=== PATIENT | male | born 1935 | race Caucasian/White ===

== ENCOUNTER 2016-12-06 17:15 | Inpatient (IN) | payer MEDICARE ==
[~2016-12-06] VITALS: Ht 172.7 cm; Wt 79.2 kg
[~2016-12-06 17:15] MED LIST: ADVA250A INH; APIX2.5T PO; ARIC5TAB PO; ATOR20TA PO; FURO20TA PO; LEVEMIR SQ; LISI-366 PO; NORV10TA PO; PHEN100 PO; PHEN64.8 PO; POTA10IN2 PO; SYMB160A INH; TERA2CAP3 PO
[2016-12-06 17:17] VITALS: BP 172/72; PULSE 82; RESP 40; TEMP 98.8; O2SAT 99
--- NOTE | 2016-12-06 17:24 | PD ---
Physical Exam Time Seen by Provider: 17:23 Narrative 80 y/o male here with shortness of breath, L foot ulcer, bilateral LE edema. His urine also looks dark according to family member. Vital signs reviewed. Seen at triage desk. Awaiting bed placement. Data Data Last Documented VS Vital Signs Date Time Temp Pulse Resp B/P Pulse Ox O2 Delivery O2 Flow Rate FiO2 12/06/16 17:17 98.8 82 40 172/72 99 Room Air [facility] Medical Record Reviewed: Yes Supervised Visit with STEPHAN: Juan Collier Dec 06, 2016 17:24
[2016-12-06] MEDS ORDERED: LEVEMIR SQ (17:49)
[2016-12-06] MEDS ORDERED: AMLO10TA2 PO (17:49)
[2016-12-06] MEDS ORDERED: SYMB80AE INH (17:49)
[2016-12-06] MEDS ORDERED: FURO1TAB60 PO (17:49)
[2016-12-06] MEDS ORDERED: ATOR20TA15 PO (17:49)
[2016-12-06] MEDS ORDERED: TERA1CAP3 PO (17:49)
[2016-12-06] MEDS ORDERED: DILA100C PO (17:49)
[2016-12-06] MEDS ORDERED: ASPI81TA81 (17:49)
[2016-12-06] MEDS ORDERED: LISI40TA PO (17:49)
[2016-12-06] MEDS ORDERED: ALBUAER3 INH (17:49)
--- NOTE | 2016-12-06 17:54 | PD ---
HPI Chief Complaint: Respiratory Distress Time Seen by Provider: 17:50 Travel History International Travel<30 days: No Contact w/Intl Traveler<30days: No Traveled to known affect area: No History of Present Illness HPI 80-year-old male with PMH of CVA, COPD, CHF, DM, HTN, HLD, A. fib, seizures, aortic stenosis presents to the ED for evaluation of 1 week history of increasing shortness of breath and bilateral lower extremity edema. Gradual onset. Patient also endorses productive cough. He denies fevers, chills, nausea, vomiting, abdominal pain, dysuria. Also complains of 1 month history of wound of the left foot. States the wound has become more painful over time. is at bedside and states that the patient's urine looks dark today as well. Patient has not seen his primary care, is in the midst of changing doctors. He endorses compliance with his daily Lasix. PFSH Past Medical History Arthritis: Yes (FEET) Asthma: No Blood Disorders: No Anxiety: No Depression: Yes (OCCASIONAL) Cancer: No Cardiovascular Problems: Yes ([place]) COPD: Yes Cerebrovascular Accident: Yes Diabetes: Yes Patient Takes Glucophage: No Endocrine: No Gastrointestinal Disorders: Yes GERD: Yes Genitourinary: No Hepatitis: No Hiatal Hernia: No Immune Disorder: No Musculoskeletal: Yes Neurologic: No Psychiatric: Yes Reproductive: No Respiratory: Yes Sleep Apnea: No Ulcer: No Past Surgical History Appendectomy: No Cholecystectomy: Yes (PT STATES HALF GALLBLADDER REMOVED.) Pacemaker: No Social History Alcohol Use: No Tobacco Use: No (QUIT 2008) Substance Use: No Allergies-Medications (Allergen,Severity, Reaction): Coded Allergies: No Known Allergies (Verified , 10/11/15) Reported Meds & Prescriptions Reported Meds & Active Scripts Active Reported Levemir Inj (Insulin Detemir) 1,000 unit/ 10 ML Vial 6 Units SQ HS Do not mix with any other Insulin. Aspir-81 (Aspirin) 81 Mg Tabdr 81 DAILY Symbicort Inh (Budesonide/Formoterol Fumarate) 80-4.5 Mcg/Act Aero 2 Puff INH Q12HR Proair Hfa 8.5 GM Inh (Albuterol Sulfate) 90 Mcg/Act Aer 2 Puff INH Q4-6H PRN 108 mcg/actuation Lisinopril 40 Mg Tab 40 Mg PO DAILY Dilantin (Phenytoin Extended) 100 Mg Cap 100 Mg PO BID Lasix (Furosemide) 40 Mg Tab 40 Mg PO BID Terazosin (Terazosin HCl) 1 Mg Cap 1 Mg PO HS Amlodipine (Amlodipine Besylate) 10 Mg Tab 10 Mg PO DAILY Atorvastatin (Atorvastatin Calcium) 20 Mg Tab 20 Mg PO HS Review of Systems Except as stated in HPI: all other systems reviewed are Neg Physical Exam Narrative GENERAL: Frail elderly white male appearing older than his stated age in no acute distress. SKIN: Focused skin assessment warm/dry. There is a diabetic foot ulcer on the lateral aspect of the left foot. The foot is erythematous, tender and warm to the mid ankle. HEAD: Normocephalic. EYES: No scleral icterus. No injection or drainage. NECK: Supple, trachea midline. No JVD or lymphadenopathy. CARDIOVASCULAR: Regular rate and rhythm without murmurs, gallops, or rubs. RESPIRATORY: Decreased breath sounds bilaterally. No accessory muscle use. GASTROINTESTINAL: Abdomen soft, non-tender, nondistended. Active bowel sounds. RECTAL EXAM: No masses or tenderness, stool is brown. Guaiac positive. MUSCULOSKELETAL: No cyanosis. Pitting edema of the bilateral lower extremities, right greater than left. Homans sign negative bilaterally. BACK: Nontender without obvious deformity. No CVA tenderness. Data Data Last Documented VS Vital Signs Date Time Temp Pulse Resp B/P Pulse Ox O2 Delivery O2 Flow Rate FiO2 12/06/16 19:09 72 18 191/92 100 Nasal Cannula 4 12/06/16 17:17 98.8 Orders Complete Blood Count With Diff (12/06/16 17:47) Comprehensive Metabolic Panel (12/06/16 17:47) B-Type Natriuretic Peptide (12/06/16 17:47) Act Partial Throm Time (Ptt) (12/06/16 17:47) Prothrombin Time / Inr (Pt) (12/06/16 17:47) Magnesium (Mg) (12/06/16 17:47) Ckmb (Isoenzyme) Profile (12/06/16 17:47) Troponin I (12/06/16 17:47) Urinalysis - C+S If Indicated (12/06/16 17:47) Iv Access Insert/Monitor (12/06/16 17:47) Electrocardiogram (12/06/16 17:47) Ecg Monitoring (12/06/16 17:47) Oximetry (12/06/16 17:47) Oxygen Administration (12/06/16 17:47) Chest, Single Ap (12/06/16 17:47) Sodium Chloride 0.9% Flush (Ns Flush) (12/06/16 18:00) Methylprednisolone So Succ Inj (Solumedr (12/06/16 18:00) Albuterol-Ipratropium Neb (Duoneb Neb) (12/06/16 18:00) Foot, Limited (2vws) (12/06/16 17:47) Wound Culture And Gram Stain (12/06/16 17:47) CKMB (12/06/16 17:50) CKMB% (12/06/16 17:50) Morphine Inj (Morphine Inj) (12/06/16 19:15) Blood Culture (12/06/16 19:03) Vancomycin Inj (Vancomycin Inj) (12/06/16 19:15) Piperacil-Tazo 2.25 Gm Premix (Zosyn 2.2 (12/06/16 19:15) Mri Foot W/O Contrast (12/06/16 ) Consult Podiatry (12/06/16 ) (Hub Use Only)Inp Phy Cons/Ref (12/06/16 ) Npo After Midnight W/ Po Meds (12/07/16 Breakfast) Consent (12/06/16 20:07) Admit Order (Ed Use Only) (12/06/16 20:33) Labs Laboratory Tests Test 12/06/16 17:50 White Blood Count 25.2 TH/MM3 Red Blood Count 3.67 MIL/MM3 Hemoglobin 8.5 GM/DL Hematocrit 25.9 % Mean Corpuscular Volume 70.4 FL Mean Corpuscular Hemoglobin 23.1 PG Mean Corpuscular Hemoglobin 32.7 % Concent Red Cell Distribution Width 17.0 % Platelet Count 173 TH/MM3 Mean Platelet Volume 8.0 FL Neutrophils (%) (Auto) 88.9 % Lymphocytes (%) (Auto) 2.8 % Monocytes (%) (Auto) 8.1 % Eosinophils (%) (Auto) 0.0 % Basophils (%) (Auto) 0.2 % Neutrophils # (Auto) 22.4 TH/MM3 Lymphocytes # (Auto) 0.7 TH/MM3 Monocytes # (Auto) 2.0 TH/MM3 Eosinophils # (Auto) 0.0 TH/MM3 Basophils # (Auto) 0.0 TH/MM3 CBC Comment DIFF FINAL Differential Comment Prothrombin Time 12.6 SEC Prothromb Time International 1.1 RATIO Ratio Activated Partial 35.0 SEC Thromboplast Time Sodium Level 126 MEQ/L Potassium Level 5.4 MEQ/L Chloride Level 95 MEQ/L Carbon Dioxide Level 14.7 MEQ/L Anion Gap 16 MEQ/L Blood Urea Nitrogen 73 MG/DL Creatinine 3.86 MG/DL Estimat Glomerular Filtration 15 ML/MIN Rate Random Glucose 112 MG/DL Calcium Level 8.3 MG/DL Magnesium Level 1.6 MG/DL Total Bilirubin 0.5 MG/DL Aspartate Amino Transf 39 U/L (AST/SGOT) Alanine Aminotransferase 17 U/L (ALT/SGPT) Alkaline Phosphatase 147 U/L Total Creatine Kinase 687 U/L Creatine Kinase MB 21.3 NG/ML Creatine Kinase MB % 3.1 % Troponin I 0.05 NG/ML B-Type Natriuretic Peptide 326 PG/ML Total Protein 6.4 GM/DL Albumin 3.0 GM/DL MDM Medical Decision Making Medical Screen Exam Complete: Yes Emergency Medical Condition: Yes Differential Diagnosis CHF versus pneumonia versus COPD exacerbation versus cellulitis versus osteomyelitis versus UTI Narrative Course 80-year-old male with PMH of CVA, COPD, CHF, DM, HTN, HLD, A. fib, seizures, aortic stenosis presents to the ED for evaluation of 1 week history of increasing shortness of breath and bilateral lower extremity edema. Gradual onset. Patient also endorses productive cough. He denies fevers, chills, nausea, vomiting, abdominal pain, dysuria. Also complains of 1 month history of wound of the left foot. Patient is afebrile, hypertensive, tachypneic and hypoxic on presentation. Physical exam reveals an ill-appearing white male in no acute distress. Very minimal breath sounds bilaterally. 2+ pitting edema in the bilateral lower extremities, left greater than right. Old sign negative bilaterally. Palpable DP pulses bilaterally. There is a 1 cm wound on the dorsal aspect of the left foot, near the MTP joint. There is blistering on the top of the foot and erythema to the mid ankle. Guaiac positive on rectal exam. Wound culture was obtained. Patient was administered half liter of normal saline, 4 mg morphine IV, Solu-Medrol and DuoNeb 3. O2 sats 92-99 on 4 L by nasal cannula. CBC: WBC 25.2 with a left shift. Hemoglobin 8.5 INR 1.1. CMP: Sodium 126, chloride 95, BUN 73, creatinine 3.86. Chest x-ray right atelectasis versus airspace disease per radiology read.. Cardiac enzymes negative 1. EKG: Rate 71, A. fib, no ST elevation or depression. Reviewed by Dr. Aranda. BNP: 326 Left foot x-ray: No osteomyelitis. Soft tissue emphysema and around the fifth MTP soft tissues. Gas-forming organism should be excluded per radiology read. Blood cultures were obtained. Patient was administered vancomycin and Zosyn. Dr. Gardiner saw the patient in the emergency room and plans fifth ray amputation tomorrow. MRI without contrast ordered. Dr. Aranda spoke with the residents who agree to accept the patient to the medicine service under Dr. Hernandez. Please see medicine and podiatry notes for disposition. HemaPrompt Point of Care Internal Pos. & Neg. Controls: Passed Fecal Specimen Occult Blood: Positive Nayeli Vee Dec 06, 2016 17:53
[2016-12-06 18:00] VITALS: O2SAT 99
[2016-12-06] MEDS ORDERED: methylPREDNISolone SOD SUCC 125 MG/2 ML VIAL IVP ONE (18:00)
[2016-12-06] MEDS ORDERED: SODIUM CHLORIDE 0.9% FLUSH 10 ML FLUSH IVF PRN (18:00)
[2016-12-06] MEDS: RESP: ALBUTEROL 2.5 MG/IPRATROPIUM 0.5 MG NEB (SCH) INH (18:31)
[2016-12-06 18:32] VITALS: O2SAT 92
--- NOTE | 2016-12-06 18:39 | RADRPT ---
EXAM DATE/TIME: 12/06/2016 18:06 [facility] COMPARISON: CHEST SINGLE AP, October 11, 2015, 20:41. INDICATIONS : Syncope MEDICAL HISTORY : Cardiovascular disease. Diabetes mellitus type II. SURGICAL HISTORY : Cardiac stents ENCOUNTER: Initial ACUITY: 1 day PAIN SCORE: Non-responsive. LOCATION: Bilateral chest FINDINGS: There is streaky atelectasis versus airspace disease in the right lower lobe. Cardiomegaly. Left lung is clear. Osseous structures are intact. CONCLUSION: Right basilar atelectasis versus airspace disease. Dean Burton MD on December 06, 2016 at 18:37 Board Certified Radiologist. This report was verified electronically.
--- NOTE | 2016-12-06 18:40 | RADRPT ---
EXAM DATE/TIME: 12/06/2016 18:08 [facility] COMPARISON: No previous studies available for comparison. INDICATIONS : Diabetic lesion, left foot MEDICAL HISTORY : Diabetes mellitus type II. Cardiovascular disease. SURGICAL HISTORY : Cardiac stents ENCOUNTER: Initial ACUITY: 4 - 6 days PAIN SCORE: Non-responsive. LOCATION: Left distal metatarsal FINDINGS: There is soft tissue emphysema seen surrounding the fifth MTP joint and at the level of the joint. Ob vious cortical destruction is difficult to assess. The possibility of infection with a gas-forming or ganism is difficult to exclude. CONCLUSION: No obvious bone destruction at this time. Soft tissue emphysema is noted in and around the fifth MTP joint soft tissues. The possibility of infection with gas-forming organism should be excluded. Dean Burton MD on December 06, 2016 at 18:37 Board Certified Radiologist. This report was verified electronically.
[2016-12-06 18:46] LABS: AUTOMATED NEUTROPHIL # 22.4 TH/MM3 (1.8-7.7); BASOPHIL % 0.2 % (0.0-2.0); HEMATOCRIT 25.9 % (39.0-51.0); HEMO FLAGS DIFF FINAL; LYMPH % 2.8 % (9.0-44.0); LYMPHOCYTE # 0.7 TH/MM3 (1.0-4.8); MEAN CELL VOLUME 70.4 FL (80.0-100.0); MEAN CORPUSCULAR HEMOGLOBIN 23.1 PG (27.0-34.0); MEAN CORPUSCULAR HGB CONC 32.7 % (32.0-36.0); MONO % 8.1 % (0.0-8.0); NEUT % 88.9 % (16.0-70.0); PLATELET COUNT 173 TH/MM3 (150-450); RED BLOOD COUNT 3.67 MIL/MM3 (4.50-5.90); WHITE BLOOD COUNT 25.2 TH/MM3 (4.0-11.0)
[2016-12-06 18:54] LABS: INTERNATIONAL NORMALIZED RATIO 1.1 RATIO; PROTHROMBIN TIME - PATIENT 12.6 SEC (9.8-11.6)
[2016-12-06 18:57] LABS: ALT (GPT) 17 U/L (12-78); ANION GAP 16 MEQ/L (5-15); AST (GOT) 39 U/L (15-37); BICARBONATE 14.7 MEQ/L (21.0-32.0); BLOOD UREA NITROGEN 73 MG/DL (7-18); CHLORIDE 95 MEQ/L (98-107); GLOMERULAR FILTRATION RATE 15 ML/MIN (>89); MAGNESIUM 1.6 MG/DL (1.5-2.5); POTASSIUM 5.4 MEQ/L (3.5-5.1); SODIUM (NA) 126 MEQ/L (136-145)
[2016-12-06 19:00] LABS: ALKALINE PHOSPHATASE 147 U/L (45-117); CREATINE KINASE 687 U/L (39-308); TOTAL BILIRUBIN ADULT 0.5 MG/DL (0.2-1.0)
[2016-12-06 19:09] VITALS: BP 191/92; PULSE 72; RESP 18; O2SAT 100
[2016-12-06 19:13] LABS: CKMB 21.3 NG/ML (0.5-3.6)
[2016-12-06] MEDS ORDERED: MORPHINE SULFATE 4 MG/ML INJ IV PUSH ONE (19:15)
[2016-12-06] MEDS ORDERED: VANCOMYCIN INJ 1,250 MG in SODIUM CHLOR 0.9% 250 ML INJ 250 ML IV ONE (19:15)
[2016-12-06] MEDS ORDERED: PIPERACIL-TAZO 2.25 GM PREMIX 50 ML IV ONE (19:15)
--- NOTE | 2016-12-06 19:23 | PD ---
Data Data Last Documented VS Vital Signs Date Time Temp Pulse Resp B/P Pulse Ox O2 Delivery O2 Flow Rate FiO2 12/06/16 19:09 72 18 191/92 100 Nasal Cannula 4 12/06/16:17 98.8 Orders Complete Blood Count With Diff (12/06/16 17:47) Comprehensive Metabolic Panel (12/06/16 17:47) B-Type Natriuretic Peptide (12/06/16 17:47) Act Partial Throm Time (Ptt) (12/06/16 17:47) Prothrombin Time / Inr (Pt) (12/06/16 17:47) Magnesium (Mg) (12/06/16 17:47) Ckmb (Isoenzyme) Profile (12/06/16 17:47) Troponin I (12/06/16 17:47) Urinalysis - C+S If Indicated (12/06/16 17:47) Iv Access Insert/Monitor (12/06/16 17:47) Electrocardiogram (12/06/16 17:47) Ecg Monitoring (12/06/16 17:47) Oximetry (12/06/16 17:47) Oxygen Administration (12/06/16 17:47) Chest, Single Ap (12/06/16 17:47) Sodium Chloride 0.9% Flush (Ns Flush) (12/06/16 18:00) Methylprednisolone So Succ Inj (Solumedr (12/06/16 18:00) Albuterol-Ipratropium Neb (Duoneb Neb) (12/06/16 18:00) Foot, Limited (2vws) (12/06/16 17:47) Wound Culture And Gram Stain (12/06/16 17:47) CKMB (12/06/16 17:50) CKMB% (12/06/16 17:50) Morphine Inj (Morphine Inj) (12/06/16 19:15) Blood Culture (12/06/16 19:03) Vancomycin Inj (Vancomycin Inj) (12/06/16 19:15) Piperacil-Tazo 2.25 Gm Premix (Zosyn 2.2 (12/06/16 19:15) Mri Foot W/O Contrast (12/06/16 ) Consult Podiatry (12/06/16 ) (Hub Use Only)Inp Phy Cons/Ref (12/06/16 ) Consent (12/06/16 20:07) Admit Order (Ed Use Only) (12/06/16 20:33) Labs Laboratory Tests Test 12/06/16 17:50 White Blood Count 25.2 TH/MM3 Red Blood Count 3.67 MIL/MM3 Hemoglobin 8.5 GM/DL Hematocrit 25.9 % Mean Corpuscular Volume 70.4 FL Mean Corpuscular Hemoglobin 23.1 PG Mean Corpuscular Hemoglobin 32.7 % Concent Red Cell Distribution Width 17.0 % Platelet Count 173 TH/MM3 Mean Platelet Volume 8.0 FL Neutrophils (%) (Auto) 88.9 % Lymphocytes (%) (Auto) 2.8 % Monocytes (%) (Auto) 8.1 % Eosinophils (%) (Auto) 0.0 % Basophils (%) (Auto) 0.2 % Neutrophils # (Auto) 22.4 TH/MM3 Lymphocytes # (Auto) 0.7 TH/MM3 Monocytes # (Auto) 2.0 TH/MM3 Eosinophils # (Auto) 0.0 TH/MM3 Basophils # (Auto) 0.0 TH/MM3 CBC Comment DIFF FINAL Differential Comment Prothrombin Time 12.6 SEC Prothromb Time International 1.1 RATIO Ratio Activated Partial 35.0 SEC Thromboplast Time Sodium Level 126 MEQ/L Potassium Level 5.4 MEQ/L Chloride Level 95 MEQ/L Carbon Dioxide Level 14.7 MEQ/L Anion Gap 16 MEQ/L Blood Urea Nitrogen 73 MG/DL Creatinine 3.86 MG/DL Estimat Glomerular Filtration 15 ML/MIN Rate Random Glucose 112 MG/DL Calcium Level 8.3 MG/DL Magnesium Level 1.6 MG/DL Total Bilirubin 0.5 MG/DL Aspartate Amino Transf 39 U/L (AST/SGOT) Alanine Aminotransferase 17 U/L (ALT/SGPT) Alkaline Phosphatase 147 U/L Total Creatine Kinase 687 U/L Creatine Kinase MB 21.3 NG/ML Creatine Kinase MB % 3.1 % Troponin I 0.05 NG/ML B-Type Natriuretic Peptide 326 PG/ML Total Protein 6.4 GM/DL Albumin 3.0 GM/DL [facility] Medical Record Reviewed: Yes Supervised Visit with STEPHAN: Yes Narrative Course CBC & BMP Diagram 12/06/16 17:50 Total CK 687 Tn 0.05 AG 14 Last 24 hours Impressions Foot X-Ray 12/06/16 [id number] Signed Impressions: Service Date/Time: November 18:08 - CONCLUSION: No obvious bone destruction at this time. Soft tissue emphysema is noted in and around the fifth MTP joint soft tissues. The possibility of infection with gas-forming organism should be excluded. Dean Burton MD Chest X-Ray 12/06/16 [id number] Signed Impressions: Service Date/Time: November 18:06 - CONCLUSION: Right basilar atelectasis versus airspace disease. Dean Burton MD Pt has possible L foot osteomyelitis and possible cellulitis gas forming organism. Vanco and renal dosed Zosyn started. Pt will be admitted for IV abx and podiatry evaluation. Case d/w Dr Gardiner by mt at 725pm; Dr Gardiner will evaluation the patient in the ER [facility]. Case d/w Dr Serrano. Case d/w Dr Crews. Sepsis Criteria SIRS Criteria (2 or more): RR > 20 or PaCO2 < 32, WBC > 08627, < 4000 or > 10 % bands Sepsis Criteria (SIRS+source): Infect source susp/known Diagnosis Primary Impression: Gas gangrene of foot Additional Impression: Dyspnea Qualified Code: R06.00 - Dyspnea, unspecified type Admitting Information Admitting Physician Requests: Admit Chuy Aranda MD Dec 06, 2016 19:23
[2016-12-06] MEDS ORDERED: GLUCAGON 1 MG/ML VIAL OTHER PRN (21:15)
[2016-12-06] MEDS ORDERED: BISACODYL 10 MG SUPP RECTAL PRN (21:15)
[2016-12-06] MEDS ORDERED: NALOXONE HCL 0.4 MG/ML AMP IV PRN (21:15)
[2016-12-06] MEDS ORDERED: MAGNESIUM HYDROXIDE SUSP 30 ML CUP PO PRN (21:15)
[2016-12-06] MEDS ORDERED: DEXTROSE 50% IN WATER 50 ML VIAL(D50) IV PRN (21:15)
[2016-12-06] MEDS ORDERED: SODIUM CHLORIDE 0.9% FLUSH 10 ML FLUSH IV FLUSH PRN (21:15)
[2016-12-06] MEDS ORDERED: LACTULOSE SYRUP 20 GM/30 ML CUP PO PRN (21:15)
[2016-12-06] MEDS ORDERED: ACETAMINOPHEN 325 MG TAB PO PRN (21:15)
[2016-12-06] MEDS ORDERED: ONDANSETRON HCL 4 MG/2 ML VIAL IVP PRN (21:15)
[2016-12-06] MEDS ORDERED: SENNOSIDES 8.6 MG TAB PO PRN (21:15)
[2016-12-06] MEDS ORDERED: LORazepam 1 MG TAB PO PRN (21:30)
[2016-12-06] MEDS ORDERED: FLUMAZENIL 0.5 MG/5 ML VIAL IV PUSH PRN (21:30)
[2016-12-06] MEDS ORDERED: LORazepam 2 MG TAB PO PRN (21:30)
[2016-12-06] MEDS ORDERED: LORazepam 2 MG/ML VIAL IV PUSH PRN ×2 (21:30)
[2016-12-06] MEDS: SODIUM CHLOR 0.9% 1000 ML INJ 1,000 ML IV SCH (21:36)
[2016-12-06] MEDS ORDERED: ALBUTEROL SULFATE 90 MCG/ACT HFA 18 GM INHALER INH PRN (21:45)
[2016-12-06 22:14] VITALS: BP 182/77; PULSE 82; RESP 18; O2SAT 100
--- NOTE | 2016-12-06 22:35 | HHI.HP ---
HPI Service Family Medicine Primary Care Physician Tae Hoskins MD Admission Diagnosis L Foot Infection Poss Gas Gangrene; MIKE; Anemia; Dyspnea Diagnoses: International Travel<30 Days: No Contact w/Intl Traveler<30days: No Known Affected Area: No History of Present Illness Mr. Kerr is a 80 yo WM who is being admitted for likely surgery and L 5th toe amputation due to cellulitis and gangrene. Pt is a poor historian (unable to recall any medical history or medications during interview) and history provided by his GF Torri Felder. She states that about 1 month ago they noticed a "callous" on the lateral aspect of his L foot. They tried treating it with peroxide but over the next several weeks the wound began to worsen. He began to experience pain and swelling about about 4 days prior to presentation a wound formed that had purulent and bloody drainage. 1 day prior to presentation he reportedly almost fell, sliding down a wall to prevent from falling. Ms. Wild states that he did not lose consciousness. 911 was called but ultimately the patient decided to remain at home and he was brought to the ED today by Ms. Wild. Denies fevers, chills. Of note: patient has been having tea colored urine recently despite increase in fluid intake. Pt has a history of bladder cancer (surgery 3 years ago) and UTI' s. Denied dysuria Also noted to have increased abdominal girth, peripheral edema and above baseline SOB. Denied new cough, change in sputum production (normally clear and only in the AM) (Walter Duffy MD R1) Review of Systems Constitutional: COMPLAINS OF: Weight gain (stomach bloated ), Dizziness, DENIES: Fever, Night Sweats Endocrine: COMPLAINS OF: Polydipsia, Polyuria Eyes: DENIES: Blurred vision Ears, nose, mouth, throat: COMPLAINS OF: Running Nose, DENIES: Throat pain Respiratory: COMPLAINS OF: Cough (chronic), Sputum production (chronic - clear) , Shortness of breath (worse over last few days) Cardiovascular: COMPLAINS OF: Lower Extremity Edema, Orthopnea (chronic), DENIES: Chest pain, Syncope Gastrointestinal: DENIES: Abdominal pain, Black stools, Bloody stools, Constipation, Diarrhea, Nausea, Vomiting Genitourinary: COMPLAINS OF: Hematuria (tea colored), DENIES: Dysuria Neurologic: DENIES: Headache, Poor Balance (Walter Duffy MD R1) Past Family Social History Past Medical History COPD DM requiring insulin Stroke CAD - two stents placed CHF Bladder cancer A fib - rate controlled Seizures Past Surgical History Bladder Cancer: tumor removal 2 cardiac stents Reported Medications Reported Meds & Active Scripts Active Reported Levemir Inj (Insulin Detemir) 1,000 unit/ 10 ML Vial 6 Units SQ HS Do not mix with any other Insulin. Aspir-81 (Aspirin) 81 Mg Tabdr 81 DAILY Symbicort Inh (Budesonide/Formoterol Fumarate) 80-4.5 Mcg/Act Aero 2 Puff INH Q12HR Proair Hfa 8.5 GM Inh (Albuterol Sulfate) 90 Mcg/Act Aer 2 Puff INH Q4-6H PRN 108 mcg/actuation Lisinopril 40 Mg Tab 40 Mg PO DAILY Dilantin (Phenytoin Extended) 100 Mg Cap 100 Mg PO BID Lasix (Furosemide) 40 Mg Tab 40 Mg PO BID Terazosin (Terazosin HCl) 1 Mg Cap 1 Mg PO HS Amlodipine (Amlodipine Besylate) 10 Mg Tab 10 Mg PO DAILY Atorvastatin (Atorvastatin Calcium) 20 Mg Tab 20 Mg PO HS (Walter Duffy MD R1) Allergies: Coded Allergies: No Known Allergies (Verified , 10/11/15) Active Ordered Medications Current Medications Medications (Trade) Dose Ordered Sig/Barbara Route Start Time Stop Time Status Last Admin (NS Flush) 2 ml UNSCH PRN IV FLUSH 12/06/16 21:15 (NS Flush) 2 ml BID IV FLUSH 12/07/16 09:00 (Tylenol) 650 mg Q4H PRN PO 12/06/16 21:15 (Zofran Inj) 4 mg Q6H PRN IVP 12/06/16 21:15 (Narcan Inj) 0.4 mg UNSCH PRN IV 12/06/16 21:15 (Christine-Colace) 1 tab BID PO 12/07/16 09:00 (Milk Of Magnesia Liq) 30 ml Q12H PRN PO 12/06/16 21:15 (Senokot) 17.2 mg Q12H PRN PO 12/06/16 21:15 (Dulcolax Supp) 10 mg DAILY PRN RECTAL 12/06/16 21:15 (Lactulose Liq) 30 ml DAILY PRN PO 12/06/16 21:15 (D50w (Vial) Inj) 50 ml UNSCH PRN IV 12/06/16 21:15 Glucagon 1 mg 1 mg UNSCH PRN OTHER 12/06/16 21:15 (NS 1000 ml Inj) 1,000 ml @ 125 mls/hr Q8H IV 12/06/16 21:14 12/06/16 21:36 (Folate) 1 mg DAILY PO 12/07/16 09:00 12/12/16 08:59 (Vitamin B1) 100 mg DAILY PO 12/07/16 09:00 (Theragran M Tab) 1 tab DAILY PO 12/07/16 09:00 12/12/16 08:59 (Romazicon Inj) 0.2 mg Q1M PRN IV PUSH 12/06/16 21:30 (Ativan) 1 mg Q4H PRN PO 12/06/16 21:30 (Ativan) 2 mg Q2H PRN PO 12/06/16 21:30 12/06/16 22:45 (Ativan Inj) 2 mg Q1H PRN IV PUSH 12/06/16 21:30 (Ativan Inj) 2 mg Q15M PRN IV PUSH 12/06/16 21:30 (Ventolin Hfa Inh) 2 puff Q4HR PRN INH 12/06/16 21:45 (Norvasc) 10 mg DAILY PO 12/07/16 09:00 (Lipitor) 20 mg HS PO 12/07/16 21:00 (Symbicort 80-4.5 Mcg Inh) 2 puff Q12HR INH 12/07/16 09:00 (Lasix) 40 mg BID PO 12/07/16 09:00 (Dilantin) 100 mg BID PO 12/07/16 09:00 (Hytrin) 1 mg HS PO 12/07/16 21:00 (Prinivil) 40 mg DAILY PO 12/07/16 09:00 Aspirin 81 mg 81 mg DAILY CHEW 12/07/16 09:00 Vancomycin HCl 1250 mg/Sodium Chloride 262.5 ml @ 262.5 mls/ hr Q48H IV 12/08/16 19:00 (Zosyn 2.25 Gm Premix) 50 ml @ 100 mls/hr Q8H IV 12/07/16 03:00 (Catapres) 0.1 mg Q6H PRN PO 12/06/16 23:15 Family History Father: DM, CAD Brother: DM Social History Lives with his GF and one of her sons Alcohol - former heavy drinker Tobacco - former smoker. Used to smoke 2 ppd for > 50 years Drugs - no illicit drug use (Walter Duffy MD R1) Physical Exam Vital Signs Vital Signs Date Time Temp Pulse Resp B/P Pulse Ox O2 Delivery O2 Flow Rate FiO2 12/06/16 22:14 82 18 182/77 100 Nasal Cannula 4 12/06/16 19:09 72 18 191/92 100 Nasal Cannula 4 12/06/16 18:32 92 Nasal Cannula 4.00 12/06/16 18:00 99 12/06/16 18:00 Nasal Cannula 2 12/06/16 17:34 Nasal Cannula 2 12/06/16 17:17 98.8 82 40 172/72 99 Room Air Physical Exam GENERAL: Elderly WM seen laying back in bed in NAD - unlabored breathing SKIN: No jaundice, palmar erythema, 1 cm deep ulcer on the lateral aspect of the L foot slightly proximal to the 5th toe - small amount of serous fluid draining. no purulent or sanguineous drainage. Erythematous, blanching skin along the lateral, dorsal aspect of the L foot. Blood blister also noted on the dorsal aspect of this foot along the base of his toes. HEAD: Atraumatic. Normocephalic. EYES: Pupils equal round and reactive. Extraocular motions intact. No scleral icterus. Pale conjunctiva ENT: Nose without bleeding, purulent drainage or septal hematoma. Throat without erythema, tonsillar hypertrophy or exudate. Uvula midline. Airway patent. NECK: Trachea midline. No JVD or lymphadenopathy. Supple, nontender, no meningeal signs. CARDIOVASCULAR: Regular rate and rhythm without murmurs, gallops, or rubs. RESPIRATORY: Diffuse expiratory wheezing. Good air movement bilaterally, no crackles appreciated. GASTROINTESTINAL: Abdomen soft, non-tender. Distended. Liver tip palpated 2-3 inches below the inferior costal margin. No guarding. No appreciated fluid wave MUSCULOSKELETAL: Bilateral peripheral edema appreciated to level of proximal tibial plateau. No calf tenderness. NEUROLOGICAL: Awake and alert. Only oriented to place and self, not to time or situation. Motor and sensory grossly within normal limits. Normal speech. Laboratory Laboratory Tests Test 12/06/16 17:50 White Blood Count 25.2 Red Blood Count 3.67 Hemoglobin 8.5 Hematocrit 25.9 Mean Corpuscular Volume 70.4 Mean Corpuscular Hemoglobin 23.1 Mean Corpuscular Hemoglobin 32.7 Concent Red Cell Distribution Width 17.0 Platelet Count 173 Mean Platelet Volume 8.0 Neutrophils (%) (Auto) 88.9 Lymphocytes (%) (Auto) 2.8 Monocytes (%) (Auto) 8.1 Eosinophils (%) (Auto) 0.0 Basophils (%) (Auto) 0.2 Neutrophils # (Auto) 22.4 Lymphocytes # (Auto) 0.7 Monocytes # (Auto) 2.0 Eosinophils # (Auto) 0.0 Basophils # (Auto) 0.0 CBC Comment DIFF FINAL Differential Comment Prothrombin Time 12.6 Prothromb Time International 1.1 Ratio Activated Partial 35.0 Thromboplast Time Sodium Level 126 Potassium Level 5.4 Chloride Level 95 Carbon Dioxide Level 14.7 Anion Gap 16 Blood Urea Nitrogen 73 Creatinine 3.86 Estimat Glomerular Filtration 15 Rate Random Glucose 112 Calcium Level 8.3 Magnesium Level 1.6 Total Bilirubin 0.5 Aspartate Amino Transf 39 (AST/SGOT) Alanine Aminotransferase 17 (ALT/SGPT) Alkaline Phosphatase 147 Total Creatine Kinase 687 Creatine Kinase MB 21.3 Creatine Kinase MB % 3.1 Troponin I 0.05 B-Type Natriuretic Peptide 326 Total Protein 6.4 Albumin 3.0 Date/Time Procedure Status Source Growth 12/06/16 19:45 Gram Stain Received Wound Foot Pending 12/06/16 19:45 Wound Culture Received Wound Foot Pending 12/06/16 19:15 Aerobic Blood Culture Received Blood Line Pending 12/06/16 19:15 Anaerobic Blood Culture Received Blood Line Pending (Walter Duffy MD R1) Result Diagram: 12/06/16174912/06/16 1750 Imaging Last 24 hours Impressions Foot X-Ray 12/06/161746 Signed Impressions: Service Date/Time: November 18:08 - CONCLUSION: No obvious bone destruction at this time. Soft tissue emphysema is noted in and around the fifth MTP joint soft tissues. The possibility of infection with gas-forming organism should be excluded. Dean Burton MD Chest X-Ray 12/06/161746 Signed Impressions: Service Date/Time: November 18:06 - CONCLUSION: Right basilar atelectasis versus airspace disease. Dean Burton MD (Walter Duffy MD R1) Assessment and Plan Assessment and Plan Mr. Kerr is a 80 yo WM with PMH of COPD, DM, CAD, CHF and Bladder cancer who is presenting with L foot cellulitis w/ possible gangrene who is found to also have MIKE with gross hematuria, hyponatremia, hyperkalemia, ascites, GI bleed and AMS who will have L foot surgery with likely amputation through podiatry tomorrow. Code Status FULL CODE Discussed Condition With Discussed with Dr. Jaime Serrano (Walter Duffy MD R1) Attending Attestation THIS CASE WAS DISCUSSED WITH THE RESIDENT PHYSICIANS. I HAVE REVIEWED THE RECORD AND AGREE WITH THE ABOVE NOTE AND PLAN OF CARE WAS DISCUSSED. I HAVE AUTHORIZED THE ORDER FOR ADMISSION TO AN IN-PATIENT STATUS. (Tae Hoskins MD) Problem List: (1) Gas gangrene of foot Status: Acute Plan: Ulcer on lateral aspect of L foot just proximal to 5th toe in the setting of DM -Soft tissue emphysema found on XR around the 5th MTP joint -Podiatry consulted - surgery tomorrow with possible amputation -Wound, blood cultures pending -Started on Vanc 1250 mg q48hr (renally dosed) and zosyn 2.25 gm q8hr (both started 12/06) -consulted pharmacy for Vanc dosing - pt has renal impairment (2) Hyperkalemia Status: Acute Plan: K of 5.4, increased to 6.4 on repeat, asymptomatic currently, no new EKG changes - Calcium gluconate to stabilize cardiac myocytes - will give insulin and dextrose to drive potassium into the cells - Kayexalate 15mg x4 for sequestration of K - continue lasix 40 mg BID - holding DONALD inhibitor - repeat BMP after treatment (3) GI bleed Status: Acute Plan: Stool guaiac positive in the ED, H/H of 8.5/25.9, pale conjunctiva, otherwise asymptomatic, h/o alcohol abuse -Serial H/H's -GI consulted -Iron studies, B12, Folate ordered -Monitor vitals -PPI BID -holding Aspirin due to GI bleed, defer to GI on restarting (4) DM (diabetes mellitus) Status: Chronic Plan: Chronic, h/o of uncontrolled DM -Pt takes Levemir 6 units HS at home per historian - BG's reported to be in the low 200's -Low dose Sliding Scale w/ Novolog, titrate as needed -Regular glucose checks -F/u A1C (5) Acute renal failure Status: Acute Plan: Cr of 3.86 (elevated from 1.52 a year ago), CK elevated at 687, Gross Hematuria on UA -Urine culture pending -Renal ultrasound -R/o renal vascular disease -Urine eosinophils to r/o interstitial nephritis -Gentle fluids due to CHF (6) CHF (congestive heart failure) Status: Chronic Plan: BNP 326, worsening orthopnea, SOB, peripheral edema from baseline, cardiomegaly on CXR - Lasix 40mg BID - Fluid restriction when diet resumed - Na restriction - I/O's - Continue Lisinopril, not currently on beta ruth - Echo ordered (7) COPD (chronic obstructive pulmonary disease) Status: Chronic Plan: Worsening SOB from baseline, no sputum changes per history, requiring 3 L NC, wheezing on exam, likely SOB due to CHF rather than COPD exacerbation -Continuing home Albuterol inhaler - Duonebs q4hr - Given Solumedrol 125mg in ED - Can continue steroids if concerned for exacerbation -Supplemental O2 as needed to keep Sats above 90 (8) Hyponatremia Status: Acute Plan: Na 126 on admission, fluid overloaded on exam, hypervolemic hyponatremia , ddx cirrhosis vs CHF vs polydipsia vs SIADH - Hepatitis panel, CMP, Coag panel and liver u/s to assess for liver cirrhosis - see above for CHF treatment - Fluid restriction once diet resumed (9) Hypertension Status: Chronic Plan: BP 191/92 on admission down to 144/63, Denied CP, blurry vision or NOYOLA - Clonidine 0.1 mg q6hr PRN - Holding home Lisinopril due to MIKE and hyperkalemia (10) UTI (urinary tract infection) Status: Acute Plan: UA on admission with gross hematuria, leukocyte esterase, WBC and bacteria, h/o recurrent UTI's (Citrobacter Freundii sue sensitive in 2015) and bladder cancer - Continue vanc and zosyn - urine cultures pending - narrow coverage with urine culture results (11) Ascites Status: Acute Plan: above baseline abdominal girth per history, no fluid wave on exam, low albumin, no jaundice but does have palmar erythema and palpable liver edge and h /o alcohol abuse - Liver ultrasound ordered - coagulation studies, CMP, hepatitis panel ordered - have low threshold for SBP - may require paracentesis if ascites confirmed by u/s (12) Altered mental status Status: Acute (13) Seizure disorder Status: Chronic Plan: Continue home Dilantin (14) Atrial fibrillation Status: Chronic Plan: Rate controlled - currently HR of 72. -Continue home dose of Amlodipine -Not currently anticoagulated (15) CAD (coronary artery disease) Status: Chronic Plan: h/o CAD with 2 stents placed, takes Aspirin 81 mg daily at home, atorvastatin 20mg, no complaints of angina -continue home atorvastatin -holding Aspirin due to GI bleed (16) Nutrition, metabolism, and development symptoms Status: Acute Plan: NPO until surgery After surgery plan for renal diet with fluid restriction due to hyponatremia Hyperkalemia - see plan above (17) Contraindication to anticoagulation therapy Status: Acute Plan: holding anticoagulation due to GI bleed Bilateral SCDs (Walter Duffy MD R1) Physician Certification 2 Midnight Certification Type: Admission for Inpatient Services Order for Inpatient Services The services are ordered in accordance with Medicare regulations or non- Medicare payer requirements, as applicable. In the case of services not specified as inpatient-only, they are appropriately provided as inpatient services in accordance with the 2-midnight benchmark. Estimated LOS (days): 3 days is the estimated time the patient will need to remain in the hospital, assuming treatment plan goals are met and no additional complications. 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
[2016-12-06 22:37] VITALS: O2SAT 100
[2016-12-06 23:56] LABS: HEMATOCRIT 25.3 % (39.0-51.0)
[2016-12-07] VITALS (11 sets, daily range): BP systolic 121–191; BP diastolic 59–89; PULSE 56–89; RESP 16–20; TEMP 97.9–99.1; O2SAT 94–100
[2016-12-07 00:05] LABS: REVIEW FLAG FINAL
[2016-12-07 00:14] LABS: BACTERIA, URINE OCC /hpf; BLOOD, URINE LARGE (NEG); COMMENT (UR) CULTURE INDICATED; CULTURE IF INDICATED CULTURE INDICATED; GLUCOSE,URINE NEG (NEG); KETONE, URINE NEG (NEG); NITRITE,URINE NEG (NEG); PH, URINE 5.5 (5.0-8.5); SQUAMOUS EPITHELIAL CELL URINE 1 /hpf (0-5)
[2016-12-07 00:15] LABS: URINE COLOR RED (YELLW/STRAW)
[2016-12-07 00:29] LABS: BICARBONATE 15.8 MEQ/L (21.0-32.0)
[2016-12-07 00:30] LABS: POTASSIUM 6.4 MEQ/L (3.5-5.1)
[2016-12-07] MEDS ORDERED: DEXTROSE 50% IN WATER 50 ML VIAL(D50) IV PRN (00:45)
[2016-12-07] MEDS ORDERED: GLUCAGON 1 MG/ML VIAL OTHER PRN (00:45)
[2016-12-07] MEDS ORDERED: CALCIUM CHLORIDE 10% SOLN 1 GRAM/10 ML SYR IV ONE (02:30)
[2016-12-07] MEDS ORDERED: INSULIN HUMAN REGULAR 1,000 UNITS/10 ML VIAL IV PUSH ONE (02:30)
[2016-12-07] MEDS ORDERED: DEXTROSE 50% IN WATER 50 ML VIAL(D50) IV PUSH ONE (02:30)
[2016-12-07] MEDS: PIPERACIL-TAZO 2.25 GM PREMIX 50 ML IV SCH ×3 (03:21→19:00)
[2016-12-07] MEDS: PANTOPRAZOLE SODIUM 40 MG VIAL IV PUSH SCH ×2 (03:41→13:41)
[2016-12-07] MEDS: SODIUM POLYSTYRENE SULFONATE SUSP 15 GM/60 ML CUP PO SCH ×4 (03:43→18:00)
[2016-12-07 04:15] LABS: HEMATOCRIT 25.3 % (39.0-51.0); REVIEW FLAG FINAL
[2016-12-07 06:46] LABS: AUTOMATED NEUTROPHIL # 24.1 TH/MM3 (1.8-7.7); BASOPHIL % 0.1 % (0.0-2.0); HEMATOCRIT 25.6 % (39.0-51.0); LYMPH % 1.7 % (9.0-44.0); LYMPHOCYTE # 0.5 TH/MM3 (1.0-4.8); MEAN CELL VOLUME 70.2 FL (80.0-100.0); MEAN CORPUSCULAR HGB CONC 32.8 % (32.0-36.0); MONO % 8.2 % (0.0-8.0); PLATELET COUNT 176 TH/MM3 (150-450); RED BLOOD COUNT 3.65 MIL/MM3 (4.50-5.90); RED CELL DISTRIBUTION WIDTH 16.9 % (11.6-17.2); WHITE BLOOD COUNT 26.8 TH/MM3 (4.0-11.0)
[2016-12-07 06:48] LABS: APTT (PATIENT) 32.8 SEC (24.3-30.1); INTERNATIONAL NORMALIZED RATIO 1.1 RATIO; PROTHROMBIN TIME - PATIENT 12.6 SEC (9.8-11.6)
--- NOTE | 2016-12-07 06:52 | MB ---
cc: DAWNA LAGUNA DATE OF CONSULTATION 12/06/2016 REASON FOR CONSULTATION Possible gas gangrene infection of the left foot. HISTORY OF PRESENT ILLNESS This is a pleasant 80-year-old male who was actually seen for shortness of breath. Upon thorough evaluation he was noted to have an ulcer and possible gas starting in the distal left fifth MPJ. It appears to communicate with air. Chuy Aranda, the emergency room doctor called me and notified me of the results. Currently I am seeing the patient bedside. He is a poor historian. 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 Nails are severely elongated. He has very long berger. He appears unkempt. Upon reviewing outpatient medications, he is not the best historian. PHYSICAL EXAMINATION VITAL SIGNS: Temperature is 98.8, pulse rate 72, respiratory rate 18, blood pressure 191/92. He is sating 100% on 4 liters nasal cannula. GENERAL: This is an alert and oriented gentleman. He appears to be verbally appropriate and very [id number]. He is not the best historian. EXTREMITIES: The left foot is examined. There is noted to be edema and ecchymosis with a necrotic lesion distal plantar left fifth MPJ. It appears to communicate with air. There is a slight purple discoloration of the dorsal distal aspect of the lateral forefoot. Nails are extremely long and unkempt. Pulses are hard to palpate but the foot appears to be warm. There is no crepitus or instability upon range motion of the forefoot, hindfoot and ankle. LABORATORY FINDINGS White blood cells 25.2, hemoglobin/hematocrit 825, platelet count is 173. Chem-7: Sodium 126, potassium 5.4, chloride 95, CO2 14.7, BUN is 73, random glucose is 122. Coagulation profile - PT is 12.6, INR 1.1. Microbial Findings: Blood cultures ordered and pending. IMAGING FINDINGS Foot x-ray is positive for possible gas-forming organism at the fifth MPJ. There is no obvious bone or destructive lesions noted at this time. ASSESSMENT AND PLAN Left diabetic foot infection with ulcer with possible early forming gas organism. I reviewed the case with the patient in great detail. It appears he is showing signs of sepsis. The patient will need a fifth digit amputation and a fifth metatarsal resection to eradicate the infection. I am recommending an MRI to further include other bones to make sure there is no deeper signs of infection that cannot be seen on x-ray. I educated the and daughter via phone of the severity of the infection and the possibility of limb loss due to the severity of the infection. They wished for all limb salvage efforts. I will see the patient tomorrow for surgery. He is n.p.o. after midnight. JESSICA Moore/LORE /8:09 PM /6:45 AM
[2016-12-07 06:54] LABS: HEMO FLAGS AUTO DIFF
[2016-12-07] MEDS ORDERED: INSULIN ASPART SUPPLEMENTAL SCALE SQ SCH (07:00)
[2016-12-07] MEDS: INSULIN ASPART SUPPLEMENTAL SCALE SQ SCH ×4 (07:00→21:00)
[2016-12-07 07:32] LABS: ANION GAP 12 MEQ/L (5-15); BICARBONATE 17.3 MEQ/L (21.0-32.0); BLOOD UREA NITROGEN 79 MG/DL (7-18); CHLORIDE 98 MEQ/L (98-107); FERRITIN 88 NG/ML (26-388); GLOMERULAR FILTRATION RATE 17 ML/MIN (>89); POTASSIUM 5.5 MEQ/L (3.5-5.1); SODIUM (NA) 127 MEQ/L (136-145); TRANSFERRIN IRON PROFILE 158 MG/DL (200-360)
[2016-12-07 08:17] LABS: BURR CELLS 1+ (NORMAL); SCAN/DIFF AUTO DIFF CONFIRMED
--- NOTE | 2016-12-07 08:30 | PD.WCN.NOT ---
Wound Consult Additional Information: Patient not seen by wound care. Podiatry was consulted on patient. Doctor Rico saw patient and he is going to surgery today. Please follow recommendations and and orders from podiatry. Wound care signing off. Lanny Ortiz [facility] Dec 07, 2016 08:30
[2016-12-07] MEDS ORDERED: ONDANSETRON HCL 4 MG/2 ML VIAL IV PUSH ONE (08:52)
[2016-12-07] MEDS ORDERED: PROPOFOL 200 MG/20 ML AMP IV ONE (08:52)
[2016-12-07] MEDS ORDERED: ASPIRIN 81 MG CHEW TAB CHEW SCH (09:00)
[2016-12-07] MEDS ORDERED: LISINOPRIL 20 MG TAB PO SCH (09:00)
--- NOTE | 2016-12-07 09:54 | HHI.HP ---
[facility] Service Family Medicine Primary Care Physician Tae Hoskins MD Admission Diagnosis L Foot Infection Poss Gas Gangrene; MIKE; Anemia; Dyspnea Diagnoses: (1) Gas gangrene of foot (2) Hyperkalemia (3) GI bleed (4) DM (diabetes mellitus) (5) Acute renal failure (6) CHF (congestive heart failure) (7) COPD (chronic obstructive pulmonary disease) (8) Hyponatremia (9) Hypertension (10) UTI (urinary tract infection) (11) Ascites (12) Altered mental status (13) Seizure disorder (14) Atrial fibrillation (15) CAD (coronary artery disease) (16) Nutrition, metabolism, and development symptoms (17) Contraindication to anticoagulation therapy International Travel<30 Days: No Contact w/Intl Traveler<30days: No Known Affected Area: No History of Present Illness Patient examined on the morning of 12/07 and there were no reported events overnight. He has remained afebrile and he denies any symptoms such as chest pain, abdominal pain, shortness of breath, or extremity/foot pain. He has remained confused overnight and is confused this morning, only oriented to person and not oriented to place or time. He has been started on vancomycin and Zosyn for broad-spectrum antibiotics due to the infection of the left foot. In summary, this is an 80-year-old male admitted to the hospital for cellulitis and possible gas gangrene of the left foot and the fifth toe area. Patient is a poor historian and most of the history was obtained from his girlfriend. She states that they first noticed a callus on the lateral aspect of his left foot approximately one month ago that slowly progressed to the point that it was erythematous and draining purulent/bloody material. He has complained of pain in the left foot as well as generalized progression of his health. He was also noted to have dark, tea-colored urine recently. Pt has a history of bladder cancer (surgery 3 years ago) and UTI's. Denied dysuria Also noted to have increased abdominal girth, peripheral edema and above baseline SOB. Denied new cough, change in sputum production (normally clear and only in the AM) Review of Systems ROS Limitations: Clinical Condition, Altered Mental Status Constitutional: DENIES: Fever, Chills Cardiovascular: DENIES: Chest pain, Palpitations, Syncope, Dyspnea on Exertion Gastrointestinal: COMPLAINS OF: Black stools, DENIES: Abdominal pain, Bloody stools, Constipation, Diarrhea, Nausea, Vomiting Musculoskeletal: DENIES: Joint pain, Joint Swelling, Back pain Neurologic: DENIES: Abnormal gait Psychiatric: COMPLAINS OF: Confusion, DENIES: Hallucinations, Agitation Past Family Social History Past Medical History COPD DM requiring insulin Stroke CAD - two stents placed CHF Bladder cancer A fib - rate controlled Seizures Past Surgical History Bladder Cancer: tumor removal 2 cardiac stents Allergies: Coded Allergies: No Known Allergies (Verified , 10/11/15) Family History Father: DM, CAD Brother: DM Social History Lives with his GF and one of her sons Alcohol - former heavy drinker Tobacco - former smoker. Used to smoke 2 ppd for > 50 years Drugs - no illicit drug use Physical Exam Vital Signs Vital Signs Date Time Temp Pulse Resp B/P Pulse Ox O2 Delivery O2 Flow Rate FiO2 12/07/16 09:06 97 Nasal Cannula 3.00 12/07/16 08:20 97.9 65 16 186/78 97 12/07/16 06:07 99.1 89 16 191/89 94 12/07/16 00:12 73 18 144/63 100 Nasal Cannula 3 12/06/16 22:37 100 Nasal Cannula 2.00 12/06/16 22:14 82 18 182/77 100 Nasal Cannula 4 12/06/16 19:09 72 18 191/92 100 Nasal Cannula 4 12/06/16 18:32 92 Nasal Cannula 4.00 12/06/16 18:00 99 12/06/16 18:00 Nasal Cannula 2 12/06/16 17:34 Nasal Cannula 2 12/06/16 17:17 98.8 82 40 172/72 99 Room Air Physical Exam GENERAL: Elderly, unkempt male lying in bed, pleasantly confused SKIN: No obvious jaundice or skin lesions. No evidence of pulmonary erythema. No notable spider angiomata. Left foot with erythematous ulceration measuring approximately 1 cm x 2 cm with some serous sanguinous drainage located on the lateral aspect of the foot proximal to the base of the fifth toe. Erythema does extend in the soft tissue proximally with subcutaneous crepitus HEAD: Atraumatic. Normocephalic. EYES: Pupils equal round and reactive. Extraocular motions intact. No scleral icterus. NECK: Trachea midline. No JVD or lymphadenopathy. Supple, nontender, no meningeal signs. CARDIOVASCULAR: Irregularly irregular without murmur RESPIRATORY: Diffuse expiratory wheezing. Good air movement bilaterally, no crackles appreciated. GASTROINTESTINAL: Abdomen soft, non-tender. Mildly distended with palpable liver edge 3 cm distal to inferior costal margin. No guarding. No rebound found tenderness. No abdominal/umbilical hernia. No appreciable fluid wave MUSCULOSKELETAL: 1+ pitting edema just proximal to ankles bilaterally. Bilateral feet with faint spells pedis pulses, less than 2 second capillary refill NEUROLOGICAL: Pleasantly confused, currently only oriented to self. Does not know he is in the hospital or why he is in the hospital. Laboratory Laboratory Tests Test 12/06/16 12/06/16 12/06/16 12/07/16 17:50 23:25 23:30 02:05 Prothrombin Time 12.6 Prothromb Time International 1.1 Ratio Activated Partial 35.0 Thromboplast Time Sodium Level 126 125 Potassium Level 5.4 6.4 Chloride Level 95 96 Carbon Dioxide Level 14.7 15.8 Anion Gap 16 13 Blood Urea Nitrogen 73 76 Creatinine 3.86 3.84 Estimat Glomerular Filtration 15 15 Rate Random Glucose 112 209 Calcium Level 8.3 8.4 Magnesium Level 1.6 Total Bilirubin 0.5 Aspartate Amino Transf 39 (AST/SGOT) Alanine Aminotransferase 17 (ALT/SGPT) Alkaline Phosphatase 147 Total Creatine Kinase 687 Creatine Kinase MB 21.3 Creatine Kinase MB % 3.1 Troponin I 0.05 B-Type Natriuretic Peptide 326 Total Protein 6.4 Albumin 3.0 White Blood Count 25.2 Red Blood Count 3.67 Hemoglobin 8.5 8.3 Hematocrit 25.9 25.3 Mean Corpuscular Volume 70.4 Mean Corpuscular Hemoglobin 23.1 Mean Corpuscular Hemoglobin 32.7 Concent Red Cell Distribution Width 17.0 Platelet Count 173 Mean Platelet Volume 8.0 Neutrophils (%) (Auto) 88.9 Lymphocytes (%) (Auto) 2.8 Monocytes (%) (Auto) 8.1 Eosinophils (%) (Auto) 0.0 Basophils (%) (Auto) 0.2 Neutrophils # (Auto) 22.4 Lymphocytes # (Auto) 0.7 Monocytes # (Auto) 2.0 Eosinophils # (Auto) 0.0 Basophils # (Auto) 0.0 CBC Comment DIFF FINAL Differential Comment Urine Color RED Urine Turbidity CLOUDY Urine pH 5.5 Urine Specific [place] 1.010 Urine Protein 30 Urine Glucose (UA) NEG Urine Ketones NEG Urine Occult Blood LARGE Urine Nitrite NEG Urine Bilirubin NEG Urine Urobilinogen LESS THAN 2.0 Urine Leukocyte Esterase LARGE Urine RBC Urine WBC 109 Urine WBC Clumps MANY Urine Squamous Epithelial 1 Cells Urine Bacteria OCC Microscopic Urinalysis Comment CULTURE INDICATED Urine Eosinophils NONE SEEN Blood Type O POSITIVE Antibody Screen NEGATIVE Ammonia 16 Test 12/07/16 12/07/16 03:50 06:08 Hemoglobin 8.0 8.4 Hematocrit 25.3 25.6 White Blood Count 26.8 Red Blood Count 3.65 Mean Corpuscular Volume 70.2 Mean Corpuscular Hemoglobin 23.0 Mean Corpuscular Hemoglobin 32.8 Concent Red Cell Distribution Width 16.9 Platelet Count 176 Mean Platelet Volume 7.8 Neutrophils (%) (Auto) 90.0 Lymphocytes (%) (Auto) 1.7 Monocytes (%) (Auto) 8.2 Eosinophils (%) (Auto) 0.0 Basophils (%) (Auto) 0.1 Neutrophils # (Auto) 24.1 Lymphocytes # (Auto) 0.5 Monocytes # (Auto) 2.2 Eosinophils # (Auto) 0.0 Basophils # (Auto) 0.0 CBC Comment AUTO DIFF Differential Comment AUTO DIFF CONFIRMED [place] Cells 1+ Prothrombin Time 12.6 Prothromb Time International 1.1 Ratio Activated Partial 32.8 Thromboplast Time Sodium Level 127 Potassium Level 5.5 Chloride Level 98 Carbon Dioxide Level 17.3 Anion Gap 12 Blood Urea Nitrogen 79 Creatinine 3.41 Estimat Glomerular Filtration 17 Rate Random Glucose 193 Calcium Level 9.2 Iron Level 15 Total Iron Binding Capacity 221 Percent Iron Saturation 6.8 Ferritin 88 Vitamin B12 Level 754 Folate 7.2 Date/Time Procedure Status Source Growth 12/06/16 23:25 Urine Culture Received Urine Clean Catch Pending 12/06/16 19:45 Gram Stain Received Wound Foot Pending 12/06/16 19:45 Wound Culture Received Wound Foot Pending 12/06/16 19:15 Aerobic Blood Culture Received Blood Line Pending 12/06/16 19:15 Anaerobic Blood Culture Received Blood Line Pending Result Diagram: 12/07/16 0608 12/07/16 0608 Imaging Last 24 hours Impressions Foot X-Ray 12/06/16 [id number] Signed Impressions: Service Date/Time: November 18:08 - CONCLUSION: No obvious bone destruction at this time. Soft tissue emphysema is noted in and around the fifth MTP joint soft tissues. The possibility of infection with gas-forming organism should be excluded. Dean Burton MD Chest X-Ray 12/06/16 [id number] Signed Impressions: Service Date/Time: , December 06, 2016 18:06 - CONCLUSION: Right basilar atelectasis versus airspace disease. Dean Burton MD Septic Shock Reassessment Heart: Irregular Lungs: Clear Skin: Warm, Moist, [place] Peripheral Pulses: Bounding Right Radial Bounding Left Radial Capillary Refill: Brisk Assessment and Plan Assessment and Plan 80-year-old male presenting with altered mental status and found to have left foot diabetic ulceration with multiple electrolyte abnormalities Problem List: (1) Gas gangrene of foot Status: Acute Plan: Scheduled for fifth toe amputation with partial resection of fifth metatarsal by podiatry - MRI of the left foot pending for further elucidation of the extent of gas formation or infection Broad-spectrum antibiotics (renally dosed): - Vancomycin 1250 mg every 48 hours (started 12/06) - Zosyn 2.25 g every 8 hours (started 12/06) Wound cultures pending Blood cultures pending (2) Hyperkalemia Status: Acute Plan: Potassium today 5.5 - Initially 5.4 on arrival and increased to 6.4 prior to treatment Continue Kayexalate 15 mg 4 times daily Continue Lasix 40 mg twice a day Received calcium gluconate, insulin and dextrose in the emergency department (3) GI bleed Status: Acute Plan: Hemoglobin stable today at 8.4 - Continue to monitor with serial hemoglobin - Continue PPI twice a day - GI consulted to evaluate patient, no history in the computer of upper or lower endoscopies Iron studies indicate iron deficiency, will supplement once taking by mouth Vitamin B 12 and folate within normal limits Holding Aspirin due to GI bleed, defer to GI on restarting (4) DM (diabetes mellitus) Status: Chronic Plan: Chronic, h/o of uncontrolled DM with no previous hemoglobin A1c's found in the chart -Pt takes Levemir 6 units HS at home per historian - BG's reported to be in the low 200's -Low dose Sliding Scale w/ Novolog, titrate as needed -Regular glucose checks -F/u A1C (5) Acute renal failure Status: Acute Plan: Cr of 3.86 on arrival, decreased to 3.41 - Baseline currently unknown, last recording creatinine was 1.52 from 2016 - Urine culture pending - Renal ultrasound ordered and pending - R/o renal vascular disease - Urine eosinophils negative - Gentle fluids due to CHF Consider CT scan of the abdomen/pelvis versus urology consult for cystoscopy ( if renal function does not improve) due to history of bladder mass resected in 2014 (6) CHF (congestive heart failure) Status: Chronic Plan: Echocardiogram ordered and pending Diuresis with Lasix 40 mg twice a day - Fluid restriction when tolerating by mouth - Sodium restriction when tolerating by mouth Currently holding DONALD inhibitor due to acute renal failure Blood pressure control with amlodipine and as needed hydralazine BNP 326 on arrival, unlikely decompensated exacerbation (7) COPD (chronic obstructive pulmonary disease) Status: Chronic Plan: Known history of COPD - Nasal cannula oxygen as needed - Continue albuterol inhaler - Continue DuoNeb's every 4 hours as needed Received Solu-Medrol 125 mg 1 in the emergency department (8) Hyponatremia Status: Acute Plan: Likely due to congestive heart failure - Gentle fluid hydration and treatment for congestive heart failure as above - Monitor with BMPs (9) Hypertension Status: Chronic Plan: Blood pressure remains elevated - Continue amlodipine - Started on hydralazine as needed Holding home lisinopril due to acute renal failure (10) UTI (urinary tract infection) Status: Acute Plan: Urinalysis consistent with infection - Continue vanc and zosyn - urine cultures pending (11) Ascites Status: Acute Plan: above baseline abdominal girth per history, - no fluid wave on exam, low albumin, no jaundice - Liver ultrasound ordered - Hepatitis panel pending - Ammonia level within normal limits at 16 (12) Altered mental status Status: Acute Plan: Likely multifactorial, treatment for infection as above and will readdress (13) Seizure disorder Status: Chronic Plan: Continue home Dilantin (14) Atrial fibrillation Status: Chronic Plan: Rate controlled - currently HR of 72. -Continue home dose of Amlodipine -Not currently anticoagulated due to possibility of GI bleed [id number] score of 6, would benefit from anticoagulation once clinically stable (15) CAD (coronary artery disease) Status: Chronic Plan: h/o CAD with 2 stents placed, takes Aspirin 81 mg daily at home, atorvastatin 20mg, no complaints of angina -continue home atorvastatin -holding Aspirin due to GI bleed (16) Nutrition, metabolism, and development symptoms Status: Acute Plan: NPO until surgery After surgery plan for renal diet with fluid restriction due to hyponatremia Hyperkalemia - see plan above (17) Contraindication to anticoagulation therapy Status: Acute Plan: holding anticoagulation due to GI bleed Bilateral SCDs Physician Certification 2 Midnight Certification Type: Admission for Inpatient Services Order for Inpatient Services The services are ordered in accordance with Medicare regulations or non- Medicare payer requirements, as applicable. In the case of services not specified as inpatient-only, they are appropriately provided as inpatient services in accordance with the 2-midnight benchmark. Estimated LOS (days): 2 2 days is the estimated time the patient will need to remain in the hospital, assuming treatment plan goals are met and no additional complications. 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
--- NOTE | 2016-12-07 10:09 | RADRPT ---
EXAM DATE/TIME: 12/07/2016 09:01 [facility] COMPARISON: FOOT LEFT LIMITED (2VWS), December 06, 2016, 18:08. INDICATIONS : Osteomyelitis. MEDICAL HISTORY : Hypertension. Diabetes. SURGICAL HISTORY : None. ENCOUNTER: Subsequent ACUITY: 1 month PAIN SCORE: 0/10 LOCATION: TECHNIQUE: Multiplanar, multisequence MRI examination was performed without contrast. FINDINGS: There is extensive soft tissue swelling involving the distal foot adjacent to the fourth and fifth me tatarsal and toes. There is high T2 signal abnormality within the head of the fifth metatarsal and al so involving the proximal phalanx of the little toe. This is consistent with osteomyelitis. No other bone marrow signal abnormality seen. No fractures are seen. Visualized tendons appear unremarkable. S cattered degenerative changes including the first metatarsophalangeal joint. CONCLUSION: 1. Osteomyelitis of the fifth metatarsal head and proximal phalanx of the fifth toe. Sal Chowdhury MD on December 07, 2016 at 10:02 Board Certified Radiologist. This report was verified electronically.
[2016-12-07] MEDS: THIAMINE HCL 100 MG TAB PO SCH (10:24)
[2016-12-07] MEDS: RESP: ALBUTEROL 2.5 MG/IPRATROPIUM 0.5 MG NEB (SCH) NEB ×4 (10:24→21:29)
[2016-12-07] MEDS: FOLIC ACID 1 MG TAB PO SCH (10:25)
[2016-12-07] MEDS: FUROSEMIDE 40 MG TAB PO SCH ×2 (10:25→21:28)
[2016-12-07] MEDS: PHENYTOIN SODIUM 100 MG CAP PO SCH ×2 (10:25→21:28)
[2016-12-07] MEDS: MULTIVITAMINS/MINERALS THERAPEUTIC TAB PO SCH (10:25)
[2016-12-07] MEDS: DOCUSATE SODIUM 50 MG/SENNA 8.6 MG TAB PO SCH ×2 (10:26→21:28)
--- NOTE | 2016-12-07 10:29 | RADRPT ---
EXAM DATE/TIME: 12/07/2016 09:34 [facility] COMPARISON: No previous studies available for comparison. INDICATIONS : Abdomen pain. Increased BUN/Creatinine. MEDICAL HISTORY : CVA. [place]. COPD. Diabetic. SURGICAL HISTORY : None. ENCOUNTER: Initial ACUITY: 1 day PAIN SCORE: 4/10 LOCATION: Abdomen. MEASUREMENTS: LIVER: 13.6 cm length COMMON DUCT: 4 mm RIGHT KIDNEY: 11.0 x 5.7 x 5.8 cm LEFT KIDNEY: 10.1 x 5.7 x 5.3 cm SPLEEN: 11.5 cm length AORTA: 1.8cm maximal FINDINGS: LIVER: Normal echotexture without focal lesion or ductal dilatation. COMMON DUCT: No intraluminal mass or stone visualized. GALLBLADDER: Contains no stones, demonstrates no wall thickening or pericholecystic fluid. PANCREAS: Not well seen due to overlying bowel gas. RIGHT KIDNEY: Borderline echogenic. No hydronephrosis, stone or mass. Minimal fluid in Morison's pouch. LEFT KIDNEY: Borderline echogenic. No hydronephrosis, stone or mass. SPLEEN: No focal lesion. AORTA: Non aneurysmal. IVC: Within normal limits. Several echogenic masses are seen in the bladder measuring 4.7, 2.8 and 3.1 cm. CONCLUSION: 1. Multiple echogenic masses in the bladder consistent with neoplastic process most commonly seen wit h transitional cell carcinomas. Cystoscopy and biopsy recommended. 2. Nonvisualization of the pancreas. 3. Kidneys are borderline echogenic. 4. Minimal free fluid in Faulkner's pouch. Sal Chowdhury MD on December 07, 2016 at 10:25 Board Certified Radiologist. This report was verified electronically.
[2016-12-07] MEDS: SODIUM CHLORIDE 0.9% FLUSH 10 ML FLUSH IV FLUSH SCH ×2 (10:30→21:29)
[2016-12-07] MEDS ORDERED: hydrALAZINE HCL 20 MG/ML VIAL IV PRN (10:30)
[2016-12-07] MEDS: BUDESONIDE-FORMOTEROL 80/4.5 MCG INHALER INH SCH ×2 (10:30→21:29)
[2016-12-07] MEDS: SODIUM CHLOR 0.9% 1000 ML INJ 1,000 ML IV SCH ×2 (10:36→21:14)
[2016-12-07 10:57] LABS: HEMATOCRIT 27.2 % (39.0-51.0); REVIEW FLAG FINAL
[2016-12-07] MEDS ORDERED: NALOXONE HCL 0.4 MG/ML AMP IV PRN (12:00)
[2016-12-07] MEDS ORDERED: HYDROmorphone HCL 2 MG TAB PO PRN ×2 (12:00)
[2016-12-07] MEDS ORDERED: ACETAMINOPHEN 325 MG TAB PO PRN (12:00)
[2016-12-07] MEDS ORDERED: PILL SPLITTER OTHER PRN (12:45)
[2016-12-07] MEDS ORDERED: Vancomycin Consult Pharmacy 1 EA OTHER SCH (13:30)
--- NOTE | 2016-12-07 14:49 | EKG ---
Date Performed: 12/06/2016 Time Performed: 18:06:19 PTAGE: 80 years EKG: ATRIAL FIBRILLATION LEFT ANTERIOR FASCICULAR BLOCK ABNORMAL ECG INTERPRETATION BASED ON A D EFAULT AGE OF 39 YEARS NO PREVIOUS TRACING DOCTOR: Jose Hillman Interpretating Date/Time 12/07/2016 14:47:23
--- NOTE | 2016-12-07 15:09 | PD.CONS ---
HPI History of Present Illness This is a 80 year old male with hx DM, CHF, COPD, bladder tumor with some remaining, presented to ER for left food infection, was found to have gangrenous foot infection and s/p fall 1 day ago. His is anemic with Hgb 8.8 and heme pos stool; stool visualized and is not black. Denies n/v, black tarry stool, blood in stool, weight loss. He has been constipated for the last few days which is a change from normal, no diet changes, medications. His gf reports he seems bloated and his abdomen looks bbigger. He takes baby aspirin daily. In the last week he has had 600mg ibuprofen on 3 occasions for his foot pain. No other blood thinners. No hx GI bleeding. Never had colonoscopy or EGD, never seen a GI specialist. Hx obtained from his partner Torri, he is poor historian and unable to provide much info. He apparently "slid down the wall" at home, his legs gave out per Torri. (Pamela Tay) PFSH Past Medical History DM COPD heart stents x 2 CHF Past Surgical History TURB placement heart stents (Pamela Tay) Coded Allergies: No Known Allergies (Verified , 10/11/15) Family History DM HTN Social History no ETOH no tobacco, quit 2009 no illicit drug use (Pamela Tay) Review of Systems ROS noncontributory (Pamela Tay) GI Exam Vitals I&O Vital Signs Date Time Temp Pulse Resp B/P Pulse Ox O2 Delivery O2 Flow Rate FiO2 12/07/16 12:02 98.3 71 16 121/59 99 12/07/16 10:27 96 Nasal Cannula 2.00 12/07/16 09:06 97 Nasal Cannula 3.00 12/07/16 08:20 97.9 65 16 186/78 97 12/07/16 08:05 59 12/07/16 06:07 99.1 89 16 191/89 94 12/07/16 00:12 73 18 144/63 100 Nasal Cannula 3 12/06/16 22:37 100 Nasal Cannula 2.00 12/06/16 22:14 82 18 182/77 100 Nasal Cannula 4 12/06/16 19:09 72 18 191/92 100 Nasal Cannula 4 12/06/16 18:32 92 Nasal Cannula 4.00 12/06/16 18:00 99 12/06/16 18:00 Nasal Cannula 2 12/06/16 17:34 Nasal Cannula 2 12/06/16 17:17 98.8 82 40 172/72 99 Room Air Imaging Last Impressions Abdomen Ultrasound 12/07/16 0026 Signed Impressions: Service Date/Time: Wednesday, December 07, 2016 09:34 - CONCLUSION: 1. 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 Cystoscopy and biopsy recommended. 2. Nonvisualization of the pancreas. 3. Kidneys are borderline echogenic. 4. Minimal free fluid in Faulkner's pouch. Sal Chowdhury MD Foot MRI 12/07/16 0000 Signed Impressions: Service Date/Time: Wednesday, December 07, 2016 09:01 - CONCLUSION: 1. Osteomyelitis of the fifth metatarsal head and proximal phalanx of the fifth toe. Sal Chowdhury MD Foot X-Ray [id number]/06/161746 Signed Impressions: Service Date/Time: November 18:08 - CONCLUSION: No obvious bone destruction at this time. Soft tissue emphysema is noted in and around the fifth MTP joint soft tissues. The possibility of infection with gas-forming organism should be excluded. Dean Burton MD Chest X-Ray [id number]/06/161746 Signed Impressions: Service Date/Time: November 18:06 - CONCLUSION: Right basilar atelectasis versus airspace disease. Dean Burton MD Laboratory Test 12/06/16 12/06/16 12/06/16 12/07/16 17:50 23:25 23:30 02:05 Prothrombin Time 12.6 SEC Prothromb Time International 1.1 RATIO Ratio Activated Partial 35.0 SEC Thromboplast Time Sodium Level 126 MEQ/L 125 MEQ/L Potassium Level 5.4 MEQ/L 6.4 MEQ/L Chloride Level 95 MEQ/L 96 MEQ/L Carbon Dioxide Level 14.7 MEQ/L 15.8 MEQ/L Anion Gap 16 MEQ/L 13 MEQ/L Blood Urea Nitrogen 73 MG/DL 76 MG/DL Creatinine 3.86 MG/DL 3.84 MG/DL Estimat Glomerular Filtration 15 ML/MIN 15 ML/MIN Rate Random Glucose 112 MG/DL 209 MG/DL Calcium Level 8.3 MG/DL 8.4 MG/DL Magnesium Level 1.6 MG/DL Total Bilirubin 0.5 MG/DL Aspartate Amino Transf 39 U/L (AST/SGOT) Alanine Aminotransferase 17 U/L (ALT/SGPT) Alkaline Phosphatase 147 U/L Total Creatine Kinase 687 U/L Creatine Kinase MB 21.3 NG/ML Creatine Kinase MB % 3.1 % Troponin I 0.05 NG/ML B-Type Natriuretic Peptide 326 PG/ML Total Protein 6.4 GM/DL Albumin 3.0 GM/DL White Blood Count 25.2 TH/MM3 Red Blood Count 3.67 MIL/MM3 Hemoglobin 8.5 GM/DL 8.3 GM/DL Hematocrit 25.9 % 25.3 % Mean Corpuscular Volume 70.4 FL Mean Corpuscular Hemoglobin 23.1 PG Mean Corpuscular Hemoglobin 32.7 % Concent Red Cell Distribution Width 17.0 % Platelet Count 173 TH/MM3 Mean Platelet Volume 8.0 FL Neutrophils (%) (Auto) 88.9 % Lymphocytes (%) (Auto) 2.8 % Monocytes (%) (Auto) 8.1 % Eosinophils (%) (Auto) 0.0 % Basophils (%) (Auto) 0.2 % Neutrophils # (Auto) 22.4 TH/MM3 Lymphocytes # (Auto) 0.7 TH/MM3 Monocytes # (Auto) 2.0 TH/MM3 Eosinophils # (Auto) 0.0 TH/MM3 Basophils # (Auto) 0.0 TH/MM3 CBC Comment DIFF FINAL Differential Comment Urine Color RED Urine Turbidity CLOUDY Urine pH 5.5 Urine Specific Brogan 1.010 Urine Protein 30 mg/dL Urine Glucose (UA) NEG mg/dL Urine Ketones NEG mg/dL Urine Occult Blood LARGE Urine Nitrite NEG Urine Bilirubin NEG Urine Urobilinogen LESS THAN 2.0 MG/DL Urine Leukocyte Esterase LARGE Urine RBC /hpf Urine WBC 109 /hpf Urine WBC Clumps MANY Urine Squamous Epithelial 1 /hpf Cells Urine Bacteria OCC /hpf Microscopic Urinalysis Comment CULTURE INDICATED Urine Eosinophils NONE SEEN /HPF Blood Type O POSITIVE Antibody Screen NEGATIVE Ammonia 16 MCMOL/L Test 12/07/16 12/07/16 12/07/16 12/07/16 02:06 03:50 06:08 10:43 Hepatitis A IgM Antibody NEGATIVE Hepatitis B Surface Antigen NEGATIVE Hepatitis B Core IgM Antibody NEGATIVE Hepatitis C Antibody NEGATIVE Hemoglobin 8.0 GM/DL 8.4 GM/DL 9.0 GM/DL Hematocrit 25.3 % 25.6 % 27.2 % White Blood Count 26.8 TH/MM3 Red Blood Count 3.65 MIL/MM3 Mean Corpuscular Volume 70.2 FL Mean Corpuscular Hemoglobin 23.0 PG Mean Corpuscular Hemoglobin 32.8 % Concent Red Cell Distribution Width 16.9 % Platelet Count 176 TH/MM3 Mean Platelet Volume 7.8 FL Neutrophils (%) (Auto) 90.0 % Lymphocytes (%) (Auto) 1.7 % Monocytes (%) (Auto) 8.2 % Eosinophils (%) (Auto) 0.0 % Basophils (%) (Auto) 0.1 % Neutrophils # (Auto) 24.1 TH/MM3 Lymphocytes # (Auto) 0.5 TH/MM3 Monocytes # (Auto) 2.2 TH/MM3 Eosinophils # (Auto) 0.0 TH/MM3 Basophils # (Auto) 0.0 TH/MM3 CBC Comment AUTO DIFF Differential Comment AUTO DIFF CONFIRMED [place] Cells 1+ Prothrombin Time 12.6 SEC Prothromb Time International 1.1 RATIO Ratio Activated Partial 32.8 SEC Thromboplast Time Sodium Level 127 MEQ/L Potassium Level 5.5 MEQ/L Chloride Level 98 MEQ/L Carbon Dioxide Level 17.3 MEQ/L Anion Gap 12 MEQ/L Blood Urea Nitrogen 79 MG/DL Creatinine 3.41 MG/DL Estimat Glomerular Filtration 17 ML/MIN Rate Random Glucose 193 MG/DL Calcium Level 9.2 MG/DL Iron Level 15 MCG/DL Total Iron Binding Capacity 221 MCG/DL Percent Iron Saturation 6.8 % Ferritin 88 NG/ML Vitamin B12 Level 754 PG/ML Folate 7.2 NG/ML Lactic Acid Level 2.3 mmol/L Date/Time Procedure Status Source Growth 12/06/16 23:25 Urine Culture Received Urine Clean Catch Pending 12/06/16 19:45 Gram Stain - Final Resulted Wound Foot 12/06/16 19:45 Wound Culture - Preliminary Resulted Staphylococcus Aureus 12/06/16 19:15 Aerobic Blood Culture - Preliminary Resulted Blood Line NO GROWTH IN 1 DAY 12/06/16 19:15 Anaerobic Blood Culture - Preliminary Resulted Blood Line NO GROWTH IN 1 DAY Physical Examination HEENT: PERRL; normocephalic; atraumatic; no jaundice. CHEST: diminished CARDIAC: irr HR, +murmur ABDOMEN: Soft, distended, audible fluid, dullness, nontender; no hepatosplenomegaly; bowel sounds are present in all four quadrants. EXTREMITIES: No clubbing, cyanosis, or edema. SKIN: pallor; no rash; no jaundice. 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 Hgb 8.5 on admission, today up to 9, is stable. No melanotic stool, BRBPR, or hematemesis, does not appear to be active bleed. Iron 15 low, TIBC 221 low, %6.8 low, ferritin 88 pts significant other Torri says she is POA, agreeable with procedures - elevated LFTs - AST 39, ALT 17, ALP 147, denies ETOH. iron studies as above. hep neg. VICTOR HUGO pos. appears to have ascites US abd no abnormalities liver, masses in bladder c/w neoplastic process, nonvisualization pancreas. - leukocytosis - 25.2 on admission - hyperkalemia - per primary - gangrenous foot infection - pt to have surgery PLAN - rck LFTs - ASMA, AMA, ceruloplasmin, alpha1 antitrypsin, AFP - EGD/colonoscopy saturday - obtain consents - GoLytely - clears saturday - NPO after midnight saturday night - monitor HH - transfuse as needed - supportive care - Further recommendations to follow This pt seen by myself and Dr Christie and this note is written on her behalf ( Pamela Tay) Physician Comments seen, examined agree with above (Karyna Christie MD) Pamela Tay Dec 07, 2016 15:09 Karyna Christie MD Dec 07, 2016 22:10
[2016-12-07] MEDS ORDERED: BUPIVACAINE HCL PF 0.5% 30 ML VIAL ONE (16:20)
[2016-12-07 16:22] LABS: HEMOGLOBIN A1a 1.6 %; HEMOGLOBIN A1b 2.2 %; HEMOGLOBIN Ao 81.2 %; HEMOGLOBIN LA1C 2.6 %; HEMOGLOBIN P3 6.8 %
[2016-12-07] MEDS ORDERED: MIDAZOLAM HCL 2 MG/2 ML VIAL ONE (17:11)
--- NOTE | 2016-12-07 18:41 | HHI.PR ---
Immediate Post Op Note Procedure Date: Dec 07, 2016 Pre Op Diagnosis: Left foot OM ulcer gas gangrene 5th MPJ/digit Post Op Diagnosis: same Surgeon: Nico Gómez Test Development Engineer(s): scrub Procedure: left foot 5th metatarsal resection, incision and drainage 5th digit amputation Findings: see op dictation Additional Information: minimal bleeding noted, medicine notified. Complications: none Specimen(s) removed: bone soft tissue digit/metatarsal- path, deep cx taken Estimated blood loss: less than 30mL Anesthesia: General, Local Drains: Other Fluids: see anesthesia IVF Tourniquet time (min at mmHg) none Patient to: PACU Patient Condition: Fair Implant/Devices: SEE IMPLANT LOG (if applicable) Date/Time of Procedure: SEE SURGICAL CARE RECORD Nico GómezM Dec 07, 2016 18:40
[2016-12-07] MEDS ORDERED: fentaNYL CITRATE 250 MCG/5 ML AMP ONE (18:54)
[2016-12-07] MEDS ORDERED: DO NOT ADM ANY ANTICOAGULANT DRUGS PRN (19:30)
[2016-12-07] MEDS: ATORVASTATIN 20 MG TAB PO SCH (21:28)
[2016-12-07] MEDS: TERAZOSIN HCL 1 MG CAP PO SCH (21:28)
[2016-12-07 22:14] LABS: HEMATOCRIT 23.8 % (39.0-51.0); REVIEW FLAG FINAL
[2016-12-07] MEDS: cloNIDine HCL 0.1 MG TAB PO PRN (22:24)
[2016-12-08] VITALS (9 sets, daily range): BP systolic 145–169; BP diastolic 60–72; PULSE 52–85; RESP 16–20; TEMP 97.2–98.1; O2SAT 95–100
[2016-12-08] MEDS: PANTOPRAZOLE SODIUM 40 MG VIAL IV PUSH SCH ×2 (03:08→14:00)
[2016-12-08] MEDS: SODIUM CHLOR 0.9% 1000 ML INJ 1,000 ML IV SCH ×3 (03:09→21:43)
[2016-12-08] MEDS: PIPERACIL-TAZO 2.25 GM PREMIX 50 ML IV SCH ×3 (03:13→18:46)
[2016-12-08] MEDS: INSULIN ASPART SUPPLEMENTAL SCALE SQ SCH ×4 (06:04→21:50)
[2016-12-08] MEDS: RESP: ALBUTEROL 2.5 MG/IPRATROPIUM 0.5 MG NEB (SCH) NEB ×4 (08:12→20:10)
[2016-12-08] MEDS: FOLIC ACID 1 MG TAB PO SCH (08:47)
[2016-12-08] MEDS: FUROSEMIDE 40 MG TAB PO SCH (08:47)
[2016-12-08] MEDS: DOCUSATE SODIUM 50 MG/SENNA 8.6 MG TAB PO SCH ×2 (08:47→21:46)
[2016-12-08] MEDS: MULTIVITAMINS/MINERALS THERAPEUTIC TAB PO SCH (08:47)
[2016-12-08 08:48] LABS: INDIRECT BILIRUBIN 0.2 MG/DL (0.0-0.8); TOTAL BILIRUBIN ADULT 0.6 MG/DL (0.2-1.0)
[2016-12-08] MEDS: BUDESONIDE-FORMOTEROL 80/4.5 MCG INHALER INH SCH ×2 (08:48→21:44)
[2016-12-08] MEDS: SODIUM CHLORIDE 0.9% FLUSH 10 ML FLUSH IV FLUSH SCH ×2 (08:54→21:44)
[2016-12-08 09:09] LABS: AUTOMATED NEUTROPHIL # 17.2 TH/MM3 (1.8-7.7); BASOPHIL # 0.1 TH/MM3 (0-0.2); BASOPHIL % 0.5 % (0.0-2.0); EOSINOPHIL # 0.1 TH/MM3 (0-0.4); EOSINOPHIL % 0.7 % (0.0-4.0); HEMATOCRIT 25.7 % (39.0-51.0); HEMO FLAGS DIFF FINAL; LYMPH % 5.2 % (9.0-44.0); MEAN CORPUSCULAR HEMOGLOBIN 23.2 PG (27.0-34.0); MEAN CORPUSCULAR HGB CONC 32.7 % (32.0-36.0); NEUT % 85.6 % (16.0-70.0); PLATELET COUNT 184 TH/MM3 (150-450); RED BLOOD COUNT 3.61 MIL/MM3 (4.50-5.90); RED CELL DISTRIBUTION WIDTH 17.2 % (11.6-17.2)
[2016-12-08 09:29] LABS: BICARBONATE 20.2 MEQ/L (21.0-32.0); POTASSIUM 4.7 MEQ/L (3.5-5.1)
[2016-12-08] MEDS: THIAMINE HCL 100 MG TAB PO SCH (09:32)
[2016-12-08] MEDS: PHENYTOIN SODIUM 100 MG CAP PO SCH ×2 (09:32→21:45)
--- NOTE | 2016-12-08 11:06 | MB ---
cc: KATE ARREOLA DATE OF CONSULTATION: 12/08/2016 REASON FOR CONSULTATION: Mr. Kerr is a 80-year-old male who is a poor historian who was lost to followup in the past. In 2013 he underwent cystoscopy and transurethral resection of bladder tumor under spinal anesthesia at that time. Pathology revealed a high-grade lesion which encompassed a lot of the bladder at that time the resection. It was an incomplete resection at the time due to him waking up with the spinal anesthesia and not able to tolerate this procedure any longer. He was then lost to followup, according to his daughter by telephone today, she states he has been having intermittent gross hematuria but has not had any clots. He presently denies any dysuria and was recently admitted due to cellulitis and gangrene of left fifth toe and underwent amputation recently. His medical history includes COPD, diabetes, stroke, heart disease, CHF, atrial fibrillation, seizure disorder, history of bladder cancer diagnosed in 2013, High grade disease detected at the time. PAST SURGICAL HISTORY: Transurethral section of bladder tumor in 2013 and cardiac stent placement. MEDICATIONS: For medications please refer to the chart. ALLERGIES He has NO KNOWN DRUG ALLERGIES. FAMILY HISTORY Denies any family history of prostate cancer. SOCIAL HISTORY Smoked two packs a day for over 50 years heavy drinker in the past but denied any drug usage. REVIEW OF SYSTEMS He denies chest pain, shortness of breath, bleeding disorders, abdominal pain, note history gross hematuria intermittent. SKIN: Denies any lesions. PSYCHIATRIC: Denies any depression. The remaining review of systems were reviewed and are negative. PHYSICAL EXAMINATION: VITAL SIGNS: Temperature 97.7, heart rate 77, respiratory rate 16, 145/72. IN GENERAL: He is a well-developed, well-nourished 80-year-old male in no acute distress. HEAD, EYES, EARS, NOSE, AND THROAT: Normocephalic, atraumatic. Pupils equal round react to light. Extraocular is intact. NECK: The neck is supple. HEART: The heart rate regular rate and rhythm. LUNGS: Clear. ABDOMEN: Soft, nontender, distended. GENITOURINARY: Uncircumcised phallus. Testes are descended. EXTREMITIES: The extremities show 1 to 2+ edema. LABORATORY FINDINGS: White count 20.0, hemoglobin 8.4, Hematocrit 25.7, platelet count 184, sodium 137, potassium 4.7, chloride 105, CO2 20.2, BUN of 82, creatinine 3.82, glucose of 107, PT is 12.6, INR is 1.1, PTT is 32.8. Urinalysis shows large leukoesterase with many clumps of white cells 109 red cells. Urine culture shows staph aureus 25-50,000 CSU per Ml, sensitivities are pending. IMAGING STUDIES Abdominal ultrasound showed echogenic masses in the bladder consistent with neoplastic process, commonly seen with transitional cell carcinoma. Kidneys are borderline echogenic without hydronephrosis. ASSESSMENT: Assessment is an 80-year-old male with history of high-grade bladder cancer with incomplete bladder tumor resection back in 2013. The patient was lost to followup. Renal bladder ultrasound demonstrates echogenic kidneys without hydronephrosis. Recommend CT scan of the abdomen and pelvis to further visualize the bladder. We will await those results and make further recommendations based on findings at that time. Continue his Zosyn for antibiotic coverage for recent diagnosis of UTI and check sensitivities will follow with you. Thank you for the consult. Kate Guerra /10:19 AM /11:02 AM
[2016-12-08] MEDS ORDERED: VANCOMYCIN 1,500 MG/NS 500 ML IV ONE ×2 (12:00)
--- NOTE | 2016-12-08 12:06 | RADRPT ---
EXAM DATE/TIME: 12/08/2016 10:46 [facility] COMPARISON: No previous studies available for comparison. INDICATIONS : Bladder masses on ultrasound. ORAL CONTRAST: No oral contrast ingested. RADIATION DOSE: 10.19 CTDIvol (mGy) MEDICAL HISTORY : Carcinoma, bladder. Stroke Cardiovascular diseaseDiabetes. SURGICAL HISTORY : Cholecystectomy. ENCOUNTER: Initial ACUITY: 1 day PAIN SCALE: 3/10 LOCATION: Bilateral lower quadrant TECHNIQUE: Volumetric scanning of the abdomen and pelvis was performed. Using automated exposure control and ad justment of the mA and/or kV according to patient size, radiation dose was kept as low as reasonably achievable to obtain optimal diagnostic quality images. DICOM format image data is available electro nically for review and comparison. FINDINGS: CT Abdomen: The liver, spleen, pancreas, kidneys, adrenals are unremarkable. There is no evidence for any appreciable pathological adenopathy, free fluid, or bowel obstruction. Chronic vascular calcific ations are present involving the aorta, iliac arteries without any significant stenosis or aneurysmal dilatations for technique. Small hiatal hernia is seen. The gallbladder demonstrates multiple stones without gallbladder wall thickening, or pericholecystic fluid. Tiny left pleural effusion is present with a small right pleural effusion. CT pelvis: There are multiple masses in the posterior portion of the bladder the largest one measures 3.9 cm in size and there may be or separate masses at this site. The prostate gland is inhomogeneous and measures 2.4 x 3.1 cm in AP and transverse diameters and nonspecific. There are scattered divert iculi mainly in the sigmoid colon without definite signs of diverticulitis. There is an approximate 2 .8 cm anterior bladder diverticulum. CONCLUSION: Multiple bladder masses suspicious for malignancy. Altagracia Grijalva MD on December 08, 2016 at 12:01 Board Certified Radiologist. This report was verified electronically.
--- NOTE | 2016-12-08 12:09 | HHI.GIFU ---
Subjective Remarks Resting in bed. No active bleeding. Denies n/v. No abdominal pain. Has not had a bowel movement. (Carrie Tyler) Objective Vitals I&O Vital Signs Date Time Temp Pulse Resp B/P Pulse Ox O2 Delivery O2 Flow Rate FiO2 12/08/16 08:16 100 Nasal Cannula 3.00 12/08/16 08:00 97.7 77 16 145/72 99 12/08/16 04:54 52 12/08/16 04:00 98.1 58 19 169/69 95 12/07/16 23:50 97.9 60 20 167/70 94 12/07/16 21:30 95 Nasal Cannula 3.00 12/07/16 21:20 98.8 56 20 172/72 95 12/07/16 19:45 62 20 169/73 95 Nasal Cannula 2 12/07/16 19:30 64 21 148/67 96 Nasal Cannula 2 12/07/16 19:15 61 22 126/58 94 Nasal Cannula 2 12/07/16 19:00 70 23 135/60 95 Nasal Cannula 2 12/07/16 18:45 97.6 63 17 144/63 93 Nasal Cannula 2 12/07/16 15:44 98.1 78 18 156/70 96 12/07/16 12:02 98.3 71 16 121/59 99 I/O 12/07/16 12/07/16 12/07/16 12/08/16 12/08/16 12/08/16 06:59 14:59 22:59 06:59 14:59 22:59 Intake Total 750 ml 1080 ml Output Total 790 ml 150 ml Balance -40 ml 930 ml Intake Oral 10 ml 260 ml IV Total 240 ml 820 ml Other 500 ml Output Urine Total 775 ml 150 ml Estimated Blood Loss 15 ml # Voids 1 3 # Bowel Movements 1 0 Laboratory Laboratory Tests Test 12/07/16 12/08/16 12/08/16 21:44 06:52 08:52 Hemoglobin 7.6 8.4 Hematocrit 23.8 25.7 Total Bilirubin 0.6 Direct Bilirubin 0.4 Indirect Bilirubin 0.2 Aspartate Amino Transf 24 (AST/SGOT) Alanine Aminotransferase 15 (ALT/SGPT) Alkaline Phosphatase 107 Total Protein 5.4 Albumin 2.4 Tumor Marker Alpha Fetoprotein 0.7 Random Vancomycin Level 8.6 White Blood Count 20.0 Red Blood Count 3.61 Mean Corpuscular Volume 71.0 Mean Corpuscular Hemoglobin 23.2 Mean Corpuscular Hemoglobin 32.7 Concent Red Cell Distribution Width 17.2 Platelet Count 184 Mean Platelet Volume 7.9 Neutrophils (%) (Auto) 85.6 Lymphocytes (%) (Auto) 5.2 Monocytes (%) (Auto) 8.0 Eosinophils (%) (Auto) 0.7 Basophils (%) (Auto) 0.5 Neutrophils # (Auto) 17.2 Lymphocytes # (Auto) 1.0 Monocytes # (Auto) 1.6 Eosinophils # (Auto) 0.1 Basophils # (Auto) 0.1 CBC Comment DIFF FINAL Differential Comment Sodium Level 137 Potassium Level 4.7 Chloride Level 105 Carbon Dioxide Level 20.2 Anion Gap 12 Blood Urea Nitrogen 82 Creatinine 3.02 Estimat Glomerular Filtration 20 Rate Random Glucose 107 Calcium Level 8.4 Date/Time Procedure Status Source Growth 12/07/16 18:20 Gram Stain - Final Resulted Wound Foot 12/07/16 18:20 Wound Culture Resulted Wound Foot Pending 12/07/16 18:20 Fungal Smear - Final Resulted Wound Foot NO FUNGAL ELEMENTS SEEN. 12/07/16 18:20 Fungal Culture Resulted Wound Foot Pending 12/07/16 18:20 Acid Fast Stain Received Wound Foot Pending 12/07/16 18:20 Mycobacterial Culture Received Wound Foot Pending 12/06/16 23:25 Urine Culture - Preliminary Resulted Urine Clean Catch Staphylococcus Aureus 12/06/16 19:15 Aerobic Blood Culture - Preliminary Resulted Blood Line NO GROWTH IN 2 DAYS 12/06/16 19:15 Anaerobic Blood Culture - Preliminary Resulted Blood Line NO GROWTH IN 2 DAYS Imaging Last Impressions Abdomen Ultrasound 12/07/16 0026 Signed Impressions: Service Date/Time: Wednesday, December 07, 2016 09:34 - CONCLUSION: 1. 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 Cystoscopy and biopsy recommended. 2. Nonvisualization of the pancreas. 3. Kidneys are borderline echogenic. 4. Minimal free fluid in Faulkner's pouch. Sal Chowdhury MD Foot MRI 12/07/16 0000 Signed Impressions: Service Date/Time: Wednesday, December 07, 2016 09:01 - CONCLUSION: 1. Osteomyelitis of the fifth metatarsal head and proximal phalanx of the fifth toe. Sal Chowdhury MD Foot X-Ray [id number]/06/161746 Signed Impressions: Service Date/Time: November 18:08 - CONCLUSION: No obvious bone destruction at this time. Soft tissue emphysema is noted in and around the fifth MTP joint soft tissues. The possibility of infection with gas-forming organism should be excluded. Dean Burton MD Chest X-Ray [id number]/06/161746 Signed Impressions: Service Date/Time: November 18:06 - CONCLUSION: Right basilar atelectasis versus airspace disease. Dean Burton MD Physical Exam HEENT: Normocephalic; atraumatic; no jaundice. CHEST: CTA CARDIAC: RRR. ABDOMEN: Soft, nondistended, nontender; no hepatosplenomegaly; bowel sounds are present in all four quadrants. EXTREMITIES: Left foot drsg, d/i SKIN: Generalized pallor. DIRECTOR LEARNING AND DEVELOPMENT: No focal deficits; alert and oriented times three. (Carrie Tyler) Assessment and Plan Plan ASSESSMENT - Iron deficiency anemia with heme pos stool. Denies any obvious blood loss. Iron 15 low, TIBC 221 low, %6.8 low, ferritin 88 US noted multiple bladder masses. Urology has been consulted---> CT scan abdomen and pelvis pending. - Elevated LFTs. Hep neg. Previous VICTOR HUGO (+) 1:80 with diffuse pattern. Will recheck. AMA/ASMA pending. Iron 15, Iron saturation 6.8%, Ceruloplasmin/ALpha 1 antitrypsin pending. AFP 0.7. LFTs improved. T. Bili 0.6, AST 24, ALT 15, ALk Phosph 107 - Abnormal imaging with multiple bladder masses. Abdomen Ultrasound (12/07/16)-- --> 1. 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 Cystoscopy and biopsy recommended. 2. Nonvisualization of the pancreas. 3. Kidneys are borderline echogenic. 4. Minimal free fluid in Faulkner's pouch. Urology following. CT scan abdomen and pelvis pending. Zosyn. - Leukocytosis. WBC 20.0. UTI- staphylococcus aureus. - MIKE with multiple electrolyte abnormalities. Creat 3.41, K+ 5.5. Per attending. - Left foot OM,gangrenous infection. Cx with staphylococcus aureus and Group D enterococcus. S/P left foot 5th metatarsal resection, incision and drainage 5th digit amputation (12/07/16). Lauren Braden. - COPD, CAD, CHF, AMS, Atrial fibrillation per attending. PLAN - RACHEL - Will hold on EGD/Colonoscopy until CT resulted and decides on cystoscopy. - VICTOR HUGO, ASMA, AMA, ceruloplasmin, alpha1 antitrypsin - Cont. PPI - Monitor HH - Transfuse as needed - Supportive care - Further recommendations to follow - This pt seen by myself and Dr Christie and this note is written on her behalf ( Carrie Tyler) Physician Comments seen, examined agree with above (Karyna Christie MD) Carrie Tyler Dec 08, 2016 12:09 Karyna Christie MD Dec 08, 2016 18:23
--- NOTE | 2016-12-08 12:56 | PD.POD ---
Subjective Pain score: 1 Remarks Left foot pain has improved, seen bedside with family Past Med/Surg/Social History Social History Smoking Status: Former Smoker Objective Vital Signs Vital Signs Date Time Temp Pulse Resp B/P Pulse Ox O2 Delivery O2 Flow Rate FiO2 12/08/16 12:00 97.3 77 19 147/60 95 12/08/16 08:16 100 Nasal Cannula 3.00 12/08/16 08:00 97.7 77 16 145/72 99 12/08/16 04:54 52 12/08/16 04:00 98.1 58 19 169/69 95 12/07/16 23:50 97.9 60 20 167/70 94 12/07/16 21:30 95 Nasal Cannula 3.00 12/07/16 21:20 98.8 56 20 172/72 95 12/07/16 19:45 62 20 169/73 95 Nasal Cannula 2 12/07/16 19:30 64 21 148/67 96 Nasal Cannula 2 12/07/16 19:15 61 22 126/58 94 Nasal Cannula 2 12/07/16 19:00 70 23 135/60 95 Nasal Cannula 2 12/07/16 18:45 97.6 63 17 144/63 93 Nasal Cannula 2 12/07/16 15:44 98.1 78 18 156/70 96 Coded Allergies: No Known Allergies (Verified , 10/11/15) Medications and IVs Administered Medications Medications (Trade) Dose Ordered Sig/Barbara Route PRN Reason Start Time Stop Time Status Last Admin Dose Admin Sodium Chloride (NS Flush) 2 ml BID IV FLUSH 12/07/16 09:00 12/07/16 21:29 Senna/Docusate Sodium 1 tab 1 tab BID PO 12/07/16 09:00 12/08/16 08:47 Sodium Chloride (NS 1000 ml Inj) 1,000 ml @ 100 mls/hr Q10H IV 12/06/16 21:14 12/08/16 03:09 Folic Acid (Folate) 1 mg DAILY PO 12/07/16 09:00 12/12/16 08:59 12/08/16 08:47 Thiamine HCl (Vitamin B1) 100 mg DAILY PO 12/07/16 09:00 12/08/16 09:32 Multivitamins/ Minerals Therapeutic (Theragran M Tab) 1 tab DAILY PO 12/07/16 09:00 12/12/16 08:59 12/08/16 08:47 Lorazepam (Ativan) 2 mg Q2H PRN PO CIWA 11-14 12/06/16 21:30 12/06/16 22:45 Amlodipine Besylate (Norvasc) 10 mg DAILY PO 12/07/16 09:00 12/08/16 09:31 Atorvastatin Calcium (Lipitor) 20 mg HS PO 12/07/16 21:00 12/07/16 21:28 Budesonide/ Formoterol Fumarate (Symbicort 80-4.5 Mcg Inh) 2 puff Q12HR INH 12/07/16 09:00 12/08/16 08:48 Phenytoin (Dilantin) 100 mg BID PO 12/07/16 09:00 12/08/16 09:32 Terazosin HCl 1 mg 1 mg HS PO 12/07/16 21:00 12/07/16 21:28 Piperacillin Sod/ Tazobactam Sod (Zosyn 2.25 Gm Premix) 50 ml @ 100 mls/hr Q8H IV 12/07/16 03:00 12/08/16 12:06 Clonidine (Catapres) 0.1 mg Q6H PRN PO SEE LABEL COMMENTS 12/06/16 23:15 12/07/16 22:24 Pantoprazole Sodium (Protonix Inj) 40 mg Q12H IV PUSH 12/07/16 02:00 12/08/16 03:08 Other Results Laboratory Tests Test 12/07/16 12/08/16 12/08/16 21:44 06:52 08:52 Hemoglobin 7.6 GM/DL 8.4 GM/DL Hematocrit 23.8 % 25.7 % Direct Bilirubin 0.4 MG/DL Total Protein 5.4 GM/DL Albumin 2.4 GM/DL White Blood Count 20.0 TH/MM3 Red Blood Count 3.61 MIL/MM3 Mean Corpuscular Volume 71.0 FL Mean Corpuscular Hemoglobin 23.2 PG Neutrophils (%) (Auto) 85.6 % Lymphocytes (%) (Auto) 5.2 % Neutrophils # (Auto) 17.2 TH/MM3 Monocytes # (Auto) 1.6 TH/MM3 Carbon Dioxide Level 20.2 MEQ/L Blood Urea Nitrogen 82 MG/DL Creatinine 3.02 MG/DL Estimat Glomerular Filtration 20 ML/MIN Rate Random Glucose 107 MG/DL Calcium Level 8.4 MG/DL Microbiology Date/Time Procedure Status Source Growth 12/07/16 18:20 Gram Stain - Final Resulted Wound Foot 12/07/16 18:20 Wound Culture Resulted Wound Foot Pending 12/07/16 18:20 Fungal Smear - Final Resulted Wound Foot NO FUNGAL ELEMENTS SEEN. 12/07/16 18:20 Fungal Culture Resulted Wound Foot Pending 12/07/16 18:20 Acid Fast Stain Received Wound Foot Pending 12/07/16 18:20 Mycobacterial Culture Received Wound Foot Pending 12/06/16 23:25 Urine Culture - Preliminary Resulted Urine Clean Catch Staphylococcus Aureus 12/06/16 19:15 Aerobic Blood Culture - Preliminary Resulted Blood Line NO GROWTH IN 2 DAYS 12/06/16 19:15 Anaerobic Blood Culture - Preliminary Resulted Blood Line NO GROWTH IN 2 DAYS Physical Exam Remarks Left LE: lateral 5th digit/ Ray amp site loosely coapted, dorsal flap moderate ischemic changes noted, redness is isolated to the foot, no odor, foot is warm, chronic digit contractures noted, sensation decreased to light touch Assessment & Plan A/P Left foot ulcer, abscess, gas gangrene. SP 5th digit amputation, metatarsal resection, incision drainage 12-07. WBC trending down, Foot remains viable, improving. There are some concerns of flap ischemic changes, may need further amputation revision in the next 2-3 days , pending vascular consult. FU 1 day Nico Gardiner DPQuinn Dec 08, 2016 12:56 Test 12/06/16 12/06/16 12/07/16 12/07/16 17:50 23:30 02:05 06:08 Sodium Level 126 MEQ/L 125 MEQ/L 127 MEQ/L Potassium Level 5.4 MEQ/L 6.4 MEQ/L 5.5 MEQ/L Chloride Level 95 MEQ/L 96 MEQ/L 98 MEQ/L Carbon Dioxide Level 14.7 MEQ/L 15.8 MEQ/L 17.3 MEQ/L Anion Gap 16 MEQ/L 13 MEQ/L 12 MEQ/L Blood Urea Nitrogen 73 MG/DL 76 MG/DL 79 MG/DL Creatinine 3.86 MG/DL 3.84 MG/DL 3.41 MG/DL Estimat Glomerular Filtration 15 ML/MIN 15 ML/MIN 17 ML/MIN Rate Random Glucose 112 MG/DL 209 MG/DL 193 MG/DL Calcium Level 8.3 MG/DL 8.4 MG/DL 9.2 MG/DL Magnesium Level 1.6 MG/DL Total Bilirubin 0.5 MG/DL Aspartate Amino Transf 39 U/L (AST/SGOT) Alanine Aminotransferase 17 U/L (ALT/SGPT) Alkaline Phosphatase 147 U/L Total Creatine Kinase 687 U/L Creatine Kinase MB 21.3 NG/ML Creatine Kinase MB % 3.1 % Troponin I 0.05 NG/ML B-Type Natriuretic Peptide 326 PG/ML Total Protein 6.4 GM/DL Albumin 3.0 GM/DL Hemoglobin A1c 6.8 % Ammonia 16 MCMOL/L Iron Level 15 MCG/DL Total Iron Binding Capacity 221 MCG/DL Percent Iron Saturation 6.8 % Ferritin 88 NG/ML Vitamin B12 Level 754 PG/ML Folate 7.2 NG/ML Test 12/07/16 12/08/16 12/08/16 10:43 06:52 08:52 Lactic Acid Level 2.3 mmol/L Total Bilirubin 0.6 MG/DL Direct Bilirubin 0.4 MG/DL Indirect Bilirubin 0.2 MG/DL Aspartate Amino Transf 24 U/L (AST/SGOT) Alanine Aminotransferase 15 U/L (ALT/SGPT) Alkaline Phosphatase 107 U/L Total Protein 5.4 GM/DL Albumin 2.4 GM/DL Tumor Marker Alpha Fetoprotein 0.7 NG/ML Sodium Level 137 MEQ/L Potassium Level 4.7 MEQ/L Chloride Level 105 MEQ/L Carbon Dioxide Level 20.2 MEQ/L Anion Gap 12 MEQ/L Blood Urea Nitrogen 82 MG/DL Creatinine 3.02 MG/DL Estimat Glomerular Filtration 20 ML/MIN Rate Random Glucose 107 MG/DL Calcium Level 8.4 MG/DL Microbiology Date/Time Procedure Status Source Growth 12/06/16 19:15 Aerobic Blood Culture - Preliminary Resulted Blood Line NO GROWTH IN 2 DAYS 12/06/16 19:15 Anaerobic Blood Culture - Preliminary Resulted Blood Line NO GROWTH IN 2 DAYS 12/06/16 19:15 Aerobic Blood Culture - Preliminary Resulted Blood Line NO GROWTH IN 2 DAYS 12/06/16 19:15 Anaerobic Blood Culture - Preliminary Resulted Blood Line NO GROWTH IN 2 DAYS 12/06/16 19:45 Gram Stain - Final Resulted Wound Foot 12/06/16 19:45 Wound Culture - Preliminary Resulted Staphylococcus Aureus Group D Enterococcus 12/06/16 23:25 Urine Culture - Preliminary Resulted Urine Clean Catch Staphylococcus Aureus 12/07/16 18:20 Gram Stain - Final Resulted Wound Foot 12/07/16 18:20 Wound Culture Resulted Wound Foot Pending 12/07/16 18:20 Acid Fast Stain Received Wound Foot Pending 12/07/16 18:20 Mycobacterial Culture Received Wound Foot Pending 12/07/16 18:20 Fungal Smear - Final Resulted Wound Foot NO FUNGAL ELEMENTS SEEN. 12/07/16 18:20 Fungal Culture Resulted Wound Foot Pending Physical Exam Remarks Left LE: lateral 5th digit/ Ray amp site loosely coapted, dorsal flap moderate ischemic changes noted, redness is isolated to the foot, no odor, foot is warm, chronic digit contractures noted, sensation decreased to light touch Assessment & Plan A/P Left foot ulcer, abscess, gas gangrene. SP 5th digit amputation, metatarsal resection, incision drainage 12-07. Foot remains viable, improved. there are some concerns of flap ischemic changes , may need further amputation revision in the next 2-3 days, pending vascular consult. FU 1 day Nico Gardiner DPM Dec 08, 2016 12:56
--- NOTE | 2016-12-08 13:12 | HHI.FPPN ---
Subjective Remarks No acute events overnight. VS unremarkable except for elevated BP around 140- 170s systolic. This morning he is oriented to person and place but not to time or situation which seems consistent with his admission. He denies any chest pain , SOB, nausea/vomiting, pain. Tolerated breakfast without issue. Nurse does mention that patient has been having a cough (Shu Lao MD R2) Objective Vitals Vital Signs Date Time Temp Pulse Resp B/P Pulse Ox O2 Delivery O2 Flow Rate FiO2 12/08/16 12:00 97.3 77 19 147/60 95 12/08/16 08:16 100 Nasal Cannula 3.00 12/08/16 08:00 97.7 77 16 145/72 99 12/08/16 04:54 52 12/08/16 04:00 98.1 58 19 169/69 95 12/07/16 23:50 97.9 60 20 167/70 94 12/07/16 21:30 95 Nasal Cannula 3.00 12/07/16 21:20 98.8 56 20 172/72 95 12/07/16 19:45 62 20 169/73 95 Nasal Cannula 2 12/07/16 19:30 64 21 148/67 96 Nasal Cannula 2 12/07/16 19:15 61 22 126/58 94 Nasal Cannula 2 12/07/16 19:00 70 23 135/60 95 Nasal Cannula 2 12/07/16 18:45 97.6 63 17 144/63 93 Nasal Cannula 2 12/07/16 15:44 98.1 78 18 156/70 96 I/O 12/07/16 12/07/16 12/07/16 12/08/16 12/08/16 12/08/16 07:00 15:00 23:00 07:00 15:00 23:00 Intake Total 750 ml 1080 ml Output Total 790 ml 150 ml Balance -40 ml 930 ml Intake Oral 10 ml 260 ml IV Total 240 ml 820 ml Other 500 ml Output Urine Total 775 ml 150 ml Estimated Blood Loss 15 ml # Voids 1 3 # Bowel Movements 1 0 (Shu Lao MD R2) Result Diagram: 12/08/16 0852 12/08/16 0852 Objective Remarks GEN: No acute distress. Laying comfortably in bed. CV: Regular rate and rhythm without obvious murmurs LUNGS: Clear to auscultation bilaterally. Normal respiratory effort. Diffuse wheezing bilaterally. . EXT: No edema. No calf tenderness. Left foot wrapped in a clean and dry dressing. NEURO/PSYCH: Awake, alert. Normal speech. Oriented to person and place but not to time. (Shu Lao MD R2) A/P Assessment and Plan 80-year-old male admitted for AMS and found to have MIKE, electrolytes disturbances, and osteomyelitis. Discharge Planning Unclear. Pending bone biopsy results, uro work up, and GI work up. -PT consulted sdw Dr. Carlos Hoskins (Shu Lao MD R2) Attending Attestation Pt. examined and case discussed with resident physicians. I have read the above note and agree with the assessment and plan as discussed with me. I was involved in all medical decision making for this patient. Tae Hoskins MD (Tae Hoskins MD) Problem List: (1) Gas gangrene of foot Status: Acute Plan: Gas gangrene suspected on admission. MRI significant for soft tissue emphysema in and around the fifth MTP joint soft tissues. Podiatry 12/07/2016- S/ p left foot 5th metatarsal resection, incision and drainage 5th digit amputation -Podiatry informed resident that there is minimal bleeding noted after surgery and there was concern for poor vascularization. * Recommended vascular surgery consult * concerns of flap ischemic changes, may need further amputation revision in the next 2-3days pending vascular consult. -Vascular surgery consulted: appreciate recommendations -wound cx: staph aureus and Group D enterococcus -blood cultures: negative Medications: * Vancomycin (started 12/06--) * Zosyn 2.25 g every 8 hours (started 12/06) (2) Bladder tumor Status: Acute Plan: History of bladder cancer. Found to have a high grade lesion in 2013 that underwent resection. He was then lost to follow up. On admission, presented with MIKE with Cr of 3.86 with has been down trending. CT abdomen significant for multiple bladder masses suspicious for malignancy. 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 -Daily BMP to monitor Cr * Baseline Cr currently unknown, last recording creatinine was 1.52 from 2016 Urology consulted: appreciate recommendations * recommended CT scan of abdomen/pelvis for further characterization. (3) GI bleed Status: Acute Plan: H&H stable around 8-8.5. Hemoccult positive. Associated with iron deficiency anemai -Monitor H&H daily -Continue PPI twice a day GI consulted: appreciate recommendations * Hold on EGD/Colonoscopy until CT resulted and decides on cystoscopy * Clears Saturday and NPO saturday night * Ordered ASMA, AMA, ceruloplasmin, alpha1 antitrypsin, AFP Medications: * begin iron supplements once EGD/Colonoscopy is performed * home aspirin * IV Protonix BID (4) UTI (urinary tract infection) Status: Acute Plan: Urinalysis consistent with infection - Continue abx as described under gangrene as that would provide adequate coverage - urine culture: Staph Aureus (5) Acute renal failure Status: Acute Plan: see plan under bladder tumor (6) Electrolyte abnormality Status: Resolved Plan: Potassium on admission was 5.4 which increased to a high of 6.4. Received calcium gluconate, insulin and dextrose in the emergency department. Potassium has since decreased with Kayexalate to 4.7 as of 12/08/16. Hyponatremia has now resolved from a low of 125 with fluid hydration -Monitor with BMPs -Kayexalate discontinued -Lasix discontinued (7) Ascites Status: Acute Plan: Liver ultrasound unremarkable. -Ammonia unremarkable -Hepatitis panel negative -See further work up details under GI consult (8) Hypertension Status: Chronic Plan: Elevated BP since admission. Home lisinopril held due to MIKE * Amlodipine 10mg * Started Hydralazine 10mg q8 * Clonidine PRN (9) Altered mental status Status: Acute Plan: Likely multifactorial, treatment for infection as above and will readdress (10) DM (diabetes mellitus) Status: Chronic Plan: Chronic, h/o of uncontrolled DM with no previous hemoglobin A1c's found in the chart -Home home levemir -Low dose Sliding Scale w/ Novolog, titrate as needed -Regular glucose checks -F/u A1C (11) CHF (congestive heart failure) Status: Chronic Plan: BNP equivocal on admission. Clinically does not appear to be in CHF exacerbation. - Echocardiogram ordered and pending - Fluid restriction when tolerating by mouth - Sodium restriction when tolerating by mouth Medications: * Currently holding DONALD inhibitor due to acute renal failure (12) COPD (chronic obstructive pulmonary disease) Status: Chronic Plan: Known history of COPD. Received Solu-Medrol 125 mg 1 in the emergency department. - CXR on admission showed right basilar atelectasis vs airspace dz - Repeat CXR ordered 12/08/16 - Consider steroids for respiratory distress - ABX coverage through osteo treatment Medications: * Continue albuterol inhaler * Continue DuoNeb's every 4 hours with albuterol PRN * Continue symbicort (13) Seizure disorder Status: Chronic Plan: Continue home Dilantin (14) Atrial fibrillation Status: Chronic Plan: [id number] score of 6, would benefit from anticoagulation once clinically stable. Currently rate controlled. -Not currently anticoagulated due to possibility of GI bleed (15) CAD (coronary artery disease) Status: Chronic Plan: h/o CAD with 2 stents placed, takes Aspirin 81 mg daily at home, atorvastatin 20mg, no complaints of angina -continue home atorvastatin -holding Aspirin due to GI bleed (16) Nutrition, metabolism, and development symptoms Status: Acute Plan: Diet: Heart healthy, to be modified once EGD/Colonoscopy date is set Fluids: Decreased to NS 100 Electrolytes: see plan above DVT: holding anticoagulation due to GI bleed, Bilateral SCDs GI PPX: protonix (Shu Lao MD R2) Problem Qualifiers (1) GI bleed: Qualified Code: K92.2 - Gastrointestinal hemorrhage, unspecified gastrointestinal hemorrhage type (2) DM (diabetes mellitus): Qualified Code: 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
[2016-12-08] MEDS ORDERED: NALOXONE HCL 0.4 MG/ML AMP IV PRN (13:45)
[2016-12-08] MEDS ORDERED: LORazepam 2 MG/ML VIAL IV PUSH PRN (13:45)
--- NOTE | 2016-12-08 14:26 | RADRPT ---
EXAM DATE/TIME: 12/08/2016 14:05 [facility] COMPARISON: CHEST SINGLE AP, December 06, 2016, 18:06. INDICATIONS : Shortness of breath and cough. MEDICAL HISTORY : Myocardial infarction. Chronic obstructive pulmonary disease. CVA. Diabetic. SURGICAL HISTORY : None. ENCOUNTER: Initial ACUITY: 1 day PAIN SCORE: 0/10 LOCATION: Bilateral chest FINDINGS: Tiny bilateral pleural effusions are seen. Lungs are clear. Heart and mediastinum have not changed. CONCLUSION: Tiny bilateral pleural effusions. Altagracia Grijalva MD on December 08, 2016 at 14:24 Board Certified Radiologist. This report was verified electronically.
[2016-12-08] MEDS: ACETAMINOPHEN/HYDROcodone 325 MG/5 MG TAB PO PRN (14:49)
[2016-12-08] MEDS: hydrALAZINE HCL 10 MG TAB PO SCH ×2 (14:54→21:45)
--- NOTE | 2016-12-08 15:51 | PD.CAR.PN ---
CVT Progress Note Subjective/Hospital Course: Records reviewed what patient was in some sort of x-ray study Full consult to follow after evaluation of the patient Thanks J Objective: Vital Signs Date Time Temp Pulse Resp B/P Pulse Ox O2 Delivery O2 Flow Rate FiO2 12/08/16 12:00 97.3 77 19 147/60 95 12/08/16 08:16 100 Nasal Cannula 3.00 12/08/16 08:00 97.7 77 16 145/72 99 12/08/16 04:54 52 12/08/16 04:00 98.1 58 19 169/69 95 12/07/16 23:50 97.9 60 20 167/70 94 12/07/16 21:30 95 Nasal Cannula 3.00 12/07/16 21:20 98.8 56 20 172/72 95 12/07/16 19:45 62 20 169/73 95 Nasal Cannula 2 12/07/16 19:30 64 21 148/67 96 Nasal Cannula 2 12/07/16 19:15 61 22 126/58 94 Nasal Cannula 2 12/07/16 19:00 70 23 135/60 95 Nasal Cannula 2 12/07/16 18:45 97.6 63 17 144/63 93 Nasal Cannula 2 Labs: Laboratory Tests Test 12/08/16 12/08/16 06:52 08:52 Total Bilirubin 0.6 MG/DL (0.2-1.0) Direct Bilirubin 0.4 MG/DL (0.0-0.2) Indirect Bilirubin 0.2 MG/DL (0.0-0.8) Aspartate Amino Transf 24 U/L (15-37) (AST/SGOT) Alanine Aminotransferase 15 U/L (12-78) (ALT/SGPT) Alkaline Phosphatase 107 U/L (45-117) Total Protein 5.4 GM/DL (6.4-8.2) Albumin 2.4 GM/DL (3.4-5.0) Tumor Marker Alpha Fetoprotein 0.7 NG/ML (0.5-8.0) Random Vancomycin Level 8.6 COMMENT White Blood Count 20.0 TH/MM3 (4.0-11.0) Red Blood Count 3.61 MIL/MM3 (4.50-5.90) Hemoglobin 8.4 GM/DL (13.0-17.0) Hematocrit 25.7 % (39.0-51.0) Mean Corpuscular Volume 71.0 FL (80.0-100.0) Mean Corpuscular Hemoglobin 23.2 PG (27.0-34.0) Mean Corpuscular Hemoglobin 32.7 % Concent (32.0-36.0) Red Cell Distribution Width 17.2 % (11.6-17.2) Platelet Count 184 TH/MM3 (150-450) Mean Platelet Volume 7.9 FL (7.0-11.0) Neutrophils (%) (Auto) 85.6 % (16.0-70.0) Lymphocytes (%) (Auto) 5.2 % (9.0-44.0) Monocytes (%) (Auto) 8.0 % (0.0-8.0) Eosinophils (%) (Auto) 0.7 % (0.0-4.0) Basophils (%) (Auto) 0.5 % (0.0-2.0) Neutrophils # (Auto) 17.2 TH/MM3 (1.8-7.7) Lymphocytes # (Auto) 1.0 TH/MM3 (1.0-4.8) Monocytes # (Auto) 1.6 TH/MM3 (0-0.9) Eosinophils # (Auto) 0.1 TH/MM3 (0-0.4) Basophils # (Auto) 0.1 TH/MM3 (0-0.2) CBC Comment DIFF FINAL Differential Comment Sodium Level 137 MEQ/L (136-145) Potassium Level 4.7 MEQ/L (3.5-5.1) Chloride Level 105 MEQ/L (98-107) Carbon Dioxide Level 20.2 MEQ/L (21.0-32.0) Anion Gap 12 MEQ/L (5-15) Blood Urea Nitrogen 82 MG/DL (7-18) Creatinine 3.02 MG/DL (0.60-1.30) Estimat Glomerular Filtration 20 ML/MIN (>89) Rate Random Glucose 107 MG/DL (74-106) Calcium Level 8.4 MG/DL (8.5-10.1) Result Diagram: 12/08/16 0852 12/08/16 0852 Lavonne Hernandez MD Dec 08, 2016 15:51
[2016-12-08] MEDS ORDERED: VANCOMYCIN INJ 1,250 MG in SODIUM CHLOR 0.9% 250 ML INJ 250 ML IV SCH (19:00)
--- NOTE | 2016-12-08 19:13 | ECHRPT ---
Indication: HEART FAIURE CONCLUSIONS Wall thickness is normal. Normal left ventricular size. The left ventricular systolic function is grossly normal on limited imaging. There are only limited views of the left ventricle. Aortic valve sclerosis is present. Mild aortic valve stenosis. Aortic valve area is 1.1 cm. Aortic valve mean gradient is 26 mmHg. BP: 191 / 89 HR: Rhythm: Atrial fibrillation MEASUREMENTS (Male / Female) Normal Values Technical Quality:Poor 2D ECHO LVOT Diameter 2.2 cm Aortic Root Diameter 3.2 cm M-MODE AV Cusp Separation MM 1.1 cm DOPPLER AV Peak Velocity 363.3 cm/s AV Peak Gradient 52.8 mmHg AV Mean Gradient 26.0 mmHg AV Velocity Time Integral 66.6 cm LVOT Peak Velocity 141.4 cm/s LVOT Peak Gradient 8.0 mmHg LVOT Velocity Time Integral 19.3 cm AV Area Cont Eq vti 1.1 cm AV Area Cont Eq pk 1.5 cm FINDINGS LEFT VENTRICLE Wall thickness is normal. Normal left ventricular size. The left ventricular systolic function is grossly normal on limited imaging. There are only limited views of the left ventricle. RIGHT VENTRICLE Normal right ventricular size and systolic function. AORTIC VALVE Aortic valve sclerosis is present. Mild aortic valve stenosis. Aortic valve area is 1.1 cm. Aortic valve mean gradient is 26 mmHg. Anabela Bledsoe MD, FACC (Electronically Signed) Final Date:08 December 2016 19:12
[2016-12-08] MEDS: ACETAMINOPHEN/HYDROcodone 325 MG/7.5 MG TAB PO PRN (20:30)
[2016-12-08] MEDS: TERAZOSIN HCL 1 MG CAP PO SCH (21:44)
[2016-12-08] MEDS: ATORVASTATIN 20 MG TAB PO SCH (21:46)
[2016-12-09] VITALS (10 sets, daily range): BP systolic 103–179; BP diastolic 55–77; PULSE 74–95; RESP 18–20; TEMP 97.5–98.2; O2SAT 91–99
[2016-12-09] MEDS: PANTOPRAZOLE SODIUM 40 MG VIAL IV PUSH SCH ×2 (01:16→13:37)
[2016-12-09] MEDS: ACETAMINOPHEN/HYDROcodone 325 MG/5 MG TAB PO PRN ×2 (01:16→06:46)
[2016-12-09] MEDS: PIPERACIL-TAZO 2.25 GM PREMIX 50 ML IV SCH ×3 (03:27→18:02)
[2016-12-09] MEDS: hydrALAZINE HCL 10 MG TAB PO SCH ×3 (06:05→22:24)
[2016-12-09] MEDS: INSULIN ASPART SUPPLEMENTAL SCALE SQ SCH ×4 (06:05→20:50)
[2016-12-09] MEDS: SODIUM CHLOR 0.9% 1000 ML INJ 1,000 ML IV SCH ×3 (06:07→16:12)
--- NOTE | 2016-12-09 07:40 | MB ---
cc: LAVONNE LEES MD DATE OF CONSULTATION: 12/09/2016 REASON FOR CONSULTATION: Gangrene of the left foot, gangrene of the left fifth toe. HISTORY OF PRESENT DISEASE: This 80-year-old gentleman came to be evaluated for shortness of breath and on exam he was noted to have gas in the tissues of the left foot with gangrene of the fifth toe. The patient was admitted for further workup. Since then he underwent resection of the same by Dr. Gardiner, and question arises about any further vascular intervention or workup. PAST SURGICAL HISTORY: 1. TURP 2. Coronary artery angioplasty and stents. PAST MEDICAL HISTORY: 1. COPD. 2. Diabetes mellitus. 3. CHF. 4. Above noted ischemic cardiac disease. SOCIAL HISTORY: The patient quit smoking in 2009. He is pretty much unkempt. PHYSICAL EXAMINATION: Reveals an unfortunate 80 year-old gentleman in no acute distress. HEENT: Normocephalic. No trauma to the head. Pupils equally reactive. Extraocular muscles intact. Neck: Supple, bilateral carotid pulses and bilateral bruits, faint. Chest: Bilateral breath sounds decreased significantly over both lung tadeo. 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 Heart: Regular rhythm. Abdomen: Soft, patulous, active bowel sounds. No rebound or guarding. No masses. Extremities: On deep palpation, the patient has bilateral femoral pulses. Distal pulses only by Doppler but the patient has a good dopplerable popliteal, dorsalis pedis posterior tibial pulses, +2. No signs of acute vascular deficit noted. Capillary refill intact. As above noted, he just had surgery on his fifth metatarsal left and this has been resected. Right now, I do not see any cellulitis creeping up the leg or significant swelling. Neurologic: Grossly the patient is intact. 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 This patient is not a candidate for any major vascular construction in the face that his creatinine and BUN cannot undergo CTA with a runoff. Therefore, for the time being I will hold off on any further vascular approach and allow the patient to be treated for obvious problems. In the face of his severe pulmonary disease, his lung span is limited. Lavonne WESLEY /1:34 AM /7:36 AM
[2016-12-09 08:24] LABS: AUTOMATED NEUTROPHIL # 13.8 TH/MM3 (1.8-7.7); BASOPHIL # 0.1 TH/MM3 (0-0.2); BASOPHIL % 0.5 % (0.0-2.0); EOSINOPHIL # 0.2 TH/MM3 (0-0.4); EOSINOPHIL % 1.5 % (0.0-4.0); HEMATOCRIT 24.4 % (39.0-51.0); HEMO FLAGS DIFF FINAL; LYMPH % 4.3 % (9.0-44.0); LYMPHOCYTE # 0.7 TH/MM3 (1.0-4.8); MEAN CORPUSCULAR HEMOGLOBIN 22.6 PG (27.0-34.0); MEAN CORPUSCULAR HGB CONC 31.9 % (32.0-36.0); MONO % 9.9 % (0.0-8.0); NEUT % 83.8 % (16.0-70.0); PLATELET COUNT 193 TH/MM3 (150-450); RED BLOOD COUNT 3.43 MIL/MM3 (4.50-5.90); RED CELL DISTRIBUTION WIDTH 17.5 % (11.6-17.2); WHITE BLOOD COUNT 16.4 TH/MM3 (4.0-11.0)
[2016-12-09] MEDS: PHENYTOIN SODIUM 100 MG CAP PO SCH ×2 (08:44→20:43)
[2016-12-09] MEDS: THIAMINE HCL 100 MG TAB PO SCH (08:44)
[2016-12-09] MEDS: FOLIC ACID 1 MG TAB PO SCH (08:44)
[2016-12-09] MEDS: DOCUSATE SODIUM 50 MG/SENNA 8.6 MG TAB PO SCH ×2 (08:44→20:44)
[2016-12-09] MEDS: MULTIVITAMINS/MINERALS THERAPEUTIC TAB PO SCH (08:44)
[2016-12-09] MEDS: BUDESONIDE-FORMOTEROL 80/4.5 MCG INHALER INH SCH ×2 (08:45→20:44)
[2016-12-09] MEDS: SODIUM CHLORIDE 0.9% FLUSH 10 ML FLUSH IV FLUSH SCH ×2 (08:45→20:42)
[2016-12-09 08:49] LABS: BICARBONATE 18.6 MEQ/L (21.0-32.0); POTASSIUM 4.3 MEQ/L (3.5-5.1)
[2016-12-09 08:52] LABS: VANCOMYCIN TROUGH 21.3 MCG/ML (5.0-10.0)
[2016-12-09] MEDS: RESP: ALBUTEROL 2.5 MG/IPRATROPIUM 0.5 MG NEB (SCH) NEB ×4 (09:03→22:43)
[2016-12-09] MEDS: MORPHINE SULFATE 4 MG/ML INJ IV PRN (09:39)
--- NOTE | 2016-12-09 11:15 | HHI.FPPN ---
Subjective Remarks Patient's daughter is in room this morning and states the patient had a rough night with pain, requiring morphine this morning. At this time, after taking the morphine he is relatively pain-free and has no complaints. He is confused again this morning, knows that he is in [place] and knows his name but is not oriented to year or place. He has been afebrile and has no complaints such as shortness of breath, denies chest pain, denies nausea/vomiting, denies abdominal pain. At this time he also denies pain in the left foot. Objective Vitals Vital Signs Date Time Temp Pulse Resp B/P Pulse Ox O2 Delivery O2 Flow Rate FiO2 12/09/16 09:05 94 2.00 12/09/16 08:00 97.6 83 18 130/63 92 12/09/16 05:51 97.6 87 20 179/77 93 12/09/16 01:54 84 12/09/16 00:30 98.2 74 20 148/72 94 12/08/16 20:13 100 Nasal Cannula 2.00 12/08/16 20:00 97.7 82 20 168/72 95 12/08/16 16:06 61 12/08/16 16:00 97.2 85 16 149/67 100 12/08/16 12:00 97.3 77 19 147/60 95 I/O 12/08/16 12/08/16 12/08/16 12/09/16 12/09/16 12/09/16 07:00 15:00 23:00 07:00 15:00 23:00 Intake Total 1080 ml 1234 ml 974 ml Output Total 150 ml 750 ml 400 ml Balance 930 ml -750 ml 1234 ml 574 ml Intake Oral 260 ml IV Total 820 ml 1234 ml 974 ml Output Urine Total 150 ml 750 ml 400 ml # Voids 3 # Bowel Movements 0 Result Diagram: 12/09/1624 12/09/1624 Imaging Last 72 hours Impressions Chest X-Ray 12/08/16 0000 Signed Impressions: Service Date/Time: Thursday, December 08, 2016 14:05 - CONCLUSION: Tiny bilateral pleural effusions. Altagracia Grijalva MD Abdomen Ultrasound 12/07/16 0026 Signed Impressions: Service Date/Time: Wednesday, December 07, 2016 09:34 - CONCLUSION: 1. 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 Cystoscopy and biopsy recommended. 2. Nonvisualization of the pancreas. 3. Kidneys are borderline echogenic. 4. Minimal free fluid in Faulkner's pouch. Sal Chowdhury MD Foot MRI 12/07/16 0000 Signed Impressions: Service Date/Time: Wednesday, December 07, 2016 09:01 - CONCLUSION: 1. Osteomyelitis of the fifth metatarsal head and proximal phalanx of the fifth toe. Sal Chowdhury MD Abdomen/Pelvis CT 12/07/16 0000 Signed Impressions: Service Date/Time: Thursday, December 08, 2016 10:46 - CONCLUSION: Multiple bladder masses suspicious for malignancy. Altagracia Grijalva MD Foot X-Ray 12/06/161746 Signed Impressions: Service Date/Time: November 18:08 - CONCLUSION: No obvious bone destruction at this time. Soft tissue emphysema is noted in and around the fifth MTP joint soft tissues. The possibility of infection with gas-forming organism should be excluded. Dean Burton MD Chest X-Ray [id number]/06/161746 Signed Impressions: Service Date/Time: November 18:06 - CONCLUSION: Right basilar atelectasis versus airspace disease. Dean Burton MD Objective Remarks GEN: Somewhat disheveled, confused. Sitting up in bed in no obvious distress. CV: Regular rate and rhythm without obvious murmurs LUNGS: Clear to auscultation bilaterally. Normal respiratory effort. Scattered wheezing bilaterally. . EXT: Left foot wrapped in an Raimundo wrap with toes exposed. Avulsed great toe nail with some mild oozing of red blood. N edema. No calf tenderness. No erythema extending proximal to ankle. NEURO/PSYCH: Awake, alert. Oriented to person and city but not to time or location A/P Assessment and Plan 80-year-old male admitted for AMS and found to have MIKE, electrolytes disturbances, and osteomyelitis. Discharge Planning Unclear. Pending bone biopsy results, uro work up, and GI work up. -PT consulted sdw Dr. 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 Vascular surgery has evaluated patient and recommends close monitoring as he is not eligible for an angiogram due to his renal function and is not eligible for heparin due to his hematuria and GI bleed. Pain control with Fallon and morphine (2) Bladder tumor Status: Acute Plan: Urology consulted and following patient - CT of the abdomen and pelvis shows multiple masses in the bladder - Abdominal US shows echogenic masses in the bladder consistent with neoplastics process, 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 Daily BMP to monitor Cr * Baseline Cr currently unknown, last recording creatinine was 1.52 from 2016 Patient's daughter does state that he did refuse urologic intervention several weeks ago when it was recommended by his primary care provider - If he continues to refuse urologic intervention, patient may be hospice appropriate (3) GI bleed Status: Acute Plan: Hemoglobin stable today at 7.8 - Ranging from 7.6-9.0 - Has not received any blood products -Monitor H&H daily -Continue PPI twice a day - Was found to be Hemoccult positive in the emergency department GI consulted: appreciate recommendations * Hold on EGD/Colonoscopy until CT resulted and decides on cystoscopy * Ordered ASMA, AMA, ceruloplasmin, alpha1 antitrypsin, AFP Medications: * begin iron supplements once EGD/Colonoscopy is performed * home aspirin * IV Protonix BID (4) UTI (urinary tract infection) Status: Acute Plan: Urinalysis consistent with infection - Continue abx as described under gangrene as that would provide adequate coverage - urine culture: Staph Aureus (5) Acute renal failure Status: Acute Plan: Improving with creatinine 2.7 today Appears to be prerenal from poor intake and infection - Continue IV hydration with normal saline at 125 mL/hour Follow with daily BMPs (6) Electrolyte abnormality Status: Resolved Plan: Sodium and potassium electrolyte abnormalities have resolved with IV fluids Hospital course: Potassium on admission was 5.4 which increased to a high of 6.4. Received calcium gluconate, insulin and dextrose in the emergency department. Potassium has since decreased with Kayexalate to 4.7 as of 12/08/16. Hyponatremia has now resolved from a low of 125 with fluid hydration -Monitor with BMPs -Kayexalate discontinued -Lasix discontinued (7) Hypertension Status: Chronic Plan: Elevated BP since admission. Home lisinopril held due to MIKE * Amlodipine 10mg * Increase hydralazine to 20 mg by mouth every 8hr * Clonidine PRN (8) Altered mental status Status: Acute Plan: Likely multifactorial, treatment for infection as above and will readdress (9) DM (diabetes mellitus) Status: Chronic Plan: Diabetes relatively well-controlled with glucose ranging from 100 to 130s - Hemoglobin A1c of 6.8% - Home home levemir - Low dose Sliding Scale w/ Novolog, titrate as needed (10) CHF (congestive heart failure) Status: Chronic Plan: Echocardiogram performed with limited visualization of the left ventricular function - Left ventricular function grossly normal BNP equivocal on admission. Clinically does not appear to be in CHF exacerbation. Medications: * Currently holding RAIMUNDO inhibitor due to acute renal failure (11) COPD (chronic obstructive pulmonary disease) Status: Chronic Plan: Known history of COPD. Received Solu-Medrol 125 mg 1 in the emergency department. - ABX coverage through osteo treatment Medications: * Continue albuterol inhaler * Continue DuoNeb's every 4 hours with albuterol PRN * Continue symbicort * Antibiotics as above (12) Seizure disorder Status: Chronic Plan: Continue home Dilantin (13) Atrial fibrillation Status: Chronic Plan: [id number] score of 6, would benefit from anticoagulation once clinically stable. Currently rate controlled. -Not currently anticoagulated due to possibility of GI bleed and hematuria from bladder masses (14) CAD (coronary artery disease) Status: Chronic Plan: h/o CAD with 2 stents placed, takes Aspirin 81 mg daily at home, atorvastatin 20mg, no complaints of angina -continue home atorvastatin -holding Aspirin due to GI bleed (15) Nutrition, metabolism, and development symptoms Status: Acute Plan: Diet: Heart healthy, to be modified once EGD/Colonoscopy date is set Fluids: Normal saline at 125 mL/hour Electrolytes: see plan above DVT: holding anticoagulation due to GI bleed, Bilateral SCDs GI PPX: protonix Problem Qualifiers (1) GI bleed: Qualified Code: K92.2 - Gastrointestinal hemorrhage, unspecified gastrointestinal hemorrhage type (2) DM (diabetes mellitus): Qualified Code: 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
--- NOTE | 2016-12-09 13:35 | HHI.PR ---
Subjective Patient symptoms today Pt seen and examined. C/o foot pain. Objective Vital Signs Vital Signs Date Time Temp Pulse Resp B/P Pulse Ox O2 Delivery O2 Flow Rate FiO2 12/09/16 12:00 98.0 76 20 146/71 91 12/09/16 09:05 94 2.00 12/09/16 08:00 97.6 83 18 130/63 92 12/09/16 05:51 97.6 87 20 179/77 93 12/09/16 01:54 84 12/09/16 00:30 98.2 74 20 148/72 94 12/08/16 20:13 100 Nasal Cannula 2.00 12/08/16 20:00 97.7 82 20 168/72 95 12/08/16 16:06 61 12/08/16 16:00 97.2 85 16 149/67 100 Intake & Output 12/09/16 12/09/16 07:00 19:00 Intake Total 2208 ml Output Total 400 ml Balance 1808 ml IV Total 2208 ml Output Urine Total 400 ml Result Diagram: 12/09/1672312/09/16723 Objective Remarks Abd:soft,nt,nd Voiding Left foot dressing intact Medications and IVs Current Medications Medications (Trade) Dose Ordered Sig/Barbara Route Start Time Stop Time Status Last Admin (NS Flush) 2 ml UNSCH PRN IV FLUSH 12/06/16 21:15 (NS Flush) 2 ml BID IV FLUSH 12/07/16 09:00 12/09/16 08:45 (Tylenol) 650 mg Q4H PRN PO 12/06/16 21:15 (Zofran Inj) 4 mg Q6H PRN IVP 12/06/16 21:15 (Christine-Colace) 1 tab BID PO 12/07/16 09:00 12/09/16 08:44 (Milk Of Magnesia Liq) 30 ml Q12H PRN PO 12/06/16 21:15 (Senokot) 17.2 mg Q12H PRN PO 12/06/16 21:15 (Dulcolax Supp) 10 mg DAILY PRN RECTAL 12/06/16 21:15 Lactulose 30 ml 30 ml DAILY PRN PO 12/06/16 21:15 (NS 1000 ml Inj) 1,000 ml @ 125 mls/hr Q8H IV 12/06/16:14 12/09/16 06:07 (Folate) 1 mg DAILY PO 12/07/16 09:00 12/12/16 08:59 12/09/16 08:44 (Vitamin B1) 100 mg DAILY PO 12/07/16 09:00 12/09/16 08:44 (Theragran M Tab) 1 tab DAILY PO 12/07/16 09:00 12/12/16 08:59 12/09/16 08:44 (Romazicon Inj) 0.2 mg Q1M PRN IV PUSH 12/06/16 21:30 (Ativan) 1 mg Q4H PRN PO 12/06/16 21:30 (Ativan) 2 mg Q2H PRN PO 12/06/16 21:30 12/06/16 22:45 (Ativan Inj) 2 mg Q1H PRN IV PUSH 12/06/16 21:30 (Ativan Inj) 2 mg Q15M PRN IV PUSH 12/06/16 21:30 (Ventolin Hfa Inh) 2 puff Q4HR PRN INH 12/06/16 21:45 (Norvasc) 10 mg DAILY PO 12/07/16 09:00 12/09/16 08:44 (Lipitor) 20 mg HS PO 12/07/16 21:00 12/08/16 21:46 (Symbicort 80-4.5 Mcg Inh) 2 puff Q12HR INH 12/07/16 09:00 12/09/16 08:45 (Dilantin) 100 mg BID PO 12/07/16 09:00 12/09/16 08:44 Terazosin HCl 1 mg 1 mg HS PO 12/07/16 21:00 12/08/16 21:44 (Zosyn 2.25 Gm Premix) 50 ml @ 100 mls/hr Q8H IV 12/07/16 03:00 12/09/16 11:52 (Catapres) 0.1 mg Q6H PRN PO 12/06/16 23:15 12/07/16 22:24 (D50w (Vial) Inj) 50 ml UNSCH PRN IV 12/07/16 00:45 (Glucagon Inj) 1 mg UNSCH PRN OTHER 12/07/16 00:45 (Protonix Inj) 40 mg Q12H IV PUSH 12/07/16 02:00 12/09/16 01:16 (Tylenol) 650 mg Q6H PRN PO 12/07/16 12:00 (Morphine Inj) 2 mg Q3H PRN IV 12/07/16 12:00 12/09/16 09:39 (Narcan Inj) 0.4 mg UNSCH PRN IV 12/07/16 12:00 Miscellaneous 1 ea 1 ea UNSCH PRN OTHER 12/07/16 12:45 (Vancomycin Consult Pharmacy) 0 ml @ 0 mls/hr UNSCH OTHER 12/07/16 13:30 ([place] 5-325 Mg) 1 tab Q4H PRN PO 12/08/16 13:45 12/09/16 06:46 ([place] 7.5-325 Mg) 1 tab Q4H PRN PO 12/08/16 13:45 12/08/16 20:30 (Narcan Inj) 0.4 mg UNSCH PRN IV 12/08/16 13:45 (Apresoline) 20 mg Q8HR PO 12/09/16 14:00 Assessment and Plan Assessment and Plan 80 y.o with findings of multiple bladder mass s/p TURBT in 2013 with findings at that time of high grade disease. CT scan shows multiple bladder masses without evidence of adenopathy. Pt maybe a candidate for a repeat TURBT as he has gone 2-3 years without evidence of metastatic disease. Will need to recover from recent surgery and clear UTI and agree to surgery in the future as he was lost to f/u in the past. This maybe done as outpt if he is willing to f/u. Will discuss with medical team this week. Jose Alberto Parham DO Dec 09, 2016 13:35
--- NOTE | 2016-12-09 15:40 | PD.POD ---
Subjective Pain score: 1 Remarks Left foot pain has improved, seen bedside with family Past Med/Surg/Social History Social History Smoking Status: Former Smoker Objective Vital Signs Vital Signs Date Time Temp Pulse Resp B/P Pulse Ox O2 Delivery O2 Flow Rate FiO2 12/09/16 12:00 98.0 76 20 146/71 91 12/09/16 09:05 94 2.00 12/09/16 08:00 97.6 83 18 130/63 92 12/09/16 07:20 82 12/09/16 05:51 97.6 87 20 179/77 93 12/09/16 01:54 84 12/09/16 00:30 98.2 74 20 148/72 94 12/08/16 20:13 100 Nasal Cannula 2.00 12/08/16 20:00 97.7 82 20 168/72 95 12/08/16 16:06 61 12/08/16 16:00 97.2 85 16 149/67 100 Coded Allergies: No Known Allergies (Verified , 10/11/15) Medications and IVs Administered Medications Medications (Trade) Dose Ordered Sig/Barbara Route PRN Reason Start Time Stop Time Status Last Admin Dose Admin Sodium Chloride (NS Flush) 2 ml BID IV FLUSH 12/07/16 09:00 12/09/16 08:45 Senna/Docusate Sodium 1 tab 1 tab BID PO 12/07/16 09:00 12/09/16 08:44 Sodium Chloride (NS 1000 ml Inj) 1,000 ml @ 125 mls/hr Q8H IV 12/06/16 21:14 12/09/16 13:38 Folic Acid (Folate) 1 mg DAILY PO 12/07/16 09:00 12/12/16 08:59 12/09/16 08:44 Thiamine HCl (Vitamin B1) 100 mg DAILY PO 12/07/16 09:00 12/09/16 08:44 Multivitamins/ Minerals Therapeutic (Theragran M Tab) 1 tab DAILY PO 12/07/16 09:00 12/12/16 08:59 12/09/16 08:44 Lorazepam (Ativan) 2 mg Q2H PRN PO CIWA 11-14 12/06/16 21:30 12/06/16 22:45 Amlodipine Besylate (Norvasc) 10 mg DAILY PO 12/07/16 09:00 12/09/16 08:44 Atorvastatin Calcium (Lipitor) 20 mg HS PO 12/07/16 21:00 12/08/16 21:46 Budesonide/ Formoterol Fumarate (Symbicort 80-4.5 Mcg Inh) 2 puff Q12HR INH 12/07/16 09:00 12/09/16 08:45 Phenytoin (Dilantin) 100 mg BID PO 12/07/16 09:00 12/09/16 08:44 Terazosin HCl 1 mg 1 mg HS PO 12/07/16 21:00 12/08/16 21:44 Piperacillin Sod/ Tazobactam Sod (Zosyn 2.25 Gm Premix) 50 ml @ 100 mls/hr Q8H IV 12/07/16 03:00 12/09/16 11:52 Clonidine (Catapres) 0.1 mg Q6H PRN PO SEE LABEL COMMENTS 12/06/16 23:15 12/07/16 22:24 Pantoprazole Sodium (Protonix Inj) 40 mg Q12H IV PUSH 12/07/16 02:00 12/09/16 13:37 Morphine Sulfate (Morphine Inj) 2 mg Q3H PRN IV BREAKTHROUGH PAIN 12/07/16 12:00 12/09/16 09:39 Acetaminophen/ Hydrocodone Bitart ([place] 5-325 Mg) 1 tab Q4H PRN PO PAIN SCALE 3 TO 5 12/08/16 13:45 12/09/16 06:46 Acetaminophen/ Hydrocodone Bitart ([place] 7.5-325 Mg) 1 tab Q4H PRN PO PAIN SCALE 6 TO 10 12/08/16 13:45 12/08/16 20:30 Hydralazine HCl (Apresoline) 20 mg Q8HR PO 12/09/16 14:00 12/09/16 13:37 Other Results Laboratory Tests Test 12/07/16 12/08/16 12/09/16 21:44 08:52 07:24 Hemoglobin 7.6 GM/DL 8.4 GM/DL 7.8 GM/DL Hematocrit 23.8 % 25.7 % 24.4 % White Blood Count 20.0 TH/MM3 16.4 TH/MM3 Red Blood Count 3.61 MIL/MM3 3.43 MIL/MM3 Mean Corpuscular Volume 71.0 FL 71.0 FL Mean Corpuscular Hemoglobin 23.2 PG 22.6 PG Mean Corpuscular Hemoglobin 32.7 % 31.9 % Concent Red Cell Distribution Width 17.2 % 17.5 % Platelet Count 184 TH/MM3 193 TH/MM3 Mean Platelet Volume 7.9 FL 7.2 FL Neutrophils (%) (Auto) 85.6 % 83.8 % Lymphocytes (%) (Auto) 5.2 % 4.3 % Monocytes (%) (Auto) 8.0 % 9.9 % Eosinophils (%) (Auto) 0.7 % 1.5 % Basophils (%) (Auto) 0.5 % 0.5 % Neutrophils # (Auto) 17.2 TH/MM3 13.8 TH/MM3 Lymphocytes # (Auto) 1.0 TH/MM3 0.7 TH/MM3 Monocytes # (Auto) 1.6 TH/MM3 1.6 TH/MM3 Eosinophils # (Auto) 0.1 TH/MM3 0.2 TH/MM3 Basophils # (Auto) 0.1 TH/MM3 0.1 TH/MM3 CBC Comment DIFF FINAL DIFF FINAL Differential Comment Laboratory Tests Test 12/08/16 12/08/16 12/09/16 06:52 08:52 07:24 Total Bilirubin 0.6 MG/DL Direct Bilirubin 0.4 MG/DL Indirect Bilirubin 0.2 MG/DL Aspartate Amino Transf 24 U/L (AST/SGOT) Alanine Aminotransferase 15 U/L (ALT/SGPT) Alkaline Phosphatase 107 U/L Total Protein 5.4 GM/DL Albumin 2.4 GM/DL Tumor Marker Alpha Fetoprotein 0.7 NG/ML Sodium Level 137 MEQ/L 140 MEQ/L Potassium Level 4.7 MEQ/L 4.3 MEQ/L Chloride Level 105 MEQ/L 109 MEQ/L Carbon Dioxide Level 20.2 MEQ/L 18.6 MEQ/L Anion Gap 12 MEQ/L 12 MEQ/L Blood Urea Nitrogen 82 MG/DL 74 MG/DL Creatinine 3.02 MG/DL 2.77 MG/DL Estimat Glomerular Filtration 20 ML/MIN 22 ML/MIN Rate Random Glucose 107 MG/DL 131 MG/DL Calcium Level 8.4 MG/DL 8.3 MG/DL Microbiology Date/Time Procedure Status Source Growth 12/06/16 19:15 Aerobic Blood Culture - Preliminary Resulted Blood Line NO GROWTH IN 3 DAYS 12/06/16 19:15 Anaerobic Blood Culture - Preliminary Resulted Blood Line NO GROWTH IN 3 DAYS 12/06/16 19:15 Aerobic Blood Culture - Preliminary Resulted Blood Line NO GROWTH IN 3 DAYS 12/06/16 19:15 Anaerobic Blood Culture - Preliminary Resulted Blood Line NO GROWTH IN 3 DAYS 12/06/16 19:45 Gram Stain - Final Resulted Wound Foot 12/06/16 19:45 Wound Culture - Preliminary Resulted Staphylococcus Aureus Group D Enterococcus 12/06/16 23:25 Urine Culture - Final Complete Urine Clean Catch Staphylococcus Aureus 12/07/16 18:20 Gram Stain - Final Complete Wound Foot 12/07/16 18:20 Wound Culture - Final Complete Staphylococcus Aureus 12/07/16 18:20 Acid Fast Stain - Final Resulted Wound Foot NO ACID FAST BACILLI SEEN 12/07/16 18:20 Mycobacterial Culture Resulted Wound Foot Pending 12/07/16 18:20 Fungal Smear - Final Resulted Wound Foot NO FUNGAL ELEMENTS SEEN. 12/07/16 18:20 Fungal Culture Resulted Wound Foot Pending Physical Exam Remarks Left LE: lateral 5th digit/ Ray amp site loosely coapted, dorsal flap moderate ischemic changes noted, redness is isolated to the foot, no odor, foot is warm, chronic digit contractures noted, sensation decreased to light touch Assessment & Plan A/P Left foot ulcer, abscess, gas gangrene. SP 5th digit amputation, metatarsal resection, incision drainage 12-07. Foot remains viable, improving, however, dorsal flap necrosis continues to declare. May need further amputation revision. Will FU in 2-3 days, bone path pending. Sign out to Dr Acevedo. Ok for heel WB,left foot for transfer. Nico Gardiner DPM Dec 09, 2016 15:40
[2016-12-09] MEDS ORDERED: PEG (High)/E-LYTE SOLN 4000 ML BTL PO ONE (16:00)
[2016-12-09] MEDS: ACETAMINOPHEN/HYDROcodone 325 MG/7.5 MG TAB PO PRN (18:02)
[2016-12-09] MEDS: TERAZOSIN HCL 1 MG CAP PO SCH (20:43)
[2016-12-09] MEDS: ATORVASTATIN 20 MG TAB PO SCH (20:44)
[2016-12-10] VITALS (11 sets, daily range): BP systolic 150–194; BP diastolic 68–94; PULSE 60–100; RESP 20–22; TEMP 97.2–98.3; O2SAT 90–95
[2016-12-10] MEDS: SODIUM CHLOR 0.9% 1000 ML INJ 1,000 ML IV SCH ×3 (00:12→16:13)
[2016-12-10] MEDS: ACETAMINOPHEN/HYDROcodone 325 MG/7.5 MG TAB PO PRN ×3 (00:50→21:39)
[2016-12-10] MEDS: PANTOPRAZOLE SODIUM 40 MG VIAL IV PUSH SCH ×2 (00:52→14:06)
[2016-12-10] MEDS: PIPERACIL-TAZO 2.25 GM PREMIX 50 ML IV SCH ×3 (02:45→21:38)
[2016-12-10] MEDS: hydrALAZINE HCL 10 MG TAB PO SCH ×2 (05:02→14:05)
[2016-12-10] MEDS: MORPHINE SULFATE 4 MG/ML INJ IV PRN (05:04)
[2016-12-10] MEDS: INSULIN ASPART SUPPLEMENTAL SCALE SQ SCH ×4 (06:14→21:00)
[2016-12-10] MEDS: RESP: ALBUTEROL 2.5 MG/IPRATROPIUM 0.5 MG NEB (SCH) NEB ×3 (07:33→15:29)
[2016-12-10] MEDS: THIAMINE HCL 100 MG TAB PO SCH (08:29)
[2016-12-10] MEDS: MULTIVITAMINS/MINERALS THERAPEUTIC TAB PO SCH (08:29)
[2016-12-10] MEDS: SODIUM CHLORIDE 0.9% FLUSH 10 ML FLUSH IV FLUSH SCH ×2 (08:30→21:00)
[2016-12-10] MEDS: PHENYTOIN SODIUM 100 MG CAP PO SCH ×2 (08:30→21:38)
[2016-12-10] MEDS: DOCUSATE SODIUM 50 MG/SENNA 8.6 MG TAB PO SCH ×2 (08:30→21:38)
[2016-12-10] MEDS: BUDESONIDE-FORMOTEROL 80/4.5 MCG INHALER INH SCH ×2 (08:30→21:00)
[2016-12-10] MEDS: FOLIC ACID 1 MG TAB PO SCH (08:30)
--- NOTE | 2016-12-10 09:05 | MP ---
cc: [facility] DATE OF SURGERY 12/07/2016 PREOPERATIVE DIAGNOSIS Left foot osteomyelitis, gas gangrene fifth digit MPJ. POSTOPERATIVE DIAGNOSIS Left foot osteomyelitis, gas gangrene fifth digit MPJ. PROCEDURES PERFORMED Left foot fifth metatarsal resection, incision and drainage fifth digit amputation, minimal bleeding noted. SURGERY TIME Medicine notified. COMPLICATIONS None. SPECIMEN Bone and soft tissue, digit metatarsal for pathology as well as deep culture taken. Amputation site bone culture. ESTIMATED BLOOD LOSS Less than 30 mL. TOURNIQUET None. ANESTHESIA General with local, anterior ankle block. CONDITION To PACU, fair condition. JUSTIFICATION FOR PROCEDURE An 80-year-old male who was admitted actually for shortness of breath. He was noted to have an ulcer and infection of his left foot, likely the source of sepsis. We devised a plan to move forward with resection of infected tissue to prevent further source seeding his sepsis. The patient is a poor historian, poor medical health, advanced age, not the best blood flow to his leg. There is possibility of need for more surgery at a later date, partial foot amputation if not below-knee amputation. No guarantees given or implied regarding the outcome. PROCEDURE IN DETAIL Under mild sedation the patient is brought into the operating room, placed on the operating table in supine position. Following the induction of general anesthesia, an anterior ankle block was performed utilizing 20 cc of 0.25% Marcaine plain. The patient's left foot was then scrubbed, prepped and draped in the usual aseptic fashion. The foot was elevated and examined. There was noted to be a bullous, necrotic area of the dorsal aspect of fifth MPJ with a full-thickness ulceration with exposed fifth metatarsal lead and odor of the plantar lateral fifth MPJ. An elliptical incision was made disarticulating the fifth digit and removing the metatarsal head utilizing power instrumentation. Utilizing curette and rongeur, all necrotic tissue was removed. A deep culture was taken at this area of the proximal portion of the fifth metatarsal. Clinically it was hard and did not appear to have chronic signs of osteomyelitis. Careful attention was placed now to the internal fascia, muscle as well as skin and there was not much bleeding at this area. It was then packed loosely open with Iodoform and nylon suture. A bulky bandage was placed. The patient was then transferred from OR to PACU with all vital signs stable. I reported to Medicine the poor blood flow. The patient is ambulatory. I do feel that he at least should be evaluated by Vascular. At this point in time I really think he is going to have a very hard time healing this foot surgery given his vascular status. I will continue to follow along. The patient will likely need multiple debridements and we will follow along and see if the patient can heal from this condition. JESSICA Moore/LORE /6:44 PM /8:59 AM
--- NOTE | 2016-12-10 11:23 | HHI.FPPN ---
Subjective Remarks No acute events overnight. Patient seen and examined this morning with daughter at bedside. Patient did not report any complaints. Daughter states patient has not had a bowel movements in a couple days and so is unable to answer if patient has had any melena or visible blood in stools. Patient states his pain is well-controlled. Denies fevers, chest pain, SOB, abdominal pain. Patient has had good urine production over the past 24 hours. (Tristian Chopra MD R1) Objective Vitals Vital Signs Date Time Temp Pulse Resp B/P Pulse Ox O2 Delivery O2 Flow Rate FiO2 12/10/16 08:03 98.3 70 20 157/70 92 12/10/16 07:34 90 Nasal Cannula 3.00 12/10/16 05:12 97.7 100 20 153/68 93 12/10/16 01:47 70 12/10/16 00:32 97.5 95 20 150/94 94 12/09/16 22:45 92 Nasal Cannula 3.00 12/09/16 20:52 97.6 95 20 139/65 94 12/09/16 16:00 97.5 76 19 172/69 91 12/09/16 12:00 98.0 76 20 146/71 91 I/O 12/09/16 12/09/16 12/09/16 12/10/16 12/10/16 12/10/16 06:59 14:59 22:59 06:59 14:59 22:59 Intake Total 974 ml 1825 ml 995 ml Output Total 400 ml 675 ml 350 ml Balance 574 ml -675 ml 1825 ml 645 ml Intake Oral 240 ml IV Total 974 ml 1825 ml 755 ml Output Urine Total 400 ml 675 ml 350 ml # Voids 4 2 # Bowel Movements 0 (Tristian Chopra MD R1) Result Diagram: 12/09/1672312/09/16723 Objective Remarks GEN: Somewhat disheveled, confused. Sitting in chair in NAD. CV: Regular rate and rhythm without obvious murmurs LUNGS: Clear to auscultation bilaterally. Normal respiratory effort. Scattered wheezing bilaterally. EXT: Left foot wrapped in an Raimundo wrap with toes exposed. No edema. No calf tenderness. No erythema extending proximal to ankle. NEURO/PSYCH: Awake, alert. Appears confused but able to converse easily and cooperative. (Tristian Chopra MD R1) A/P Assessment and Plan 80-year-old male admitted for AMS and found to have MIKE, electrolytes disturbances, and osteomyelitis. Discharge Planning Unclear. Pending bone biopsy results, and further workup per GI if indicated PT consulted (Tristian Chopra MD R1) Attending Attestation Pt. examined and case discussed with resident physicians. I have read the above note and agree with the assessment and plan as discussed with me. I was involved in all medical decision making for this patient. 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 Vascular surgery has evaluated patient and recommends close monitoring as he is not eligible for an angiogram due to his renal function and is not eligible for heparin due to his hematuria and GI bleed. 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 Daily BMP to monitor Cr * Baseline Cr currently unknown, last recording creatinine was 1.52 from 2016 Patient's daughter does state that he did refuse urologic intervention several weeks ago when it was recommended by his primary care provider - If he continues to refuse urologic intervention, patient may be hospice appropriate - Case discussed with Dr. Parham this AM. If patient stable for discharge, patient may follow up with urology as an outpatient for further management (3) GI bleed Status: Acute Plan: Continue to monitor Hgb - Ranging from 7.6-9.0 - Has not received any blood products - Monitor H&H daily - Continue PPI twice a day - Was found to be Hemoccult positive in the emergency department GI consulted: appreciate recommendations * Hold on EGD/Colonoscopy until CT resulted and decides on cystoscopy * Ordered ASMA, AMA, ceruloplasmin, alpha1 antitrypsin pending * AFP 0.7 Medications: * begin iron supplements once EGD/Colonoscopy is performed * Protonix 40 mg IV q12h (4) UTI (urinary tract infection) Status: Acute Plan: Urinalysis consistent with infection - Continue abx as described under gangrene as that would provide adequate coverage - UA 12/06 with large occult blood - urine culture 12/06: Staph Aureus - Repeat UA with urine culture (5) Acute renal failure Status: Acute Plan: Cr improving, 2.33 today Appears to be prerenal from poor intake and infection - Continue IV hydration with normal saline at 125 mL/hour Follow with daily BMPs (6) Electrolyte abnormality Status: Resolved Plan: Sodium and potassium electrolyte abnormalities have resolved with IV fluids Hospital course: Potassium on admission was 5.4 which increased to a high of 6.4. Received calcium gluconate, insulin and dextrose in the emergency department. Potassium has since decreased with Kayexalate to 4.7 as of 12/08/16. Hyponatremia has now resolved from a low of 125 with fluid hydration -Monitor with BMPs -Kayexalate discontinued -Lasix discontinued (7) Hypertension Status: Chronic Plan: Elevated BP since admission. Home lisinopril held due to MIKE * Amlodipine 10 mg po daily * Increase hydralazine to 20 mg by mouth every 8hr * Clonidine PRN (8) Altered mental status Status: Acute Plan: Likely multifactorial, treatment for infection as above and will readdress (9) DM (diabetes mellitus) Status: Chronic Plan: Diabetes relatively well-controlled with glucose ranging from 100 to 130s - Hemoglobin A1c of 6.8% - Hold home levemir - Low dose Sliding Scale w/ Novolog, titrate as needed (10) CHF (congestive heart failure) Status: Chronic Plan: Echocardiogram performed with limited visualization of the left ventricular function - Left ventricular function grossly normal BNP equivocal on admission. Clinically does not appear to be in CHF exacerbation. Medications: * Currently holding RAIMUNDO inhibitor due to acute renal failure (11) COPD (chronic obstructive pulmonary disease) Status: Chronic Plan: Known history of COPD. Received Solu-Medrol 125 mg 1 in the emergency department. - ABX coverage through osteo treatment Medications: * Continue albuterol inhaler * Continue DuoNeb's every 4 hours with albuterol PRN * Continue symbicort * Antibiotics as above (12) Seizure disorder Status: Chronic Plan: Continue home Dilantin (13) Atrial fibrillation Status: Chronic Plan: [id number] score of 6, would benefit from anticoagulation once clinically stable. Currently rate controlled. -Not currently anticoagulated due to possibility of GI bleed and hematuria from bladder masses (14) CAD (coronary artery disease) Status: Chronic Plan: h/o CAD with 2 stents placed, takes Aspirin 81 mg daily at home, atorvastatin 20mg, no complaints of angina -continue home atorvastatin -holding Aspirin due to GI bleed (15) Nutrition, metabolism, and development symptoms Status: Acute Plan: Diet: Heart healthy, to be modified once EGD/Colonoscopy date is set Fluids: Normal saline at 125 mL/hour Electrolytes: see plan above DVT: holding anticoagulation due to GI bleed, Bilateral SCDs GI PPX: protonix (Tristian Chopra MD R1) Problem Qualifiers (1) GI bleed: Qualified Code: K92.2 - Gastrointestinal hemorrhage, unspecified gastrointestinal hemorrhage type (2) DM (diabetes mellitus): Qualified Code: 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
[2016-12-10 14:39] LABS: ANA SCREEN POS (NEG)
[2016-12-10 14:58] LABS: BICARBONATE 10.8 MEQ/L (21.0-32.0); POTASSIUM 4.9 MEQ/L (3.5-5.1)
--- NOTE | 2016-12-10 15:48 | HHI.GIFU ---
Subjective Remarks Pt resting in bed. No complaints. Per tech he has not had BM, so no report of blood in stool. (Pamela Tay) Objective Vitals I&O Vital Signs Date Time Temp Pulse Resp B/P Pulse Ox O2 Delivery O2 Flow Rate FiO2 12/10/16 12:01 97.5 73 20 169/71 90 12/10/16 08:03 98.3 70 20 157/70 92 12/10/16 07:34 90 Nasal Cannula 3.00 12/10/16 05:12 97.7 100 20 153/68 93 12/10/16 01:47 70 12/10/16 00:32 97.5 95 20 150/94 94 12/09/16 22:45 92 Nasal Cannula 3.00 12/09/16 20:52 97.6 95 20 139/65 94 12/09/16 16:00 97.5 76 19 172/69 91 I/O 12/09/16 12/09/16 12/09/16 12/10/16 12/10/16 12/10/16 07:00 15:00 23:00 07:00 15:00 23:00 Intake Total 974 ml 1825 ml 995 ml 1204 ml Output Total 400 ml 675 ml 350 ml 225 ml Balance 574 ml -675 ml 1825 ml 645 ml 979 ml Intake Oral 240 ml 480 ml IV Total 974 ml 1825 ml 755 ml 724 ml Output Urine Total 400 ml 675 ml 350 ml 225 ml # Voids 4 2 2 # Bowel Movements 0 Laboratory Laboratory Tests Test 12/10/16 07:15 Sodium Level 143 Potassium Level 4.9 Chloride Level 120 Carbon Dioxide Level 10.8 Anion Gap 12 Blood Urea Nitrogen 64 Creatinine 2.33 Estimat Glomerular Filtration 27 Rate Random Glucose 110 Calcium Level 8.1 Random Vancomycin Level 15.5 Date/Time Procedure Status Source Growth 12/07/16 18:20 Gram Stain - Final Complete Wound Foot 12/07/16 18:20 Wound Culture - Final Complete Staphylococcus Aureus 12/07/16 18:20 Fungal Smear - Final Resulted Wound Foot NO FUNGAL ELEMENTS SEEN. 12/07/16 18:20 Fungal Culture Resulted Wound Foot Pending 12/07/16 18:20 Acid Fast Stain - Final Resulted Wound Foot NO ACID FAST BACILLI SEEN 12/07/16 18:20 Mycobacterial Culture Resulted Wound Foot Pending 12/06/16 23:25 Urine Culture - Final Complete Urine Clean Catch Staphylococcus Aureus 12/06/16 19:15 Aerobic Blood Culture - Preliminary Resulted Blood Line NO GROWTH IN 4 DAYS 12/06/16 19:15 Anaerobic Blood Culture - Preliminary Resulted Blood Line NO GROWTH IN 4 DAYS Physical Exam HEENT: Normocephalic; atraumatic; no jaundice. CHEST: CTA CARDIAC: RRR. ABDOMEN: Soft, nondistended, nontender; no hepatosplenomegaly; bowel sounds are present in all four quadrants. EXTREMITIES: Left foot drsg, d/i SKIN: Generalized pallor. [employer]IGATOR: alert (Pamela Tay) Assessment and Plan Plan ASSESSMENT - Iron deficiency anemia with heme pos stool. Denies any obvious blood loss. Iron 15 low, TIBC 221 low, %6.8 low, ferritin 88 US noted multiple bladder masses. Urology has been consulted---> CT scan abdomen and pelvis pending. - Elevated LFTs. Hep neg. Previous VICTOR HUGO (+) 1:80 with diffuse pattern. Will recheck. AMA/ASMA pending. Iron 15, Iron saturation 6.8%, Ceruloplasmin/ALpha 1 antitrypsin pending. AFP 0.7. LFTs improved. - Abnormal imaging with multiple bladder masses. Abdomen Ultrasound (12/07/16)-- --> 1. 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 Cystoscopy and biopsy recommended. 2. Nonvisualization of the pancreas. 3. Kidneys are borderline echogenic. 4. Minimal free fluid in Faulkner's pouch. Urology following. CT abdomen and pelvis 12-07-16 --> mult bladder masses suspicious for malignancy. Zosyn. - Leukocytosis. WBC trending down. UTI- staphylococcus aureus. - MIKE with multiple electrolyte abnormalities. Per attending. - Left foot OM,gangrenous infection. Cx with staphylococcus aureus and Group D enterococcus. S/P left foot 5th metatarsal resection, incision and drainage 5th digit amputation (12/07/16). Vanco, Zosyn. - COPD, CAD, CHF, AMS, Atrial fibrillation per attending. PLAN - RACHEL - Will hold on EGD/Colonoscopy until CT resulted and decides on cystoscopy. - VICTOR HUGO, ASMA, AMA, ceruloplasmin, alpha1 antitrypsin - Cont. PPI - Monitor HH - Transfuse as needed - Supportive care - Further recommendations to follow - This pt seen by myself and Dr Irving and this note is written on his behalf (Pamela Tay) Physician Comments Patient seen and examined Agree with above Continue with current supportive care Monitor labs (Moises Irving MD) Pamela Tay Dec 10, 2016 15:48 Moises Irving MD Dec 10, 2016 23:56
[2016-12-10] MEDS ORDERED: VANCOMYCIN 1,500 MG/NS 500 ML IV ONE ×2 (17:00)
[2016-12-10 18:15] LABS: BACTERIA, URINE MANY /hpf; BLOOD, URINE LARGE (NEG); COMMENT (UR) CULTURE INDICATED; CULTURE IF INDICATED CULTURE INDICATED; GLUCOSE,URINE NEG (NEG); KETONE, URINE NEG (NEG); NITRITE,URINE NEG (NEG); PH, URINE 5.5 (5.0-8.5); TRANSITIONAL EPI CELLS, URINE 1 /hpf; URINE COLOR LIGHT-RED (YELLW/STRAW)
[2016-12-10 21:26] LABS: AUTOMATED NEUTROPHIL # 13.3 TH/MM3 (1.8-7.7); BASOPHIL # 0.1 TH/MM3 (0-0.2); BASOPHIL % 0.7 % (0.0-2.0); EOSINOPHIL # 0.4 TH/MM3 (0-0.4); EOSINOPHIL % 2.5 % (0.0-4.0); HEMATOCRIT 25.6 % (39.0-51.0); HEMO FLAGS DIFF FINAL; LYMPH % 7.6 % (9.0-44.0); LYMPHOCYTE # 1.3 TH/MM3 (1.0-4.8); MEAN CELL VOLUME 71.2 FL (80.0-100.0); MEAN CORPUSCULAR HEMOGLOBIN 22.5 PG (27.0-34.0); MEAN CORPUSCULAR HGB CONC 31.6 % (32.0-36.0); MONO % 9.7 % (0.0-8.0); NEUT % 79.5 % (16.0-70.0); PLATELET COUNT 194 TH/MM3 (150-450); RED CELL DISTRIBUTION WIDTH 17.5 % (11.6-17.2); WHITE BLOOD COUNT 16.7 TH/MM3 (4.0-11.0)
[2016-12-10] MEDS: hydrALAZINE HCL 50 MG TAB PO SCH (21:38)
[2016-12-10] MEDS: TERAZOSIN HCL 1 MG CAP PO SCH (21:38)
[2016-12-10] MEDS: ATORVASTATIN 20 MG TAB PO SCH (21:39)
[2016-12-11] VITALS (11 sets, daily range): BP systolic 147–175; BP diastolic 66–80; PULSE 51–101; RESP 18–55; TEMP 96.5–98.4; O2SAT 92–100
[2016-12-11] MEDS: SODIUM CHLOR 0.9% 1000 ML INJ 1,000 ML IV SCH ×4 (00:13→16:13)
[2016-12-11] MEDS: PANTOPRAZOLE SODIUM 40 MG VIAL IV PUSH SCH ×2 (01:49→13:33)
[2016-12-11] MEDS: PIPERACIL-TAZO 2.25 GM PREMIX 50 ML IV SCH ×3 (01:49→18:07)
[2016-12-11] MEDS: hydrALAZINE HCL 50 MG TAB PO SCH ×3 (05:30→21:30)
[2016-12-11] MEDS: INSULIN ASPART SUPPLEMENTAL SCALE SQ SCH ×4 (05:31→21:41)
[2016-12-11] MEDS: MULTIVITAMINS/MINERALS THERAPEUTIC TAB PO SCH (09:04)
[2016-12-11] MEDS: FOLIC ACID 1 MG TAB PO SCH (09:04)
[2016-12-11] MEDS: ACETAMINOPHEN/HYDROcodone 325 MG/7.5 MG TAB PO PRN ×2 (09:04→13:33)
[2016-12-11] MEDS: DOCUSATE SODIUM 50 MG/SENNA 8.6 MG TAB PO SCH ×2 (09:05→21:29)
[2016-12-11] MEDS: THIAMINE HCL 100 MG TAB PO SCH (09:05)
[2016-12-11] MEDS: SODIUM CHLORIDE 0.9% FLUSH 10 ML FLUSH IV FLUSH SCH ×2 (09:05→21:33)
[2016-12-11] MEDS: PHENYTOIN SODIUM 100 MG CAP PO SCH ×2 (09:05→21:29)
[2016-12-11] MEDS: RESP: ALBUTEROL 2.5 MG/IPRATROPIUM 0.5 MG NEB (SCH) NEB ×4 (09:13→20:23)
--- NOTE | 2016-12-11 09:25 | HHI.FPPN ---
Subjective Remarks No acute events overnight. Patient seen with daughter in room. Patient and daughter are eager to go home. Patient states his pain is well controlled. He is able to ambulate with use of his wheeled walker. Denies fevers, CP, SOB. They are unsure if there has been any further melena or visible blood in stools. Patient otherwise does not have any complaints. (Tristian Chopra MD R1 ) Objective Vitals Vital Signs Date Time Temp Pulse Resp B/P Pulse Ox O2 Delivery O2 Flow Rate FiO2 12/11/16 09:17 92 Nasal Cannula 4.00 12/11/16 08:26 96.5 101 24 175/72 97 12/11/16 04:00 98.4 78 55 159/69 92 12/11/16 00:00 98.3 63 20 147/66 95 12/10/16 23:13 94 Nasal Cannula 3.00 12/10/16 21:38 60 12/10/16 20:00 97.2 85 22 189/76 95 12/10/16 15:53 97.9 79 20 194/79 94 12/10/16 12:01 97.5 73 20 169/71 90 12/10/16 10:00 72 I/O 12/10/16 12/10/16 12/10/16 12/11/16 12/11/16 12/11/16 07:00 15:00 23:00 07:00 15:00 23:00 Intake Total 995 ml 1204 ml 798 ml 1000 ml Output Total 350 ml 225 ml 3 ml Balance 645 ml 979 ml 798 ml 997 ml Intake Oral 240 ml 480 ml IV Total 755 ml 724 ml 798 ml 1000 ml Output Urine Total 350 ml 225 ml 3 ml # Voids 2 1 # Bowel Movements 1 1 (Tristian Chopra MD R1) Result Diagram: 12/10/16 19312/10/16 0715 Objective Remarks GEN: Sitting in chair in NAD. CV: Regular rate and rhythm without obvious murmurs LUNGS: Clear to auscultation bilaterally. Normal respiratory effort. Scattered wheezing bilaterally. EXT: Left foot wrapped in an Raimundo wrap with toes exposed. No edema. No calf tenderness. No erythema extending proximal to ankle. NEURO/PSYCH: Awake, alert. Pleasant and cooperative. (Tristian Chopra MD R1) A/P Assessment and Plan 80-year-old male admitted for AMS and found to have MIKE, electrolytes disturbances, and osteomyelitis. Discharge Planning Unclear. Pending bone biopsy results, and further workup per GI if indicated PT consulted recommending PT at rehabilitation facility (Tristian Chopra MD R1 ) Attending Attestation Patient examined and case discussed with resident physicians I have read the above note and agree with the assessment/plan as discussed with me I was involved in all medical decision making for this patient Tae Hoskins M.D. 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 Vascular surgery has evaluated patient and recommends close monitoring as he is not eligible for an angiogram due to his renal function and is not eligible for heparin due to his hematuria and GI bleed. 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 Daily BMP to monitor Cr * Baseline Cr currently unknown, last recording creatinine was 1.52 from 2016 Patient's daughter does state that he did refuse urologic intervention several weeks ago when it was recommended by his primary care provider - If he continues to refuse urologic intervention, patient may be hospice appropriate - Case discussed with Dr. Parham 12/10. If patient stable for discharge, patient may follow up with urology as an outpatient for further management (3) GI bleed Status: Acute Plan: Continue to monitor Hgb - Ranging from 7.4-9.0 - Has not received any blood products - Monitor H&H daily - Continue PPI twice a day - Was found to be Hemoccult positive in the emergency department GI consulted: appreciate recommendations * GI notified of urology not planning any further intervention while patient is hospitalized here * Will reassess patient and provide further recommendations * Ordered ASMA, AMA, ceruloplasmin, alpha1 antitrypsin pending * AFP 0.7 Medications: * Begin iron supplementation following EGD/Colonoscopy if performed during hospitalization * Protonix 40 mg IV q12h (4) UTI (urinary tract infection) Status: Acute Plan: Urinalysis consistent with infection - Continue abx as described under gangrene as that would provide adequate coverage - UA 12/06 with large occult blood - Repeat UA 12/10 showing large occult blood, neg nitrite, small LE - Urine culture 12/06: 25-50,000 cfus Staph Aureus - Repeat urine culture 12/10 pending (5) Acute renal failure Status: Acute Plan: Cr improving, 2.18 today Appears to be prerenal from poor intake and infection - Continue IV hydration with normal saline at 125 mL/hour Follow with daily BMPs (6) Electrolyte abnormality Status: Resolved Plan: Sodium and potassium electrolyte abnormalities have resolved with IV fluids Hospital course: Potassium on admission was 5.4 which increased to a high of 6.4. Received calcium gluconate, insulin and dextrose in the emergency department. Potassium has since decreased with Kayexalate to 4.7 as of 12/08/16. Hyponatremia has now resolved from a low of 125 with fluid hydration -Monitor with BMPs -Kayexalate discontinued -Lasix discontinued (7) Hypertension Status: Chronic Plan: Elevated BP since admission. Home lisinopril held due to MIKE * Amlodipine 10 mg po daily * Increased hydralazine to 50 mg by mouth every 8hr * Clonidine PRN (8) Altered mental status Status: Acute Plan: Likely multifactorial, treatment for infection as above and will readdress (9) DM (diabetes mellitus) Status: Chronic Plan: Diabetes relatively well-controlled with glucose ranging from 100 to 130s - Hemoglobin A1c of 6.8% - Hold home levemir - Low dose Sliding Scale w/ Novolog, titrate as needed (10) CHF (congestive heart failure) Status: Chronic Plan: Echocardiogram performed with limited visualization of the left ventricular function - Left ventricular function grossly normal BNP equivocal on admission. Clinically does not appear to be in CHF exacerbation. Medications: * Currently holding RAIMUNDO inhibitor due to acute renal failure (11) COPD (chronic obstructive pulmonary disease) Status: Chronic Plan: Known history of COPD. Received Solu-Medrol 125 mg 1 in the emergency department. - ABX coverage through osteo treatment Medications: * Continue albuterol inhaler * Continue DuoNeb's every 4 hours with albuterol PRN * Continue symbicort * Antibiotics as above (12) Seizure disorder Status: Chronic Plan: Continue home Dilantin (13) Atrial fibrillation Status: Chronic Plan: [id number] score of 6, would benefit from anticoagulation once clinically stable. Currently rate controlled. -Not currently anticoagulated due to possibility of GI bleed and hematuria from bladder masses (14) CAD (coronary artery disease) Status: Chronic Plan: h/o CAD with 2 stents placed, takes Aspirin 81 mg daily at home, atorvastatin 20mg, no complaints of angina -continue home atorvastatin -holding Aspirin due to GI bleed (15) Nutrition, metabolism, and development symptoms Status: Acute Plan: Diet: Heart healthy, to be modified once EGD/Colonoscopy date is set Fluids: Normal saline at 125 mL/hour Electrolytes: see plan above DVT: holding anticoagulation due to GI bleed, Bilateral SCDs GI PPX: protonix (Tristian Chopra MD R1) Problem Qualifiers (1) GI bleed: Qualified Code: K92.2 - Gastrointestinal hemorrhage, unspecified gastrointestinal hemorrhage type (2) DM (diabetes mellitus): Qualified Code: 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
[2016-12-11] MEDS: BUDESONIDE-FORMOTEROL 80/4.5 MCG INHALER INH SCH ×2 (10:52→21:34)
--- NOTE | 2016-12-11 11:07 | PD.CAR.PN ---
CVT Progress Note Subjective/Hospital Course: Records reviewed what patient was in some sort of x-ray study Full consult to follow after evaluation of the patient Thanks Trevor 12/11/16 Patient status post fifth toe amputation by podiatry Incision is healing nicely Patient is not a candidate for any vascular reconstruction in face of his age, systemic comorbidities and local factors. In face of elevated BUN/creatinine I will not even order CTA with runoff for the benefits of these studies will be exceeded by the risks Objective: Vital Signs Date Time Temp Pulse Resp B/P Pulse Ox O2 Delivery O2 Flow Rate FiO2 12/11/16 10:54 16 12/11/16 09:17 92 Nasal Cannula 4.00 12/11/16 08:26 96.5 101 24 175/72 97 12/11/16 04:00 98.4 78 55 159/69 92 12/11/16 00:00 98.3 63 20 147/66 95 12/10/16 23:13 94 Nasal Cannula 3.00 12/10/16 21:38 60 12/10/16 20:00 97.2 85 22 189/76 95 12/10/16 15:53 97.9 79 20 194/79 94 12/10/16 12:01 97.5 73 20 169/71 90 Result Diagram: 12/10/16 1934 12/10/16 0715 Lavonne Hernandez MD Dec 11, 2016 11:07
[2016-12-11 11:08] LABS: AUTOMATED NEUTROPHIL # 14.8 TH/MM3 (1.8-7.7); BASOPHIL # 0.1 TH/MM3 (0-0.2); BASOPHIL % 0.3 % (0.0-2.0); EOSINOPHIL # 0.2 TH/MM3 (0-0.4); HEMATOCRIT 22.7 % (39.0-51.0); HEMO FLAGS DIFF FINAL; LYMPH % 4.3 % (9.0-44.0); LYMPHOCYTE # 0.7 TH/MM3 (1.0-4.8); MEAN CELL VOLUME 72.2 FL (80.0-100.0); MEAN CORPUSCULAR HEMOGLOBIN 23.5 PG (27.0-34.0); MEAN CORPUSCULAR HGB CONC 32.5 % (32.0-36.0); MONO % 4.7 % (0.0-8.0); NEUT % 89.7 % (16.0-70.0); PLATELET COUNT 202 TH/MM3 (150-450); RED BLOOD COUNT 3.14 MIL/MM3 (4.50-5.90); RED CELL DISTRIBUTION WIDTH 18.1 % (11.6-17.2); WHITE BLOOD COUNT 16.5 TH/MM3 (4.0-11.0)
[2016-12-11 11:24] LABS: BICARBONATE 16.1 MEQ/L (21.0-32.0); POTASSIUM 4.7 MEQ/L (3.5-5.1)
--- NOTE | 2016-12-11 12:49 | HHI.PR ---
Subjective Patient symptoms today Pt seen and examined. Voiding well states pt. Objective Vital Signs Vital Signs Date Time Temp Pulse Resp B/P Pulse Ox O2 Delivery O2 Flow Rate FiO2 12/11/16 11:47 96.7 83 24 175/72 12/11/16 11:45 100 Nasal Cannula 2.00 12/11/16 10:54 16 12/11/16 09:17 92 Nasal Cannula 4.00 12/11/16 08:26 96.5 101 24 175/72 97 12/11/16 04:00 98.4 78 55 159/69 92 12/11/16 00:00 98.3 63 20 147/66 95 12/10/16 23:13 94 Nasal Cannula 3.00 12/10/16 21:38 60 12/10/16 20:00 97.2 85 22 189/76 95 12/10/16 15:53 97.9 79 20 194/79 94 Intake & Output 12/11/16 12/11/16 07:00 19:00 Intake Total 1000 ml Output Total 3 ml Balance 997 ml IV Total 1000 ml Output Urine Total 3 ml # Voids 1 # Bowel Movements 1 1 Result Diagram: 12/11/16 1014 12/11/16 1014 Objective Remarks Abd:soft,nt,nd Voiding Left foot dressing intact 12/11 Abd:soft,nt,nd Voiding Medications and IVs Current Medications Medications (Trade) Dose Ordered Sig/Barbara Route Start Time Stop Time Status Last Admin (NS Flush) 2 ml UNSCH PRN IV FLUSH 12/06/16 21:15 (NS Flush) 2 ml BID IV FLUSH 12/07/16 09:00 12/11/16 09:05 (Tylenol) 650 mg Q4H PRN PO 12/06/16 21:15 (Zofran Inj) 4 mg Q6H PRN IVP 12/06/16 21:15 (Christine-Colace) 1 tab BID PO 12/07/16 09:00 12/11/16 09:05 (Milk Of Magnesia Liq) 30 ml Q12H PRN PO 12/06/16 21:15 (Senokot) 17.2 mg Q12H PRN PO 12/06/16 21:15 (Dulcolax Supp) 10 mg DAILY PRN RECTAL 12/06/16 21:15 Lactulose 30 ml 30 ml DAILY PRN PO 12/06/16 21:15 (NS 1000 ml Inj) 1,000 ml @ 125 mls/hr Q8H IV 12/06/16 21:14 12/11/16 09:07 (Folate) 1 mg DAILY PO 12/07/16 09:00 12/12/16 08:59 12/11/16 09:04 (Vitamin B1) 100 mg DAILY PO 12/07/16 09:00 12/11/16 09:05 (Theragran M Tab) 1 tab DAILY PO 12/07/16 09:00 12/12/16 08:59 12/11/16 09:04 (Romazicon Inj) 0.2 mg Q1M PRN IV PUSH 12/06/16 21:30 (Ativan) 1 mg Q4H PRN PO 12/06/16 21:30 (Ativan) 2 mg Q2H PRN PO 12/06/16 21:30 12/06/16 22:45 (Ativan Inj) 2 mg Q1H PRN IV PUSH 12/06/16 21:30 (Ativan Inj) 2 mg Q15M PRN IV PUSH 12/06/16 21:30 (Ventolin Hfa Inh) 2 puff Q4HR PRN INH 12/06/16 21:45 (Norvasc) 10 mg DAILY PO 12/07/16 09:00 12/11/16 09:05 (Lipitor) 20 mg HS PO 12/07/16 21:00 12/10/16 21:39 (Symbicort 80-4.5 Mcg Inh) 2 puff Q12HR INH 12/07/16 09:00 12/11/16 10:52 (Dilantin) 100 mg BID PO 12/07/16 09:00 12/11/16 09:05 Terazosin HCl 1 mg 1 mg HS PO 12/07/16 21:00 12/10/16 21:38 (Zosyn 2.25 Gm Premix) 50 ml @ 100 mls/hr Q8H IV 12/07/16 03:00 12/11/16 10:52 (Catapres) 0.1 mg Q6H PRN PO 12/06/16 23:15 12/07/16 22:24 (D50w (Vial) Inj) 50 ml UNSCH PRN IV 12/07/16 00:45 (Glucagon Inj) 1 mg UNSCH PRN OTHER 12/07/16 00:45 (Protonix Inj) 40 mg Q12H IV PUSH 12/07/16 02:00 12/11/16 01:49 (Tylenol) 650 mg Q6H PRN PO 12/07/16 12:00 (Morphine Inj) 2 mg Q3H PRN IV 12/07/16 12:00 12/10/16 05:04 (Narcan Inj) 0.4 mg UNSCH PRN IV 12/07/16 12:00 Miscellaneous 1 ea 1 ea UNSCH PRN OTHER 12/07/16 12:45 (Vancomycin Consult Pharmacy) 0 ml @ 0 mls/hr UNSCH OTHER 12/07/16 13:30 ([place] 5-325 Mg) 1 tab Q4H PRN PO 12/08/16 13:45 12/09/16 06:46 ([place] 7.5-325 Mg) 1 tab Q4H PRN PO 12/08/16 13:45 12/11/16 09:04 (Narcan Inj) 0.4 mg UNSCH PRN IV 12/08/16 13:45 (Apresoline) 50 mg Q8HR PO 12/10/16 22:00 12/11/16 05:30 Assessment and Plan Assessment and Plan 80 y.o with findings of multiple bladder mass s/p TURBT in 2013 with findings at that time of high grade disease. CT scan shows multiple bladder masses without evidence of adenopathy. Pt maybe a candidate for a repeat TURBT as he has gone 2-3 years without evidence of metastatic disease. Will need to recover from recent surgery and clear UTI and agree to surgery in the future as he was lost to f/u in the past. This maybe done as outpt if he is willing to f/u. Will discuss with medical team this week. 12/11 80 y.o male with findings of disease recurrence of bladder cancer based on recent imaging findings Recommend TURBT as outpt procedure Continue ABX for UTI. Jose Alberto Parham DO Dec 11, 2016 12:48
[2016-12-11] MEDS: CARVEDILOL 6.25 MG TAB PO SCH ×2 (15:41→21:33)
--- NOTE | 2016-12-11 17:22 | HHI.GIFU ---
Subjective Remarks patient is resting in bed accompanied by his daughters. He denies nausea, vomiting, abd pain, melena or hematochezia (Beata Feliciano) Objective Vitals I&O Vital Signs Date Time Temp Pulse Resp B/P Pulse Ox O2 Delivery O2 Flow Rate FiO2 12/11/16 15:52 2.00 12/11/16 15:51 96.7 70 20 153/69 93 12/11/16 11:47 96.7 83 24 175/72 12/11/16 11:45 100 Nasal Cannula 2.00 12/11/16 10:54 16 12/11/16 09:17 92 Nasal Cannula 4.00 12/11/16 08:26 96.5 101 24 175/72 97 12/11/16 08:05 78 12/11/16 04:00 98.4 78 55 159/69 92 12/11/16 00:00 98.3 63 20 147/66 95 12/10/16 23:13 94 Nasal Cannula 3.00 12/10/16 21:38 60 12/10/16 20:00 97.2 85 22 189/76 95 I/O 12/10/16 12/10/16 12/10/16 12/11/16 12/11/16 12/11/16 07:00 15:00 23:00 07:00 15:00 23:00 Intake Total 995 ml 1204 ml 798 ml 1000 ml 480 ml Output Total 350 ml 225 ml 3 ml Balance 645 ml 979 ml 798 ml 997 ml 480 ml Intake Oral 240 ml 480 ml 480 ml IV Total 755 ml 724 ml 798 ml 1000 ml Output Urine Total 350 ml 225 ml 3 ml # Voids 2 1 # Bowel Movements 1 1 Laboratory Laboratory Tests Test 12/10/16 12/11/16 19:34 10:14 White Blood Count 16.7 16.5 Red Blood Count 3.60 3.14 Hemoglobin 8.1 7.4 Hematocrit 25.6 22.7 Mean Corpuscular Volume 71.2 72.2 Mean Corpuscular Hemoglobin 22.5 23.5 Mean Corpuscular Hemoglobin 31.6 32.5 Concent Red Cell Distribution Width 17.5 18.1 Platelet Count 194 202 Mean Platelet Volume 7.4 7.6 Neutrophils (%) (Auto) 79.5 89.7 Lymphocytes (%) (Auto) 7.6 4.3 Monocytes (%) (Auto) 9.7 4.7 Eosinophils (%) (Auto) 2.5 1.0 Basophils (%) (Auto) 0.7 0.3 Neutrophils # (Auto) 13.3 14.8 Lymphocytes # (Auto) 1.3 0.7 Monocytes # (Auto) 1.6 0.8 Eosinophils # (Auto) 0.4 0.2 Basophils # (Auto) 0.1 0.1 CBC Comment DIFF FINAL DIFF FINAL Differential Comment Sodium Level 145 Potassium Level 4.7 Chloride Level 116 Carbon Dioxide Level 16.1 Anion Gap 13 Blood Urea Nitrogen 54 Creatinine 2.18 Estimat Glomerular Filtration 29 Rate Random Glucose 128 Calcium Level 8.0 Date/Time Procedure Status Source Growth 12/10/16 17:10 Urine Culture - Preliminary Resulted Urine Clean Catch NO GROWTH IN 24 HOURS. 12/10/16 17:10 Cancelled Urine Clean Catch 12/07/16 18:20 Gram Stain - Final Complete Wound Foot 12/07/16 18:20 Wound Culture - Final Complete Staphylococcus Aureus 12/07/16 18:20 Fungal Smear - Final Resulted Wound Foot NO FUNGAL ELEMENTS SEEN. 12/07/16 18:20 Fungal Culture Resulted Wound Foot Pending 12/07/16 18:20 Acid Fast Stain - Final Resulted Wound Foot NO ACID FAST BACILLI SEEN 12/07/16 18:20 Mycobacterial Culture Resulted Wound Foot Pending 12/06/16 23:25 Urine Culture - Final Complete Urine Clean Catch Staphylococcus Aureus 12/06/16 19:15 Aerobic Blood Culture - Final Complete Blood Line NO GROWTH IN 5 DAYS 12/06/16 19:15 Anaerobic Blood Culture - Final Complete Blood Line NO GROWTH IN 5 DAYS Imaging Last Impressions Chest X-Ray 12/08/16 0000 Signed Impressions: Service Date/Time: Thursday, December 08, 2016 14:05 - CONCLUSION: Tiny bilateral pleural effusions. K. Jamal Grijalva MD Abdomen Ultrasound 12/07/16 0026 Signed Impressions: Service Date/Time: Wednesday, December 07, 2016 09:34 - CONCLUSION: 1. 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 Cystoscopy and biopsy recommended. 2. Nonvisualization of the pancreas. 3. Kidneys are borderline echogenic. 4. Minimal free fluid in Faulkner's pouch. Sal Chowdhury MD Foot MRI 12/07/16 0000 Signed Impressions: Service Date/Time: Wednesday, December 07, 2016 09:01 - CONCLUSION: 1. Osteomyelitis of the fifth metatarsal head and proximal phalanx of the fifth toe. Sal Chowdhury MD Abdomen/Pelvis CT 12/07/16 0000 Signed Impressions: Service Date/Time: Thursday, December 08, 2016 10:46 - CONCLUSION: Multiple bladder masses suspicious for malignancy. Altagracia Grijalva MD Foot X-Ray 12/06/16 1747 Signed Impressions: Service Date/Time: November 18:08 - CONCLUSION: No obvious bone destruction at this time. Soft tissue emphysema is noted in and around the fifth MTP joint soft tissues. The possibility of infection with gas-forming organism should be excluded. Dean Burton MD Physical Exam HEENT: Normocephalic; atraumatic; no jaundice. CHEST: CTA CARDIAC: RRR. ABDOMEN: Soft, nondistended, nontender; no hepatosplenomegaly; bowel sounds are present in all four quadrants. EXTREMITIES: Left foot drsg, d/i SKIN: Generalized pallor. AUDIOVISUAL LEAD TECHNICIAN: alert (Amawi,Khawla RECORDER HELPER SEISMOGRAPH) Assessment and Plan Plan ASSESSMENT - Iron deficiency anemia with heme pos stool. Denies any obvious blood loss. Iron 15 low, TIBC 221 low, %6.8 low, ferritin 88 US noted multiple bladder masses. Urology has been consulted---> CT scan abdomen and pelvis pending. - Elevated LFTs. Hep neg. Previous VICTOR HUGO (+) 1:80 with diffuse pattern. Will recheck. AMA P ASMA (-)pending. Iron 15, Iron saturation 6.8%, Ceruloplasmin p ALpha 1 antitrypsin 240. AFP 0.7. LFTs improved. - Abnormal imaging with multiple bladder masses. Abdomen Ultrasound (12/07/16)-- --> 1. 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 Cystoscopy and biopsy recommended. 2. Nonvisualization of the pancreas. 3. Kidneys are borderline echogenic. 4. Minimal free fluid in Faulkner's pouch. Urology following. CT abdomen and pelvis 12-07-16 --> mult bladder masses suspicious for malignancy. Zosyn. - Leukocytosis. WBC trending down. UTI- staphylococcus aureus. - MIKE with multiple electrolyte abnormalities. Per attending. - Left foot OM,gangrenous infection. Cx with staphylococcus aureus and Group D enterococcus. S/P left foot 5th metatarsal resection, incision and drainage 5th digit amputation (12/07/16). Lauren Braden. - COPD, CAD, CHF, AMS, Atrial fibrillation per attending. 12-11-16- Urology made decision for op TURBT. Discussed with patient and daughters doing EGD/colonoscopy and they would like to proceed, but hesitant, will place orders and in the mean time, they will think about it. HH today . PLAN - RACHEL - EGD/Colonoscopy on . if family and patient agreeing, as they would like to think it over. - Clear liquid tomorrow - Golytely tomorrow - Obtain consents - Await VICTOR HUGO titers, AMA, ceruloplasmin, - Monitor HH - Transfuse as needed - Supportive care - Further recommendations to follow - This pt seen by myself and Dr Irving and this note is written on his behalf (Beata Feliciano) Physician Comments Patient seen and examined Agree with above Continue with current supportive care Monitor labs But at this point in time the family is requesting that we put the endoscopy on hold (Moises Irving MD) Beata Feliciano Dec 11, 2016 17:22 Moises Irving MD Dec 11, 2016 23:32
[2016-12-11] MEDS: ATORVASTATIN 20 MG TAB PO SCH (21:30)
[2016-12-11] MEDS: TERAZOSIN HCL 1 MG CAP PO SCH (21:30)
[2016-12-12] VITALS (10 sets, daily range): BP systolic 147–196; BP diastolic 11–84; PULSE 51–63; RESP 19–24; TEMP 97.2–98.7; O2SAT 96–99
[2016-12-12] MEDS: SODIUM CHLOR 0.9% 1000 ML INJ 1,000 ML IV SCH ×3 (00:13→17:11)
[2016-12-12] MEDS: ACETAMINOPHEN/HYDROcodone 325 MG/5 MG TAB PO PRN ×2 (00:16→06:22)
[2016-12-12] MEDS: cloNIDine HCL 0.1 MG TAB PO PRN ×2 (01:16→17:09)
[2016-12-12] MEDS: PANTOPRAZOLE SODIUM 40 MG VIAL IV PUSH SCH ×2 (02:37→13:12)
[2016-12-12] MEDS: PIPERACIL-TAZO 2.25 GM PREMIX 50 ML IV SCH (02:38)
[2016-12-12] MEDS: hydrALAZINE HCL 50 MG TAB PO SCH ×4 (06:17→22:56)
[2016-12-12] MEDS: INSULIN ASPART SUPPLEMENTAL SCALE SQ SCH ×4 (06:25→21:19)
[2016-12-12] MEDS: RESP: ALBUTEROL 2.5 MG/IPRATROPIUM 0.5 MG NEB (SCH) NEB ×4 (07:53→20:21)
[2016-12-12] MEDS: PHENYTOIN SODIUM 100 MG CAP PO SCH ×2 (08:21→21:12)
[2016-12-12] MEDS: DOCUSATE SODIUM 50 MG/SENNA 8.6 MG TAB PO SCH ×2 (08:21→21:13)
[2016-12-12 08:22] LABS: AUTOMATED NEUTROPHIL # 11.8 TH/MM3 (1.8-7.7); BASOPHIL # 0.1 TH/MM3 (0-0.2); BASOPHIL % 0.8 % (0.0-2.0); EOSINOPHIL # 0.3 TH/MM3 (0-0.4); EOSINOPHIL % 1.9 % (0.0-4.0); HEMATOCRIT 22.4 % (39.0-51.0); HEMO FLAGS DIFF FINAL; LYMPH % 7.4 % (9.0-44.0); MEAN CELL VOLUME 73.9 FL (80.0-100.0); MEAN CORPUSCULAR HEMOGLOBIN 23.7 PG (27.0-34.0); MEAN CORPUSCULAR HGB CONC 32.1 % (32.0-36.0); MONO % 6.2 % (0.0-8.0); NEUT % 83.7 % (16.0-70.0); PLATELET COUNT 210 TH/MM3 (150-450); RED BLOOD COUNT 3.03 MIL/MM3 (4.50-5.90); WHITE BLOOD COUNT 14.2 TH/MM3 (4.0-11.0)
[2016-12-12 08:24] LABS: BICARBONATE 15.4 MEQ/L (21.0-32.0); POTASSIUM 4.6 MEQ/L (3.5-5.1)
[2016-12-12] MEDS: THIAMINE HCL 100 MG TAB PO SCH (08:24)
[2016-12-12] MEDS: CARVEDILOL 6.25 MG TAB PO SCH ×2 (08:25→21:11)
[2016-12-12] MEDS: SODIUM CHLORIDE 0.9% FLUSH 10 ML FLUSH IV FLUSH SCH ×2 (08:25→21:13)
[2016-12-12] MEDS: BUDESONIDE-FORMOTEROL 80/4.5 MCG INHALER INH SCH ×2 (08:26→21:15)
--- NOTE | 2016-12-12 11:46 | HHI.FPPN ---
Subjective Remarks Pt lying in bed this AM. Daughter at bedside. Vitals are within normal limits. Afebrile. Pt had episode on telemetry of a pause for 2.1 secs and bradycardia ( pulse 47) that resolved. On 3L O2 NC. Complains of generalized muscle soreness. Denies CP, SOB, abdominal pain, N/V, and swelling in extremities. (Andie Nicholas MD R1) Objective Vitals Vital Signs Date Time Temp Pulse Resp B/P Pulse Ox O2 Delivery O2 Flow Rate FiO2 12/12/16 08:09 98.7 54 19 171/73 98 12/12/16 07:55 96 Nasal Cannula 3.00 12/12/16 07:05 147/65 12/12/16 04:00 97.2 58 20 158/11 99 12/12/16 02:50 97.3 56 20 161/74 96 12/11/16 20:15 97 Nasal Cannula 3.00 12/11/16 20:00 97.8 61 18 174/80 97 12/11/16 15:52 2.00 12/11/16 15:51 96.7 70 20 153/69 93 12/11/16 11:47 96.7 83 24 175/72 12/11/16 11:45 100 Nasal Cannula 2.00 I/O 12/11/16 12/11/16 12/11/16 12/12/16 12/12/16 12/12/16 07:00 15:00 23:00 07:00 15:00 23:00 Intake Total 1000 ml 480 ml Output Total 3 ml Balance 997 ml 480 ml Intake Oral 480 ml IV Total 1000 ml Output Urine Total 3 ml # Voids 1 5 # Bowel Movements 1 1 2 (Andie Nicholas MD R1) Result Diagram: 12/12/16 0740 12/12/16 0740 Imaging Last Impressions Chest X-Ray 12/08/16 0000 Signed Impressions: Service Date/Time: Thursday, December 08, 2016 14:05 - CONCLUSION: Tiny bilateral pleural effusions. Altagracia Grijalva MD Abdomen Ultrasound 12/07/16 0026 Signed Impressions: Service Date/Time: Wednesday, December 07, 2016 09:34 - CONCLUSION: 1. 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 Cystoscopy and biopsy recommended. 2. Nonvisualization of the pancreas. 3. Kidneys are borderline echogenic. 4. Minimal free fluid in Faulkner's pouch. Sal Chowdhury MD Foot MRI 12/07/16 0000 Signed Impressions: Service Date/Time: Wednesday, December 07, 2016 09:01 - CONCLUSION: 1. Osteomyelitis of the fifth metatarsal head and proximal phalanx of the fifth toe. Sal Chowdhury MD Abdomen/Pelvis CT 12/07/16 0000 Signed Impressions: Service Date/Time: Thursday, December 08, 2016 10:46 - CONCLUSION: Multiple bladder masses suspicious for malignancy. Altagracia Grijalva MD Foot X-Ray 12/06/16 1747 Signed Impressions: Service Date/Time: November 18:08 - CONCLUSION: No obvious bone destruction at this time. Soft tissue emphysema is noted in and around the fifth MTP joint soft tissues. The possibility of infection with gas-forming organism should be excluded. Dean Burton MD Objective Remarks GEN: lying in bed in NAD. CV: Regular rate and rhythm without obvious murmurs LUNGS: Clear to auscultation bilaterally. Normal respiratory effort. Scattered wheezing bilaterally. EXT: Left foot wrapped in an Raimundo wrap with toes exposed. No edema. No calf tenderness. No erythema extending proximal to ankle. NEURO/PSYCH: Awake, alert. Pleasant and cooperative. (Andie Nicholas MD R1) A/P Assessment and Plan 80-year-old male admitted for AMS and found to have MIKE, electrolytes disturbances, and osteomyelitis Discharge Planning EDG/colonoscopy procedure pending Consult case management for home health and home O2 (Andie Nicholas MD R1) Attending Attestation Pt. examined and case discussed with resident physician I have read the above note and agree with the assessment/plan as discussed with me I was involved in all medical decision making for this patient Tae Hoskins MD (Tae Hoskins MD) Problem List: (1) Gas gangrene of foot Status: Acute Plan: Postoperative day #5 s/p fifth toe amputation with fifth metatarsal resection by podiatry - Podiatry following Continue antibiotics as below: * Vancomycin (started 12/06) * Discontinued Zosyn Wound cultures returning with MSSA and group D enterococcus Blood cultures 12/06 no growth after 6 days Vascular surgery did evaluate patient due to podiatry concerns of poor bleeding following procedure. Vascular surgery has evaluated patient and recommends close monitoring as he is not eligible for an angiogram due to his renal function and is not eligible for heparin due to his hematuria and GI bleed. Pain control with [place] and morphine (2) Bladder tumor Status: Acute Plan: Urology consulted and following patient - CT of the abdomen and pelvis shows multiple masses in the bladder - Abdominal US shows echogenic masses in the bladder consistent with neoplastics process, 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 Daily BMP to monitor Cr * Baseline Cr currently unknown, last recording creatinine was 1.52 from 2016 Patient's daughter does state that he did refuse urologic intervention several weeks ago when it was recommended by his primary care provider - If he continues to refuse urologic intervention, patient may be hospice appropriate - Case discussed with Dr. Parham 12/10. If patient stable for discharge, patient may follow up with urology as an outpatient for further management (3) GI bleed Status: Acute Plan: Currently stable with no active bleeding * GI consulted recommendations appreciated * EGD/Colonoscopy planned for the am * GI prep tonight while on clear liquid diet (4) UTI (urinary tract infection) Status: Resolved Plan: Urinalysis consistent with infection - Continue abx as described under gangrene as that would provide adequate coverage - UA 12/06 with large occult blood - Repeat UA 12/10 showing large occult blood, neg nitrite, small LE - Urine culture 12/06: 25-50,000 cfus Staph Aureus - Repeat urine culture 12/10 pending (5) Acute renal failure Status: Acute Plan: Cr improving, 2.36 today -Appears to be prerenal from poor intake and infection - Continue IV hydration with normal saline at 125 mL/hour -Follow with daily BMPs (6) Electrolyte abnormality Status: Resolved Plan: Sodium and potassium electrolyte abnormalities have resolved with IV fluids Hospital course: Potassium on admission was 5.4 which increased to a high of 6.4. Received calcium gluconate, insulin and dextrose in the emergency department. Potassium has since decreased with Kayexalate to 4.7 as of 12/08/16. Hyponatremia has now resolved from a low of 125 with fluid hydration -Monitor with BMPs -Kayexalate discontinued -Lasix discontinued (7) Hypertension Status: Chronic Plan: Elevated BP since admission. Home lisinopril held due to MIKE * Amlodipine 10 mg PO daily * Hydralazine 100 mg PO q8h * Carvedilol 6.25 mg PO BID * Clonidine 0.1MG PO PRN (8) Altered mental status Status: Acute Plan: Likely multifactorial, treatment for infection as above and will readdress (9) DM (diabetes mellitus) Status: Chronic Plan: Diabetes relatively well-controlled with glucose ranging from 100 to 130s - Hemoglobin A1c of 6.8% - Hold home levemir - Low dose Sliding Scale w/ Novolog, titrate as needed (10) CHF (congestive heart failure) Status: Chronic Plan: Echocardiogram performed with limited visualization of the left ventricular function - Left ventricular function grossly normal BNP equivocal on admission. Clinically does not appear to be in CHF exacerbation. Medications: * Currently holding RAIMUNDO inhibitor due to acute renal failure (11) COPD (chronic obstructive pulmonary disease) Status: Chronic Plan: Known history of COPD. Received Solu-Medrol 125 mg 1 in the emergency department. - ABX coverage through osteo treatment Medications: * Continue albuterol inhaler * Continue DuoNeb's every 4 hours with albuterol PRN * Continue symbicort * Antibiotics as above (12) Seizure disorder Status: Chronic Plan: Continue home Dilantin (13) Atrial fibrillation Status: Chronic Plan: [id number] score of 6, would benefit from anticoagulation once clinically stable. Currently rate controlled. -Not currently anticoagulated due to possibility of GI bleed and hematuria from bladder masses (14) CAD (coronary artery disease) Status: Chronic Plan: h/o CAD with 2 stents placed, takes Aspirin 81 mg daily at home, atorvastatin 20mg, no complaints of angina -continue home atorvastatin -holding Aspirin due to GI bleed (15) Nutrition, metabolism, and development symptoms Status: Acute Plan: Diet: clear liquids, receiving EGD/colonoscopy tomorrow Fluids: Normal saline at 125 mL/hour Electrolytes: see plan above DVT: holding anticoagulation due to GI bleed, Bilateral SCDs GI PPX: protonix (Andie Nicholas MD R1) Problem Qualifiers (1) GI bleed: Qualified Code: K92.2 - Gastrointestinal hemorrhage, unspecified gastrointestinal hemorrhage type (2) DM (diabetes mellitus): Qualified Code: 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, with long-term current use of insulin (3) CAD (coronary artery disease): Qualified Code: I25.10 - Coronary artery disease involving [place] coronary artery of [place] heart without angina pectoris Andie Nicholas MD R1 Dec 12, 2016 11:46 Tae Hoskins MD Dec 13, 2016 11:06 (3) CAD (coronary artery disease): Qualified Code: I25.10 - Coronary artery disease involving [place] coronary artery of [place] heart without angina pectoris Andie Nicholas MD R1 Dec 12, 2016 11:46 Andie Nicholas MD R1 Dec 12, 2016 11:46
[2016-12-12] MEDS ORDERED: VANCOMYCIN INJ 1,500 MG in SODIUM CHLORID 0.9% 500 ML INJ 500 ML IV ONE (12:00)
--- NOTE | 2016-12-12 12:02 | HHI.FF ---
Face to Face Verification Diagnosis: (1) GI bleed (2) Gas gangrene of foot Physical Therapy Order: Evaluate and Treat Occupational Therapy Order: Evaluate and Treat Home Health Nursing Order: Medical education Oxygen administration education Medication education-adverse effect Wound care and dressing changes Nursing assessment with vital signs Home Health Aide Order: To Assist In: Bathing and personal care Tip Finisher Order: To Evaluate: Living conditions/environment, Support services Order: To Provide: Long range planning, Community services I have seen patient Familia Kerr on 12/12/16. My clinical findings support the need for the requested home health care services because: Ltd mobility - disease progression Patient has SOB Deconditioned w/ increased weakness Limited ability to care for self High risk of falls Infection w/ risk of complications I certify that my clinical findings support that this patient is homebound because: Impaired cognitive ability/safety Hx COPD- exertion dyspnea/weakness Unsteady gait/balance Need for psychosocial assistance Poor cardiac reserve Ramon Triana MD R2 Dec 12, 2016 12:02
--- NOTE | 2016-12-12 12:04 | HHI.DCPOC ---
Discharge Care Plan Diagnosis: (1) Gas gangrene of foot (2) COPD (chronic obstructive pulmonary disease) (3) GI bleed (4) Bladder tumor Goals to Promote Your Health * To prevent worsening of your condition and complications * To maintain your health at the optimal level Directions to Meet Your Goals Take your medications as prescribed Follow your dietary instruction Follow activity as directed Keep your appointments as scheduled Take your immunizations and boosters as scheduled If your symptoms worsen call your PCP, if no PCP go to Urgent Care Center or Emergency Room Smoking is Dangerous to Your Health. Avoid second hand smoke Call the 24-hour hour crisis hotline for domestic abuse at Ramon Triana MD R2 Dec 12, 2016 12:04
[2016-12-12] MEDS: ACETAMINOPHEN/HYDROcodone 325 MG/7.5 MG TAB PO PRN ×2 (13:13→19:26)
[2016-12-12 13:20] LABS: ANA TITER QUANT 1:40 (NEG)
[2016-12-12 13:51] LABS: MITOCHONDRIAL ABS LESS THAN 20.0 U (())
[2016-12-12] MEDS ORDERED: PEG (High)/E-LYTE SOLN 4000 ML BTL PO ONE (16:00)
[2016-12-12] MEDS: TERAZOSIN HCL 1 MG CAP PO SCH (21:11)
[2016-12-12] MEDS: ATORVASTATIN 20 MG TAB PO SCH (21:11)
[2016-12-13] VITALS (10 sets, daily range): BP systolic 142–155; BP diastolic 64–69; PULSE 46–70; RESP 17–56; TEMP 97.2–97.8; O2SAT 95–99
[2016-12-13] MEDS: PANTOPRAZOLE SODIUM 40 MG VIAL IV PUSH SCH ×2 (02:24→16:09)
[2016-12-13] MEDS: hydrALAZINE HCL 50 MG TAB PO SCH ×3 (05:31→23:45)
[2016-12-13] MEDS ORDERED: SOD PHOSPHATE/SOD BIPHOSPHATE (ADULT) ENEMA 133ML RECTAL ONE (06:30)
[2016-12-13] MEDS: INSULIN ASPART SUPPLEMENTAL SCALE SQ SCH ×4 (06:37→21:00)
[2016-12-13] MEDS: ACETAMINOPHEN/HYDROcodone 325 MG/5 MG TAB PO PRN ×2 (06:45→10:47)
[2016-12-13 08:04] LABS: BASOPHIL # 0.1 TH/MM3 (0-0.2); BASOPHIL % 0.6 % (0.0-2.0); EOSINOPHIL # 0.3 TH/MM3 (0-0.4); EOSINOPHIL % 1.9 % (0.0-4.0); HEMATOCRIT 23.4 % (39.0-51.0); LYMPHOCYTE # 0.8 TH/MM3 (1.0-4.8); MEAN CELL VOLUME 72.3 FL (80.0-100.0); MEAN CORPUSCULAR HGB CONC 31.8 % (32.0-36.0); MONO % 4.6 % (0.0-8.0); NEUT % 87.9 % (16.0-70.0); PLATELET COUNT 251 TH/MM3 (150-450); RED BLOOD COUNT 3.24 MIL/MM3 (4.50-5.90); RED CELL DISTRIBUTION WIDTH 18.2 % (11.6-17.2); WHITE BLOOD COUNT 15.9 TH/MM3 (4.0-11.0)
[2016-12-13] MEDS: RESP: ALBUTEROL 2.5 MG/IPRATROPIUM 0.5 MG NEB (SCH) NEB ×4 (08:12→19:36)
[2016-12-13 08:17] LABS: HEMO FLAGS AUTO DIFF
[2016-12-13 08:44] LABS: BICARBONATE 12.8 MEQ/L (21.0-32.0); POTASSIUM 4.5 MEQ/L (3.5-5.1)
[2016-12-13] MEDS: THIAMINE HCL 100 MG TAB PO SCH (08:52)
[2016-12-13] MEDS: PHENYTOIN SODIUM 100 MG CAP PO SCH ×2 (08:52→23:44)
[2016-12-13] MEDS: DOCUSATE SODIUM 50 MG/SENNA 8.6 MG TAB PO SCH ×2 (08:53→21:00)
[2016-12-13] MEDS: cloNIDine HCL 0.1 MG TAB PO SCH ×2 (08:53→23:45)
[2016-12-13] MEDS: CARVEDILOL 6.25 MG TAB PO SCH ×3 (08:54→23:57)
[2016-12-13] MEDS: SODIUM CHLORIDE 0.9% FLUSH 10 ML FLUSH IV FLUSH SCH ×2 (08:54→21:00)
[2016-12-13] MEDS: BUDESONIDE-FORMOTEROL 80/4.5 MCG INHALER INH SCH ×2 (08:55→23:47)
--- NOTE | 2016-12-13 09:20 | HHI.FPPN ---
Subjective Remarks No acute events overnight. BPs ranging 140s-190s/60-80s over past 24 hours. Remains afebrile, O2 sats appropriate. Daughter at bedside this morning with daughter on the phone. Family is requesting additional urological opinion while patient is inpatient if possible. Patient complete bowel prep ahead of EGD/ colonoscopy today. Patient lying comfortably in bed today without complaints. States his pain is tolerable. (Tristian Chopra MD R1) Objective Vitals Vital Signs Date Time Temp Pulse Resp B/P Pulse Ox O2 Delivery O2 Flow Rate FiO2 12/13/16 08:23 97.2 63 20 155/66 97 12/13/16 08:12 99 Nasal Cannula 3.00 12/13/16 05:36 56 99 12/13/16 04:00 97.6 67 28 142/64 99 12/13/16 03:20 46 97 12/13/16 00:00 97.8 62 22 142/69 98 12/12/16 20:22 98 Nasal Cannula 3.00 12/12/16 20:00 97.2 63 24 181/76 98 12/12/16 19:00 54 12/12/16 16:16 97.4 57 19 196/84 98 12/12/16 12:18 97.4 57 19 180/81 96 I/O 12/12/16 12/12/16 12/12/16 12/13/16 12/13/16 12/13/16 07:00 15:00 23:00 07:00 15:00 23:00 Output Total 150 ml 100 ml Balance -150 ml -100 ml Output Urine Total 150 ml 100 ml # Voids 5 1 # Bowel Movements 2 0 (Tristian Chopra MD R1) Result Diagram: 12/13/16 0646 12/13/16 0646 Objective Remarks GEN: lying in bed in NAD. CV: Regular rate and rhythm without obvious murmurs LUNGS: Clear to auscultation bilaterally. Normal respiratory effort. Scattered wheezing bilaterally. EXT: Left foot wrapped in an Raimundo wrap with toes exposed. No edema. b/l SCDs in place. No erythema extending proximal to ankle. NEURO/PSYCH: Awake, alert. Pleasant and cooperative. (Tristian Chopra MD R1) A/P Assessment and Plan 80-year-old male admitted for AMS and found to have MIKE, electrolytes disturbances, and osteomyelitis Discharge Planning EDG/colonoscopy today Consult case management for home health with PT and home O2 (Tristian Chopra MD R1) Attending Attestation Patient examined and case discussed with resident physician I have read the above note and agree with the assessment/plan as discussed with me I was involved in all medical decision making for this patient Tae Hoskins M.D. (Tae Hoskins MD) Problem List: (1) Gas gangrene of foot Status: Acute Plan: Postoperative day #6 s/p fifth toe amputation with fifth metatarsal resection by podiatry - Podiatry following - Bone pathology showing gangrenous necrosis and osteomyelitis left fifth tow and metatarsal bone section Continue antibiotics as below: * Vancomycin (started 12/06), pharmacy consulted * Discontinued Zosyn Wound cultures returning with MSSA and group D enterococcus Blood cultures 12/06 no growth after 5 days Vascular surgery did evaluate patient due to podiatry concerns of poor bleeding following procedure. Vascular surgery has evaluated patient and recommends close monitoring as he is not eligible for an angiogram due to his renal function and is not eligible for heparin due to his hematuria and GI bleed. 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 Daily BMP to monitor Cr * Baseline Cr currently unknown, last recording creatinine was 1.52 from 2016 Patient's daughter does state that he did refuse urologic intervention several weeks ago when it was recommended by his primary care provider - If he continues to refuse urologic intervention, patient may be hospice appropriate - Case discussed with Dr. Parham 12/10. If patient stable for discharge, patient may follow up with urology as an outpatient for further management - Family now requesting additional opinion during hospitalization (3) GI bleed Status: Acute Plan: Hgb stable, no active bleeding * GI consulted recommendations appreciated * EGD/Colonoscopy planned today AM (4) Acute renal failure Status: Acute Plan: Cr stable, continue to monitor - Appears to be prerenal from poor intake and infection - Continue IV hydration with normal saline at 125 mL/hour - Follow with daily BMPs - Avoid nephrotoxic agents - Monitor I/Os (5) Hypertension Status: Chronic Plan: Elevated BP since admission. Home lisinopril held due to MIKE * Amlodipine 10 mg po daily * Hydralazine 100 mg po q8h * Carvedilol 6.25 mg po bid * Clonidine 0.1 mg po q12h scheduled * Clonidine 0.1 mg po q6h prn BP > 180/100 (6) UTI (urinary tract infection) Status: Resolved Plan: Urinalysis consistent with infection - Continue abx as described under gangrene as that would provide adequate coverage - UA 12/06 with large occult blood - Repeat UA 12/10 showing large occult blood, neg nitrite, small LE - Urine culture 12/06: 25-50,000 cfus Staph Aureus - Repeat urine culture 12/10 no growth after 48 hours (7) Electrolyte abnormality Status: Resolved Plan: Sodium and potassium electrolyte abnormalities have resolved with IV fluids Hospital course: Potassium on admission was 5.4 which increased to a high of 6.4. Received calcium gluconate, insulin and dextrose in the emergency department. Potassium has since decreased with Kayexalate to 4.7 as of 12/08/16. Hyponatremia has now resolved from a low of 125 with fluid hydration -Monitor with BMPs -Kayexalate discontinued -Lasix discontinued (8) Altered mental status Status: Acute Plan: Likely multifactorial, treatment for infection as above and will readdress (9) DM (diabetes mellitus) Status: Chronic Plan: Diabetes relatively well-controlled with glucose ranging from 100 to 130s - Hemoglobin A1c of 6.8% - Hold home levemir - Low dose Sliding Scale w/ Novolog, titrate as needed (10) CHF (congestive heart failure) Status: Chronic Plan: Echocardiogram performed with limited visualization of the left ventricular function - Left ventricular function grossly normal BNP equivocal on admission. Clinically does not appear to be in CHF exacerbation. Medications: * Currently holding RAIMUNDO inhibitor due to acute renal failure (11) COPD (chronic obstructive pulmonary disease) Status: Chronic Plan: Known history of COPD. Received Solu-Medrol 125 mg 1 in the emergency department. - ABX coverage through osteo treatment Medications: * Continue albuterol inhaler * Continue DuoNeb's every 4 hours with albuterol PRN * Continue symbicort * Antibiotics as above (12) Seizure disorder Status: Chronic Plan: Continue home Dilantin (13) Atrial fibrillation Status: Chronic Plan: [id number] score of 6, would benefit from anticoagulation once clinically stable. Currently rate controlled. -Not currently anticoagulated due to possibility of GI bleed and hematuria from bladder masses (14) CAD (coronary artery disease) Status: Chronic Plan: h/o CAD with 2 stents placed, takes Aspirin 81 mg daily at home, atorvastatin 20mg, no complaints of angina -continue home atorvastatin -holding Aspirin due to GI bleed (15) Nutrition, metabolism, and development symptoms Status: Acute Plan: Diet: clear liquids Fluids: Normal saline at 125 mL/hour Electrolytes: monitor and replete as necessary DVT: holding anticoagulation due to GI bleed, Bilateral SCDs GI PPX: protonix (Tristian Chopra MD R1) Problem Qualifiers (1) GI bleed: Qualified Code: K92.2 - Gastrointestinal hemorrhage, unspecified gastrointestinal hemorrhage type (2) DM (diabetes mellitus): Qualified Code: 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
[2016-12-13 09:55] LABS: BANDS 1 % (0-6); EOSINOPHILS 1 % (0-4); MYELOCYTES 1 % (0-0); NEUTROPHIL # MANUAL DIFF 13.8 TH/MM3 (1.8-7.7); POLYS (SEG NEUTROPHILS) 85 % (16-70); WBC DIFF SAMPLE 100
[2016-12-13 09:57] LABS: ACANTHOCYTES 1+ (NORMAL); OVALOCYTES 1+ (NORMAL); PLATELET ESTIMATE SMEAR NORMAL (NORMAL); PLATELET MORPHOLOGY NORMAL (NORMAL); SCAN/DIFF FINAL DIFF MANUAL
[2016-12-13 09:58] LABS: KERATOCYTES OCC (NORMAL)
[2016-12-13] MEDS ORDERED: KETAMINE HCL 500 MG/5 ML VIAL ONE (17:07)
[2016-12-13] MEDS ORDERED: PROPOFOL 200 MG/20 ML AMP IV ONE (17:29)
[2016-12-13] MEDS ORDERED: *RESP: ALBUTEROL 2.5 MG/3 ML NEB (PRN) PERIprocedural Use ONLY NEB ONE (17:53)
--- NOTE | 2016-12-13 18:20 | PD.POD ---
Subjective Podiatric Problems s/p L partial 5th ray amp Abdifatah 12/07/16 Pain score: 1 Past Med/Surg/Social History Social History Smoking Status: Former Smoker Objective Vital Signs Vital Signs Date Time Temp Pulse Resp B/P Pulse Ox O2 Delivery O2 Flow Rate FiO2 12/13/16 16:28 97.5 70 17 149/68 97 12/13/16 15:50 99 Nasal Cannula 3.00 12/13/16 12:00 97.3 64 20 150/69 96 12/13/16 08:23 97.2 63 20 155/66 97 12/13/16 08:12 99 Nasal Cannula 3.00 12/13/16 05:36 56 99 12/13/16 04:00 97.6 67 28 142/64 99 12/13/16 03:20 46 97 12/13/16 00:00 97.8 62 22 142/69 98 12/12/16 20:22 98 Nasal Cannula 3.00 12/12/16 20:00 97.2 63 24 181/76 98 12/12/16 19:00 54 Coded Allergies: No Known Allergies (Verified , 10/11/15) Physical Exam Remarks L distal lateral foot with extensive necrotic tissue present and purulent drainage. Nonpalpable pulses. Cool skin temperature. Thin atrophic skin. Assessment & Plan A/P s/p L partial 5th ray amp [place] 12/07/16 Discussed patient and wound deterioration with Dr Hernandez and he and I discussed that patient would benefit from BKA vs AKA, based on vascular assessment. No further podiatric treatment at this time. Sheree Acevedo DPM Dec 13, 2016 18:20
--- NOTE | 2016-12-13 18:57 | PD.PROCEDR ---
GI Procedure PROCEDURE PERFORMED EGD with biopsy followed by colonoscopy with snare polypectomy INDICATION FOR PROCEDURE Iron deficiency anemia PROCEDURE: The procedure, risks and benefits were discussed with Mr. Kerr and informed consent was obtained. Anesthesia sedated him with Diprivan. He was placed in the left lateral decubitus position. EGD: The Pentax videoscope was introduced through the oropharynx and advanced to the second portion of the duodenum under direct visualization. Retroflexion was performed in the stomach. FINDINGS: The esophagus there was distal esophageal mucosal erythema with friability consistent with reflux esophagitis grade D this was biopsied The stomach there was moderate sized hiatal hernia otherwise gastric mucosa was unremarkable The duodenum this was normal random biopsies were taken for further evaluation for iron deficiency anemia Colonoscopy: The Pentax videoscope was introduced through the rectum and advanced to cecum where the ileocecal valve and appendiceal orifice were identified. Retroflexion was performed in the rectum. Colonic prep was poor FINDINGS: Colonic withdrawal time greater than 6 minutes as the scope was slowly withdrawn colonic mucosa was carefully inspected the patient was noted to have a 7-8 mm sessile polyp in the descending colon this was excised using cold snare technique and this was retrieved for further evaluation otherwise colonic examination was unremarkable so as retroflexion and rectal examination I was able to get a good look around except for portions of the sigmoid that weren't totally evaluated due to the poor prep ESTIMATED BLOOD LOSS: None SPECIMENS REMOVED: Esophageal, duodenal, colon biopsies COMPLICATIONS: None IMPRESSION: Reflux esophagitis Hiatal hernia Colon polyp Incomplete evaluation of the colon PLAN: Await biopsy Continue with current supportive care Reflux precautions PPI Moises Irving MD Dec 13, 2016 18:57
[2016-12-13] MEDS ORDERED: DO NOT ADM ANY ANTICOAGULANT DRUGS PRN (19:00)
--- NOTE | 2016-12-13 19:18 | PD.CAR.PN ---
CVT Progress Note Subjective/Hospital Course: Records reviewed what patient was in some sort of x-ray study Full consult to follow after evaluation of the patient Vanessa Murray 12/11/16 Patient status post fifth toe amputation by podiatry Incision is healing nicely Patient is not a candidate for any vascular reconstruction in face of his age, systemic comorbidities and local factors. In face of elevated BUN/creatinine I will not even order CTA with runoff for the benefits of these studies will be exceeded by the risks 12/13/16 Patient with the large defect post left fifth toe and metatarsal amputation Deep defect toward of fourth metatarsal bone with exposure of the soft tissues and plantar area of the foot Discussed with Dr. Shannon Vallecillo. Patient is fairly ambulatory at this time and I would advise against transmetatarsal amputation in the face of patient's general condition and peripheral changes There is no vascular procedure to remedy this Patient will need below-knee amputation and possibly even above-knee amputation depending on the prospects of ambulation which is fairly poor Will discuss with patient's daughter once she is in the room and will come back up tomorrow Objective: Vital Signs Date Time Temp Pulse Resp B/P Pulse Ox O2 Delivery O2 Flow Rate FiO2 12/13/16 17:44 98.0 54 22 101/53 99 Nasal Cannula 3 12/13/16 16:28 97.5 70 17 149/68 97 12/13/16 15:50 99 Nasal Cannula 3.00 12/13/16 12:00 97.3 64 20 150/69 96 12/13/16 08:23 97.2 63 20 155/66 97 12/13/16 08:12 99 Nasal Cannula 3.00 12/13/16 05:36 56 99 12/13/16 04:00 97.6 67 28 142/64 99 12/13/16 03:20 46 97 12/13/16 00:00 97.8 62 22 142/69 98 12/12/16 20:22 98 Nasal Cannula 3.00 12/12/16 20:00 97.2 63 24 181/76 98 Result Diagram: 12/13/16 0646 12/13/16 0646 Lavonne Hernandez MD Dec 13, 2016 19:18
[2016-12-13 21:15] LABS: MEAN CORPUSCULAR HGB CONC 29.8 % (32.0-36.0)
[2016-12-13] MEDS: ATORVASTATIN 20 MG TAB PO SCH (23:44)
[2016-12-13] MEDS: TERAZOSIN HCL 1 MG CAP PO SCH (23:45)
[2016-12-13] MEDS: SODIUM CHLOR 0.9% 1000 ML INJ 1,000 ML IV SCH (23:46)
[2016-12-14] VITALS (14 sets, daily range): BP systolic 101–136; BP diastolic 49–71; PULSE 48–69; RESP 18–20; TEMP 96.4–98.3; O2SAT 95–100
[2016-12-14] MEDS: PANTOPRAZOLE SODIUM 40 MG VIAL IV PUSH SCH ×2 (01:16→15:48)
[2016-12-14] MEDS: ACETAMINOPHEN/HYDROcodone 325 MG/7.5 MG TAB PO PRN ×2 (05:43→12:42)
[2016-12-14] MEDS: hydrALAZINE HCL 50 MG TAB PO SCH ×3 (05:43→22:18)
[2016-12-14] MEDS: INSULIN ASPART SUPPLEMENTAL SCALE SQ SCH ×4 (07:00→21:00)
[2016-12-14] MEDS: RESP: ALBUTEROL 2.5 MG/IPRATROPIUM 0.5 MG NEB (SCH) NEB ×4 (07:56→20:00)
[2016-12-14] MEDS: MORPHINE SULFATE 4 MG/ML INJ IV PRN (08:52)
[2016-12-14 08:56] LABS: AUTOMATED NEUTROPHIL # 14.6 TH/MM3 (1.8-7.7); BASOPHIL # 0.1 TH/MM3 (0-0.2); BASOPHIL % 0.7 % (0.0-2.0); EOSINOPHIL # 0.2 TH/MM3 (0-0.4); EOSINOPHIL % 1.3 % (0.0-4.0); LYMPH % 5.9 % (9.0-44.0); MEAN CELL VOLUME 74.6 FL (80.0-100.0); MEAN CORPUSCULAR HEMOGLOBIN 22.3 PG (27.0-34.0); MONO % 4.4 % (0.0-8.0); NEUT % 87.7 % (16.0-70.0); PLATELET COUNT 287 TH/MM3 (150-450); RED BLOOD COUNT 3.08 MIL/MM3 (4.50-5.90); RED CELL DISTRIBUTION WIDTH 18.9 % (11.6-17.2); WHITE BLOOD COUNT 16.6 TH/MM3 (4.0-11.0)
[2016-12-14 09:09] LABS: HEMO FLAGS AUTO DIFF
[2016-12-14 09:27] LABS: POTASSIUM 5.1 MEQ/L (3.5-5.1)
[2016-12-14] MEDS ORDERED: SODIUM CHLOR 0.9% 250 ML INJ 250 ML IV ONE ×2 (09:30→14:45)
--- NOTE | 2016-12-14 09:54 | HHI.FPPN ---
Subjective Remarks Overnight patient developed SOB and wheezing. MIVF were discontinued and patient given duoneb breathing treatment with improvements of symptoms. Patient lying comfortably in bed this morning. He has complaints of neck stiffness as well as left foot pain. Denies chest pain. No SOB currently. No fevers. Patient states he has been able to ambulate a little with assistance. States his pain overall yesterday has been at a 5-6/10. (Tristian Chopra MD R1) Objective Vitals Vital Signs Date Time Temp Pulse Resp B/P Pulse Ox O2 Delivery O2 Flow Rate FiO2 12/14/16 08:00 98.3 48 19 121/61 99 12/14/16 07:56 97 Nasal Cannula 3.00 12/14/16 04:00 97.9 51 18 129/61 99 12/14/16 00:08 97.3 58 20 136/71 95 12/13/16 21:28 97.3 60 18 147/65 95 12/13/16 19:00 98.0 55 20 128/60 100 Nasal Cannula 2 12/13/16 18:45 63 20 130/58 97 Nasal Cannula 2 12/13/16 18:30 58 20 117/58 99 Nasal Cannula 3 12/13/16 18:15 62 22 115/56 99 Nasal Cannula 3 12/13/16 18:00 53 22 113/53 100 Nasal Cannula 3 12/13/16 17:44 98.0 54 22 101/53 99 Nasal Cannula 3 12/13/16 16:28 97.5 70 17 149/68 97 12/13/16 15:50 99 Nasal Cannula 3.00 12/13/16 12:00 97.3 64 20 150/69 96 I/O 12/13/16 12/13/16 12/13/16 12/14/16 12/14/16 12/14/16 07:00 15:00 23:00 07:00 15:00 23:00 Intake Total 175 ml Output Total 100 ml 50 ml Balance -100 ml 125 ml IV Total 25 ml Other 150 ml Output Urine Total 100 ml Estimated Blood Loss 50 ml # Bowel Movements 0 (Tristian Chopra MD R1) Result Diagram: 12/14/16 0749 12/14/16 0749 Objective Remarks GEN: lying in bed in NAD. CV: Regular rate and rhythm without obvious murmurs LUNGS: Scattered expiratory wheezing bilaterally. No rales or rhonchi. No increased WOB when sleeping. Does appear to have mild accessory muscle use after awakening. Normal respiratory rate.. EXT: Left foot wrapped in an Raimundo wrap with toes exposed. 2+ lower extremity edema right foot. b/l SCDs in place. No erythema extending proximal to ankle. NEURO/PSYCH: Awake, alert. Pleasant and cooperative. (Tristian Chopra MD R1) A/P Assessment and Plan 80-year-old male with PMH of COPD, DM, CAD, CHF and Bladder cancer admitted due to L 5th toe osteomyelitis Discharge Planning Unclear timetable, pending vascular surgery recommendations regarding BKA vs AKA Case management consulted for home health with PT and home O2 (Tristian Chopra MD R1) Attending Attestation Patient examined and case discussed with resident physicians I have read the above note and agree with the assessment/plan is discussed with me I was involved in all medical decision making for this patient Pathology shows osteomyelitis without clear margins - Patient will likely need BKA versus AKA, to be discussed with Dr. Murray Acute worsening of renal function despite fluid hydration - Vancomycin held and infectious disease consult placed for recommendations on antibiotics Bladder mass: - To be managed as an outpatient Anemia: - Holding anticoagulation at this time, patient is in atrial fibrillation with peripheral vascular disease and would benefit from anticoagulation at some point - GI workup as above including endoscopy and colonoscopy - We'll transfuse 2 units PRBCs today and monitor Tae Hoskins M.D. (Tae Hoskins MD) Problem List: (1) Gas gangrene of foot Status: Acute Plan: S/p fifth toe amputation with fifth metatarsal resection by podiatry 12/07 - Podiatry following - Bone pathology showing gangrenous necrosis and osteomyelitis left fifth toe and metatarsal bone section - Vascular surgery following, september recommended BKA vs AKA Continue antibiotics as below: * Vancomycin (started 12/06), pharmacy consulted, consider alternate agent due to renal function * Discontinued Zosyn Wound cultures returning with MSSA and group D enterococcus Blood cultures 12/06 no growth after 5 days Pain control with [place] and morphine prn (2) Bladder tumor Status: Acute Plan: Urology consulted and following patient - CT of the abdomen and pelvis shows multiple masses in the bladder - 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 Daily BMP to monitor Cr * Baseline Cr currently unknown, last recording creatinine was 1.52 from 2016 Patient's daughter does state that he did refuse urologic intervention several weeks ago when it was recommended by his primary care provider - If he continues to refuse urologic intervention, patient may be hospice appropriate - Case discussed with Dr. Parham 12/10. If patient stable for discharge, patient may follow up with urology as an outpatient for further management (3) GI bleed Status: Acute Plan: Hgb stable, no active bleeding GI consulted recommendations appreciated EGD/Colonoscopy 12/13 showing reflux esophagitis, hiatal hernia, colonic polyp, incomplete evaluation of the colon Continue PPI Hgb this AM 6.9 Will transfuse 1 unit PRBCs followed by Lasix 20 mg IV Will likely need additional transfusions especially if patient and family elect for BKA Continue to monitor H/H, transfuse if Hgb < 8 (4) Acute renal failure Status: Acute Plan: Cr uptrending today, 3.73 - May be prerenal from poor intake and infection - IVF held yesterday PM due to patient having SOB, now improved following fluids discontinued - May transition vancomycin to alternate agent - Obtain repeat BNP - Restart IVF hydration following transfusion if patient can tolerate - Follow with daily BMPs - Avoid nephrotoxic agents - Monitor I/Os (5) Hypertension Status: Chronic Plan: Elevated BP since admission. Home lisinopril held due to MIKE * Amlodipine 10 mg po daily * Hydralazine 100 mg po q8h * Carvedilol 6.25 mg po bid * Clonidine 0.1 mg po q12h scheduled * Clonidine 0.1 mg po q6h prn BP > 180/100 (6) UTI (urinary tract infection) Status: Resolved Plan: Urinalysis consistent with infection - Continue abx as described under gangrene as that would provide adequate coverage - UA 12/06 with large occult blood - Repeat UA 12/10 showing large occult blood, neg nitrite, small LE - Urine culture 12/06: 25-50,000 cfus Staph Aureus - Repeat urine culture 12/10 no growth after 48 hours (7) Electrolyte abnormality Status: Resolved Plan: Sodium and potassium electrolyte abnormalities have resolved with IV fluids Hospital course: Potassium on admission was 5.4 which increased to a high of 6.4. Received calcium gluconate, insulin and dextrose in the emergency department. Potassium has since decreased with Kayexalate to 4.7 as of 12/08/16. Hyponatremia has now resolved from a low of 125 with fluid hydration -Monitor with BMPs -Kayexalate discontinued -Lasix discontinued (8) Altered mental status Status: Acute Plan: Likely multifactorial, treatment for infection as above and will readdress (9) DM (diabetes mellitus) Status: Chronic Plan: Diabetes relatively well-controlled with glucose ranging from 100 to 130s - Hemoglobin A1c of 6.8% - Hold home levemir - Low dose Sliding Scale w/ Novolog, titrate as needed (10) CHF (congestive heart failure) Status: Chronic Plan: Echocardiogram performed with limited visualization of the left ventricular function - Left ventricular function grossly normal BNP equivocal on admission. Clinically does not appear to be in CHF exacerbation. Medications: * Currently holding RAIMUNDO inhibitor due to acute renal failure (11) COPD (chronic obstructive pulmonary disease) Status: Chronic Plan: Known history of COPD. Received Solu-Medrol 125 mg 1 in the emergency department. - ABX coverage through osteo treatment Medications: * Continue albuterol inhaler * Continue DuoNeb's every 4 hours with albuterol PRN * Continue symbicort * Antibiotics as above (12) Seizure disorder Status: Chronic Plan: Continue home Dilantin (13) Atrial fibrillation Status: Chronic Plan: [id number] score of 6, would benefit from anticoagulation once clinically stable. Currently rate controlled. -Not currently anticoagulated due to possibility of GI bleed and hematuria from bladder masses (14) CAD (coronary artery disease) Status: Chronic Plan: h/o CAD with 2 stents placed, takes Aspirin 81 mg daily at home, atorvastatin 20mg, no complaints of angina -continue home atorvastatin -holding Aspirin due to GI bleed (15) Nutrition, metabolism, and development symptoms Status: Acute Plan: Diet: 1800 ADA Fluids: Currently on hold Electrolytes: monitor and replete as necessary DVT: holding anticoagulation due to GI bleed, Bilateral SCDs GI PPX: protonix (Tristian Chopra MD R1) Problem Qualifiers (1) GI bleed: Qualified Code: K92.2 - Gastrointestinal hemorrhage, unspecified gastrointestinal hemorrhage type (2) DM (diabetes mellitus): Qualified Code: 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, with long-term current use of insulin (3) CAD (coronary artery disease): Qualified Code: I25.10 - Coronary artery disease involving [place] coronary artery of [place] heart without angina pectoris Tristian Chopra MD R1 Dec 14, 2016 09:54 Tae Hoskins MD Dec 14, 2016 13:03
[2016-12-14] MEDS ORDERED: FUROSEMIDE 20 MG/2 ML VIAL IV ONE (10:00)
[2016-12-14 10:08] LABS: METAMYELOCYTES 2 % (0-1); NEUTROPHIL # MANUAL DIFF 14.8 TH/MM3 (1.8-7.7); POLYS (SEG NEUTROPHILS) 87 % (16-70); WBC DIFF SAMPLE 100
[2016-12-14 10:10] LABS: ACANTHOCYTES 1+ (NORMAL); BURR CELLS 2+ (NORMAL); PLATELET ESTIMATE SMEAR NORMAL (NORMAL); PLATELET MORPHOLOGY NORMAL (NORMAL); SCAN/DIFF FINAL DIFF MANUAL; TOXIC GRANULATION 1+ (NORMAL)
[2016-12-14] MEDS: BUDESONIDE-FORMOTEROL 80/4.5 MCG INHALER INH SCH ×2 (10:13→22:19)
[2016-12-14] MEDS: SODIUM CHLORIDE 0.9% FLUSH 10 ML FLUSH IV FLUSH SCH ×2 (10:15→21:00)
[2016-12-14] MEDS: cloNIDine HCL 0.1 MG TAB PO SCH ×3 (10:15→22:18)
[2016-12-14] MEDS: THIAMINE HCL 100 MG TAB PO SCH (10:16)
[2016-12-14] MEDS: CARVEDILOL 6.25 MG TAB PO SCH ×3 (10:16→22:18)
[2016-12-14] MEDS: DOCUSATE SODIUM 50 MG/SENNA 8.6 MG TAB PO SCH ×2 (10:16→22:18)
[2016-12-14] MEDS: PHENYTOIN SODIUM 100 MG CAP PO SCH ×2 (10:16→22:18)
--- NOTE | 2016-12-14 14:38 | PD.CAR.PN ---
CVT Progress Note Subjective/Hospital Course: Records reviewed what patient was in some sort of x-ray study Full consult to follow after evaluation of the patient Thanks Trevor 12/11/16 Patient status post fifth toe amputation by podiatry Incision is healing nicely Patient is not a candidate for any vascular reconstruction in face of his age, systemic comorbidities and local factors. In face of elevated BUN/creatinine I will not even order CTA with runoff for the benefits of these studies will be exceeded by the risks 12/13/16 Patient with the large defect post left fifth toe and metatarsal amputation Deep defect toward of fourth metatarsal bone with exposure of the soft tissues and plantar area of the foot Discussed with Dr. Sheree Vallecillo. Patient is fairly ambulatory at this time and I would advise against transmetatarsal amputation in the face of patient's general condition and peripheral changes There is no vascular procedure to remedy this Will discuss with patient's daughter once she is in the room and will come back up tomorrow 12/14/16 Discussed the case with Dr. Sheree Vallecillo. 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 Now with additional bedridden status in the hospital I do not know how patient is going to get back on his feet. Nonetheless patient and family do not wish above-knee amputation so we will go ahead with below-knee amputation in anticipation of possible prosthesis I've explained to the family at length that then 80-year-old male who barely could walk before would not be a good candidate for prostetics. Patient will need below-knee amputation and possibly even above-knee amputation depending on the prospects of ambulation which is fairly poor Objective: Vital Signs Date Time Temp Pulse Resp B/P Pulse Ox O2 Delivery O2 Flow Rate FiO2 12/14/16 12:00 96.4 69 18 126/60 98 12/14/16 08:00 98.3 48 19 121/61 99 12/14/16 07:56 97 Nasal Cannula 3.00 12/14/16 04:00 97.9 51 18 129/61 99 12/14/16 00:08 97.3 58 20 136/71 95 12/13/16 21:28 97.3 60 18 147/65 95 12/13/16 19:00 98.0 55 20 128/60 100 Nasal Cannula 2 12/13/16 18:45 63 20 130/58 97 Nasal Cannula 2 12/13/16 18:30 58 20 117/58 99 Nasal Cannula 3 12/13/16 18:15 62 22 115/56 99 Nasal Cannula 3 12/13/16 18:00 53 22 113/53 100 Nasal Cannula 3 12/13/16 17:44 98.0 54 22 101/53 99 Nasal Cannula 3 12/13/16 16:28 97.5 70 17 149/68 97 12/13/16 15:50 99 Nasal Cannula 3.00 Labs: Laboratory Tests Test 12/14/16 07:49 White Blood Count 16.6 TH/MM3 (4.0-11.0) Red Blood Count 3.08 MIL/MM3 (4.50-5.90) Hemoglobin 6.9 GM/DL (13.0-17.0) Hematocrit 23.0 % (39.0-51.0) Mean Corpuscular Volume 74.6 FL (80.0-100.0) Mean Corpuscular Hemoglobin 22.3 PG (27.0-34.0) Mean Corpuscular Hemoglobin 29.8 % Concent (32.0-36.0) Red Cell Distribution Width 18.9 % (11.6-17.2) Platelet Count 287 TH/MM3 (150-450) Mean Platelet Volume 7.2 FL (7.0-11.0) Neutrophils (%) (Auto) 87.7 % (16.0-70.0) Lymphocytes (%) (Auto) 5.9 % (9.0-44.0) Monocytes (%) (Auto) 4.4 % (0.0-8.0) Eosinophils (%) (Auto) 1.3 % (0.0-4.0) Basophils (%) (Auto) 0.7 % (0.0-2.0) Neutrophils # (Auto) 14.6 TH/MM3 (1.8-7.7) Lymphocytes # (Auto) 1.0 TH/MM3 (1.0-4.8) Monocytes # (Auto) 0.7 TH/MM3 (0-0.9) Eosinophils # (Auto) 0.2 TH/MM3 (0-0.4) Basophils # (Auto) 0.1 TH/MM3 (0-0.2) CBC Comment AUTO DIFF Differential Total Cells 100 Counted Neutrophils % (Manual) 87 % (16-70) Lymphocytes % 8 % (9-44) Monocytes % 3 % (0-8) Neutrophils # (Manual) 14.8 TH/MM3 (1.8-7.7) Metamyelocytes 2 % (0-1) Differential Comment FINAL DIFF MANUAL Toxic Granulation 1+ (NORMAL) Platelet Estimate NORMAL (NORMAL) Platelet Morphology Comment NORMAL (NORMAL) Vicenta Cells 2+ (NORMAL) Acanthocytes 1+ (NORMAL) Sodium Level 139 MEQ/L (136-145) Potassium Level 5.1 MEQ/L (3.5-5.1) Chloride Level 111 MEQ/L (98-107) Carbon Dioxide Level 10.0 MEQ/L (21.0-32.0) Anion Gap 18 MEQ/L (5-15) Blood Urea Nitrogen 78 MG/DL (7-18) Creatinine 3.73 MG/DL (0.60-1.30) Estimat Glomerular Filtration 16 ML/MIN (>89) Rate Random Glucose 104 MG/DL (74-106) Calcium Level 8.8 MG/DL (8.5-10.1) B-Type Natriuretic Peptide 1186 PG/ML (0-100) Random Vancomycin Level 20.5 COMMENT Result Diagram: 12/14/16 0749 12/14/16 0749 Lavonne Hernandez MD Dec 14, 2016 14:38
--- NOTE | 2016-12-14 15:18 | PD.CONS ---
History of Present Illness Service Infectious disease Consult Requested By Dr Hoskins Reason for Consult Evaluate patient with UTI, foot infection, has worsening creatinine on IV vancomycin Primary Care Physician Tae Hoskins MD Diagnoses: History of Present Illness Patient seen and examined. Records reviewed. Patient is an 80-year-old male, admitted to the hospital for further evaluation of his left foot. He apparently was noted to have a callus on the lateral aspect of that foot. Over the last several weeks he was noted to be developing some drainage, and he was experiencing pain. There was no mention of any fever chills or sweats. On the day of admission, the patient slid and almost fell, and so the patient was brought to the hospital for further evaluation and treatment. It was also mentioned that there was some tea-colored urine. Apparently the patient was diagnosed to have bladder cancer, and had TURBT, but was lost to follow-up. Since that time he has had intermittent hematuria. He was diagnosed to have a diabetic foot infection with findings of gas in the foot. Patient underwent surgery and had amputation of his fifth digit and his fifth metatarsal. He also had evidence of urinary tract infection. Urine culture had MSSA. The initial foot culture had MSSA and enterococcus. Intraoperative culture from the foot grew MSSA. His blood cultures on admission are negative. CT of the abdomen and pelvis showed multiple masses in the urinary bladder. No hydronephrosis. His initial creatinine was 3+, and it went down to 2+. Today it up to 3+ again an infectious disease consultation has been requested to evaluate the patient. Patient has been getting intermittent vancomycin dosing depending on his random vancomycin levels. Patient underwent upper and lower endoscopy, with findings of some esophagitis, polyp, but the colonoscopy was incomplete. Over the last several days patient's by mouth intake has been poor. His urine output also recorded has been decreasing. Patient currently just received a medication, and has no pain. Patient's left foot is showing more evidence of gangrene, and further amputation is being discussed, and scheduled probably this weekend. Review of Systems Constitutional: DENIES: Fever, Chills Eyes: DENIES: Eye pain Ears, nose, mouth, throat: DENIES: Nasal discharge, Oral lesions, Throat pain, Sinus Pain Respiratory: DENIES: Cough, Shortness of breath Cardiovascular: DENIES: Chest pain, Palpitations Gastrointestinal: DENIES: Abdominal pain, Diarrhea, Nausea, Vomiting Genitourinary: DENIES: Dysuria Musculoskeletal: COMPLAINS OF: Joint pain, Joint Swelling Integumentary: DENIES: Rash Hematologic/lymphatic: DENIES: Bruising Neurologic: DENIES: Headache Psychiatric: DENIES: Confusion, Hallucinations Past Family Social History Allergies: Coded Allergies: No Known Allergies (Verified , 10/11/15) Past Medical History COPD DM requiring insulin Stroke CAD - two stents placed CHF Bladder cancer A fib - rate controlled Seizures Past Surgical History Bladder Cancer: tumor removal 2 cardiac stents Active Ordered Medications Tylenol [place] Albuterol Norvasc Lipitor Dulcolax Symbicort Coreg Clonidine Ferrous sulfate Hydralazine Insulin Lactulose Ativan MOM Morphine Zofran Protonix Dilantin Christine-Colace Senokot Hytrin Thiamine Intermittent Vanco Family History Family history of diabetes and CAD Social History Lives with his GF and one of her sons Alcohol - former heavy drinker Tobacco - former smoker. Used to smoke 2 ppd for > 50 years Drugs - no illicit drug use Physical Exam Vital Signs Vital Signs Date Time Temp Pulse Resp B/P Pulse Ox O2 Delivery O2 Flow Rate FiO2 12/14/16 12:00 96.4 69 18 126/60 98 12/14/16 08:00 98.3 48 19 121/61 99 12/14/16 07:56 97 Nasal Cannula 3.00 12/14/16 04:00 97.9 51 18 129/61 99 12/14/16 00:08 97.3 58 20 136/71 95 12/13/16 21:28 97.3 60 18 147/65 95 12/13/16 19:00 98.0 55 20 128/60 100 Nasal Cannula 2 12/13/16 18:45 63 20 130/58 97 Nasal Cannula 2 12/13/16 18:30 58 20 117/58 99 Nasal Cannula 3 12/13/16 18:15 62 22 115/56 99 Nasal Cannula 3 12/13/16 18:00 53 22 113/53 100 Nasal Cannula 3 12/13/16 17:44 98.0 54 22 101/53 99 Nasal Cannula 3 12/13/16 16:28 97.5 70 17 149/68 97 12/13/16 15:50 99 Nasal Cannula 3.00 Physical Exam GENERAL: Patient is a well-nourished, well-developed elderly male, awake and alert, not in respiratory distress. SKIN: Warm and dry. No generalized rash, no ecchymoses and no evidence of embolic lesions. HEAD: Atraumatic. Normocephalic. No temporal wasting, or tenderness. EYES: [place] conjunctiva. No petechia or hemorrhage. Pupils equal, round and reactive to light. Extraocular movements full and intact. No scleral icterus. No injection or drainage. EARS, NOSE AND THROAT: Nose without bleeding or purulent nasal discharge. No sinus tenderness. Mucous membranes pink and moist. No oral lesions noted. No exudate. No oral thrush. He is edentulous NECK: Trachea midline. Supple and not tender, no meningeal signs CARDIOVASCULAR: Regular rate and rhythm. No murmurs, rubs or gallops heard RESPIRATORY: Clear to auscultation. Breath sounds equal bilaterally. No rales , wheezing or rhonchi. Decreased breath sounds at the bases ABDOMEN: Soft, mildly distended, with some tenderness in the right lower quadrant close to the suprapubic region. No guarding or rebound. Bowel sounds present and normoactive. No guarding. No rebound. No organomegaly. EXTREMITIES: No clubbing, cyanosis, or edema in RLE. L foot - amputation site has dry gangrene and there is a bullous lesion on plantar aspect of his foot in mid foot with bluish bloody fluid, has edema of L foot with mild erythema, no foul odor noted. Cool L foot. No calf tenderness. NEUROLOGICAL: Awake and alert. Cranial nerves grossly intact. Motor grossly within normal limits. PSYCHIATRIC: Normal affect, calm and cooperative. LINE: No evidence of infection Laboratory Laboratory Tests Test 12/14/16 07:49 White Blood Count 16.6 Red Blood Count 3.08 Hemoglobin 6.9 Hematocrit 23.0 Mean Corpuscular Volume 74.6 Mean Corpuscular Hemoglobin 22.3 Mean Corpuscular Hemoglobin 29.8 Concent Red Cell Distribution Width 18.9 Platelet Count 287 Mean Platelet Volume 7.2 Neutrophils (%) (Auto) 87.7 Lymphocytes (%) (Auto) 5.9 Monocytes (%) (Auto) 4.4 Eosinophils (%) (Auto) 1.3 Basophils (%) (Auto) 0.7 Neutrophils # (Auto) 14.6 Lymphocytes # (Auto) 1.0 Monocytes # (Auto) 0.7 Eosinophils # (Auto) 0.2 Basophils # (Auto) 0.1 CBC Comment AUTO DIFF Differential Total Cells 100 Counted Neutrophils % (Manual) 87 Lymphocytes % 8 Monocytes % 3 Neutrophils # (Manual) 14.8 Metamyelocytes 2 Differential Comment FINAL DIFF MANUAL Toxic Granulation 1+ Platelet Estimate NORMAL Platelet Morphology Comment NORMAL Vicenta Cells 2+ Acanthocytes 1+ Sodium Level 139 Potassium Level 5.1 Chloride Level 111 Carbon Dioxide Level 10.0 Anion Gap 18 Blood Urea Nitrogen 78 Creatinine 3.73 Estimat Glomerular Filtration 16 Rate Random Glucose 104 Calcium Level 8.8 B-Type Natriuretic Peptide 1186 Random Vancomycin Level 20.5 Date/Time Procedure Status Source Growth 12/10/16 17:10 Urine Culture - Final Complete Urine Clean Catch NO GROWTH IN 48 HOURS. 12/10/16 17:10 Cancelled Urine Clean Catch Result Diagram: 12/14/16 0749 12/14/16 0749 Imaging RADIOLOGY STUDIES/FILMS REVIEWED Last Impressions Chest X-Ray 12/08/16 0000 Signed Impressions: Service Date/Time: Thursday, December 08, 2016 14:05 - CONCLUSION: Tiny bilateral pleural effusions. Altagracia Grijalva MD Abdomen Ultrasound 12/07/16 0026 Signed Impressions: Service Date/Time: Wednesday, December 07, 2016 09:34 - CONCLUSION: 1. 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 Cystoscopy and biopsy recommended. 2. Nonvisualization of the pancreas. 3. Kidneys are borderline echogenic. 4. Minimal free fluid in Faulkner's pouch. Sal Chowdhury MD Foot MRI 12/07/16 0000 Signed Impressions: Service Date/Time: Wednesday, December 07, 2016 09:01 - CONCLUSION: 1. Osteomyelitis of the fifth metatarsal head and proximal phalanx of the fifth toe. Sal Chowdhury MD Abdomen/Pelvis CT 12/07/16 0000 Signed Impressions: Service Date/Time: Thursday, December 08, 2016 10:46 - CONCLUSION: Multiple bladder masses suspicious for malignancy. Altagracia Grijalva MD Foot X-Ray 12/06/16 1747 Signed Impressions: Service Date/Time: November 18:08 - CONCLUSION: No obvious bone destruction at this time. Soft tissue emphysema is noted in and around the fifth MTP joint soft tissues. The possibility of infection with gas-forming organism should be excluded. Dean Burton MD Assessment and Plan Assessment and Plan IMPRESSION Diabetic foot infection L, C/S MSSA and Enterococcus, with underlying PVD most likely Renal insufficiency, has improved some, ?baseline creat, worse now could be due to: poor po intake, ?retention, sepsis, or meds PVD UTI Known bladder tumors, previous TURBT, has progression; was lost to follow-up after his surgery RECOMMENDATION Bladder scan - may need cath if with high residual Prob needs fluids Get renal consult to assist with his renal disease, and fluid management Stop Vanco since there is no MRSA Will use IV Unasyn Further amputation is planned by vascular surgery He will not need a long course of Abx for his foot since he is going to have BKA or AKA Monitor progress Will follow with you Thank you for this consultation Discussed Condition With Explained plan to family Roxi Truong MD Dec 14, 2016 15:18
[2016-12-14] MEDS: FERROUS SULFATE 325 MG (65 MG ELEMENTAL IRON) TAB PO SCH ×2 (15:49→22:18)
--- NOTE | 2016-12-14 16:48 | HHI.GIFU ---
Subjective Remarks Pt resting in bed, sleeping through exam. Per daughter some bleeding from left food. (Pamela Tay) Objective Vitals I&O Vital Signs Date Time Temp Pulse Resp B/P Pulse Ox O2 Delivery O2 Flow Rate FiO2 12/14/16 15:57 97.8 69 18 122/61 99 12/14/16 12:00 96.4 69 18 126/60 98 12/14/16 08:00 98.3 48 19 121/61 99 12/14/16 07:56 97 Nasal Cannula 3.00 12/14/16 04:00 97.9 51 18 129/61 99 12/14/16 00:08 97.3 58 20 136/71 95 12/13/16 21:28 97.3 60 18 147/65 95 12/13/16 19:00 98.0 55 20 128/60 100 Nasal Cannula 2 12/13/16 18:45 63 20 130/58 97 Nasal Cannula 2 12/13/16 18:30 58 20 117/58 99 Nasal Cannula 3 12/13/16 18:15 62 22 115/56 99 Nasal Cannula 3 12/13/16 18:00 53 22 113/53 100 Nasal Cannula 3 12/13/16 17:44 98.0 54 22 101/53 99 Nasal Cannula 3 I/O 12/13/16 12/13/16 12/13/16 12/14/16 12/14/16 12/14/16 07:00 15:00 23:00 07:00 15:00 23:00 Intake Total 175 ml Output Total 100 ml 50 ml Balance -100 ml 125 ml IV Total 25 ml Other 150 ml Output Urine Total 100 ml Estimated Blood Loss 50 ml # Voids 0 # Bowel Movements 0 0 Laboratory Laboratory Tests Test 12/14/16 07:49 White Blood Count 16.6 Red Blood Count 3.08 Hemoglobin 6.9 Hematocrit 23.0 Mean Corpuscular Volume 74.6 Mean Corpuscular Hemoglobin 22.3 Mean Corpuscular Hemoglobin 29.8 Concent Red Cell Distribution Width 18.9 Platelet Count 287 Mean Platelet Volume 7.2 Neutrophils (%) (Auto) 87.7 Lymphocytes (%) (Auto) 5.9 Monocytes (%) (Auto) 4.4 Eosinophils (%) (Auto) 1.3 Basophils (%) (Auto) 0.7 Neutrophils # (Auto) 14.6 Lymphocytes # (Auto) 1.0 Monocytes # (Auto) 0.7 Eosinophils # (Auto) 0.2 Basophils # (Auto) 0.1 CBC Comment AUTO DIFF Differential Total Cells 100 Counted Neutrophils % (Manual) 87 Lymphocytes % 8 Monocytes % 3 Neutrophils # (Manual) 14.8 Metamyelocytes 2 Differential Comment FINAL DIFF MANUAL Toxic Granulation 1+ Platelet Estimate NORMAL Platelet Morphology Comment NORMAL Vicenta Cells 2+ Acanthocytes 1+ Sodium Level 139 Potassium Level 5.1 Chloride Level 111 Carbon Dioxide Level 10.0 Anion Gap 18 Blood Urea Nitrogen 78 Creatinine 3.73 Estimat Glomerular Filtration 16 Rate Random Glucose 104 Calcium Level 8.8 B-Type Natriuretic Peptide 1186 Random Vancomycin Level 20.5 Date/Time Procedure Status Source Growth 12/10/16 17:10 Urine Culture - Final Complete Urine Clean Catch NO GROWTH IN 48 HOURS. 12/10/16 17:10 Cancelled Urine Clean Catch Imaging Last Impressions Chest X-Ray 12/08/16 0000 Signed Impressions: Service Date/Time: Thursday, December 08, 2016 14:05 - CONCLUSION: Tiny bilateral pleural effusions. Altagracia Grijalva MD Abdomen Ultrasound 12/07/16 0026 Signed Impressions: Service Date/Time: Wednesday, December 07, 2016 09:34 - CONCLUSION: 1. 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 Cystoscopy and biopsy recommended. 2. Nonvisualization of the pancreas. 3. Kidneys are borderline echogenic. 4. Minimal free fluid in Faulkner's pouch. Sal Chowdhury MD Foot MRI 12/07/16 0000 Signed Impressions: Service Date/Time: Wednesday, December 07, 2016 09:01 - CONCLUSION: 1. Osteomyelitis of the fifth metatarsal head and proximal phalanx of the fifth toe. Sal Chowdhury MD Abdomen/Pelvis CT 12/07/16 0000 Signed Impressions: Service Date/Time: Thursday, December 08, 2016 10:46 - CONCLUSION: Multiple bladder masses suspicious for malignancy. Altagracia Grijalva MD Foot X-Ray 12/06/16 4777 Signed Impressions: Service Date/Time: November 18:08 - CONCLUSION: No obvious bone destruction at this time. Soft tissue emphysema is noted in and around the fifth MTP joint soft tissues. The possibility of infection with gas-forming organism should be excluded. Dean Burton MD Physical Exam HEENT: Normocephalic; atraumatic; no jaundice. CHEST: CTA CARDIAC: RRR. ABDOMEN: Soft, nondistended, nontender; no hepatosplenomegaly; bowel sounds are present in all four quadrants. EXTREMITIES: Left foot drsg, d/i. wound left first toe SKIN: Generalized pallor. TEST CONSULTANT: somnolent (Pamela Tay) Assessment and Plan Plan ASSESSMENT - Iron deficiency anemia with heme pos stool. Denies any obvious blood loss. Iron 15 low, TIBC 221 low, %6.8 low, ferritin 88 s/p EGD/colonoscopy 12-13-16 --> reflux esophagitis, hiatal hernia, colon polyp, poor prep - Elevated LFTs. Hep neg. VICTOR HUGO + 1:40, diffuse. AMA <20. ASMA neg. Iron 15, Iron saturation 6.8%, Ceruloplasmin 21 . ALpha 1 antitrypsin 240. AFP 0.7. LFTs improved. - Abnormal imaging with multiple bladder masses. Abdomen Ultrasound (12/07/16)-- --> 1. 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 Cystoscopy and biopsy recommended. 2. Nonvisualization of the pancreas. 3. Kidneys are borderline echogenic. 4. Minimal free fluid in Faulkner's pouch. Urology following. CT abdomen and pelvis 12-07-16 --> mult bladder masses suspicious for malignancy. Zosyn. - Leukocytosis. WBC trending down. UTI- staphylococcus aureus. - MIKE with multiple electrolyte abnormalities. Per attending. - Left foot OM,gangrenous infection. Cx with staphylococcus aureus and Group D enterococcus. S/P left foot 5th metatarsal resection, incision and drainage 5th digit amputation (12/07/16). Lauren Braden. pending amputation - COPD, CAD, CHF, AMS, Atrial fibrillation per attending. PLAN - await biopsies - cont PPI - RACHEL - Monitor HH - Transfuse as needed - Supportive care - This pt seen by myself and Dr Irving and this note is written on his behalf (Pamela Tay) Physician Comments Patient seen and examined Agree with above Continue with current supportive care Monitor labs Recommend repeat EGD and colonoscopy in 2-3 months Not much to add from a GI perspective at this point we will sign off (Moises Irving MD) Pamela Tay Dec 14, 2016 16:48 Moises Irving MD Dec 14, 2016 21:43
[2016-12-14] MEDS: AMPICILLIN-SULBACTAM INJ 1,500 MG in SODIUM CHLORIDE 0.9% INJ 100 ML IV SCH (18:05)
--- NOTE | 2016-12-14 19:31 | MB ---
cc: PEYTON BERGER MD DATE OF CONSULTATION: 12/14/2016. REASON FOR CONSULTATION: Elevated BUN and creatinine for evaluation. HISTORY OF PRESENT ILLNESS: This is an 80-year-old male with past medical history of bladder cancer, history of chronic obstructive pulmonary disease, ischemic heart disease, congestive heart failure, stroke decreased hearing, atrial fibrillation, seizure disorder, chronic kidney disease, and diabetes mellitus who was admitted with left foot infection for evaluation. I was called to see the patient because of elevated BUN and creatinine. The patient has known history of chronic kidney disease. His baseline creatinine seems to be in the range of 1.5, which was in September of last year, and now he came with a creatinine of 3.8 and it was improving and it went down to 2.1 and now it is increasing and it has gone up to 3.7. The patient has known history of bladder cancer and he had incomplete resection of this tumor in 2013 and then he was lost to followup. According to the daughter, he did not want to see the doctor again and he did not want any kind of treatment. He off and on is still having hematuria and here in the hospital the patient has been treated with Vancomycin for his left foot infection. He was seen by infectious disease and vascular surgery and by podiatry also. He is supposed to go for surgery of the left foot tomorrow because of osteomyelitis and gangrene. PAST MEDICAL HISTORY: 1. Ischemic heart disease. 2. Congestive heart failure. 3. Atrial fibrillation. 4. Diabetes mellitus. 5. History of stroke. 6. Bladder cancer. 7. Chronic kidney disease. 8. Seizure disorder. PAST SURGICAL HISTORY: 1. Cystoscopy and bladder cancer removal. 2. History of cardiac catheterization with stent placement. REVIEW OF SYSTEMS: His review of systems is very limited since the patient is a very poor historian and also he is very hard of hearing. He is feeling weak and is not eating well. He has pain in his left foot. He has mild shortness of breath. He has decreased urine output since the morning. According to the daughter, a scan was done which did not show very much urine in the bladder. SOCIAL HISTORY: The patient is . He lives with his . He has a past history of smoking and a past history of heavy alcoholism. FAMILY HISTORY: Family history is noncontributory. ALLERGIES: HE HAS NO KNOWN DRUG ALLERGIES. MEDICATIONS: Currently he is on the following medications: 1. Christine-Colace one tablet twice a day. 2. Dilantin 100 milligrams twice a day. 3. Coreg 6.25 milligrams twice a day. 4. Ferrous sulfate 325 milligrams twice a day. 5. Thiamine 100 milligrams once a day. 6. Norvasc 10 milligrams daily. 7. Lipitor 20 milligrams at bedtime. 8. Hytrin 1 milligram at bedtime. 9. Symbicort inhalation. 10. Protonix 40 milligrams IV q. 12 hours. 11. Unasyn 1.5 grams IV q. 8 hours. 12. Hydralazine 100 milligrams q. 8 hours. 13. Insulin sliding scale. 14. Zofran as needed. 15. IV fluids normal saline. PHYSICAL EXAMINATION: GENERAL: On examination, the patient is awake and alert and he is sitting in the bed not in acute distress. VITAL SIGNS: His last blood pressure was 122/61. There is no significant hypotensive episode during this admission and in fact he has a blood pressure a little bit on the higher side two or three days ago. Temperature is 97.8, oxygen saturation 98% to 99%. HEAD, EYES, EARS, NOSE, THROAT: The pupils are equal and reacting to light. Nonicteric sclerae. Conjunctivae are pale. NECK: The neck is supple. JVD is not elevated. LUNGS: The patient has bilateral decreased air entry with occasional wheezing. HEART: S1 and S2 regular rhythm. ABDOMEN: Abdomen is distended, soft and lax. There is no tenderness. EXTREMITIES: He has bilateral . The left foot is covered with a dressing. INVESTIGATIONS: White blood cell count is 16.6, hemoglobin 6.9, platelet count of 287,000. Neutrophils 87.7%. Sodium 139, potassium 5.1, chloride 111, bicarbonate 10, BUN 78, creatinine 3.7, glucose 104. BNP is 1186. Alpha-1 antitrypsin is 240 and ceruloplasmin is 21. AFP was 0.7. Total protein is 5.4 with albumin of 2.4. Folic acid is 7.2. B12 was 754. Urinalysis showing that he has large blood with RBCs and WBCs of 16. Protein is 30. His VICTOR HUGO was positive weakly 1:40. Wound culture growing Staphylococcus aureus and Enterococcus faecalis. IMAGING STUDIES: The patient had an abdominal ultrasound done about a week ago and it shows that he has borderline sized kidneys with echogenicity and there is no hydronephrosis. ASSESSMENT AND PLAN: 1. Chronic kidney disease with acute kidney injury. 2. Metabolic acidosis. 3. Left foot infection and gangrene. 4. Severe anemia. 5. History of bladder cancer. 6. Diabetes mellitus. The patient has multiple comorbid conditions and now he has developed acute kidney injury on top of his chronic kidney disease. He was seen by urology also for his bladder cancer. Currently he is getting antibiotics for his left foot. The etiology of acute kidney injury could be related to either pre-renal or the possibility of acute tubular necrosis or interstitial nephritis either because of the antibiotics or the infection. 1. I will check the urine sodium osmolality and urine for eosinophils. A urine for eosinophils was done and it was negative about a week ago. 2. I will add sodium bicarbonate in the IV fluids and follow the urine output and the BUN and creatinine. Thank you for the consultation. The patient will be followed by Dr. Perez over the weekend. MD MARIA L Alvarado/MERA /6:38 PM /7:11 PM
[2016-12-14] MEDS: TERAZOSIN HCL 1 MG CAP PO SCH (21:00)
[2016-12-14] MEDS: ATORVASTATIN 20 MG TAB PO SCH (22:18)
[2016-12-15] VITALS (18 sets, daily range): BP systolic 109–155; BP diastolic 46–78; PULSE 51–76; RESP 18–24; TEMP 97–97.6; O2SAT 96–100
[2016-12-15] MEDS: SODIUM BICARBONATE 8.4% INJ 75 MEQ in SODIUM CHLOR 0.45% 1000 ML INJ 1,000 ML IV SCH ×2 (00:25→21:05)
[2016-12-15] MEDS: PANTOPRAZOLE SODIUM 40 MG VIAL IV PUSH SCH (03:47)
[2016-12-15] MEDS: AMPICILLIN-SULBACTAM INJ 1,500 MG in SODIUM CHLORIDE 0.9% INJ 100 ML IV SCH ×2 (03:47→08:48)
[2016-12-15] MEDS: hydrALAZINE HCL 50 MG TAB PO SCH ×2 (05:01→21:11)
[2016-12-15] MEDS: INSULIN ASPART SUPPLEMENTAL SCALE SQ SCH ×4 (05:03→21:00)
[2016-12-15] MEDS ORDERED: POVIDONE IODINE 5% (ANTISEPSIS KIT) 4 APPLICATIONS EACH NARE PRN (06:30)
[2016-12-15] MEDS ORDERED: SODIUM CHLORID 0.9% 500 ML IV PRN (06:30)
[2016-12-15] MEDS ORDERED: CHLORHEXIDINE GLUCONATE 2 % 1 PACK (2 CLOTHS) TOPICAL PRN (06:30)
[2016-12-15] MEDS ORDERED: LACTATED RINGER'S 1000 ML IV PRN (06:30)
[2016-12-15] MEDS ORDERED: METOPROLOL TARTRATE 25 MG TAB PO PRN (06:30)
[2016-12-15] MEDS: RESP: ALBUTEROL 2.5 MG/IPRATROPIUM 0.5 MG NEB (SCH) NEB ×4 (07:37→20:00)
[2016-12-15 08:08] LABS: AUTOMATED NEUTROPHIL # 15.3 TH/MM3 (1.8-7.7); BASOPHIL # 0.1 TH/MM3 (0-0.2); BASOPHIL % 0.5 % (0.0-2.0); EOSINOPHIL # 0.2 TH/MM3 (0-0.4); EOSINOPHIL % 1.3 % (0.0-4.0); HEMATOCRIT 26.8 % (39.0-51.0); LYMPH % 5.8 % (9.0-44.0); MEAN CELL VOLUME 75.1 FL (80.0-100.0); MEAN CORPUSCULAR HEMOGLOBIN 24.3 PG (27.0-34.0); MEAN CORPUSCULAR HGB CONC 32.4 % (32.0-36.0); MONO % 6.5 % (0.0-8.0); NEUT % 85.9 % (16.0-70.0); PLATELET COUNT 286 TH/MM3 (150-450); RED BLOOD COUNT 3.57 MIL/MM3 (4.50-5.90); WHITE BLOOD COUNT 17.8 TH/MM3 (4.0-11.0)
[2016-12-15 08:10] LABS: HEMO FLAGS AUTO DIFF
--- NOTE | 2016-12-15 08:11 | HHI.FPPN ---
Subjective Remarks Pt sitting up in bed this morning, daughter at bedside. Pt had a bladder scan last night, showed 650 mL. Stein catheter was inserted, showing blood-tinged urine. Pt reports catheter feeling uncomfortable and feeling like he has to urinate. On 3L O2 NC. Received 2 units of RBCs overnight, pt felt better after transfusion. NPO overnight for left foot surgery this AM. Denies pain, CP, SOB, abdominal pain, N/V, and fevers. (Andie Nicholas MD R1) Objective Vitals Vital Signs Date Time Temp Pulse Resp B/P Pulse Ox O2 Delivery O2 Flow Rate FiO2 12/15/16 08:03 97.5 61 21 124/71 99 12/15/16 07:40 97 High Flow Nasal Cannula 12/15/16 04:00 97.4 62 20 123/60 98 12/15/16 03:49 97.4 62 18 123/60 98 12/15/16 03:06 97.5 60 18 142/65 99 12/15/16 02:29 97.6 56 18 135/78 99 12/15/16 01:54 97.6 51 18 148/63 98 12/15/16 01:18 97.4 54 18 128/61 99 12/15/16 01:11 97.4 60 18 121/56 98 12/15/16 01:06 97.4 51 18 124/59 100 12/15/16 00:05 97.4 56 18 119/56 99 12/15/16 00:00 97.0 56 20 122/58 97 12/14/16 23:20 97.5 52 18 110/51 100 12/14/16 22:50 97.3 63 18 108/49 98 12/14/16 22:45 97.2 63 18 108/49 99 Automatic Cuff 12/14/16 22:40 97.2 65 18 116/53 99 12/14/16 22:32 97.3 58 19 113/53 97 12/14/16 22:19 63 12/14/16 20:00 97.6 61 20 101/49 99 12/14/16 15:57 97.8 69 18 122/61 99 12/14/16 12:00 96.4 69 18 126/60 98 12/14/16 10:30 69 I/O 7/2812/14/16 12/14/16 12/15/16 12/15/16 12/15/16 07:00 15:00 23:00 07:00 15:00 23:00 Output Total 900 ml Balance -900 ml Output Urine Total 900 ml Bladder Scan Volume Amount 624 ml # Voids 0 1 # Bowel Movements 0 0 (Andie Nicholas MD R1) Result Diagram: 12/14/16 0749 12/14/16 0749 Imaging Last Impressions Chest X-Ray 12/08/16 0000 Signed Impressions: Service Date/Time: Thursday, December 08, 2016 14:05 - CONCLUSION: Tiny bilateral pleural effusions. Altagracia Grijalva MD Abdomen Ultrasound 12/07/16 0026 Signed Impressions: Service Date/Time: Wednesday, December 07, 2016 09:34 - CONCLUSION: 1. 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 Cystoscopy and biopsy recommended. 2. Nonvisualization of the pancreas. 3. Kidneys are borderline echogenic. 4. Minimal free fluid in Faulkner's pouch. Sal Chowdhury MD Foot MRI 12/07/16 0000 Signed Impressions: Service Date/Time: Wednesday, December 07, 2016 09:01 - CONCLUSION: 1. Osteomyelitis of the fifth metatarsal head and proximal phalanx of the fifth toe. Sal Chowdhury MD Abdomen/Pelvis CT 12/07/16 0000 Signed Impressions: Service Date/Time: Thursday, December 08, 2016 10:46 - CONCLUSION: Multiple bladder masses suspicious for malignancy. Altagracia Grijalva MD Foot X-Ray 12/06/16 1747 Signed Impressions: Service Date/Time: November 18:08 - CONCLUSION: No obvious bone destruction at this time. Soft tissue emphysema is noted in and around the fifth MTP joint soft tissues. The possibility of infection with gas-forming organism should be excluded. Dean Burton MD Objective Remarks GEN: sitting up in bed, NAD CV: Regular rate and rhythm without obvious murmurs LUNGS: Scattered expiratory wheezing bilaterally. No rales or rhonchi. No increased WOB when sleeping. Normal respiratory rate.. EXT: Left foot wrapped in an Raimundo wrap with toes exposed. 2+ lower extremity edema right foot. b/l SCDs in place. No erythema extending proximal to ankle. NEURO/PSYCH: Awake, alert. Pleasant and cooperative. : Stein catheter in place (Andie Nicholas MD R1) A/P Assessment and Plan 80-year-old male with PMH of COPD, DM, CAD, CHF and Bladder cancer admitted due to L 5th toe osteomyelitis Discharge Planning Unclear timetable, pending vascular surgery recommendations regarding BKA vs AKA Case management consulted for home health with PT and home O2 (Andie Nicholas MD R1) Attending Attestation Pt. examined and case discussed with resident physicians I have read the above note and agree with the assessment/plan as discussed with me I was involved in all medical decision making for this patient Tae Hoskins MD (Tae Hoskins MD) Problem List: (1) Gas gangrene of foot Status: Acute Plan: S/p fifth toe amputation with fifth metatarsal resection by podiatry . - Podiatry and ID following - Bone pathology showing gangrenous necrosis and osteomyelitis left fifth toe and metatarsal bone section - Vascular surgery following, BKA this AM Continue antibiotics as below: * Started Unasyn 1500 mg IV q8h per ID(12/14-) * Discontinued Vancomycin per ID (started 12/06- 12/14) * Discontinued Zosyn Wound cultures returning with MSSA and group D enterococcus Blood cultures 12/06 no growth after 5 days Pain control with [place] and morphine prn (2) Bladder tumor Status: Acute Plan: Urology consulted and following patient - CT of the abdomen and pelvis shows multiple masses in the bladder - Abdominal US shows echogenic masses in the bladder consistent with neoplastics process, 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 Daily BMP to monitor Cr * Baseline Cr currently unknown, last recording creatinine was 1.52 from 2016 Patient's daughter does state that he did refuse urologic intervention several weeks ago when it was recommended by his primary care provider - If he continues to refuse urologic intervention, patient may be hospice appropriate - Case discussed with Dr. Parham 12/10. If patient stable for discharge, patient may follow up with urology as an outpatient for further management (3) GI bleed Status: Acute Plan: Hgb stable, no active bleeding GI consulted, recommendations appreciated EGD/Colonoscopy 12/13 showing reflux esophagitis, hiatal hernia, colonic polyp, incomplete evaluation of the colon Recommend EGD & colonoscopy in 2-3 months Continue PPI GI signing off Hgb this AM 8.7 after 2 units of PRBCs transfusion followed by Lasix 20 mg IV Started ferrous sulfate 12/14 325mg PO bid Will likely need additional transfusions especially if patient and family elect for BKA Continue to monitor H/H, transfuse if Hgb < 8 (4) Acute renal failure Status: Acute Plan: Cr uptrending today, 4.87, -Nephrology consulted, appreciated recs - May be pre-renal or possiblity of acute tubular necrosis or intersitial nephritis b/c of antibiotics or infection -will check urine sodium osmolality and urine for eosinophils, urine eosinophils was negative about a week ago -Added sodium bicarb in the IV fluids, will continue to follow BUN and Cr -BNP 1186 (12/14) - Follow with daily BMPs - Avoid nephrotoxic agents - Monitor I/Os (5) Hypertension Status: Chronic Plan: Elevated BP since admission. Home lisinopril held due to MIKE * Amlodipine 10 mg po daily * Hydralazine 100 mg po q8h * Carvedilol 6.25 mg po bid * Clonidine 0.1 mg po q12h scheduled * Clonidine 0.1 mg po q6h prn BP > 180/100 (6) UTI (urinary tract infection) Status: Resolved Plan: Urinalysis consistent with infection - Continue abx as described under gangrene as that would provide adequate coverage - UA 12/06 with large occult blood - Repeat UA 12/10 showing large occult blood, neg nitrite, small LE - Urine culture 12/06: 25-50,000 cfus Staph Aureus - Repeat urine culture 12/10 no growth after 48 hours (7) Electrolyte abnormality Status: Resolved Plan: Sodium and potassium electrolyte abnormalities have resolved with IV fluids Hospital course: Potassium on admission was 5.4 which increased to a high of 6.4. Received calcium gluconate, insulin and dextrose in the emergency department. Potassium has since decreased with Kayexalate to 4.7 as of 12/08/16. Hyponatremia has now resolved from a low of 125 with fluid hydration -Monitor with BMPs -Kayexalate discontinued -Lasix discontinued (8) Altered mental status Status: Acute Plan: Likely multifactorial, treatment for infection as above and will readdress (9) DM (diabetes mellitus) Status: Chronic Plan: Diabetes relatively well-controlled with glucose ranging from 100 to 130s - Hemoglobin A1c of 6.8% - Hold home levemir - Low dose Sliding Scale w/ Novolog, titrate as needed (10) CHF (congestive heart failure) Status: Chronic Plan: Echocardiogram performed with limited visualization of the left ventricular function - Left ventricular function grossly normal BNP equivocal on admission. Clinically does not appear to be in CHF exacerbation. Medications: * Currently holding RAIMUNDO inhibitor due to acute renal failure (11) COPD (chronic obstructive pulmonary disease) Status: Chronic Plan: Known history of COPD. Received Solu-Medrol 125 mg 1 in the emergency department. - ABX coverage through osteo treatment Medications: * Continue albuterol inhaler * Continue DuoNeb's every 4 hours with albuterol PRN * Continue symbicort * Antibiotics as above (12) Seizure disorder Status: Chronic Plan: Continue home Dilantin (13) Atrial fibrillation Status: Chronic Plan: [id number] score of 6, would benefit from anticoagulation once clinically stable. Currently rate controlled. -Not currently anticoagulated due to possibility of GI bleed and hematuria from bladder masses (14) CAD (coronary artery disease) Status: Chronic Plan: h/o CAD with 2 stents placed, takes Aspirin 81 mg daily at home, atorvastatin 20mg, no complaints of angina -continue home atorvastatin -holding Aspirin due to GI bleed (15) Nutrition, metabolism, and development symptoms Status: Acute Plan: Diet: 1800 ADA Fluids: NaCl 0.9% w/ sodium bicarb 100mls/ hr Electrolytes: monitor and replete as necessary DVT: holding anticoagulation due to GI bleed, Bilateral SCDs GI PPX: protonix (Andie Nicholas MD R1) Problem Qualifiers (1) GI bleed: Qualified Code: K92.2 - Gastrointestinal hemorrhage, unspecified gastrointestinal hemorrhage type (2) DM (diabetes mellitus): Qualified Code: 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, with long-term current use of insulin (3) CAD (coronary artery disease): Qualified Code: I25.10 - Coronary artery disease involving pilot station coronary artery of pilot station heart without angina pectoris Andie Nicholas MD R1 Dec 15, 2016 08:11 Tae Hoskins MD Dec 15, 2016 15:50
[2016-12-15 08:34] LABS: BICARBONATE 12.1 MEQ/L (21.0-32.0); POTASSIUM 5.1 MEQ/L (3.5-5.1)
[2016-12-15 08:41] LABS: ACANTHOCYTES OCC (NORMAL); BURR CELLS 1+ (NORMAL); SCAN/DIFF AUTO DIFF CONFIRMED; TOXIC GRANULATION 1+ (NORMAL)
[2016-12-15] MEDS: PHENYTOIN SODIUM 100 MG CAP PO SCH ×2 (08:49→21:10)
[2016-12-15] MEDS: BUDESONIDE-FORMOTEROL 80/4.5 MCG INHALER INH SCH ×2 (08:50→21:00)
[2016-12-15] MEDS: THIAMINE HCL 100 MG TAB PO SCH (09:00)
[2016-12-15] MEDS: DOCUSATE SODIUM 50 MG/SENNA 8.6 MG TAB PO SCH ×2 (09:00→21:10)
[2016-12-15] MEDS: cloNIDine HCL 0.1 MG TAB PO SCH ×2 (09:00→21:00)
[2016-12-15] MEDS: FERROUS SULFATE 325 MG (65 MG ELEMENTAL IRON) TAB PO SCH ×2 (09:00→21:10)
[2016-12-15] MEDS: CARVEDILOL 6.25 MG TAB PO SCH ×2 (09:00→21:07)
[2016-12-15] MEDS ORDERED: PROPOFOL 200 MG/20 ML AMP IV ONE (09:05)
[2016-12-15] MEDS ORDERED: NEOSTIGMINE 3 MG/3 ML SYR IV ONE (09:05)
[2016-12-15] MEDS ORDERED: ePHEDrine/NS 25 MG/5 ML SYR IV ONE (09:05)
[2016-12-15] MEDS ORDERED: ONDANSETRON HCL 4 MG/2 ML VIAL IV PUSH ONE (09:05)
[2016-12-15] MEDS ORDERED: CALCIUM CHLORIDE 10% SOLN 1 GRAM/10 ML SYR IV ONE (09:06)
[2016-12-15] MEDS ORDERED: LACTATED RINGER'S 1000 ML INJ 1,000 ML IV ONE (09:06)
[2016-12-15] MEDS ORDERED: KETAMINE HCL 500 MG/5 ML VIAL ONE ×2 (13:25→13:26)
[2016-12-15] MEDS ORDERED: fentaNYL CITRATE 250 MCG/5 ML AMP ONE (15:44)
[2016-12-15] MEDS ORDERED: DO NOT ADM ANY ANTICOAGULANT DRUGS PRN (16:15)
[2016-12-15] MEDS ORDERED: *morphine SULFATE 8 MG/ML PERIprocedure ONLY ONE ×2 (16:17→16:29)
[2016-12-15 16:30] LABS: HEMATOCRIT 27.1 % (39.0-51.0); REVIEW FLAG FINAL
--- NOTE | 2016-12-15 16:58 | MP ---
cc: LAVONNE LEES MD DATE OF SURGERY: 12/14/2016. PREOPERATIVE DIAGNOSIS: 1. Gangrene of the left foot. 2. Diabetes mellitus. 3. Osteomyelitis. 4. Gas gangrene. POSTOPERATIVE DIAGNOSIS: 1. Gangrene of the left foot. 2. Diabetes mellitus. 3. Osteomyelitis. 4. Gas gangrene. OPERATIVE PROCEDURE PERFORMED: Left below-knee amputation. SURGEON: Lavonne Lees M.D. ANESTHESIA: General. ESTIMATED BLOOD LOSS: 50 cc. DESCRIPTION OF THE PROCEDURE IN DETAIL: The patient was prepped and draped in the usual fashion. Incision was made anteriorly and extended laterally and then inferior flap incision was created on the left leg. The incision was deepened with a #10 blade. Normally we would use a cautery. In this situation, the patient had so much edema and tissue that was water-logged that made cutting with the cautery almost impossible. The muscles were transected medially and laterally to the tibia and down to the fibula. The anterior tibial artery and vein were clamped, divided and ligated with #0 silks. The incision was now carried down and then the tibia was freed up with a periosteal elevator and the tissue elevated about 2 inches above the level of the original incision. The tibia was now transected with an oscillating saw as was the fibula. During the transection of both bones, the tourniquet was kept inflated. Now with a large Héctor amputation knife, the posterior flap was created and the specimen removed. The area was irrigated with saline. Trifurcation vessels were ligated with #0 Vicryl stick ties and then tourniquet taken down. There was minimal oozing, which was now controlled with cautery. The tibia was cut at an angle and smoothed now with a rasp. The anterior tibial nerve was transected and allowed to retract. The posterior flap was now created and washed out with saline and then the posterior flap turned inferiorly and closure obtained in layers using #0 Vicryl for deep fascia to deep fascia, superficial fascia to superficial fascia and the skin was closed with 2-0 Prolene interrupted stitches. Dressing applied. The patient tolerated the procedure well. Lavonne CARPIO/MERA /3:25 PM /4:42 PM
--- NOTE | 2016-12-15 17:39 | HHI.NPPN ---
Subjective History of Present Illness 80 year old with gangrene Left foot diabetes Review of Systems Musculoskeletal MS: Pain/Stiffness Objective Data Data 12/14/16 12/15/16 19:00 07:00 Output Total 900 ml Balance -900 ml Output Urine Total 900 ml Bladder Scan Volume Amount 624 ml # Voids 0 1 # Bowel Movements 0 Vital Signs Date Time Temp Pulse Resp B/P Pulse Ox O2 Delivery O2 Flow Rate FiO2 12/15/16 16:45 62 19 112/53 98 Nasal Cannula 4 12/15/16 16:30 63 19 104/55 97 Nasal Cannula 4 12/15/16 16:15 59 20 118/68 97 Nasal Cannula 4 12/15/16 16:00 57 18 103/53 98 Nasal Cannula 4 12/15/16 15:45 65 22 107/53 95 Nasal Cannula 4 12/15/16 15:30 97.6 67 22 114/53 92 Nasal Cannula 4 12/15/16 12:08 97.5 62 24 155/68 99 12/15/16 12:08 134/62 12/15/16 08:55 70 18 131/49 12/15/16 08:55 76 18 117/46 12/15/16 08:03 97.5 61 21 124/71 99 12/15/16 07:40 97 High Flow Nasal Cannula 12/15/16 07:00 57 12/15/16 04:00 97.4 62 20 123/60 98 12/15/16 03:49 97.4 62 18 123/60 98 12/15/16 03:06 97.5 60 18 142/65 99 12/15/16 02:29 97.6 56 18 135/78 99 12/15/16 01:54 97.6 51 18 148/63 98 12/15/16 01:18 97.4 54 18 128/61 99 12/15/16 01:11 97.4 60 18 121/56 98 12/15/16 01:06 97.4 51 18 124/59 100 12/15/16 00:05 97.4 56 18 119/56 99 12/15/16 00:00 97.0 56 20 122/58 97 12/14/16 23:20 97.5 52 18 110/51 100 12/14/16 22:50 97.3 63 18 108/49 98 12/14/16 22:45 97.2 63 18 108/49 99 Automatic Cuff 12/14/16 22:40 97.2 65 18 116/53 99 12/14/16 22:32 97.3 58 19 113/53 97 12/14/16 22:19 63 12/14/16 20:00 97.6 61 20 101/49 99 -: 12/15/16 1610 12/15/16 0749 Physical Exam General Appearance: Pale Neck Neck Exam: Neck Supple Pulmonary Resp Exam: Decreased Bases Cardiology CV Exam: Regular Gastrointestinal/Abdomen GI Exam: Soft, Non-Tender, Bowel Sounds Present Extremeties Extremities Exam: Trace Edema Extremeties Remarks L BKA Assessment/Plan Problem List: (1) Acute renal failure Plan: He is on bicarbonate drip ARF worse Acidosis' follow BMP UOP poor give NS bolus 250 cc Albumin 25 gm IV Q 12 (2) Gas gangrene of foot Plan: S/P L BKA (3) DM (diabetes mellitus) Plan: Follow BG Problem Qualifiers (1) DM (diabetes mellitus): Qualified Code: 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, with long-term current use of insulin Annika Perez MD Dec 15, 2016 17:39
[2016-12-15] MEDS ORDERED: SODIUM CHLOR 0.9% 250 ML INJ 250 ML IV ONE (18:00)
[2016-12-15] MEDS: SODIUM CHLORIDE 0.9% FLUSH 10 ML FLUSH IV FLUSH SCH (21:00)
[2016-12-15] MEDS: TERAZOSIN HCL 1 MG CAP PO SCH (21:09)
[2016-12-15] MEDS: ATORVASTATIN 20 MG TAB PO SCH (21:10)
[2016-12-15] MEDS: ALBUMIN HUMAN 25% 25 GM/100 ML BAGP IV SCH (21:12)
[2016-12-16] VITALS (9 sets, daily range): BP systolic 117–144; BP diastolic 53–69; PULSE 59–71; RESP 16–24; TEMP 97.1–98.3; O2SAT 92–99
[2016-12-16] MEDS: PANTOPRAZOLE SODIUM 40 MG VIAL IV PUSH SCH ×3 (01:32→14:00)
[2016-12-16] MEDS: AMPICILLIN-SULBACTAM INJ 1,500 MG in SODIUM CHLORIDE 0.9% INJ 100 ML IV SCH ×3 (01:32→18:00)
[2016-12-16] MEDS: SODIUM BICARBONATE 8.4% INJ 75 MEQ in SODIUM CHLOR 0.45% 1000 ML INJ 1,000 ML IV SCH ×3 (04:15→22:44)
[2016-12-16] MEDS: hydrALAZINE HCL 50 MG TAB PO SCH ×3 (06:00→22:46)
[2016-12-16] MEDS: ACETAMINOPHEN/HYDROcodone 325 MG/7.5 MG TAB PO PRN ×2 (06:47→11:30)
[2016-12-16] MEDS: INSULIN ASPART SUPPLEMENTAL SCALE SQ SCH ×4 (06:55→20:59)
[2016-12-16 07:35] LABS: HEMATOCRIT 25.5 % (39.0-51.0); MEAN CELL VOLUME 75.3 FL (80.0-100.0); MEAN CORPUSCULAR HEMOGLOBIN 24.2 PG (27.0-34.0); MEAN CORPUSCULAR HGB CONC 32.2 % (32.0-36.0); PLATELET COUNT 243 TH/MM3 (150-450); RED BLOOD COUNT 3.39 MIL/MM3 (4.50-5.90); RED CELL DISTRIBUTION WIDTH 20.6 % (11.6-17.2); REVIEW FLAG FINAL; WHITE BLOOD COUNT 23.2 TH/MM3 (4.0-11.0)
[2016-12-16 07:57] LABS: BICARBONATE 12.9 MEQ/L (21.0-32.0); POTASSIUM 5.3 MEQ/L (3.5-5.1)
[2016-12-16] MEDS: RESP: ALBUTEROL 2.5 MG/IPRATROPIUM 0.5 MG NEB (SCH) NEB ×4 (08:54→19:29)
[2016-12-16] MEDS: BUDESONIDE-FORMOTEROL 80/4.5 MCG INHALER INH SCH ×2 (09:00→20:40)
[2016-12-16] MEDS: MORPHINE SULFATE 4 MG/ML INJ IV PRN (09:09)
[2016-12-16] MEDS: ALBUMIN HUMAN 25% 25 GM/100 ML BAGP IV SCH ×2 (09:14→20:29)
[2016-12-16] MEDS: FERROUS SULFATE 325 MG (65 MG ELEMENTAL IRON) TAB PO SCH ×2 (09:20→20:39)
[2016-12-16] MEDS: CARVEDILOL 6.25 MG TAB PO SCH ×2 (09:20→20:39)
[2016-12-16] MEDS: cloNIDine HCL 0.1 MG TAB PO SCH ×2 (09:20→20:38)
[2016-12-16] MEDS: DOCUSATE SODIUM 50 MG/SENNA 8.6 MG TAB PO SCH ×2 (09:20→20:38)
[2016-12-16] MEDS: THIAMINE HCL 100 MG TAB PO SCH (09:21)
[2016-12-16] MEDS: PHENYTOIN SODIUM 100 MG CAP PO SCH ×2 (09:21→20:38)
--- NOTE | 2016-12-16 11:49 | PD.CAR.PN ---
CVT Progress Note Subjective/Hospital Course: Records reviewed what patient was in some sort of x-ray study Full consult to follow after evaluation of the patient Thanks Trevor 12/11/16 Patient status post fifth toe amputation by podiatry Incision is healing nicely Patient is not a candidate for any vascular reconstruction in face of his age, systemic comorbidities and local factors. In face of elevated BUN/creatinine I will not even order CTA with runoff for the benefits of these studies will be exceeded by the risks 12/13/16 Patient with the large defect post left fifth toe and metatarsal amputation Deep defect toward of fourth metatarsal bone with exposure of the soft tissues and plantar area of the foot Discussed with Dr. Sheree Vallecillo. Patient is fairly ambulatory at this time and I would advise against transmetatarsal amputation in the face of patient's general condition and peripheral changes There is no vascular procedure to remedy this Will discuss with patient's daughter once she is in the room and will come back up tomorrow 12/14/16 Discussed the case with Dr. Sheree Vallecillo. 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 Now with additional bedridden status in the hospital I do not know how patient is going to get back on his feet. Nonetheless patient and family do not wish above-knee amputation so we will go ahead with below-knee amputation in anticipation of possible prosthesis I've explained to the family at length that then 80-year-old male who barely could walk before would not be a good candidate for prostetics. Patient will need below-knee amputation and possibly even above-knee amputation depending on the prospects of ambulation which is fairly poor 12/16/16 Patient is status post the below-knee amputation Dressing is intact and dry Pain management is under control Will keep the dressing on until tomorrow and then remove it at which point it will be changed daily This patient will definitely require rehabilitation and the skilled nursing placement he cannot go home with the fresh below-knee amputation because there is no question he'll fall again and break the stump opened Patient definitely cannot be discharged home because this will be an unsafe venue Objective: Vital Signs Date Time Temp Pulse Resp B/P Pulse Ox O2 Delivery O2 Flow Rate FiO2 12/16/16 08:58 92 Nasal Cannula 3.00 12/16/16 08:04 97.4 62 19 130/67 99 12/16/16 06:34 97.5 60 24 140/69 98 12/16/16 00:00 97.4 64 21 121/60 96 12/15/16 20:00 97.4 58 18 120/57 98 12/15/16 19:00 55 12/15/16 17:48 97.2 61 22 109/53 96 12/15/16 16:45 62 19 112/53 98 Nasal Cannula 4 12/15/16 16:30 63 19 104/55 97 Nasal Cannula 4 12/15/16 16:15 59 20 118/68 97 Nasal Cannula 4 12/15/16 16:00 57 18 103/53 98 Nasal Cannula 4 12/15/16 15:45 65 22 107/53 95 Nasal Cannula 4 12/15/16 15:30 97.6 67 22 114/53 92 Nasal Cannula 4 12/15/16 12:08 97.5 62 24 155/68 99 12/15/16 12:08 134/62 Labs: Laboratory Tests Test 12/16/16 06:05 White Blood Count 23.2 TH/MM3 (4.0-11.0) Red Blood Count 3.39 MIL/MM3 (4.50-5.90) Hemoglobin 8.2 GM/DL (13.0-17.0) Hematocrit 25.5 % (39.0-51.0) Mean Corpuscular Volume 75.3 FL (80.0-100.0) Mean Corpuscular Hemoglobin 24.2 PG (27.0-34.0) Mean Corpuscular Hemoglobin 32.2 % Concent (32.0-36.0) Red Cell Distribution Width 20.6 % (11.6-17.2) Platelet Count 243 TH/MM3 (150-450) Mean Platelet Volume 7.9 FL (7.0-11.0) Sodium Level 138 MEQ/L (136-145) Potassium Level 5.3 MEQ/L (3.5-5.1) Chloride Level 109 MEQ/L (98-107) Carbon Dioxide Level 12.9 MEQ/L (21.0-32.0) Anion Gap 16 MEQ/L (5-15) Blood Urea Nitrogen 97 MG/DL (7-18) Creatinine 5.55 MG/DL (0.60-1.30) Estimat Glomerular Filtration 10 ML/MIN (>89) Rate Random Glucose 104 MG/DL (74-106) Calcium Level 8.4 MG/DL (8.5-10.1) Result Diagram: 12/16/16 0605 12/16/16 0605 Lavonne Hernandez MD Dec 16, 2016 11:49
--- NOTE | 2016-12-16 12:39 | HHI.FPPN ---
Subjective Remarks No acute events overnight. Pt sleeping in bed this AM, daughter and son-in-law at bedside. Daughter reports pt doing well since foot surgery yesterday. Afebrile. Vitals are within normal limits. Denies CP, SOB, N/V, and abdominal pain. (Andie Nicholas MD R1) Objective Vitals Vital Signs Date Time Temp Pulse Resp B/P Pulse Ox O2 Delivery O2 Flow Rate FiO2 12/16/16 12:04 97.1 64 19 117/54 95 12/16/16 08:58 92 Nasal Cannula 3.00 12/16/16 08:04 97.4 62 19 130/67 99 12/16/16 06:34 97.5 60 24 140/69 98 12/16/16 00:00 97.4 64 21 121/60 96 12/15/16 20:00 97.4 58 18 120/57 98 12/15/16 19:00 55 12/15/16 17:48 97.2 61 22 109/53 96 12/15/16 16:45 62 19 112/53 98 Nasal Cannula 4 12/15/16 16:30 63 19 104/55 97 Nasal Cannula 4 12/15/16 16:15 59 20 118/68 97 Nasal Cannula 4 12/15/16 16:00 57 18 103/53 98 Nasal Cannula 4 12/15/16 15:45 65 22 107/53 95 Nasal Cannula 4 12/15/16 15:30 97.6 67 22 114/53 92 Nasal Cannula 4 I/O 12/15/16 12/15/16 12/15/16 12/16/16 12/16/16 12/16/16 07:00 15:00 23:00 07:00 15:00 23:00 Intake Total 600 ml Output Total 900 ml 145 ml Balance -900 ml 455 ml Other 600 ml Output Urine Total 900 ml 95 ml Estimated Blood Loss 50 ml Bladder Scan Volume Amount 624 ml # Bowel Movements 0 (Andie Nicholas MD R1) Result Diagram: 12/16/1605 12/16/16 0605 Imaging Last Impressions Chest X-Ray 12/08/16 0000 Signed Impressions: Service Date/Time: Thursday, December 08, 2016 14:05 - CONCLUSION: Tiny bilateral pleural effusions. KKm Grijalva MD Abdomen Ultrasound 12/07/16 0026 Signed Impressions: Service Date/Time: Wednesday, December 07, 2016 09:34 - CONCLUSION: 1. 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 Cystoscopy and biopsy recommended. 2. Nonvisualization of the pancreas. 3. Kidneys are borderline echogenic. 4. Minimal free fluid in Faulkner's pouch. Sal Chowdhury MD Foot MRI 12/07/16 0000 Signed Impressions: Service Date/Time: Wednesday, December 07, 2016 09:01 - CONCLUSION: 1. Osteomyelitis of the fifth metatarsal head and proximal phalanx of the fifth toe. Sal Chowdhury MD Abdomen/Pelvis CT 12/07/16 0000 Signed Impressions: Service Date/Time: Thursday, December 08, 2016 10:46 - CONCLUSION: Multiple bladder masses suspicious for malignancy. Altagracia Grijalva MD Foot X-Ray 12/06/16 1747 Signed Impressions: Service Date/Time: November 18:08 - CONCLUSION: No obvious bone destruction at this time. Soft tissue emphysema is noted in and around the fifth MTP joint soft tissues. The possibility of infection with gas-forming organism should be excluded. Dean Burton MD Objective Remarks GEN: sitting up in bed, NAD CV: Regular rate and rhythm without obvious murmurs LUNGS: Scattered expiratory wheezing bilaterally. No rales or rhonchi. No increased WOB when sleeping. Normal respiratory rate.. EXT: Left foot wrapped in an Raimundo wrap with toes exposed. 2+ lower extremity edema right foot. b/l SCDs in place. No erythema extending proximal to ankle. NEURO/PSYCH: Awake, alert. Pleasant and cooperative. : Stein catheter in place (Andie Nicholas MD R1) A/P Assessment and Plan 80-year-old male with PMH of COPD, DM, CAD, CHF and Bladder cancer admitted due to L 5th toe osteomyelitis Discharge Planning Unclear timetable, pending vascular surgery recommendations Case management consulted for home health with PT and home O2 (Andie Nicholas MD R1) Attending Attestation Pt. examined and case discussed with resident physicians I have read the above note and agree with the assessment/plan as discussed with me I was involved in all medical decision making for this patient Tae Hoskins MD (Tae Hoskins MD) Problem List: (1) Gas gangrene of foot Status: Acute Plan: Post- op Day #1 S/p left Below- knee amputation on 12/15 Continue antibiotics as below: - Unasyn 1500 mg IV q8h per ID(12/14-) -Pain control with [place] and morphine prn - vascular surgery, Podiatry, and ID following -Pt will require rehabilitation and senior living placement -S/p fifth toe amputation with fifth metatarsal resection by podiatry 12/07. -Bone pathology showing gangrenous necrosis and osteomyelitis left fifth toe and metatarsal bone section -Discontinued Vancomycin per ID (started 12/06- 12/14) -Discontinued Zosyn Wound cultures returning with MSSA and group D enterococcus Blood cultures 12/06 no growth after 5 days (2) Bladder tumor Status: Acute Plan: Urology consulted and following patient - CT of the abdomen and pelvis shows multiple masses in the bladder - Abdominal US shows echogenic masses in the bladder consistent with neoplastics process, 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 Daily BMP to monitor Cr * Baseline Cr currently unknown, last recording creatinine was 1.52 from 2016 Patient's daughter does state that he did refuse urologic intervention several weeks ago when it was recommended by his primary care provider - If he continues to refuse urologic intervention, patient may be hospice appropriate - Case discussed with Dr. Parham 12/10. If patient stable for discharge, patient may follow up with urology as an outpatient for further management (3) GI bleed Status: Acute Plan: Hgb stable, no active bleeding GI consulted, recommendations appreciated EGD/Colonoscopy 12/13 showing reflux esophagitis, hiatal hernia, colonic polyp, incomplete evaluation of the colon Recommend EGD & colonoscopy in 2-3 months Continue PPI GI signing off Hgb this AM 8.7 after 2 units of PRBCs transfusion followed by Lasix 20 mg IV Started ferrous sulfate 12/14 325mg PO bid Will likely need additional transfusions especially if patient and family elect for BKA Continue to monitor H/H, transfuse if Hgb < 8 (4) Acute renal failure Status: Acute Plan: Cr uptrending today, 5.5 -Nephrology following, appreciated recs - May be pre-renal or possiblity of acute tubular necrosis or intersitial nephritis b/c of antibiotics or infection -will check urine sodium osmolality and urine for eosinophils, urine eosinophils was negative about a week ago - sodium bicarb drip -Albumin 25 gm IV q12 -will continue to follow BUN and Cr -BNP 1186 (12/14) - Follow with daily BMPs - Avoid nephrotoxic agents - Monitor I/Os (5) Hypertension Status: Chronic Plan: Elevated BP since admission. Home lisinopril held due to MIKE * Amlodipine 10 mg po daily * Hydralazine 100 mg po q8h * Carvedilol 6.25 mg po bid * Clonidine 0.1 mg po q12h scheduled * Clonidine 0.1 mg po q6h prn BP > 180/100 (6) UTI (urinary tract infection) Status: Resolved Plan: Urinalysis consistent with infection - Continue abx as described under gangrene as that would provide adequate coverage - UA 12/06 with large occult blood - Repeat UA 12/10 showing large occult blood, neg nitrite, small LE - Urine culture 12/06: 25-50,000 cfus Staph Aureus - Repeat urine culture 12/10 no growth after 48 hours (7) Electrolyte abnormality Status: Resolved Plan: Sodium and potassium electrolyte abnormalities have resolved with IV fluids Hospital course: Potassium on admission was 5.4 which increased to a high of 6.4. Received calcium gluconate, insulin and dextrose in the emergency department. Potassium has since decreased with Kayexalate to 4.7 as of 12/08/16. Hyponatremia has now resolved from a low of 125 with fluid hydration -Monitor with BMPs -Kayexalate discontinued -Lasix discontinued (8) Altered mental status Status: Acute Plan: Likely multifactorial, treatment for infection as above and will readdress (9) DM (diabetes mellitus) Status: Chronic Plan: Diabetes relatively well-controlled with glucose ranging from 100 to 130s - Hemoglobin A1c of 6.8% - Hold home levemir - Low dose Sliding Scale w/ Novolog, titrate as needed (10) CHF (congestive heart failure) Status: Chronic Plan: Echocardiogram performed with limited visualization of the left ventricular function - Left ventricular function grossly normal BNP equivocal on admission. Clinically does not appear to be in CHF exacerbation. Medications: * Currently holding RAIMUNDO inhibitor due to acute renal failure (11) COPD (chronic obstructive pulmonary disease) Status: Chronic Plan: Known history of COPD. Received Solu-Medrol 125 mg 1 in the emergency department. - ABX coverage through osteo treatment Medications: * Continue albuterol inhaler * Continue DuoNeb's every 4 hours with albuterol PRN * Continue symbicort * Antibiotics as above (12) Seizure disorder Status: Chronic Plan: Continue home Dilantin (13) Atrial fibrillation Status: Chronic Plan: [id number] score of 6, would benefit from anticoagulation once clinically stable. Currently rate controlled. -Not currently anticoagulated due to possibility of GI bleed and hematuria from bladder masses (14) CAD (coronary artery disease) Status: Chronic Plan: h/o CAD with 2 stents placed, takes Aspirin 81 mg daily at home, atorvastatin 20mg, no complaints of angina -continue home atorvastatin -holding Aspirin due to GI bleed (15) Nutrition, metabolism, and development symptoms Status: Acute Plan: Diet: 1800 ADA Fluids: NaCl 0.9% w/ sodium bicarb 100mls/ hr Electrolytes: monitor and replete as necessary DVT: holding anticoagulation due to GI bleed, Bilateral SCDs GI PPX: protonix (Andie Nicholas MD R1) Problem Qualifiers (1) GI bleed: Qualified Code: K92.2 - Gastrointestinal hemorrhage, unspecified gastrointestinal hemorrhage type (2) DM (diabetes mellitus): Qualified Code: 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, with long-term current use of insulin (3) CAD (coronary artery disease): Qualified Code: I25.10 - Coronary artery disease involving creek coronary artery of creek heart without angina pectoris Andie Nicholas MD R1 Dec 16, 2016 12:39 Tae Hoskins MD Dec 16, 2016 13:23
--- NOTE | 2016-12-16 16:11 | HHI.NPPN ---
Subjective History of Present Illness 80 year old with gangrene Left foot diabetes Review of Systems Musculoskeletal MS: Pain/Stiffness Objective Data Data 12/15/16 12/16/16 19:00 07:00 Intake Total 600 ml Output Total 125 ml 20 ml Balance 475 ml -20 ml Other 600 ml Output Urine Total 75 ml 20 ml Estimated Blood Loss 50 ml # Bowel Movements 0 Vital Signs Date Time Temp Pulse Resp B/P Pulse Ox O2 Delivery O2 Flow Rate FiO2 12/16/16 12:04 97.1 64 19 117/54 95 12/16/16 08:58 92 Nasal Cannula 3.00 12/16/16 08:04 97.4 62 19 130/67 99 12/16/16 07:00 59 12/16/16 06:34 97.5 60 24 140/69 98 12/16/16 00:00 97.4 64 21 121/60 96 12/15/16 20:00 97.4 58 18 120/57 98 12/15/16 19:00 55 12/15/16 17:48 97.2 61 22 109/53 96 12/15/16 16:45 62 19 112/53 98 Nasal Cannula 4 12/15/16 16:30 63 19 104/55 97 Nasal Cannula 4 12/15/16 16:15 59 20 118/68 97 Nasal Cannula 4 -: 12/16/16 0605 12/16/16 0605 Physical Exam General Appearance: Pale Neck Neck Exam: Neck Supple Pulmonary Resp Exam: Decreased Bases Cardiology CV Exam: Regular Gastrointestinal/Abdomen GI Exam: Soft, Non-Tender, Bowel Sounds Present Extremeties Extremities Exam: Trace Edema Extremeties Remarks L BKA Assessment/Plan Problem List: (1) Acute renal failure Plan: He is on bicarbonate drip ARF worse creatinine 5.5 K higher Acidosis follow BMP UOP poor Give one more dose of albumin and follow with Bumex 2 mg I discussed with stepdaughter that he will need hemodialysis and she agreed I will request Vas-Cath placement in the morning Albumin 25 gm IV Q 12 Dr. Morelos to follow (2) Gas gangrene of foot Plan: S/P L BKA (3) DM (diabetes mellitus) Plan: Follow BG Problem Qualifiers (1) DM (diabetes mellitus): Qualified Code: 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, with long-term current use of insulin Ana,Sajid MD Dec 16, 2016 16:11
[2016-12-16] MEDS ORDERED: BUMETANIDE INJ 1 MG/4 ML VIAL IV PUSH ONE (16:15)
[2016-12-16] MEDS ORDERED: ALBUMIN HUMAN 25% 25 GM/100 ML BAGP IV ONE (16:15)
[2016-12-16] MEDS: TERAZOSIN HCL 1 MG CAP PO SCH (20:38)
[2016-12-16] MEDS: ATORVASTATIN 20 MG TAB PO SCH (20:38)
[2016-12-16] MEDS: SODIUM CHLORIDE 0.9% FLUSH 10 ML FLUSH IV FLUSH SCH (20:40)
[2016-12-17] VITALS: BP 165/78; PULSE 66; RESP 24; TEMP 98.3; O2SAT 93
[2016-12-17] MEDS: PANTOPRAZOLE SODIUM 40 MG VIAL IV PUSH SCH (01:31)
[2016-12-17] MEDS: AMPICILLIN-SULBACTAM INJ 1,500 MG in SODIUM CHLORIDE 0.9% INJ 100 ML IV SCH ×2 (01:32→21:36)
[2016-12-17] MEDS: MORPHINE SULFATE 4 MG/ML INJ IV PRN ×4 (01:51→21:26)
[2016-12-17 04:00] VITALS: BP 174/76; PULSE 56; RESP 20; TEMP 97.5; O2SAT 93
[2016-12-17] MEDS: INSULIN ASPART SUPPLEMENTAL SCALE SQ SCH ×3 (06:43→21:00)
[2016-12-17] MEDS: hydrALAZINE HCL 50 MG TAB PO SCH (06:43)
[2016-12-17 08:00] VITALS: BP 147/65; PULSE 60; RESP 20; TEMP 97.7; O2SAT 95
[2016-12-17] MEDS: THIAMINE HCL 100 MG TAB PO SCH (09:00)
[2016-12-17 09:50] LABS: I-STAT POTASSIUM 4.8 MMOL/L (3.5-4.9)
[2016-12-17 09:51] LABS: AUTOMATED NEUTROPHIL # 18.8 TH/MM3 (1.8-7.7); BASOPHIL % 0.1 % (0.0-2.0); EOSINOPHIL # 0.2 TH/MM3 (0-0.4); EOSINOPHIL % 0.8 % (0.0-4.0); HEMATOCRIT 23.4 % (39.0-51.0); LYMPH % 4.7 % (9.0-44.0); MEAN CELL VOLUME 74.7 FL (80.0-100.0); MEAN CORPUSCULAR HEMOGLOBIN 24.5 PG (27.0-34.0); MEAN CORPUSCULAR HGB CONC 32.8 % (32.0-36.0); NEUT % 88.4 % (16.0-70.0); PLATELET COUNT 216 TH/MM3 (150-450); RED BLOOD COUNT 3.13 MIL/MM3 (4.50-5.90); RED CELL DISTRIBUTION WIDTH 20.9 % (11.6-17.2); WHITE BLOOD COUNT 21.3 TH/MM3 (4.0-11.0)
[2016-12-17 09:53] VITALS: O2SAT 94
[2016-12-17 09:53] LABS: HEMO FLAGS AUTO DIFF
--- NOTE | 2016-12-17 09:59 | RADRPT ---
EXAM DATE/TIME: 12/17/2016 09:36 [facility] COMPARISON: CT BRAIN W/O CONTRAST, December 21, 2014, 9:57. INDICATIONS : Left facial droop; confusion, right sided weakness. RADIATION DOSE: 56.35 CTDIvol (mGy) This report was called by Dr. Narayanan to Dr. Dumont's voicemail at 9: 51 AM. MEDICAL HISTORY : Cardiovascular disease. SURGICAL HISTORY : None. ENCOUNTER: Initial ACUITY: 1 day PAIN SCALE: 5/10 LOCATION: cranial TECHNIQUE: Multiple contiguous axial images were obtained of the head. Using automated exposure control and adj ustment of the mA and/or kV according to patient size, radiation dose was kept as low as reasonably a chievable to obtain optimal diagnostic quality images. DICOM format image data is available electro nically for review and comparison. FINDINGS: There is mild motion artifact. CEREBRUM: There is generalized atrophy. Ventricles are stable in size. There is mild periventricular white manolo er low attenuation. No midline shift, mass lesion, hemorrhage or acute infarction. No extra-axial f luid collections are seen. POSTERIOR FOSSA: The cerebellum and brainstem demonstrate no acute finding. The 4th ventricle is midline. The cerebe llopontine angle is unremarkable. EXTRACRANIAL: Visualized sinuses demonstrate no acute abnormality. SKULL: The calvaria is intact. No evidence of skull fracture. CONCLUSION: 1. No acute intracranial abnormality is identified. 2. Chronic and stable changes include generalized atrophy and mild periventricular white matter low a ttenuation characteristic of chronic small vessel ischemic change. Meek Narayanan MD on December 17, 2016 at 9:56 Board Certified Radiologist. This report was verified electronically.
[2016-12-17 10:01] LABS: INTERNATIONAL NORMALIZED RATIO 1.8 RATIO
[2016-12-17] MEDS: RESP: ALBUTEROL 2.5 MG/IPRATROPIUM 0.5 MG NEB (SCH) NEB ×4 (10:14→19:59)
[2016-12-17 10:20] LABS: BANDS 6 % (0-6); MYELOCYTES 1 % (0-0); NEUTROPHIL # MANUAL DIFF 18.7 TH/MM3 (1.8-7.7); OVALOCYTES 2+ (NORMAL); PLATELET ESTIMATE SMEAR NORMAL (NORMAL); PLATELET MORPHOLOGY NORMAL (NORMAL); POLYS (SEG NEUTROPHILS) 81 % (16-70); TOXIC GRANULATION 1+ (NORMAL); WBC DIFF SAMPLE 100
[2016-12-17 10:21] LABS: SCAN/DIFF FINAL DIFF MANUAL
[2016-12-17 10:24] LABS: BICARBONATE 16.9 MEQ/L (21.0-32.0); POTASSIUM 4.7 MEQ/L (3.5-5.1)
[2016-12-17 10:32] LABS: CKMB 12.6 NG/ML (0.5-3.6)
--- NOTE | 2016-12-17 10:45 | HHI.FPPN ---
Subjective Remarks Stroke alert called on patient this AM given concern patient was having left facial droop along with right-sided weakness. Patient per report also was not responding to verbal commands and appeared lethargic. Neurology was consulted, Dr. Dumont notified. Patient had noncontrast head CT obtained which is negative for hemorrhage. Patient seen and evaluated this AM following head CT. Patient is drowsy; nonverbal, is able to follow basic one-step commands. (Tristian Chopra MD R1) Objective Vitals Vital Signs Date Time Temp Pulse Resp B/P Pulse Ox O2 Delivery O2 Flow Rate FiO2 12/17/16 09:53 94 3.00 12/17/16 09:20 4.00 12/17/16 08:00 97.7 60 20 147/65 95 12/17/16 04:00 97.5 56 20 174/76 93 12/17/16 00:00 98.3 66 24 165/78 93 12/16/16 20:00 98.3 71 16 144/67 93 12/16/16 19:29 95 Nasal Cannula 3.00 12/16/16 16:00 98.1 63 19 122/53 96 12/16/16 12:04 97.1 64 19 117/54 95 I/O 12/16/16 12/16/16 12/16/16 12/17/16 12/17/16 12/17/16 07:00 15:00 23:00 07:00 15:00 23:00 Intake Total 2145 ml 982 ml Output Total 45 ml Balance 2100 ml 982 ml Intake Oral 600 ml IV Total 1545 ml 982 ml Output Urine Total 45 ml # Bowel Movements 0 (Tristian Chopra MD R1) Result Diagram: 12/17/16 0930 12/17/16 0852 Objective Remarks GEN: Lying flat in bed with HOB flat. In visible distress. Intermittently moaning. CV: Normal rate, irregular rhythm. No obvious murmurs. LUNGS: Scattered expiratory wheezing bilaterally. No rales or rhonchi. No increased WOB. Normal respiratory rate.. EXT: Left BKA with donald wrapping. PT and DP pulses 2+ right foot. NEURO/PSYCH: Drowsy. Nonverbal. Able to follow basic one-step commands. Opens eyes to name. Pupils equal round and reactive to light. Neuro exam limited given inability of patient to follow commands. Patient able to electrician telephone with left hand. No electrician telephone with right hand. : Stein catheter in place (Tristian Chopra MD R1) A/P Assessment and Plan 80-year-old male admitted due to L 5th toe osteomyelitis s/p L BKA on 12/15. Hospital course complicated by patient developing stroke-like symptoms this morning. Neurology has been consulted. Discharge Planning Unclear timetable, pending vascular surgery recommendations Case management consulted for home health with PT and home O2 (Tristian Chopra MD R1) Attending Attestation Patient examined and case discussed with resident physicians I have read the above note and agree with the assessment/plan as discussed with me I was involved in all medical decision making for this patient Tae Hoskins M.D. (Tae Hoskins MD) Problem List: (1) Metabolic encephalopathy Status: Acute Plan: - Patient with stroke-like symptoms vs acute toxic metabolic encephalopathy - Noncontrast head CT negative for acute intracranial process - Neurology consulted, appreciate recs - Obtain MRI brain without contrast for further evaluation - Obtain vascath placement - Nephrology consulted due to ARF - For dialysis today (2) Gas gangrene of foot Status: Acute Plan: Post- op Day #2 S/p left Below- knee amputation on 12/15 Continue antibiotics as below: - Unasyn 1500 mg IV q8h per ID(12/14-) -Pain control with [place] and morphine prn - vascular surgery, Podiatry, and ID following -Pt will require rehabilitation and jail placement -S/p fifth toe amputation with fifth metatarsal resection by podiatry 12/07. 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 Daily BMP to monitor Cr * Baseline Cr currently unknown, last recording creatinine was 1.52 from 2016 Patient's daughter does state that he did refuse urologic intervention several weeks ago when it was recommended by his primary care provider - If he continues to refuse urologic intervention, patient may be hospice appropriate - Case discussed with Dr. Parham 12/10. If patient stable for discharge, patient may follow up with urology as an outpatient for further management (4) Acute renal failure Status: Acute Plan: Cr uptrending -Nephrology following, appreciated recs - Place dialysis cath, for dialysis today - May be pre-renal or possibility of acute tubular necrosis or intersitial nephritis b/c of antibiotics or infection -will check urine sodium osmolality and urine for eosinophils, urine eosinophils was negative about a week ago - sodium bicarb drip -Albumin 25 gm IV q12 -will continue to follow BUN and Cr -BNP 1186 (12/14) - Follow with daily BMPs - Avoid nephrotoxic agents - Monitor I/Os (5) GI bleed Status: Acute Plan: Hgb stable, no active bleeding GI consulted, recommendations appreciated EGD/Colonoscopy 12/13 showing reflux esophagitis, hiatal hernia, colonic polyp, incomplete evaluation of the colon Recommend EGD & colonoscopy in 2-3 months Continue PPI GI signing off Hgb this AM 8.7 after 2 units of PRBCs transfusion followed by Lasix 20 mg IV Started ferrous sulfate 12/14 325mg PO bid Will likely need additional transfusions especially if patient and family elect for BKA Continue to monitor H/H, transfuse if Hgb < 8 (6) Hypertension Status: Chronic Plan: Elevated BP since admission. Home lisinopril held due to MIKE * Amlodipine 10 mg po daily * Hydralazine 100 mg po q8h * Carvedilol 6.25 mg po bid * Clonidine 0.1 mg po q12h scheduled * Clonidine 0.1 mg po q6h prn BP > 180/100 (7) UTI (urinary tract infection) Status: Resolved Plan: Urinalysis consistent with infection - Continue abx as described under gangrene as that would provide adequate coverage - UA 12/06 with large occult blood - Repeat UA 12/10 showing large occult blood, neg nitrite, small LE - Urine culture 12/06: 25-50,000 cfus Staph Aureus - Repeat urine culture 12/10 no growth after 48 hours (8) Electrolyte abnormality Status: Resolved Plan: Sodium and potassium electrolyte abnormalities have resolved with IV fluids Hospital course: Potassium on admission was 5.4 which increased to a high of 6.4. Received calcium gluconate, insulin and dextrose in the emergency department. Potassium has since decreased with Kayexalate to 4.7 as of 12/08/16. Hyponatremia has now resolved from a low of 125 with fluid hydration -Monitor with BMPs -Kayexalate discontinued -Lasix discontinued (9) Altered mental status Status: Acute Plan: Likely multifactorial, treatment for infection as above and will readdress (10) DM (diabetes mellitus) Status: Chronic Plan: Diabetes relatively well-controlled with glucose ranging from 100 to 130s - Hemoglobin A1c of 6.8% - Hold home levemir - Low dose Sliding Scale w/ Novolog, titrate as needed (11) CHF (congestive heart failure) Status: Chronic Plan: Echocardiogram performed with limited visualization of the left ventricular function - Left ventricular function grossly normal BNP equivocal on admission. Clinically does not appear to be in CHF exacerbation. Medications: * Currently holding DONALD inhibitor due to acute renal failure (12) COPD (chronic obstructive pulmonary disease) Status: Chronic Plan: Known history of COPD. Received Solu-Medrol 125 mg 1 in the emergency department. - ABX coverage through osteo treatment Medications: * Continue albuterol inhaler * Continue DuoNeb's every 4 hours with albuterol PRN * Continue symbicort * Antibiotics as above (13) Seizure disorder Status: Chronic Plan: Continue home Dilantin (14) Atrial fibrillation Status: Chronic Plan: [id number] score of 6, would benefit from anticoagulation once clinically stable. Currently rate controlled. -Not currently anticoagulated due to possibility of GI bleed and hematuria from bladder masses (15) CAD (coronary artery disease) Status: Chronic Plan: h/o CAD with 2 stents placed, takes Aspirin 81 mg daily at home, atorvastatin 20mg, no complaints of angina -continue home atorvastatin -holding Aspirin due to GI bleed (16) Nutrition, metabolism, and development symptoms Status: Acute Plan: Diet: 1800 ADA Fluids: NaCl 0.45% w/ sodium bicarb 100mls/ hr Electrolytes: monitor and replete as necessary DVT: holding anticoagulation due to GI bleed, Bilateral SCDs GI PPX: protonix (Tristian Chopra MD R1) Problem Qualifiers (1) GI bleed: Qualified Code: K92.2 - Gastrointestinal hemorrhage, unspecified gastrointestinal hemorrhage type (2) DM (diabetes mellitus): Qualified Code: 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, with long-term current use of insulin (3) CAD (coronary artery disease): Qualified Code: I25.10 - Coronary artery disease involving [place] coronary artery of [place] heart without angina pectoris Tristian Chopra MD R1 Dec 17, 2016 10:45 Tae Hoskins MD Dec 18, 2016 13:42
--- NOTE | 2016-12-17 10:50 | HHI.NPPN ---
Subjective History of Present Illness 80 year old with gangrene Left foot diabetes Additional Remarks Patient is more lethargic, not following any commands. Review of Systems Musculoskeletal MS: Pain/Stiffness Objective Data Data 12/16/16 12/17/16 19:00 07:00 Intake Total 480 ml 2647 ml Output Total 25 ml 20 ml Balance 455 ml 2627 ml Intake Oral 480 ml 120 ml IV Total 2527 ml Output Urine Total 25 ml 20 ml # Bowel Movements 0 0 Vital Signs Date Time Temp Pulse Resp B/P Pulse Ox O2 Delivery O2 Flow Rate FiO2 12/17/16 09:53 94 3.00 12/17/16 09:20 4.00 12/17/16 08:00 97.7 60 20 147/65 95 12/17/16 04:00 97.5 56 20 174/76 93 12/17/16 00:00 98.3 66 24 165/78 93 12/16/16 20:00 98.3 71 16 144/67 93 12/16/16 19:29 95 Nasal Cannula 3.00 12/16/16 16:00 98.1 63 19 122/53 96 12/16/16 12:04 97.1 64 19 117/54 95 -: 12/17/16 0930 12/17/16 0852 Physical Exam General Appearance: Pale, Malnourished Appearance Remarks Lethargic and unresponsive. Eyes Eye Exam: Pupils Equal Throat Throat Exam: Oral Mucosa [place] & Moist Neck Neck Exam: Neck Supple Pulmonary Resp Exam: Breath Sounds Equal, No Distress, Rhonchi, Decreased Bases, Diminished Breath Sounds Cardiology CV Exam: Regular, Normal Sinus Rhythm Gastrointestinal/Abdomen GI Exam: Soft, Non-Tender, Bowel Sounds Present Extremeties Extremities Exam: Trace Edema Neurologic Neuro Exam: Obtunded, Unresponsive Assessment/Plan Problem List: (1) Acute renal failure Plan: Patient has worsening Creatinine. Urine out put is decreased. Seen by Neurology, possibly has metabolic Encephalopathy. To start HD already has Vascath. Follow the urine out put and BMP. 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
--- NOTE | 2016-12-17 11:40 | MB ---
cc: KAMALJIT WAHL M.D. DATE OF CONSULTATION 12/17/2016 REASON FOR CONSULTATION Stroke Alert. HISTORY OF PRESENT ILLNESS Mr. Kerr is an 81-year-old man who is status post [id number] amputation on Saturday on the left side. Since surgery the patient reportedly has been lethargic and confused. This morning he was noted to have worsening lethargy, was less responsive, had generalized weakness involving both arms, unable to lift both arms and a Stroke Alert was called pain. PAST MEDICAL HISTORY 1. Peripheral vascular disease. 2. Atrial fibrillation. 3. Gangrene left foot from peripheral vascular disease for which he underwent left BKA. 4. GI hemorrhage. 5. History of cerebral hemorrhage in the past. 6. Hyponatremia. 7. COPD 8. Hypertension. 9. UTI. 10. Ascites. 11. Seizure disorder. CURRENT MEDICATIONS 1. BMX. 2. Albumin. 3. Lopressor. 4. Ampicillin. 5. Iron sulfate. 6. Hydrocodone as needed for pain. 7. Naloxone. 8. Lipitor. 9. Hytrin. 10. Tylenol p.r.n. 11. Narcan p.r.n. 12. Symbicort. 13. Dilantin 100 mg b.i.d. 14. Clonidine 0.1 mg q. 6 hours p.r.n. 15. Lorazepam as needed. 16. Milk of Magnesia. 17. Dulcolax suppository. NEUROLOGIC EXAMINATION VITAL SIGNS: Blood pressure is 147/69, pulse is 60, respiratory rate is 20, temperature 97 degrees. HIGHER CORTICAL FUNCTION: He is lethargic. He is very confused. He does not follow commands. He has minimal speech output. Cranial nerves are intact. MOTOR EXAM: I do not see any focal deficits. He moves both upper and lower extremities about equally with no focality. REFLEXES: Symmetric. He is status post left BKA. IMAGING STUDIES CT of the brain reveals chronic changes, chronic ischemic demyelinization, no acute change present. No hemorrhage. LABORATORY DATA The white count is 21,300, hemoglobin is 7.7, hematocrit 23.4%, platelet count is 216,000. Sodium is 141, potassium 4.8, chloride 112, the BUN is 95, creatinine 6.1, CPK 995. Troponin 2.4. PT is 20, INR 1.8, APTT 38. Tox screen - Vancomycin levels 20.5. Urinalysis - The pH is 5.5, specific gravity 1.017, 16 WBCs are seen. IMPRESSION Change in mental status. Due to the exam is more consistent with a metabolic encephalopathy as opposed to an acute stroke, possibly related to renal failure. The patient is not a t-PA candidate given the recent surgery, history of cerebral hemorrhage as well as GI hemorrhage and the fact that there is no clear stroke etiology. RECOMMENDATIONS We will proceed with an MRI of the brain for further evaluation without contrast. MD DANIEL Gallegos/LORE /10:32 AM /11:25 AM
--- NOTE | 2016-12-17 12:48 | PD.RAD ---
Post Procedure Progress Note Pre Procedure Diagnosis: (1) Acute renal failure Post Procedure Diagnosis: (1) Acute renal failure Procedure Date: Dec 17, 2016 Supervising Radiologist: Prasad Tenorio JR Proceduralist/Assist: Shaq Powell RT(R), RT Verónica(R) Anesthesia: Local Plan of Activity Patient to Unit: Nursing Unit Patient Condition: Good See PACS Report for procedural detail/treatment Central Venous Access Device Procedure 1 Right Internal Jugular Hemodialysis Catheter Non-Tunneled Placement dual lumen Urdu: 14 Findings: Catheter in good position and functions well. OK to use. Jr. Jona,Prasad Jiang MD Dec 17, 2016 12:48
[2016-12-17] MEDS ORDERED: SODIUM CHLORIDE 0.9% FLUSH 10 ML FLUSH IVF PRN (13:00)
[2016-12-17] MEDS ORDERED: HEPARIN SODIUM - IV 2,000 UNITS/2 ML VIAL IV FLUSH PRN (13:00)
--- NOTE | 2016-12-17 13:35 | HHI.IDPN ---
Subjective Subjective Remarks Patient is an 80-year-old male, admitted to the hospital for further evaluation of his left foot. He apparently was noted to have a callus on the lateral aspect of that foot. Over the last several weeks he was noted to be developing some drainage, and he was experiencing pain. There was no mention of any fever chills or sweats. On the day of admission, the patient slid and almost fell, and so the patient was brought to the hospital for further evaluation and treatment. It was also mentioned that there was some tea-colored urine. Apparently the patient was diagnosed to have bladder cancer, and had TURBT, but was lost to follow-up. Since that time he has had intermittent hematuria. He was diagnosed to have a diabetic foot infection with findings of gas in the foot. Patient underwent surgery and had amputation of his fifth digit and his fifth metatarsal. He also had evidence of urinary tract infection. Urine culture had MSSA. The initial foot culture had MSSA and enterococcus. Intraoperative culture from the foot grew MSSA. His blood cultures on admission are negative. CT of the abdomen and pelvis showed multiple masses in the urinary bladder. No hydronephrosis. His initial creatinine was 3+, and it went down to 2+. Today it up to 3+ again an infectious disease consultation has been requested to evaluate the patient. Patient has been getting intermittent vancomycin dosing depending on his random vancomycin levels. Patient underwent upper and lower endoscopy, with findings of some esophagitis, polyp, but the colonoscopy was incomplete. Over the last several days patient's by mouth intake has been poor. His urine output also recorded has been decreasing. Patient currently just received a medication, and has no pain. Patient's left foot is showing more evidence of gangrene, and further amputation is being discussed, and scheduled probably this weekend. Notes reviewed Daughter at bedside S/P L BKA 12/15 Had mental status changes this morning CT head negative Still lethargic, opens eyes, not following Temps ok Creatinine rising, low UO Had vascath placement For HD per renal Antibiotics Unasyn Past Medical History COPD DM requiring insulin Stroke CAD - two stents placed CHF Bladder cancer A fib - rate controlled Seizures Past Surgical History Bladder Cancer: tumor removal 2 cardiac stents Allergies: Coded Allergies: No Known Allergies (Verified , 10/11/15) Objective . Vital Signs Date Time Temp Pulse Resp B/P Pulse Ox O2 Delivery O2 Flow Rate FiO2 12/17/16 09:53 94 3.00 12/17/16 09:20 4.00 12/17/16 08:00 97.7 60 20 147/65 95 12/17/16 04:00 97.5 56 20 174/76 93 12/17/16 00:00 98.3 66 24 165/78 93 12/16/16 20:00 98.3 71 16 144/67 93 12/16/16 19:29 95 Nasal Cannula 3.00 12/16/16 16:00 98.1 63 19 122/53 96 12/16/16 12/16/16 12/17/16 15:00 23:00 07:00 Intake Total 2145 ml 982 ml Output Total 45 ml Balance 2100 ml 982 ml Intake Oral 600 ml IV Total 1545 ml 982 ml Output Urine Total 45 ml # Bowel Movements 0 . Laboratory Tests Test 12/15/16 12/16/16 12/17/16 16:10 06:05 09:30 Hemoglobin 8.9 GM/DL 8.2 GM/DL 7.7 GM/DL Hematocrit 27.1 % 25.5 % 23.4 % White Blood Count 23.2 TH/MM3 21.3 TH/MM3 Red Blood Count 3.39 MIL/MM3 3.13 MIL/MM3 Mean Corpuscular Volume 75.3 FL 74.7 FL Mean Corpuscular Hemoglobin 24.2 PG 24.5 PG Mean Corpuscular Hemoglobin 32.2 % 32.8 % Concent Red Cell Distribution Width 20.6 % 20.9 % Platelet Count 243 TH/MM3 216 TH/MM3 Mean Platelet Volume 7.9 FL 8.0 FL Bedside Hemoglobin 8.2 G/DL Bedside Hematocrit 24.0 % Neutrophils (%) (Auto) 88.4 % Lymphocytes (%) (Auto) 4.7 % Monocytes (%) (Auto) 6.0 % Eosinophils (%) (Auto) 0.8 % Basophils (%) (Auto) 0.1 % Neutrophils # (Auto) 18.8 TH/MM3 Lymphocytes # (Auto) 1.0 TH/MM3 Monocytes # (Auto) 1.3 TH/MM3 Eosinophils # (Auto) 0.2 TH/MM3 Basophils # (Auto) 0.0 TH/MM3 CBC Comment AUTO DIFF Differential Total Cells 100 Counted Neutrophils % (Manual) 81 % Band Neutrophils % 6 % Lymphocytes % 8 % Monocytes % 4 % Neutrophils # (Manual) 18.7 TH/MM3 Myelocytes 1 % Differential Comment FINAL DIFF MANUAL Toxic Granulation 1+ Platelet Estimate NORMAL Platelet Morphology Comment NORMAL Ovalocytes 2+ Laboratory Tests Test 12/16/16 12/17/16 12/17/16 06:05 08:52 09:30 Sodium Level 138 MEQ/L 142 MEQ/L Potassium Level 5.3 MEQ/L 4.7 MEQ/L Chloride Level 109 MEQ/L 108 MEQ/L Carbon Dioxide Level 12.9 MEQ/L 16.9 MEQ/L Anion Gap 16 MEQ/L 17 MEQ/L Blood Urea Nitrogen 97 MG/DL 106 MG/DL Creatinine 5.55 MG/DL 6.04 MG/DL Estimat Glomerular Filtration 10 ML/MIN 9 ML/MIN Rate Random Glucose 104 MG/DL 90 MG/DL Calcium Level 8.4 MG/DL 7.8 MG/DL Phosphorus Level 6.8 MG/DL Bedside Sodium 141 MMOL/L Bedside Potassium 4.8 MMOL/L Bedside Chloride 112 MMOL/L Bedside Blood Urea Nitrogen 95 MG/DL Bedside Creatinine 6.1 MG/DL Bedside Glucose 93 MG/DL Total Creatine Kinase 995 U/L Creatine Kinase MB 12.6 NG/ML Creatine Kinase MB % 1.3 % Troponin I 2.44 NG/ML Physical Exam GENERAL: Opens eyes when stimulated, then back to sleep. NAD SKIN: Warm and dry. No generalized rash, no ecchymoses and no evidence of embolic lesions. HEAD: Atraumatic. Normocephalic. No temporal wasting, or tenderness. EYES: [place] conjunctiva. No petechia or hemorrhage. Pupils equal, round and reactive to light. No scleral icterus. No injection or drainage. EARS, NOSE AND THROAT: Nose without bleeding or purulent nasal discharge. Mucous membranes pink and moist. NECK: Trachea midline. Supple and not tender, no meningeal signs CARDIOVASCULAR: Regular rate and rhythm. No murmurs, rubs or gallops heard RESPIRATORY: Clear to auscultation. Breath sounds equal bilaterally. No rales , wheezing or rhonchi. Decreased breath sounds at the bases ABDOMEN: Soft, mildly distended, not tender, no guarding or rebound. Bowel sounds present and normoactive. EXTREMITIES: No clubbing, cyanosis, or edema in RLE. LBKA dressing dry and intact. NEUROLOGICAL: Sleepy PSYCHIATRIC: Unable to assess. LINE: No evidence of infection : Stein in place Assessment & Plan Remarks IMPRESSION Diabetic foot infection L, C/S MSSA and Enterococcus, with underlying PVD most likely - S/P LBKA Renal insufficiency, worse - to be started on HD Encephalopathy, eiology? PVD UTI Known bladder tumors, previous TURBT, has progression; was lost to follow-up after his surgery RECOMMENDATION Continue IV Unasyn for now - will not need long course of IV - if more awake, possibly po and give at least 7 days total from date of amputation Monitor progress HD to be started per renal Spoke with daughter AlexiRoxi MD Dec 17, 2016 13:35
--- NOTE | 2016-12-17 14:15 | EKG ---
Date Performed: 12/17/2016 Time Performed: 10:03:28 PTAGE: 81 years EKG: ATRIAL FIBRILLATION MARKED LEFT AXIS DEVIATION LOW QRS VOLTAGE IN PRECORDIAL LEADS PATTERN CONSISTENT WITH PULMONARY DISEASE ABNORMAL ECG Compared to prior tracing no significant change PREVIOUS TRACING : 12/06/2016 18.06 DOCTOR: Ramon Faye Interpretating Date/Time 12/17/2016 14:12:24
[2016-12-17] MEDS: ALBUMIN HUMAN 25% 25 GM/100 ML BAGP IV SCH ×2 (14:34→21:08)
--- NOTE | 2016-12-17 14:41 | RADRPT ---
EXAM DATE/TIME: 12/17/2016 12:19 [facility] COMPARISON: No previous studies available for comparison. INDICATIONS : Patient with history of acute renal failure in need of vascath placement for dialysis. MEDICAL HISTORY : COPD DM requiring insulin Stroke CAD - two stents placed CHF Bladder cancer Afib - rate controlled Seizures SURGICAL HISTORY : Bladder Cancer: tumor removal 2 Cardiac stents ENCOUNTER: Initial ACUITY: 2 weeks PAIN SCORE: Nonresponsive. FLUORO TIME: 0.2 minutes IMAGE SERIES: 1 ACCESS: Right internal jugular vein MEDICATION(S): 1.) 2,200 units Heparin IV DEVICE(S): 1.) 14 [place] dual lumen 15 cm Schon catheter Vascath PROCEDURE : 1. Ultrasound guided venipuncture. 2. Fluoroscopic guidance. 3. Central line placement. The risks, benefits and alternatives to the procedure were explained and verbal and written consent w as obtained. The site was prepped in sterile fashion. Full sterile technique was used, including ca p, mask, sterile gloves and gown and a large sterile sheet. Hand hygiene and 2% chlorhexidine prep w as utilized per protocol for cutaneous antisepsis with appropriate dry time for site. The skin and subcutaneous tissues were infiltrated with local anesthetic solution. A suitable site a joyce the vein was selected with ultrasound and fluoroscopic guidance. A small incision was made. Th e vein was accessed under direct ultrasound visualization using the micropuncture technique. The nba ropuncture set was exchanged for a 0.035 wire. The tract was dilated. The catheter was advanced int o position under direct fluoroscopic visualization. The catheter was fixed in place with suture and a sterile dressing was applied. The patient tolerated the procedure well and there were no complications. CONCLUSION: Uncomplicated line placement as above. Prasad Tenorio Jr., MD on December 17, 2016 at 14:39 Board Certified Radiologist. This report was verified electronically.
--- NOTE | 2016-12-17 15:06 | PD.CAR.PN ---
CVT Progress Note Subjective/Hospital Course: Records reviewed what patient was in some sort of x-ray study Full consult to follow after evaluation of the patient Thanks Trevor 12/11/16 Patient status post fifth toe amputation by podiatry Incision is healing nicely Patient is not a candidate for any vascular reconstruction in face of his age, systemic comorbidities and local factors. In face of elevated BUN/creatinine I will not even order CTA with runoff for the benefits of these studies will be exceeded by the risks 12/13/16 Patient with the large defect post left fifth toe and metatarsal amputation Deep defect toward of fourth metatarsal bone with exposure of the soft tissues and plantar area of the foot Discussed with Dr. Sheree Vallecillo. Patient is fairly ambulatory at this time and I would advise against transmetatarsal amputation in the face of patient's general condition and peripheral changes There is no vascular procedure to remedy this Will discuss with patient's daughter once she is in the room and will come back up tomorrow 12/14/16 Discussed the case with Dr. Sheree Vallecillo. 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 Now with additional bedridden status in the hospital I do not know how patient is going to get back on his feet. Nonetheless patient and family do not wish above-knee amputation so we will go ahead with below-knee amputation in anticipation of possible prosthesis I've explained to the family at length that then 80-year-old male who barely could walk before would not be a good candidate for prostetics. Patient will need below-knee amputation and possibly even above-knee amputation depending on the prospects of ambulation which is fairly poor 12/16/16 Patient is status post the below-knee amputation Dressing is intact and dry Pain management is under control Will keep the dressing on until tomorrow and then remove it at which point it will be changed daily This patient will definitely require rehabilitation and the skilled nursing placement he cannot go home with the fresh below-knee amputation because there is no question he'll fall again and break the stump opened Patient definitely cannot be discharged home because this will be an unsafe venue 12/17/16 Apparently patient had this morning an episode of decreased level of consciousness and being worked up for a stroke as we speak Left BKA dressing has been removed and amputation stump is clean and dry. No signs of ischemia We will redress slightly In face of delayed healing stitches should stay in for about 3 weeks Objective: Vital Signs Date Time Temp Pulse Resp B/P Pulse Ox O2 Delivery O2 Flow Rate FiO2 12/17/16 09:53 94 3.00 12/17/16 09:20 4.00 12/17/16 08:00 97.7 60 20 147/65 95 12/17/16 04:00 97.5 56 20 174/76 93 12/17/16 00:00 98.3 66 24 165/78 93 12/16/16 20:00 98.3 71 16 144/67 93 12/16/16 19:29 95 Nasal Cannula 3.00 12/16/16 16:00 98.1 63 19 122/53 96 Labs: Laboratory Tests Test 12/17/16 12/17/16 08:52 09:30 Sodium Level 142 MEQ/L (136-145) Potassium Level 4.7 MEQ/L (3.5-5.1) Chloride Level 108 MEQ/L (98-107) Carbon Dioxide Level 16.9 MEQ/L (21.0-32.0) Anion Gap 17 MEQ/L (5-15) Blood Urea Nitrogen 106 MG/DL (7-18) Creatinine 6.04 MG/DL (0.60-1.30) Estimat Glomerular Filtration 9 ML/MIN (>89) Rate Random Glucose 90 MG/DL (74-106) Calcium Level 7.8 MG/DL (8.5-10.1) Phosphorus Level 6.8 MG/DL (2.5-4.9) White Blood Count 21.3 TH/MM3 (4.0-11.0) Red Blood Count 3.13 MIL/MM3 (4.50-5.90) Hemoglobin 7.7 GM/DL (13.0-17.0) Bedside Hemoglobin 8.2 G/DL (12.0-17.0) Hematocrit 23.4 % (39.0-51.0) Bedside Hematocrit 24.0 % (38.0-51.0) Mean Corpuscular Volume 74.7 FL (80.0-100.0) Mean Corpuscular Hemoglobin 24.5 PG (27.0-34.0) Mean Corpuscular Hemoglobin 32.8 % Concent (32.0-36.0) Red Cell Distribution Width 20.9 % (11.6-17.2) Platelet Count 216 TH/MM3 (150-450) Mean Platelet Volume 8.0 FL (7.0-11.0) Neutrophils (%) (Auto) 88.4 % (16.0-70.0) Lymphocytes (%) (Auto) 4.7 % (9.0-44.0) Monocytes (%) (Auto) 6.0 % (0.0-8.0) Eosinophils (%) (Auto) 0.8 % (0.0-4.0) Basophils (%) (Auto) 0.1 % (0.0-2.0) Neutrophils # (Auto) 18.8 TH/MM3 (1.8-7.7) Lymphocytes # (Auto) 1.0 TH/MM3 (1.0-4.8) Monocytes # (Auto) 1.3 TH/MM3 (0-0.9) Eosinophils # (Auto) 0.2 TH/MM3 (0-0.4) Basophils # (Auto) 0.0 TH/MM3 (0-0.2) CBC Comment AUTO DIFF Differential Total Cells 100 Counted Neutrophils % (Manual) 81 % (16-70) Band Neutrophils % 6 % (0-6) Lymphocytes % 8 % (9-44) Monocytes % 4 % (0-8) Neutrophils # (Manual) 18.7 TH/MM3 (1.8-7.7) Myelocytes 1 % (0-0) Differential Comment FINAL DIFF MANUAL Toxic Granulation 1+ (NORMAL) Platelet Estimate NORMAL (NORMAL) Platelet Morphology Comment NORMAL (NORMAL) Ovalocytes 2+ (NORMAL) Prothrombin Time 20.0 SEC (9.8-11.6) Prothromb Time International 1.8 RATIO Ratio Activated Partial 38.0 SEC Thromboplast Time (24.3-30.1) Fibrinogen 289 mg/dL (227-377) Bedside Sodium 141 MMOL/L (138-146) Bedside Potassium 4.8 MMOL/L (3.5-4.9) Bedside Chloride 112 MMOL/L (98-109) Bedside Blood Urea Nitrogen 95 MG/DL (8-26) Bedside Creatinine 6.1 MG/DL (0.8-1.3) Bedside Glucose 93 MG/DL (60-95) Total Creatine Kinase 995 U/L (39-308) Creatine Kinase MB 12.6 NG/ML (0.5-3.6) Creatine Kinase MB % 1.3 % (0.0-4.0) Troponin I 2.44 NG/ML (0.02-0.05) Result Diagram: 12/17/16 0930 12/17/16 0852 Lavonne Hernandez MD Dec 17, 2016 15:06
[2016-12-17 16:00] VITALS: BP 110/56; PULSE 73; RESP 20; TEMP 97.4; O2SAT 95
--- NOTE | 2016-12-17 17:25 | RADRPT ---
EXAM DATE/TIME: 12/17/2016 16:15 [facility] COMPARISON: CT BRAIN W/O CONTRAST, December 17, 2016, 9:36. INDICATIONS : Stroke alert. MEDICAL HISTORY : Hypertension. Diabetes mellitus type 2. SURGICAL HISTORY : Left BKA. ENCOUNTER: Initial ACUITY: 2 day PAIN SCORE: 0/10 LOCATION: head TECHNIQUE: Multiplanar, multisequence MRI of the brain was performed without contrast. FINDINGS: There is no evidence for intracranial hemorrhage, mass effect, mass lesions, edema, or extra-axial fl uid collections. There are no signs of acute infarction for technique. The diffusion portion is unre markable. Slight degree of brain atrophy is seen. Slight periventricular white matter changes are see n nonspecific mostly consistent with chronic small vessel ischemic changes. There is slight encephalo malacia left temporal lobe. CONCLUSION: Chronic atrophic and small vessel ischemic changes without any evidence for acute hem orrhage or mass effect. Altagracia Grijalva MD on December 17, 2016 at 17:21 Board Certified Radiologist. This report was verified electronically.
[2016-12-17 20:56] VITALS: BP 130/78; PULSE 64; RESP 18; TEMP 98.5; O2SAT 97
[2016-12-17] MEDS: TERAZOSIN HCL 1 MG CAP PO SCH (21:00)
[2016-12-17] MEDS: FERROUS SULFATE 325 MG (65 MG ELEMENTAL IRON) TAB PO SCH (21:00)
[2016-12-17] MEDS: PHENYTOIN SODIUM 100 MG CAP PO SCH (21:00)
[2016-12-17] MEDS: ATORVASTATIN 20 MG TAB PO SCH (21:00)
[2016-12-17] MEDS: DOCUSATE SODIUM 50 MG/SENNA 8.6 MG TAB PO SCH (21:00)
[2016-12-17] MEDS: SODIUM CHLORIDE 0.9% FLUSH 10 ML FLUSH IV FLUSH SCH (21:11)
[2016-12-17] MEDS: SODIUM BICARBONATE 8.4% INJ 75 MEQ in SODIUM CHLOR 0.45% 1000 ML INJ 1,000 ML IV SCH (21:11)
[2016-12-17] MEDS: BUDESONIDE-FORMOTEROL 80/4.5 MCG INHALER INH SCH (21:17)
[2016-12-17] MEDS: PHENYTOIN INJ 100 MG/2 ML VIAL IV SCH (21:40)
[2016-12-18] VITALS (14 sets, daily range): BP systolic 128–212; BP diastolic 53–118; PULSE 50–74; RESP 16–20; TEMP 97.8–99.3; O2SAT 91–98
[2016-12-18] MEDS: MORPHINE SULFATE 4 MG/ML INJ IV PRN ×4 (01:21→22:30)
[2016-12-18] MEDS: PANTOPRAZOLE SODIUM 40 MG VIAL IV PUSH SCH ×2 (01:21→14:00)
[2016-12-18] MEDS: AMPICILLIN-SULBACTAM INJ 1,500 MG in SODIUM CHLORIDE 0.9% INJ 100 ML IV SCH ×2 (05:28→13:00)
[2016-12-18] MEDS: INSULIN ASPART SUPPLEMENTAL SCALE SQ SCH ×4 (05:32→21:04)
[2016-12-18 05:39] LABS: AUTOMATED NEUTROPHIL # 15.6 TH/MM3 (1.8-7.7); BASOPHIL # 0.1 TH/MM3 (0-0.2); BASOPHIL % 0.8 % (0.0-2.0); EOSINOPHIL # 0.2 TH/MM3 (0-0.4); HEMATOCRIT 21.6 % (39.0-51.0); HEMO FLAGS DIFF FINAL; LYMPH % 5.3 % (9.0-44.0); MEAN CORPUSCULAR HEMOGLOBIN 24.1 PG (27.0-34.0); MEAN CORPUSCULAR HGB CONC 32.5 % (32.0-36.0); MONO % 6.9 % (0.0-8.0); PLATELET COUNT 211 TH/MM3 (150-450); RED BLOOD COUNT 2.92 MIL/MM3 (4.50-5.90); RED CELL DISTRIBUTION WIDTH 20.5 % (11.6-17.2); WHITE BLOOD COUNT 18.1 TH/MM3 (4.0-11.0)
[2016-12-18 05:59] LABS: BICARBONATE 21.1 MEQ/L (21.0-32.0); POTASSIUM 3.9 MEQ/L (3.5-5.1)
[2016-12-18] MEDS ORDERED: FUROSEMIDE 20 MG/2 ML VIAL IV ONE (07:15)
[2016-12-18] MEDS ORDERED: SODIUM CHLOR 0.9% 250 ML INJ 250 ML IV ONE (07:15)
[2016-12-18] MEDS: ALBUMIN HUMAN 25% 25 GM/100 ML BAGP IV SCH ×2 (08:22→21:40)
--- NOTE | 2016-12-18 08:38 | HHI.FPPN ---
Subjective Remarks No acute events overnight. Pt lying comfortably in bed, sleeping. Daughter at bedside. Pt seemed to be more aware and alert this AM per daughter. Afebrile. Pt received dialysis yesterday afternoon. Daughter states that pt improved after dialysis. Pt complaining of generalized pain, pt received dose of morphine via nurse. Denies CP, SOB, and N/V. (Andie Nicholas MD R1) Objective Vitals Vital Signs Date Time Temp Pulse Resp B/P Pulse Ox O2 Delivery O2 Flow Rate FiO2 12/18/16 08:00 98.5 62 20 187/79 95 12/18/16 04:00 97.8 63 18 158/70 96 12/18/16 00:00 98.4 74 18 128/74 98 12/17/16 20:56 98.5 64 18 130/78 97 12/17/16 16:00 97.4 73 20 110/56 95 12/17/16 09:53 94 3.00 12/17/16 09:20 4.00 I/O 12/17/16 12/17/16 12/17/16 12/18/16 12/18/16 12/18/16 07:00 15:00 23:00 07:00 15:00 23:00 Intake Total 982 ml Output Total 2600 ml 400 ml Balance 982 ml -2600 ml -400 ml IV Total 982 ml Output Urine Total 600 ml 400 ml Hemodialysis 2000 ml (Andie Nicholas MD R1) Result Diagram: 12/18/16 0518 12/18/16 0518 Imaging Last Impressions Catheter Placement X-Ray 12/17/16 0700 Signed Impressions: Service Date/Time: Saturday, December 17, 2016 12:19 - CONCLUSION: Uncomplicated line placement as above. Prasad Tenorio Jr., MD Head CT 12/17/16 0000 Signed Impressions: Service Date/Time: Saturday, December 17, 2016 09:36 - CONCLUSION: 1. No acute intracranial abnormality is identified. 2. Chronic and stable changes include generalized atrophy and mild periventricular white matter low attenuation characteristic of chronic small vessel ischemic change. Meek Narayanan MD Brain MRI 12/17/16 0000 Signed Impressions: Service Date/Time: Saturday, December 17, 2016 16:15 - CONCLUSION: Chronic atrophic and small vessel ischemic changes without any evidence for acute hemorrhage or mass effect. Altagracia Grijalva MD Chest X-Ray 12/08/16 0000 Signed Impressions: Service Date/Time: Thursday, December 08, 2016 14:05 - CONCLUSION: Tiny bilateral pleural effusions. Altagracia Grijalva MD Abdomen Ultrasound 12/07/16 0026 Signed Impressions: Service Date/Time: Wednesday, December 07, 2016 09:34 - CONCLUSION: 1. 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 Cystoscopy and biopsy recommended. 2. Nonvisualization of the pancreas. 3. Kidneys are borderline echogenic. 4. Minimal free fluid in Faulkner's pouch. Sal Chowdhury MD Foot MRI 12/07/16 0000 Signed Impressions: Service Date/Time: Wednesday, December 07, 2016 09:01 - CONCLUSION: 1. Osteomyelitis of the fifth metatarsal head and proximal phalanx of the fifth toe. Sal Chowdhury MD Abdomen/Pelvis CT 12/07/16 0000 Signed Impressions: Service Date/Time: Thursday, December 08, 2016 10:46 - CONCLUSION: Multiple bladder masses suspicious for malignancy. Altagracia Grijalva MD Foot X-Ray 12/06/16 1747 Signed Impressions: Service Date/Time: November 18:08 - CONCLUSION: No obvious bone destruction at this time. Soft tissue emphysema is noted in and around the fifth MTP joint soft tissues. The possibility of infection with gas-forming organism should be excluded. Dean Burton MD Objective Remarks GEN: Lying flat in bed. Slightly moaning, but in NAD. CV: Normal rate, irregular rhythm. No obvious murmurs. LUNGS: Scattered expiratory wheezing bilaterally. No rales or rhonchi. No increased WOB. Normal respiratory rate.. EXT: Left BKA with donald wrapping. PT and DP pulses 2+ right foot. NEURO/PSYCH: Pt more alert and oriented this morning. Able to follow basic one- step commands. Opens eyes to name. Pupils equal round and reactive to light. Neuro exam limited given inability of patient to follow commands. Patient able to circuits engineer with left hand. slight circuits engineer with right hand. : Stein catheter in place (Andie Nicholas MD R1) A/P Assessment and Plan 80-year-old male admitted due to L 5th toe osteomyelitis s/p L BKA on 12/15. Patient had stroke-like symptoms yesterday, neurology consulted. MRI and CT negative. Patient most likely had metabolic encephalopathy due to acute renal failure. Discharge Planning Unclear timetable, pending vascular surgery recommendations Case management consulted for home health with PT and home O2 (Andie Nicholas MD R1) Attending Attestation Patient examined and case discussed with resident physicians I have read the above note and agree with the assessment/plan as discussed with me I was involved in all medical decision making for this patient Tae Hoskins M.D. (Tae Hoskins MD) Problem List: (1) Metabolic encephalopathy Status: Acute Plan: - Patient with stroke-like symptoms vs acute toxic metabolic encephalopathy -Patient's symptoms improved following dialysis yesterday, possibly will need dialysis again today - Noncontrast head CT negative for acute intracranial process -MRI revealed chronic atrophic and small vessel ischemic changes, no acute hemorrhage or mass effect - Neurology consulted, appreciate recs - Nephrology consulted, appreciated recs (2) Acute renal failure Status: Acute Plan: Cr downtrending to 4.43 today, renal function improving after patient received dialysis yesterday, will possibly need dialysis again today -Nephrology following, appreciated recs - May be pre-renal or possibility of acute tubular necrosis or intersitial nephritis b/c of antibiotics or infection -will check urine sodium osmolality and urine for eosinophils, urine eosinophils was negative about a week ago - sodium bicarb drip -Albumin 25 gm IV q12 -will continue to follow BUN and Cr - Troponin elevated at 2.44 12/17, after pt received dialysis, troponin still elevated at 2.28. Cardiology consulted. Elevated troponin most likely due to ARF. -BNP 1186 (12/14) - Follow with daily BMPs - Avoid nephrotoxic agents - Monitor I/Os (3) GI bleed Status: Acute Plan: Hgb unstable at 7.0 this AM, patient will receive 2 units of PRBCs followed by furosemide 20 mg IV -Unknown source for Hgb declining, will continue to trend H/H -Will consider GI consult if Hgb continues to decline -Pt received 2 units of PRBCs on 12/15/16 for Hbg of 6.9 GI consulted, recommendations appreciated EGD/Colonoscopy 12/13 showing reflux esophagitis, hiatal hernia, colonic polyp, incomplete evaluation of the colon Recommend EGD & colonoscopy in 2-3 months Continue PPI GI signing off Started ferrous sulfate 12/14 325mg PO bid (4) Hypertension Status: Chronic Plan: Pt is currently NPO. Will switch to IV hydralazine for BP control. All other PO meds below held for now. -Elevated BP since admission. Home lisinopril held due to MIKE * Amlodipine 10 mg po daily * Hydralazine 100 mg po q8h * Carvedilol 6.25 mg po bid * Clonidine 0.1 mg po q12h scheduled * Clonidine 0.1 mg po q6h prn BP > 180/100 (5) Gas gangrene of foot Status: Acute Plan: Post- op Day #3 S/p left Below- knee amputation on 12/15 Continue antibiotics as below: - Unasyn 1500 mg IV q8h per ID(12/14-) -Pain control with [place] and morphine prn - vascular surgery, Podiatry, and ID following -Pt will require rehabilitation and fdc placement -S/p fifth toe amputation with fifth metatarsal resection by podiatry 12/07. -Bone pathology showing gangrenous necrosis and osteomyelitis left fifth toe and metatarsal bone section -Discontinued Vancomycin per ID (started 12/06- 12/14) -Discontinued Zosyn Wound cultures returning with MSSA and group D enterococcus Blood cultures 12/06 no growth after 5 days (6) Bladder tumor Status: Acute Plan: Urology consulted and following patient. Patient's daughter does state that he did refuse urologic intervention several weeks ago when it was recommended by his primary care provider - If he continues to refuse urologic intervention, patient may be hospice appropriate - Case discussed with Dr. Parham 12/10. 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 Daily BMP to monitor Cr * Baseline Cr currently unknown, last recording creatinine was 1.52 from 2016 (7) CHF (congestive heart failure) Status: Chronic Plan: Echocardiogram performed with limited visualization of the left ventricular function - Left ventricular function grossly normal BNP equivocal on admission. Clinically does not appear to be in CHF exacerbation. Medications: * Currently holding DONALD inhibitor due to acute renal failure (8) UTI (urinary tract infection) Status: Resolved Plan: Urinalysis consistent with infection - Continue abx as described under gangrene as that would provide adequate coverage - UA 12/06 with large occult blood - Repeat UA 12/10 showing large occult blood, neg nitrite, small LE - Urine culture 12/06: 25-50,000 cfus Staph Aureus - Repeat urine culture 12/10 no growth after 48 hours (9) DM (diabetes mellitus) Status: Chronic Plan: Diabetes relatively well-controlled with glucose ranging from 100 to 130s - Hemoglobin A1c of 6.8% - Hold home levemir - Low dose Sliding Scale w/ Novolog, titrate as needed (10) COPD (chronic obstructive pulmonary disease) Status: Chronic Plan: Known history of COPD. Received Solu-Medrol 125 mg 1 in the emergency department. - ABX coverage through osteo treatment Medications: * Continue albuterol inhaler * Continue DuoNeb's every 4 hours with albuterol PRN * Continue symbicort * Antibiotics as above (11) Seizure disorder Status: Chronic Plan: Pt NPO as of now for swallowing problems. Will consider IV seizure medication. (12) Atrial fibrillation Status: Chronic Plan: [id number] score of 6, would benefit from anticoagulation once clinically stable. Currently rate controlled. -Not currently anticoagulated due to possibility of GI bleed and hematuria from bladder masses (13) CAD (coronary artery disease) Status: Chronic Plan: h/o CAD with 2 stents placed, takes Aspirin 81 mg daily at home, atorvastatin 20mg, no complaints of angina -continue home atorvastatin -holding Aspirin due to GI bleed (14) Nutrition, metabolism, and development symptoms Status: Acute Plan: Diet: 1800 ADA Fluids: NaCl 0.45% w/ sodium bicarb 100mls/ hr Electrolytes: monitor and replete as necessary DVT: holding anticoagulation due to GI bleed, Bilateral SCDs GI PPX: protonix (Andie Nicholas MD R1) Problem List: (1) Metabolic encephalopathy Status: Acute Plan: - Patient with stroke-like symptoms vs acute toxic metabolic encephalopathy -Patient's symptoms improved following dialysis yesterday, possibly will need dialysis again today - Noncontrast head CT negative for acute intracranial process -MRI revealed chronic atrophic and small vessel ischemic changes, no acute hemorrhage or mass effect - Neurology consulted, appreciate recs - Nephrology consulted, appreciated recs (2) Acute renal failure Status: Acute Plan: Cr downtrending to 4.43 today, renal function improving after patient received dialysis yesterday, will possibly need dialysis again today -Nephrology following, appreciated recs - May be pre-renal or possibility of acute tubular necrosis or intersitial nephritis b/c of antibiotics or infection -will check urine sodium osmolality and urine for eosinophils, urine eosinophils was negative about a week ago - sodium bicarb drip -Albumin 25 gm IV q12 -will continue to follow BUN and Cr - Troponin elevated at 2.44 12/17, after pt received dialysis, troponin still elevated at 2.28. Cardiology consulted. Elevated troponin most likely due to ARF. -BNP 1186 (12/14) - Follow with daily BMPs - Avoid nephrotoxic agents - Monitor I/Os (3) GI bleed Status: Acute Plan: Hgb unstable at 7.0 this AM, patient will receive 2 units of PRBCs followed by furosemide 20 mg IV -Unknown source for Hgb declining, will continue to trend H/H -Will consider GI consult if Hgb continues to decline -Pt received 2 units of PRBCs on 12/15/16 for Hbg of 6.9 GI consulted, recommendations appreciated EGD/Colonoscopy 12/13 showing reflux esophagitis, hiatal hernia, colonic polyp, incomplete evaluation of the colon Recommend EGD & colonoscopy in 2-3 months Continue PPI GI signing off Started ferrous sulfate 12/14 325mg PO bid (4) Hypertension Status: Chronic Plan: Pt is currently NPO. Will switch to IV hydralazine for BP control. All other PO meds below held for now. -Elevated BP since admission. Home lisinopril held due to MIKE * Amlodipine 10 mg po daily * Hydralazine 100 mg po q8h * Carvedilol 6.25 mg po bid * Clonidine 0.1 mg po q12h scheduled * Clonidine 0.1 mg po q6h prn BP > 180/100 (5) Gas gangrene of foot Status: Acute Plan: Post- op Day #3 S/p left Below- knee amputation on 12/15 Continue antibiotics as below: - Unasyn 1500 mg IV q8h per ID(12/14-) -Pain control with [place] and morphine prn - vascular surgery, Podiatry, and ID following -Pt will require rehabilitation and fdc placement -S/p fifth toe amputation with fifth metatarsal resection by podiatry 12/07. -Bone pathology showing gangrenous necrosis and osteomyelitis left fifth toe and metatarsal bone section -Discontinued Vancomycin per ID (started 12/06- 12/14) -Discontinued Zosyn Wound cultures returning with MSSA and group D enterococcus Blood cultures 12/06 no growth after 5 days (6) Bladder tumor Status: Acute Plan: Urology consulted and following patient. Patient's daughter does state that he did refuse urologic intervention several weeks ago when it was recommended by his primary care provider - If he continues to refuse urologic intervention, patient may be hospice appropriate - Case discussed with Dr. Parham 12/10. 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 Daily BMP to monitor Cr * Baseline Cr currently unknown, last recording creatinine was 1.52 from 2016 (7) CHF (congestive heart failure) Status: Chronic Plan: Echocardiogram performed with limited visualization of the left ventricular function - Left ventricular function grossly normal BNP equivocal on admission. Clinically does not appear to be in CHF exacerbation. Medications: * Currently holding DONALD inhibitor due to acute renal failure (8) UTI (urinary tract infection) Status: Resolved Plan: Urinalysis consistent with infection - Continue abx as described under gangrene as that would provide adequate coverage - UA 12/06 with large occult blood - Repeat UA 12/10 showing large occult blood, neg nitrite, small LE - Urine culture 12/06: 25-50,000 cfus Staph Aureus - Repeat urine culture 12/10 no growth after 48 hours (9) DM (diabetes mellitus) Status: Chronic Plan: Diabetes relatively well-controlled with glucose ranging from 100 to 130s - Hemoglobin A1c of 6.8% - Hold home levemir - Low dose Sliding Scale w/ Novolog, titrate as needed (10) COPD (chronic obstructive pulmonary disease) Status: Chronic Plan: Known history of COPD. Received Solu-Medrol 125 mg 1 in the emergency department. - ABX coverage through osteo treatment Medications: * Continue albuterol inhaler * Continue DuoNeb's every 4 hours with albuterol PRN * Continue symbicort * Antibiotics as above (11) Seizure disorder Status: Chronic Plan: Pt NPO as of now for swallowing problems. Will consider IV seizure medication. (12) Atrial fibrillation Status: Chronic Plan: [id number] score of 6, would benefit from anticoagulation once clinically stable. Currently rate controlled. -Not currently anticoagulated due to possibility of GI bleed and hematuria from bladder masses (13) CAD (coronary artery disease) Status: Chronic Plan: h/o CAD with 2 stents placed, takes Aspirin 81 mg daily at home, atorvastatin 20mg, no complaints of angina -continue home atorvastatin -holding Aspirin due to GI bleed (14) Nutrition, metabolism, and development symptoms Status: Acute Plan: Diet: 1800 ADA Fluids: NaCl 0.45% w/ sodium bicarb 100mls/ hr Electrolytes: monitor and replete as necessary DVT: holding anticoagulation due to GI bleed, Bilateral SCDs GI PPX: protonix (Tae Hoskins MD) Problem Qualifiers (1) GI bleed: Qualified Code: K92.2 - Gastrointestinal hemorrhage, unspecified gastrointestinal hemorrhage type (2) DM (diabetes mellitus): Qualified Code: 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, with long-term current use of insulin (3) CAD (coronary artery disease): Qualified Code: I25.10 - Coronary artery disease involving [place] coronary artery of n[place] heart without angina pectoris Andie Nicholas MD R1 Dec 18, 2016 08:38 Tae Hoskins MD Dec 18, 2016 13:51
[2016-12-18] MEDS: RESP: ALBUTEROL 2.5 MG/IPRATROPIUM 0.5 MG NEB (SCH) NEB (08:41)
[2016-12-18] MEDS: FERROUS SULFATE 325 MG (65 MG ELEMENTAL IRON) TAB PO SCH ×2 (09:00→21:00)
[2016-12-18] MEDS: THIAMINE HCL 100 MG TAB PO SCH (09:00)
[2016-12-18] MEDS: DOCUSATE SODIUM 50 MG/SENNA 8.6 MG TAB PO SCH ×2 (09:00→21:00)
[2016-12-18] MEDS: SODIUM CHLORIDE 0.9% FLUSH 10 ML FLUSH IV FLUSH SCH ×2 (09:00→21:00)
[2016-12-18] MEDS: SODIUM BICARBONATE 8.4% INJ 75 MEQ in SODIUM CHLOR 0.45% 1000 ML INJ 1,000 ML IV SCH ×2 (10:00→23:08)
--- NOTE | 2016-12-18 10:55 | HHI.IDPN ---
Subjective Subjective Remarks Patient is an 80-year-old male, admitted to the hospital for further evaluation of his left foot. He apparently was noted to have a callus on the lateral aspect of that foot. Over the last several weeks he was noted to be developing some drainage, and he was experiencing pain. There was no mention of any fever chills or sweats. On the day of admission, the patient slid and almost fell, and so the patient was brought to the hospital for further evaluation and treatment. It was also mentioned that there was some tea-colored urine. Apparently the patient was diagnosed to have bladder cancer, and had TURBT, but was lost to follow-up. Since that time he has had intermittent hematuria. He was diagnosed to have a diabetic foot infection with findings of gas in the foot. Patient underwent surgery and had amputation of his fifth digit and his fifth metatarsal. He also had evidence of urinary tract infection. Urine culture had MSSA. The initial foot culture had MSSA and enterococcus. Intraoperative culture from the foot grew MSSA. His blood cultures on admission are negative. CT of the abdomen and pelvis showed multiple masses in the urinary bladder. No hydronephrosis. His initial creatinine was 3+, and it went down to 2+. Today it up to 3+ again an infectious disease consultation has been requested to evaluate the patient. Patient has been getting intermittent vancomycin dosing depending on his random vancomycin levels. Patient underwent upper and lower endoscopy, with findings of some esophagitis, polyp, but the colonoscopy was incomplete. Over the last several days patient's by mouth intake has been poor. His urine output also recorded has been decreasing. Patient currently just received a medication, and has no pain. Patient's left foot is showing more evidence of gangrene, and further amputation is being discussed, and scheduled probably this weekend. Notes reviewed D/W RN Rut ok Had HD yesterday Family noted some improvement after HD He is more awake than yesterday but very restless C/O pain in his LLE - keep his LLE flexed at knee S/P L BKA 12/[address] - blood tinged Swallowing eval recommends NPO - to be reevaluated again Antibiotics Unasyn Lines PIV Past Medical History COPD DM requiring insulin Stroke CAD - two stents placed CHF Bladder cancer A fib - rate controlled Seizures Past Surgical History Bladder Cancer: tumor removal 2 cardiac stents Allergies: Coded Allergies: No Known Allergies (Verified , 10/11/15) Objective . Vital Signs Date Time Temp Pulse Resp B/P Pulse Ox O2 Delivery O2 Flow Rate FiO2 12/18/16 08:43 97 Nasal Cannula 3.00 12/18/16 08:00 98.5 62 20 187/79 95 12/18/16 04:00 97.8 63 18 158/70 96 12/18/16 00:00 98.4 74 18 128/74 98 12/17/16 20:56 98.5 64 18 130/78 97 12/17/16 16:00 97.4 73 20 110/56 95 12/17/16 12/17/16 12/18/16 15:00 23:00 07:00 Output Total 2600 ml 400 ml Balance -2600 ml -400 ml Output Urine Total 600 ml 400 ml Hemodialysis 2000 ml . Laboratory Tests Test 12/17/16 12/18/16 09:30 05:18 White Blood Count 21.3 TH/MM3 18.1 TH/MM3 Red Blood Count 3.13 MIL/MM3 2.92 MIL/MM3 Hemoglobin 7.7 GM/DL 7.0 GM/DL Bedside Hemoglobin 8.2 G/DL Hematocrit 23.4 % 21.6 % Bedside Hematocrit 24.0 % Mean Corpuscular Volume 74.7 FL 74.0 FL Mean Corpuscular Hemoglobin 24.5 PG 24.1 PG Mean Corpuscular Hemoglobin 32.8 % 32.5 % Concent Red Cell Distribution Width 20.9 % 20.5 % Platelet Count 216 TH/MM3 211 TH/MM3 Mean Platelet Volume 8.0 FL 7.7 FL Neutrophils (%) (Auto) 88.4 % 86.0 % Lymphocytes (%) (Auto) 4.7 % 5.3 % Monocytes (%) (Auto) 6.0 % 6.9 % Eosinophils (%) (Auto) 0.8 % 1.0 % Basophils (%) (Auto) 0.1 % 0.8 % Neutrophils # (Auto) 18.8 TH/MM3 15.6 TH/MM3 Lymphocytes # (Auto) 1.0 TH/MM3 1.0 TH/MM3 Monocytes # (Auto) 1.3 TH/MM3 1.3 TH/MM3 Eosinophils # (Auto) 0.2 TH/MM3 0.2 TH/MM3 Basophils # (Auto) 0.0 TH/MM3 0.1 TH/MM3 CBC Comment AUTO DIFF DIFF FINAL Differential Total Cells 100 Counted Neutrophils % (Manual) 81 % Band Neutrophils % 6 % Lymphocytes % 8 % Monocytes % 4 % Neutrophils # (Manual) 18.7 TH/MM3 Myelocytes 1 % Differential Comment FINAL DIFF MANUAL Toxic Granulation 1+ Platelet Estimate NORMAL Platelet Morphology Comment NORMAL Ovalocytes 2+ Laboratory Tests Test 12/17/16 12/17/16 12/18/16 08:52 09:30 05:18 Sodium Level 142 MEQ/L 143 MEQ/L Potassium Level 4.7 MEQ/L 3.9 MEQ/L Chloride Level 108 MEQ/L 106 MEQ/L Carbon Dioxide Level 16.9 MEQ/L 21.1 MEQ/L Anion Gap 17 MEQ/L 16 MEQ/L Blood Urea Nitrogen 106 MG/DL 82 MG/DL Creatinine 6.04 MG/DL 4.43 MG/DL Estimat Glomerular Filtration 9 ML/MIN 13 ML/MIN Rate Random Glucose 90 MG/DL 82 MG/DL Calcium Level 7.8 MG/DL 7.7 MG/DL Phosphorus Level 6.8 MG/DL Bedside Sodium 141 MMOL/L Bedside Potassium 4.8 MMOL/L Bedside Chloride 112 MMOL/L Bedside Blood Urea Nitrogen 95 MG/DL Bedside Creatinine 6.1 MG/DL Bedside Glucose 93 MG/DL Total Creatine Kinase 995 U/L Creatine Kinase MB 12.6 NG/ML Creatine Kinase MB % 1.3 % Troponin I 2.44 NG/ML 2.28 NG/ML Microbiology Date/Time Procedure Status Source Growth 12/18/16 05:10 Aerobic Blood Culture Received Blood Peripheral Pending 12/18/16 05:10 Anaerobic Blood Culture Received Blood Peripheral Pending 12/18/16 05:29 Aerobic Blood Culture Received Blood Peripheral Pending 12/18/16 05:29 Anaerobic Blood Culture Received Blood Peripheral Pending Imaging Catheter Placement X-Ray 12/17/16 0700 Signed Impressions: Service Date/Time: Saturday, December 17, 2016 12:19 - CONCLUSION: Uncomplicated line placement as above. Prasad Tenorio Jr., MD Head CT 12/17/16 0000 Signed Impressions: Service Date/Time: Saturday, December 17, 2016 09:36 - CONCLUSION: 1. No acute intracranial abnormality is identified. 2. Chronic and stable changes include generalized atrophy and mild periventricular white matter low attenuation characteristic of chronic small vessel ischemic change. Meek Narayanan MD Brain MRI 12/17/16 0000 Signed Impressions: Service Date/Time: Saturday, December 17, 2016 16:15 - CONCLUSION: Chronic atrophic and small vessel ischemic changes without any evidence for acute hemorrhage or mass effect. Altagracia Grijalva MD Physical Exam GENERAL: Awake and very restless SKIN: Warm and dry. No generalized rash HEAD: Atraumatic. Normocephalic. No temporal wasting, or tenderness. EYES: [place] conjunctiva. No petechia or hemorrhage. Pupils equal, round and reactive to light. No scleral icterus. No injection or drainage. EARS, NOSE AND THROAT: Nose without bleeding or purulent nasal discharge. Mucous membranes pink and moist. NECK: Trachea midline. Supple and not tender, no meningeal signs CARDIOVASCULAR: Regular rate and rhythm. No murmurs, rubs or gallops heard RESPIRATORY: Clear to auscultation. Breath sounds equal bilaterally. No rales , wheezing or rhonchi. Decreased breath sounds at the bases ABDOMEN: Soft, mildly distended, not tender, no guarding or rebound. Bowel sounds present and normoactive. EXTREMITIES: No clubbing, cyanosis, or edema in RLE. LBKA dressing with some blood, has some induration posteriorly. NEUROLOGICAL: Awake and restless PSYCHIATRIC: Unable to assess. LINE: No evidence of infection : Stein in place, blood tinged urine Assessment & Plan Remarks IMPRESSION Diabetic foot infection L, C/S MSSA and Enterococcus, with underlying PVD most likely - S/P LBKA Renal insufficiency, worse - started on HD Encephalopathy, etiology?, likely metabolic PVD UTI Known bladder tumors, previous TURBT, has progression; was lost to follow-up after his surgery RECOMMENDATION Continue IV Unasyn for now - will not need long course of IV - if more awake, possibly po and give at least 7 days total from date of amputation Monitor progress New C/S ordered by FM resident Spoke with Family D/W Roxi Tapia MD Dec 18, 2016 10:55
[2016-12-18] MEDS ORDERED: hydrALAZINE HCL 20 MG/ML VIAL IV PRN (12:00)
[2016-12-18] MEDS ORDERED: PHENYTOIN INJ 100 MG/2 ML VIAL IV SCH (12:30)
[2016-12-18] MEDS ORDERED: diphenhydrAMINE HCL 25 MG CAP PO PRN (13:00)
[2016-12-18] MEDS ORDERED: ONDANSETRON HCL 4 MG/2 ML VIAL IV PRN (13:00)
[2016-12-18] MEDS ORDERED: HEPARIN SODIUM - IV 10,000 UNITS/10 ML VIAL OTHER PRN (13:00)
[2016-12-18] MEDS ORDERED: NS 250 ML IV PRN (13:00)
[2016-12-18] MEDS ORDERED: ALBUMIN HUMAN 25% 25 GM/100 ML BAGP IV PRN (13:00)
[2016-12-18] MEDS ORDERED: NITROGLYCERIN 0.4 MG SL 25 TABS/BTL SL PRN (13:00)
[2016-12-18] MEDS ORDERED: HEPARIN SODIUM - IV 10,000 UNITS/10 ML VIAL IV FLUSH PRN (13:00)
[2016-12-18] MEDS ORDERED: SODIUM CHLORIDE 0.9% FLUSH 10 ML FLUSH IV FLUSH PRN (13:00)
[2016-12-18] MEDS ORDERED: cloNIDine HCL 0.1 MG TAB PO PRN (13:00)
[2016-12-18] MEDS ORDERED: SODIUM CHLOR 0.9% 1000 ML IV PRN ×2 (13:00)
[2016-12-18] MEDS ORDERED: ACETAMINOPHEN 325 MG TAB PO PRN (13:00)
[2016-12-18] MEDS ORDERED: GELATIN 12 MM/7 MM FOAM TOPICAL PRN (13:00)
[2016-12-18] MEDS ORDERED: MANNITOL 12.5 GM/50 ML VIAL IV PRN (13:00)
--- NOTE | 2016-12-18 13:06 | MB ---
cc: EVIE DANIELLE MD DATE OF CONSULTATION: 12/18/2016 REASON FOR CONSULTATION: Elevated troponin. HISTORY OF PRESENT ILLNESS: Mr. Kerr is an 80 year old man who does have a history of coronary artery disease. He had an LAD stent by Dr. Bishop for an acute ST elevation myocardial infarction in 2009. Subsequently he had a stent of his ramus and Percutaneous transluminal coronary angioplasty of his left anterior descending by Dr. Escamilla in 2010. He subsequently was terminated from our practice and I have seen him seeing him pharmacy innovation assistant today. The patient is status post recent left below-knee amputation for gangrene. He was noted to have elevated cardiac enzymes and cardiology was subsequently requested to evaluated the patient. He is not able to give any history today. His daughter who was in the room notes that he has not had any chest pain to her knowledge. PAST MEDICAL HISTORY: 1. Significant for hypertension. 2. Hyperlipidemia. 3. Diabetes. 4. Coronary artery disease with two prior stents as above. 5. Congestive heart failure. 6. Atrial fibrillation. 7. Chronic obstructive pulmonary disease. 8. Cerebrovascular accident. 9. Seizures. ALLERGIES NO KNOWN DRUG ALLERGIES MEDICATIONS: As per the record. FAMILY HISTORY: Positive for coronary artery disease. SOCIAL HISTORY: The patient is a former heavy drinker and has over 50 pack years smoking history. REVIEW OF SYSTEMS Unable. PHYSICAL EXAMINATION: VITAL SIGNS: Temperature 98.4, 65, 20, 212/86. IN GENERAL: He is a well appearing elderly man who is in no apparent distress. NECK: His neck is free from jugular venous distention. LUNGS: The lungs were bilaterally clear to auscultation. CARDIOVASCULAR SYSTEM: He has irregular rhythm, no rubs, gallops were appreciated. ABDOMEN: The abdomen is soft. EXTREMITIES: The left extremity has below-knee amputation and is wrapped. The right lower extremity has a 2+ dorsalis pedis pulse and no edema. LABORATORY FINDINGS: Values significant for white count of 18.1. His creatinine is 4.43, the CK-MB % is 1.3 and troponin is 44. Elevated troponin - while the patient certainly does have a history of prior coronary artery disease. He is pain free. The MB% is negative. His renal insufficiency and uncontrolled hypertension may have contributed to his elevated troponin. He had a recent echocardiogram on 12/08 that showed normal left ventricular function. No further work up is indicated at this time as it does not appear to be ischemic mediated. History of coronary artery disease - the patient is seemingly stable at this time. He is chest pain free. He is not a good revascularization candidate secondary to his comorbid conditions. Hypertension - this is being managed by renal. End-stage renal disease on dialysis - this is also per nephrology. I will be available on as needed basis. Evie Danielle M.D. Giuseppe /12:42 PM /12:50 PM
[2016-12-18] MEDS: GENTAMICIN SULFATE (DIALYSIS USE ONLY) 20 MG/2 ML VIAL OTHER PRN (13:33)
--- NOTE | 2016-12-18 15:07 | EKG ---
Date Performed: 12/17/2016 Time Performed: 18:43:30 PTAGE: 81 years EKG: ATRIAL FIBRILLATION WITH SLOW VENTRICULAR RESPONSE MARKED LEFT AXIS DEVIATION MINIMAL ST DE PRESSION Poor R wave progression, probable anteroseptal injury, age undetermined ABNORMAL ECG PREVIOUS TRACING : 12/17/2016 10.03 DOCTOR: Arcadio Caputo Interpretating Date/Time 12/18/2016 15:06:05
[2016-12-18] MEDS: ENALAPRILAT 1.25 MG/ML VIAL IV PUSH PRN ×2 (16:25→21:26)
--- NOTE | 2016-12-18 17:08 | HHI.NPPN ---
Subjective History of Present Illness 80 year old with gangrene Left foot diabetes Additional Remarks Patient is more alert, still confused, not following verbal commands, not in distress. Review of Systems Musculoskeletal MS: Pain/Stiffness Objective Data Data 12/17/16 12/18/16 19:00 07:00 Output Total 2000 ml 1000 ml Balance -2000 ml -1000 ml Output Urine Total 1000 ml Hemodialysis 2000 ml Vital Signs Date Time Temp Pulse Resp B/P Pulse Ox O2 Delivery O2 Flow Rate FiO2 12/18/16 15:03 98.0 60 16 143/53 91 12/18/16 11:00 98.4 65 20 212/86 95 12/18/16 08:43 97 Nasal Cannula 3.00 12/18/16 08:00 98.5 62 20 187/79 95 12/18/16 04:00 97.8 63 18 158/70 96 12/18/16 00:00 98.4 74 18 128/74 98 12/17/16 20:56 98.5 64 18 130/78 97 -: 12/18/16 0518 12/18/16 0518 Microbiology 12/18/16 Aerobic Blood Culture, Received Pending 12/18/16 Anaerobic Blood Culture, Received Pending 12/18/16 Aerobic Blood Culture, Received Pending 12/18/16 Anaerobic Blood Culture, Received Pending Physical Exam General Appearance: No Acute Distress, Comfortable, Pale, Malnourished Eyes Eye Exam: Pupils Equal Throat Throat Exam: Oral Mucosa [place] & Moist Neck Neck Exam: Neck Supple Pulmonary Resp Exam: Breath Sounds Equal, No Distress, Rhonchi, Decreased Bases, Diminished Breath Sounds Cardiology CV Exam: Regular, Normal Sinus Rhythm Gastrointestinal/Abdomen GI Exam: Soft, Non-Tender, Bowel Sounds Present Extremeties Extremities Exam: Trace Edema Neurologic Neuro Exam: Awake Assessment/Plan Problem List: (1) Acute renal failure Plan: Patient has worsening Creatinine. Urine out put is decreased. Seen by Neurology, possibly has metabolic Encephalopathy. Started on HD and has 2nd treatment today. Mental status is slightly better. Follow urine out put , which is minimal. HD as needed. (2) Gas gangrene of foot Plan: S/P L BKA (3) DM (diabetes mellitus) Plan: Follow BG Problem Qualifiers (1) DM (diabetes mellitus): Qualified Code: 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, with long-term current use of insulin Mary Anne Morelos MD Dec 18, 2016 17:07
[2016-12-18] MEDS: TERAZOSIN HCL 1 MG CAP PO SCH (21:00)
[2016-12-18] MEDS: ATORVASTATIN 20 MG TAB PO SCH (21:00)
[2016-12-18 23:19] LABS: AUTOMATED NEUTROPHIL # 15.7 TH/MM3 (1.8-7.7); BASOPHIL # 0.2 TH/MM3 (0-0.2); BASOPHIL % 1.1 % (0.0-2.0); EOSINOPHIL # 0.3 TH/MM3 (0-0.4); EOSINOPHIL % 1.5 % (0.0-4.0); HEMATOCRIT 30.6 % (39.0-51.0); LYMPHOCYTE # 1.2 TH/MM3 (1.0-4.8); MEAN CELL VOLUME 77.5 FL (80.0-100.0); MEAN CORPUSCULAR HEMOGLOBIN 25.4 PG (27.0-34.0); MEAN CORPUSCULAR HGB CONC 32.7 % (32.0-36.0); MONO % 8.9 % (0.0-8.0); NEUT % 82.5 % (16.0-70.0); PLATELET COUNT 250 TH/MM3 (150-450); RED BLOOD COUNT 3.94 MIL/MM3 (4.50-5.90); RED CELL DISTRIBUTION WIDTH 21.4 % (11.6-17.2); WHITE BLOOD COUNT 19.1 TH/MM3 (4.0-11.0)
[2016-12-18 23:20] LABS: HEMO FLAGS AUTO DIFF
[2016-12-19] VITALS (11 sets, daily range): BP systolic 159–198; BP diastolic 74–103; PULSE 49–72; RESP 17–60; TEMP 96.5–98.4; O2SAT 93–98
[2016-12-19 00:21] LABS: BANDS 1 % (0-6); EOSINOPHILS 1 % (0-4); METAMYELOCYTES 1 % (0-1); NEUTROPHIL # MANUAL DIFF 16.2 TH/MM3 (1.8-7.7); POLYS (SEG NEUTROPHILS) 82 % (16-70); PROMYELOCYTES 1 % (0-0); SCAN/DIFF FINAL DIFF MANUAL; WBC DIFF SAMPLE 100
[2016-12-19 00:23] LABS: PLATELET ESTIMATE SMEAR NORMAL (NORMAL); PLATELET MORPHOLOGY NORMAL (NORMAL); TOXIC GRANULATION 1+ (NORMAL)
[2016-12-19 00:24] LABS: ACANTHOCYTES OCC (NORMAL); KERATOCYTES OCC (NORMAL); OVALOCYTES 1+ (NORMAL)
[2016-12-19] MEDS: AMPICILLIN-SULBACTAM INJ 1,500 MG in SODIUM CHLORIDE 0.9% INJ 100 ML IV SCH ×3 (00:58→17:00)
[2016-12-19] MEDS: PANTOPRAZOLE SODIUM 40 MG VIAL IV PUSH SCH ×2 (02:12→17:04)
[2016-12-19] MEDS: ENALAPRILAT 1.25 MG/ML VIAL IV PUSH PRN (02:16)
[2016-12-19] MEDS: MORPHINE SULFATE 4 MG/ML INJ IV PRN ×4 (03:29→20:22)
[2016-12-19] MEDS: INSULIN ASPART SUPPLEMENTAL SCALE SQ SCH ×4 (06:14→21:00)
--- NOTE | 2016-12-19 08:53 | HHI.FPPN ---
Subjective Remarks Overnight BPs ranging as high as 200s/80s. Daughter states patient has shown signs of becoming more alert and responsive following dialysis. Familia is able to follow basic commands this morning and answer simple questions. He denies significant pain. (Tristian Chopra MD R1) Objective Vitals Vital Signs Date Time Temp Pulse Resp B/P Pulse Ox O2 Delivery O2 Flow Rate FiO2 12/19/16 08:00 98.4 60 17 174/75 95 12/19/16 04:00 97.7 62 20 183/103 95 12/19/16 00:42 57 180/74 97 12/19/16 00:00 98.3 60 20 179/74 94 12/18/16 20:00 98.9 55 19 175/78 96 12/18/16 18:55 99.1 54 16 170/75 96 12/18/16 18:40 98.1 52 16 191/84 96 12/18/16 18:25 97.8 50 16 198/82 96 12/18/16 16:25 98.8 62 16 200/83 92 12/18/16 16:10 98.6 66 16 208/86 95 12/18/16 15:55 99.3 58 16 182/76 95 12/18/16 15:40 98.6 67 16 171/118 94 12/18/16 15:03 98.0 60 16 143/53 91 12/18/16 11:00 98.4 65 20 212/86 95 12/18/16 08:43 97 Nasal Cannula 3.00 I/O 12/18/16 12/18/16 12/18/16 12/19/16 12/19/16 12/19/16 07:00 15:00 23:00 07:00 15:00 23:00 Output Total 400 ml 3100 ml 175 ml 100 ml Balance -400 ml -3100 ml -175 ml -100 ml Output Urine Total 400 ml 400 ml 175 ml 100 ml Hemodialysis 2700 ml # Bowel Movements 0 (Tristian Chopra MD R1) Result Diagram: 12/18/16 2257 12/18/16 0518 Objective Remarks GEN: Lying flat in bed. Slightly moaning, but in NAD. CV: Normal rate, irregular rhythm. No obvious murmurs. LUNGS: Scattered expiratory wheezing bilaterally. No rales or rhonchi. No increased WOB. Normal respiratory rate.. EXT: Left BKA with donald wrapping. PT and DP pulses 2+ right foot. NEURO/PSYCH: Pt slightly more alert this morning. Able to follow basic one- step commands. Opens eyes to name. Pupils equal round and reactive to light. Neuro exam limited given inability of patient to follow commands. Patient able to collar stay fuser tender with left hand. slight collar stay fuser tender with right hand. : Stein catheter in place (Tristian Chopra MD R1) A/P Assessment and Plan 80-year-old male admitted due to L 5th toe osteomyelitis s/p L BKA on 12/15. Patient had stroke-like symptoms on 12/17, neurology consulted. MRI and CT negative. Patient most likely had metabolic encephalopathy due to acute renal failure. Discharge Planning Unclear timetable, pending vascular surgery recommendations Case management consulted for home health with PT and home O2 (Tristian Chopra MD R1) Attending Attestation Pt. examined and case discussed with resident physicians I have read the above note and agree with the assessment/plan as discussed with me I was involved in all medical decision making for this patient Tae Hoskins MD (Tae Hoskins MD) Problem List: (1) Metabolic encephalopathy Status: Acute Plan: - Patient with stroke-like symptoms vs acute toxic metabolic encephalopathy - Patient's symptoms seem to be improving s/p dialysis x2; continue dialysis as needed per nephrology - Noncontrast head CT negative for acute intracranial process - MRI revealed chronic atrophic and small vessel ischemic changes, no acute hemorrhage or mass effect - Neurology consulted, appreciate recs - Nephrology consulted, appreciated recs - Monitor electrolytes, I/Os, avoid nephrotoxins and [employer] depressants (2) Acute renal failure Status: Acute Plan: Cr downtrending following dialysis - Nephrology following, appreciated recs - May be pre-renal or possibility of acute tubular necrosis or intersitial nephritis due to antibiotics vs infection - will check urine sodium osmolality and urine for eosinophils, urine eosinophils was negative about a week ago -Albumin 25 gm IV q12 -will continue to follow BUN and Cr - Troponin elevated at 2.44 12/17, after pt received dialysis, troponin still elevated at 2.28. Cardiology consulted. Elevated troponin most likely due to ARF. -BNP 1186 (12/14) - Follow with daily BMPs - Avoid nephrotoxic agents - Monitor I/Os (3) GI bleed Status: Acute Plan: S/p 2 units of PRBCs followed by furosemide 20 mg IV on 12/18; Hgb improved to 10.0 yesterday, continue to monitor -Unknown source for Hgb declining, will continue to trend H/H -Will consider GI reconsult if Hgb continues to decline -Pt received 2 units of PRBCs on 12/15/16 for Hbg of 6.9 GI consulted, recommendations appreciated EGD/Colonoscopy 12/13 showing reflux esophagitis, hiatal hernia, colonic polyp, incomplete evaluation of the colon Recommend EGD & colonoscopy in 2-3 months Continue PPI GI signed off Started ferrous sulfate 12/14 325mg PO bid (4) Hypertension Status: Chronic Plan: Pt is currently NPO. Will switch to IV hydralazine for BP control. All other PO meds below held for now. Awaiting ST swallow eval Will re-start home antihypertensives if patient passes swallow eval -Elevated BP since admission, PO meds currently on hold. Home lisinopril held due to MIKE * Amlodipine 10 mg po daily * Hydralazine 100 mg po q8h * Carvedilol 6.25 mg po bid * Clonidine 0.1 mg po q12h scheduled * Clonidine 0.1 mg po q6h prn BP > 180/100 (5) Gas gangrene of foot Status: Acute Plan: Post- op Day #3 S/p left Below- knee amputation on 12/15 Continue antibiotics as below: - Unasyn 1500 mg IV q8h per ID(12/14-) -Pain control with Beccaria and morphine prn - vascular surgery, Podiatry, and ID following -Pt will require rehabilitation and long term placement -S/p fifth toe amputation with fifth metatarsal resection by podiatry 12/07. -Bone pathology showing gangrenous necrosis and osteomyelitis left fifth toe and metatarsal bone section -Discontinued Vancomycin per ID (started 12/06- 12/14) -Discontinued Zosyn Wound cultures returning with MSSA and group D enterococcus Blood cultures 12/06 no growth after 5 days (6) Bladder tumor Status: Acute Plan: Urology consulted and following patient. Patient's daughter does state that he did refuse urologic intervention several weeks ago when it was recommended by his primary care provider - If he continues to refuse urologic intervention, patient may be hospice appropriate - Case discussed with Dr. Parham 12/10. 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 Daily BMP to monitor Cr * Baseline Cr currently unknown, last recording creatinine was 1.52 from 2016 (7) CHF (congestive heart failure) Status: Chronic Plan: Echocardiogram performed with limited visualization of the left ventricular function - Left ventricular function grossly normal BNP equivocal on admission. Clinically does not appear to be in CHF exacerbation. Medications: * Currently holding DONALD inhibitor due to acute renal failure (8) UTI (urinary tract infection) Status: Resolved Plan: Urinalysis consistent with infection - Continue abx as described under gangrene as that would provide adequate coverage - UA 12/06 with large occult blood - Repeat UA 12/10 showing large occult blood, neg nitrite, small LE - Urine culture 12/06: 25-50,000 cfus Staph Aureus - Repeat urine culture 12/10 no growth after 48 hours (9) DM (diabetes mellitus) Status: Chronic Plan: Diabetes relatively well-controlled with glucose ranging from 100 to 130s - Hemoglobin A1c of 6.8% - Hold home levemir - Low dose Sliding Scale w/ Novolog, titrate as needed (10) COPD (chronic obstructive pulmonary disease) Status: Chronic Plan: Known history of COPD. Received Solu-Medrol 125 mg 1 in the emergency department. - ABX coverage through osteo treatment Medications: * Continue albuterol inhaler * Continue DuoNeb's every 4 hours with albuterol PRN * Continue symbicort * Antibiotics as above (11) Seizure disorder Status: Chronic Plan: Pt NPO as of now pending swallow eval per ST. Continue IV Dilantin (12) Atrial fibrillation Status: Chronic Plan: [id number] score of 6, would benefit from anticoagulation once clinically stable. Currently rate controlled. -Not currently anticoagulated due to possibility of GI bleed and hematuria from bladder masses (13) CAD (coronary artery disease) Status: Chronic Plan: h/o CAD with 2 stents placed, takes Aspirin 81 mg daily at home, atorvastatin 20mg, no complaints of angina -continue home atorvastatin -holding Aspirin due to GI bleed (14) Nutrition, metabolism, and development symptoms Status: Acute Plan: Diet: NPO for now until swallow eval per ST Fluids: Sodium bicarb wiht 1/2 NS at 100 cc/hr Electrolytes: monitor and replete as necessary DVT: holding anticoagulation due to GI bleed, Bilateral SCDs GI PPX: protonix (Tristian Chopra MD R1) Problem Qualifiers (1) GI bleed: Qualified Code: K92.2 - Gastrointestinal hemorrhage, unspecified gastrointestinal hemorrhage type (2) DM (diabetes mellitus): Qualified Code: 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, with long-term current use of insulin (3) CAD (coronary artery disease): Qualified Code: I25.10 - Coronary artery disease involving mary[place] igloo coronary artery of mary[place] igloo heart without angina pectoris Tristian Chopra MD R1 Dec 19, 2016 08:53 Tae Hoskins MD Dec 19, 2016 16:41
[2016-12-19] MEDS: THIAMINE HCL 100 MG TAB PO SCH (09:00)
[2016-12-19 09:15] LABS: AUTOMATED NEUTROPHIL # 12.4 TH/MM3 (1.8-7.7); BASOPHIL # 0.1 TH/MM3 (0-0.2); BASOPHIL % 0.7 % (0.0-2.0); EOSINOPHIL # 0.1 TH/MM3 (0-0.4); EOSINOPHIL % 0.7 % (0.0-4.0); HEMATOCRIT 28.3 % (39.0-51.0); HEMO FLAGS DIFF FINAL; LYMPH % 5.8 % (9.0-44.0); LYMPHOCYTE # 0.9 TH/MM3 (1.0-4.8); MEAN CELL VOLUME 76.7 FL (80.0-100.0); MEAN CORPUSCULAR HEMOGLOBIN 25.7 PG (27.0-34.0); MEAN CORPUSCULAR HGB CONC 33.6 % (32.0-36.0); MONO % 11.7 % (0.0-8.0); NEUT % 81.1 % (16.0-70.0); PLATELET COUNT 201 TH/MM3 (150-450); RED CELL DISTRIBUTION WIDTH 20.8 % (11.6-17.2); WHITE BLOOD COUNT 15.2 TH/MM3 (4.0-11.0)
[2016-12-19 09:41] LABS: BICARBONATE 23.9 MEQ/L (21.0-32.0); POTASSIUM 3.7 MEQ/L (3.5-5.1)
[2016-12-19] MEDS: ALBUMIN HUMAN 25% 25 GM/100 ML BAGP IV SCH ×2 (10:00→22:14)
[2016-12-19] MEDS: PHENYTOIN INJ 100 MG/2 ML VIAL IV SCH ×2 (10:45→22:15)
[2016-12-19] MEDS: SODIUM BICARBONATE 8.4% INJ 75 MEQ in SODIUM CHLOR 0.45% 1000 ML INJ 1,000 ML IV SCH (12:55)
--- NOTE | 2016-12-19 13:06 | HHI.IDPN ---
Subjective Subjective Remarks Patient is an 80-year-old male, admitted to the hospital for further evaluation of his left foot. He apparently was noted to have a callus on the lateral aspect of that foot. Over the last several weeks he was noted to be developing some drainage, and he was experiencing pain. There was no mention of any fever chills or sweats. On the day of admission, the patient slid and almost fell, and so the patient was brought to the hospital for further evaluation and treatment. It was also mentioned that there was some tea-colored urine. Apparently the patient was diagnosed to have bladder cancer, and had TURBT, but was lost to follow-up. Since that time he has had intermittent hematuria. He was diagnosed to have a diabetic foot infection with findings of gas in the foot. Patient underwent surgery and had amputation of his fifth digit and his fifth metatarsal. He also had evidence of urinary tract infection. Urine culture had MSSA. The initial foot culture had MSSA and enterococcus. Intraoperative culture from the foot grew MSSA. His blood cultures on admission are negative. CT of the abdomen and pelvis showed multiple masses in the urinary bladder. No hydronephrosis. His initial creatinine was 3+, and it went down to 2+. Today it up to 3+ again an infectious disease consultation has been requested to evaluate the patient. Patient has been getting intermittent vancomycin dosing depending on his random vancomycin levels. Patient underwent upper and lower endoscopy, with findings of some esophagitis, polyp, but the colonoscopy was incomplete. Over the last several days patient's by mouth intake has been poor. His urine output also recorded has been decreasing. Patient currently just received a medication, and has no pain. Patient's left foot is showing more evidence of gangrene, and further amputation is being discussed, and scheduled probably this weekend. Notes reviewed Temps ok Had HD yesterday Having swallowing evaluation Sitting at side of bed with PT and having swallowing assessment More awake and responding S/P L BKA 12/[address] - blood tinged Antibiotics Unasyn Lines PIV Past Medical History COPD DM requiring insulin Stroke CAD - two stents placed CHF Bladder cancer A fib - rate controlled Seizures Past Surgical History Bladder Cancer: tumor removal 2 cardiac stents Allergies: Coded Allergies: No Known Allergies (Verified , 10/11/15) Objective . Vital Signs Date Time Temp Pulse Resp B/P Pulse Ox O2 Delivery O2 Flow Rate FiO2 12/19/16 11:41 97.4 61 20 191/82 94 12/19/16 08:00 98.4 60 17 174/75 95 12/19/16 06:15 60 184/96 95 12/19/16 04:00 97.7 62 20 183/103 95 12/19/16 02:12 55 198/81 98 12/19/16 00:42 57 180/74 97 12/19/16 00:00 98.3 60 20 179/74 94 12/18/16 20:00 98.9 55 19 175/78 96 12/18/16 18:55 99.1 54 16 170/75 96 12/18/16 18:40 98.1 52 16 191/84 96 12/18/16 18:25 97.8 50 16 198/82 96 12/18/16 16:25 98.8 62 16 200/83 92 12/18/16 16:10 98.6 66 16 208/86 95 12/18/16 15:55 99.3 58 16 182/76 95 12/18/16 15:40 98.6 67 16 171/118 94 12/18/16 15:03 98.0 60 16 143/53 91 12/18/16 12/18/16 12/19/16 15:00 23:00 07:00 Output Total 3100 ml 175 ml 100 ml Balance -3100 ml -175 ml -100 ml Output Urine Total 400 ml 175 ml 100 ml Hemodialysis 2700 ml # Bowel Movements 0 . Laboratory Tests Test 12/18/16 12/18/16 12/19/16 05:18 22:57 08:39 White Blood Count 18.1 TH/MM3 19.1 TH/MM3 15.2 TH/MM3 Red Blood Count 2.92 MIL/MM3 3.94 MIL/MM3 3.70 MIL/MM3 Hemoglobin 7.0 GM/DL 10.0 GM/DL 9.5 GM/DL Hematocrit 21.6 % 30.6 % 28.3 % Mean Corpuscular Volume 74.0 FL 77.5 FL 76.7 FL Mean Corpuscular Hemoglobin 24.1 PG 25.4 PG 25.7 PG Mean Corpuscular Hemoglobin 32.5 % 32.7 % 33.6 % Concent Red Cell Distribution Width 20.5 % 21.4 % 20.8 % Platelet Count 211 TH/MM3 250 TH/MM3 201 TH/MM3 Mean Platelet Volume 7.7 FL 7.9 FL 7.8 FL Neutrophils (%) (Auto) 86.0 % 82.5 % 81.1 % Lymphocytes (%) (Auto) 5.3 % 6.0 % 5.8 % Monocytes (%) (Auto) 6.9 % 8.9 % 11.7 % Eosinophils (%) (Auto) 1.0 % 1.5 % 0.7 % Basophils (%) (Auto) 0.8 % 1.1 % 0.7 % Neutrophils # (Auto) 15.6 TH/MM3 15.7 TH/MM3 12.4 TH/MM3 Lymphocytes # (Auto) 1.0 TH/MM3 1.2 TH/MM3 0.9 TH/MM3 Monocytes # (Auto) 1.3 TH/MM3 1.7 TH/MM3 1.8 TH/MM3 Eosinophils # (Auto) 0.2 TH/MM3 0.3 TH/MM3 0.1 TH/MM3 Basophils # (Auto) 0.1 TH/MM3 0.2 TH/MM3 0.1 TH/MM3 CBC Comment DIFF FINAL AUTO DIFF DIFF FINAL Differential Comment FINAL DIFF MANUAL Differential Total Cells 100 Counted Neutrophils % (Manual) 82 % Band Neutrophils % 1 % Lymphocytes % 8 % Monocytes % 6 % Eosinophils % 1 % Neutrophils # (Manual) 16.2 TH/MM3 Metamyelocytes 1 % Promyelocytes 1 % Toxic Granulation 1+ Platelet Estimate NORMAL Platelet Morphology Comment NORMAL Ovalocytes 1+ Acanthocytes OCC Keratocytes OCC Laboratory Tests Test 12/18/16 12/19/16 05:18 08:39 Sodium Level 143 MEQ/L 142 MEQ/L Potassium Level 3.9 MEQ/L 3.7 MEQ/L Chloride Level 106 MEQ/L 102 MEQ/L Carbon Dioxide Level 21.1 MEQ/L 23.9 MEQ/L Anion Gap 16 MEQ/L 16 MEQ/L Blood Urea Nitrogen 82 MG/DL 60 MG/DL Creatinine 4.43 MG/DL 3.09 MG/DL Estimat Glomerular Filtration 13 ML/MIN 19 ML/MIN Rate Random Glucose 82 MG/DL 107 MG/DL Calcium Level 7.7 MG/DL 8.3 MG/DL Troponin I 2.28 NG/ML Microbiology Date/Time Procedure Status Source Growth 12/18/16 05:10 Aerobic Blood Culture - Preliminary Resulted Blood Peripheral NO GROWTH IN 1 DAY 12/18/16 05:10 Anaerobic Blood Culture - Preliminary Resulted Blood Peripheral NO GROWTH IN 1 DAY 12/18/16 05:29 Aerobic Blood Culture - Preliminary Resulted Blood Peripheral NO GROWTH IN 1 DAY 12/18/16 05:29 Anaerobic Blood Culture - Preliminary Resulted Blood Peripheral NO GROWTH IN 1 DAY Imaging Catheter Placement X-Ray 12/17/16 0700 Signed Impressions: Service Date/Time: Saturday, December 17, 2016 12:19 - CONCLUSION: Uncomplicated line placement as above. Prasad Tenorio Jr., MD Head CT 12/17/16 0000 Signed Impressions: Service Date/Time: Saturday, December 17, 2016 09:36 - CONCLUSION: 1. No acute intracranial abnormality is identified. 2. Chronic and stable changes include generalized atrophy and mild periventricular white matter low attenuation characteristic of chronic small vessel ischemic change. Meek Narayanan MD Brain MRI 12/17/16 0000 Signed Impressions: Service Date/Time: Saturday, December 17, 2016 16:15 - CONCLUSION: Chronic atrophic and small vessel ischemic changes without any evidence for acute hemorrhage or mass effect. Altagracia Grijalva MD Physical Exam GENERAL: Awake and following commands SKIN: Warm and dry. No generalized rash HEAD: Atraumatic. Normocephalic. No temporal wasting, or tenderness. EYES: Powderly conjunctiva. No petechia or hemorrhage. Pupils equal, round and reactive to light. No scleral icterus. No injection or drainage. EARS, NOSE AND THROAT: Nose without bleeding or purulent nasal discharge. Mucous membranes pink and moist. NECK: Trachea midline. Supple and not tender, no meningeal signs CARDIOVASCULAR: Regular rate and rhythm. No murmurs, rubs or gallops heard RESPIRATORY: Breath sounds equal bilaterally. No rales, wheezing or rhonchi. Decreased breath sounds at the bases ABDOMEN: Soft, mildly distended, not tender, no guarding or rebound. Bowel sounds present and normoactive. EXTREMITIES: No clubbing, cyanosis, or edema in RLE. LBKA dressing with sdry dressing . NEUROLOGICAL: Awake and restless PSYCHIATRIC: Unable to assess. LINE: No evidence of infection : Stein in place, blood tinged urine Assessment & Plan Remarks IMPRESSION Diabetic foot infection L, C/S MSSA and Enterococcus, with underlying PVD most likely - S/P LBKA Renal insufficiency, worse - started on HD Encephalopathy, etiology?, likely metabolic PVD UTI Known bladder tumors, previous TURBT, has progression; was lost to follow-up after his surgery RECOMMENDATION Continue IV Unasyn for now - will not need long course of IV - swallowing better, change to po Abx Monitor progress Spoke with Family Roxi Truong MD Dec 19, 2016 13:06
--- NOTE | 2016-12-19 16:53 | HHI.NPPN ---
Subjective History of Present Illness 80 year old with gangrene Left foot diabetes Additional Remarks Patient is sleepy after given Morphine, was more awake as per daughter, not in distress. Review of Systems Musculoskeletal MS: Pain/Stiffness Objective Data Data 12/18/16 12/19/16 19:00 07:00 Output Total 3100 ml 275 ml Balance -3100 ml -275 ml Output Urine Total 400 ml 275 ml Hemodialysis 2700 ml # Bowel Movements 0 Vital Signs Date Time Temp Pulse Resp B/P Pulse Ox O2 Delivery O2 Flow Rate FiO2 12/19/16 16:00 97.8 49 19 168/86 95 12/19/16 14:03 93 Nasal Cannula 3.00 12/19/16 11:41 97.4 61 20 191/82 94 12/19/16 08:00 98.4 60 17 174/75 95 12/19/16 06:15 60 184/96 95 12/19/16 04:00 97.7 62 20 183/103 95 12/19/16 02:12 55 198/81 98 12/19/16 00:42 57 180/74 97 12/19/16 00:00 98.3 60 20 179/74 94 12/18/16 20:00 98.9 55 19 175/78 96 12/18/16 18:55 99.1 54 16 170/75 96 12/18/16 18:40 98.1 52 16 191/84 96 12/18/16 18:25 97.8 50 16 198/82 96 -: 12/19/16 0839 12/19/16 0839 Physical Exam General Appearance: No Acute Distress, Comfortable, Pale, Malnourished Eyes Eye Exam: Pupils Equal Throat Throat Exam: Oral Mucosa Crum & Moist Neck Neck Exam: Neck Supple Pulmonary Resp Exam: Breath Sounds Equal, No Distress, Rhonchi, Decreased Bases, Diminished Breath Sounds Cardiology CV Exam: Regular, Normal Sinus Rhythm Gastrointestinal/Abdomen GI Exam: Soft, Non-Tender, Bowel Sounds Present Extremeties Extremities Exam: Trace Edema Neurologic Neuro Remarks sleepy. Assessment/Plan Problem List: (1) Acute renal failure Plan: Patient has worsening Creatinine. Urine out put is slightly better, bloody. Seen by Neurology, possibly has metabolic Encephalopathy. Started on HD and has 2nd treatment yesterday. Mental status is slightly better. Follow the BMP and HD as needed. 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
[2016-12-19] MEDS ORDERED: cloNIDine HCL 0.2 MG/24 HR PATCH T-DERMAL SCH (17:00)
--- NOTE | 2016-12-19 20:22 | HHI.PR ---
Review/Management Diagnosis metabolic encephalopathy--improving Diagnosis/Plan: Subjective Subjective Comments No acute events reported More alert Active Medications Current Medications Medications (Trade) Dose Ordered Sig/Barbara Route Start Time Stop Time Status Last Admin (NS Flush) 2 ml UNSCH PRN IV FLUSH 12/06/16 21:15 (NS Flush) 2 ml BID IV FLUSH 12/07/16 09:00 12/18/16 09:00 (Tylenol) 650 mg Q4H PRN PO 12/06/16 21:15 (Zofran Inj) 4 mg Q6H PRN IVP 12/06/16 21:15 (Christine-Colace) 1 tab BID PO 12/07/16 09:00 12/16/16 20:38 (Milk Of Magnesia Liq) 30 ml Q12H PRN PO 12/06/16 21:15 (Senokot) 17.2 mg Q12H PRN PO 12/06/16 21:15 (Dulcolax Supp) 10 mg DAILY PRN RECTAL 12/06/16 21:15 (Lactulose Liq) 30 ml DAILY PRN PO 12/06/16 21:15 (Vitamin B1) 100 mg DAILY PO 12/07/16 09:00 12/16/16 09:21 (Romazicon Inj) 0.2 mg Q1M PRN IV PUSH 12/06/16 21:30 (Ativan) 1 mg Q4H PRN PO 12/06/16 21:30 (Ativan) 2 mg Q2H PRN PO 12/06/16 21:30 12/06/16 22:45 (Ativan Inj) 2 mg Q1H PRN IV PUSH 12/06/16 21:30 (Ativan Inj) 2 mg Q15M PRN IV PUSH 12/06/16 21:30 (Ventolin Hfa Inh) 2 puff Q4HR PRN INH 12/06/16 21:45 (Norvasc) 10 mg DAILY PO 12/07/16 09:00 Hold 12/16/16 09:21 (Lipitor) 20 mg HS PO 12/07/16 21:00 12/16/16 20:38 (Symbicort 80-4.5 Mcg Inh) 2 puff Q12HR INH 12/07/16 09:00 12/17/16 21:17 (Hytrin) 1 mg HS PO 12/07/16 21:00 12/16/16 20:38 (Catapres) 0.1 mg Q6H PRN PO 12/06/16 23:15 12/12/16 17:09 (D50w (Vial) Inj) 50 ml UNSCH PRN IV 12/07/16 00:45 (Glucagon Inj) 1 mg UNSCH PRN OTHER 12/07/16 00:45 (Protonix Inj) 40 mg Q12H IV PUSH 12/07/16 02:00 12/19/16 17:04 (Tylenol) 650 mg Q6H PRN PO 12/07/16 12:00 (Pill Splitter) 1 ea UNSCH PRN OTHER 12/07/16 12:45 ([place] 5-325 Mg) 1 tab Q4H PRN PO 12/08/16 13:45 Hold 12/13/16 10:47 ([place] 7.5-325 Mg) 1 tab Q4H PRN PO 12/08/16 13:45 Hold 12/16/16 11:30 (Narcan Inj) 0.4 mg UNSCH PRN IV 12/08/16 13:45 (Coreg) 6.25 mg BID PO 12/11/16 14:30 Hold 12/16/16 20:39 (Apresoline) 100 mg Q8HR PO 12/12/16 22:00 Hold 12/17/16 06:43 (Catapres) 0.1 mg Q12HR PO 12/13/16 09:00 Hold 12/16/16 20:38 Ferrous Sulfate 325 mg 325 mg BID PO 12/14/16 12:30 12/16/16 20:39 (Sodium Bicarbonate 8.4% Inj/05/21 NS 1000 ml Inj) 1,075 ml @ 100 mls/hr [id number] IV 12/14/16 20:00 12/19/16 12:55 (Albumin 25% Inj) 25 gm Q12H IV 12/15/16 20:00 12/19/16 10:00 (NS Flush) UNSCH PRN IVF 12/17/16 13:00 Heparin Sodium (Porcine) UNSCH PRN IV FLUSH 12/17/16 13:00 12/18/16 13:33 Ampicillin Sodium/ Sulbactam Sodium 1500 mg/Sodium Chloride 100 ml @ 200 mls/hr Q8H IV 12/17/16 21:00 12/19/16 17:00 (NS 1000 ml Inj) 1,000 ml @ 0 mls/hr TITRATE PRN IV 12/18/16 13:00 Heparin Sodium (Porcine) 8000 units 8,000 units UNSCH PRN IV FLUSH 12/18/16 13:00 Sodium Chloride 1,000 ml @ 200 mls/hr Q5H PRN IV 12/18/16 13:00 (NS 250 ml Inj) 200 ml @ 0 mls/hr UNSCH PRN IV 12/18/16 13:00 (Mannitol Inj) 12.5 gm UNSCH PRN IV 12/18/16 13:00 (Albumin 25% Inj) 25 gm UNSCH PRN IV 12/18/16 13:00 (NS Flush) 5 ml UNSCH PRN IV FLUSH 12/18/16 13:00 (Heparin Inj) 1,000 units UNSCH PRN OTHER 12/18/16 13:00 (Gentamicin (Dialysis) Inj) 10 mg UNSCH PRN OTHER 12/18/16 12:00 12/18/16 13:33 (Gelfoam 12 Mm/7 Mm Top) 1 foam UNSCH PRN TOPICAL 12/18/16 13:00 (Zofran Inj) 4 mg UNSCH PRN IV 12/18/16 13:00 (Benadryl) 25 mg UNSCH PRN PO 12/18/16 13:00 (Nitrostat Sl) 0.4 mg UNSCH PRN SL 12/18/16 13:00 (Catapres) 0.1 mg UNSCH PRN PO 12/18/16 13:00 (Vasotec Inj) 1.25 mg Q6H PRN IV PUSH 12/18/16 13:38 12/19/16 02:16 (Dilantin Inj) 100 mg BID IV 12/18/16 21:00 12/19/16 10:45 (Morphine Inj) 4 mg Q3H PRN IV 12/19/16 00:00 12/19/16 10:51 (Catapres-Tts 0.2 Mg Patch.7d) 1 patch Q7D T-DERMAL 12/19/16 17:00 12/19/16 17:12 Allergies Allergies Coded Allergies No Known Allergies (Verified10/11/15) Review of Systems All other ROS: ROS reviewed as documented in chart Exam I&O / VS 12/18/16 12/18/16 12/19/16 15:00 23:00 07:00 Output Total 3100 ml 175 ml 100 ml Balance -3100 ml -175 ml -100 ml Output Urine Total 400 ml 175 ml 100 ml Hemodialysis 2700 ml # Bowel Movements 0 Vital Signs Date Time Temp Pulse Resp B/P Pulse Ox O2 Delivery O2 Flow Rate FiO2 12/19/16 19:34 49 12/19/16 16:00 97.8 49 19 168/86 95 12/19/16 14:03 93 Nasal Cannula 3.00 12/19/16 11:41 97.4 61 20 191/82 94 12/19/16 08:00 98.4 60 17 174/75 95 12/19/16 06:15 60 184/96 95 12/19/16 04:00 97.7 62 20 183/103 95 12/19/16 02:12 55 198/81 98 12/19/16 00:42 57 180/74 97 12/19/16 00:00 98.3 60 20 179/74 94 General: Alert and Oriented, No acute distress Eye: EOMI Respiratory: Non-labored respirations Neurologic: Alert, Oriented, Normal sensory, CN II-XII intact, Gag reflex normal, Normal DTR's Psychiatric: Cooperative, Appropriate mood & affect Exam Comments alert, follow commands Cn intact 5/5 BUE Objective Radiology Results MRI brain--atrophy, chronic ischemic demyelination . No sign of acute cva Micro and Labs Laboratory Tests Test 12/18/16 12/19/16 22:57 08:39 White Blood Count 19.1 15.2 Red Blood Count 3.94 3.70 Hemoglobin 10.0 9.5 Hematocrit 30.6 28.3 Mean Corpuscular Volume 77.5 76.7 Mean Corpuscular Hemoglobin 25.4 25.7 Mean Corpuscular Hemoglobin 32.7 33.6 Concent Red Cell Distribution Width 21.4 20.8 Platelet Count 250 201 Mean Platelet Volume 7.9 7.8 Neutrophils (%) (Auto) 82.5 81.1 Lymphocytes (%) (Auto) 6.0 5.8 Monocytes (%) (Auto) 8.9 11.7 Eosinophils (%) (Auto) 1.5 0.7 Basophils (%) (Auto) 1.1 0.7 Neutrophils # (Auto) 15.7 12.4 Lymphocytes # (Auto) 1.2 0.9 Monocytes # (Auto) 1.7 1.8 Eosinophils # (Auto) 0.3 0.1 Basophils # (Auto) 0.2 0.1 CBC Comment AUTO DIFF DIFF FINAL Differential Total Cells 100 Counted Neutrophils % (Manual) 82 Band Neutrophils % 1 Lymphocytes % 8 Monocytes % 6 Eosinophils % 1 Neutrophils # (Manual) 16.2 Metamyelocytes 1 Promyelocytes 1 Differential Comment FINAL DIFF MANUAL Toxic Granulation 1+ Platelet Estimate NORMAL Platelet Morphology Comment NORMAL Ovalocytes 1+ Acanthocytes OCC Keratocytes OCC Sodium Level 142 Potassium Level 3.7 Chloride Level 102 Carbon Dioxide Level 23.9 Anion Gap 16 Blood Urea Nitrogen 60 Creatinine 3.09 Estimat Glomerular Filtration 19 Rate Random Glucose 107 Calcium Level 8.3 Date/Time Procedure Status Source Growth 12/18/16 05:29 Aerobic Blood Culture - Preliminary Resulted Blood Peripheral NO GROWTH IN 1 DAY 12/18/16 05:29 Anaerobic Blood Culture - Preliminary Resulted Blood Peripheral NO GROWTH IN 1 DAY Melchor Dumont PhD Dec 19, 2016 20:22
[2016-12-19] MEDS: FERROUS SULFATE 325 MG (65 MG ELEMENTAL IRON) TAB PO SCH (21:00)
[2016-12-19] MEDS: ATORVASTATIN 20 MG TAB PO SCH (21:00)
[2016-12-19] MEDS: DOCUSATE SODIUM 50 MG/SENNA 8.6 MG TAB PO SCH (21:00)
[2016-12-19] MEDS: TERAZOSIN HCL 1 MG CAP PO SCH (21:00)
--- NOTE | 2016-12-19 22:01 | PD.CAR.PN ---
CVT Progress Note Subjective/Hospital Course: Records reviewed what patient was in some sort of x-ray study Full consult to follow after evaluation of the patient Thanks Trevor 12/11/16 Patient status post fifth toe amputation by podiatry Incision is healing nicely Patient is not a candidate for any vascular reconstruction in face of his age, systemic comorbidities and local factors. In face of elevated BUN/creatinine I will not even order CTA with runoff for the benefits of these studies will be exceeded by the risks 12/13/16 Patient with the large defect post left fifth toe and metatarsal amputation Deep defect toward of fourth metatarsal bone with exposure of the soft tissues and plantar area of the foot Discussed with Dr. Sheree Vallecillo. Patient is fairly ambulatory at this time and I would advise against transmetatarsal amputation in the face of patient's general condition and peripheral changes There is no vascular procedure to remedy this Will discuss with patient's daughter once she is in the room and will come back up tomorrow 12/14/16 Discussed the case with Dr. Sheree Vallecillo. 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 Now with additional bedridden status in the hospital I do not know how patient is going to get back on his feet. Nonetheless patient and family do not wish above-knee amputation so we will go ahead with below-knee amputation in anticipation of possible prosthesis I've explained to the family at length that then 80-year-old male who barely could walk before would not be a good candidate for prostetics. Patient will need below-knee amputation and possibly even above-knee amputation depending on the prospects of ambulation which is fairly poor 12/16/16 Patient is status post the below-knee amputation Dressing is intact and dry Pain management is under control Will keep the dressing on until tomorrow and then remove it at which point it will be changed daily This patient will definitely require rehabilitation and the fci placement he cannot go home with the fresh below-knee amputation because there is no question he'll fall again and break the stump opened Patient definitely cannot be discharged home because this will be an unsafe venue 12/17/16 Apparently patient had this morning an episode of decreased level of consciousness and being worked up for a stroke as we speak Left BKA dressing has been removed and amputation stump is clean and dry. No signs of ischemia We will redress slightly In face of delayed healing stitches should stay in for about 3 weeks 12/19/16 Stump is clean and dry well-perfused skin Dressing is clean Patient has posterior knee support in order to prevent the permanent flexion contracture of the knee Nothing to add to care Objective: Vital Signs Date Time Temp Pulse Resp B/P Pulse Ox O2 Delivery O2 Flow Rate FiO2 12/19/16 21:10 97.2 52 20 174/76 94 12/19/16 19:34 49 12/19/16 16:00 97.8 49 19 168/86 95 12/19/16 14:03 93 Nasal Cannula 3.00 12/19/16 11:41 97.4 61 20 191/82 94 12/19/16 08:00 98.4 60 17 174/75 95 12/19/16 06:15 60 184/96 95 12/19/16 04:00 97.7 62 20 183/103 95 12/19/16 02:12 55 198/81 98 12/19/16 00:42 57 180/74 97 12/19/16 00:00 98.3 60 20 179/74 94 Result Diagram: 12/19/16 0839 12/19/16 0839 Lavonne Hernandez MD Dec 19, 2016 22:01
[2016-12-19] MEDS: BUDESONIDE-FORMOTEROL 80/4.5 MCG INHALER INH SCH ×2 (22:13→22:27)
[2016-12-19] MEDS: SODIUM CHLORIDE 0.9% FLUSH 10 ML FLUSH IV FLUSH SCH (22:13)
[2016-12-20] VITALS (9 sets, daily range): BP systolic 164–199; BP diastolic 72–89; PULSE 42–71; RESP 13–20; TEMP 97.3–98.2; O2SAT 92–96
[2016-12-20] MEDS: AMPICILLIN-SULBACTAM INJ 1,500 MG in SODIUM CHLORIDE 0.9% INJ 100 ML IV SCH ×3 (00:26→15:34)
[2016-12-20] MEDS: PANTOPRAZOLE SODIUM 40 MG VIAL IV PUSH SCH ×2 (01:54→14:47)
[2016-12-20] MEDS: MORPHINE SULFATE 4 MG/ML INJ IV PRN ×2 (01:55→21:25)
[2016-12-20] MEDS: SODIUM BICARBONATE 8.4% INJ 75 MEQ in SODIUM CHLOR 0.45% 1000 ML INJ 1,000 ML IV SCH ×3 (05:00→21:25)
[2016-12-20] MEDS ORDERED: LORazepam 2 MG/ML VIAL IV PUSH ONE (05:30)
[2016-12-20] MEDS: ENALAPRILAT 1.25 MG/ML VIAL IV PUSH PRN (05:33)
[2016-12-20] MEDS: INSULIN ASPART SUPPLEMENTAL SCALE SQ SCH ×4 (06:35→21:00)
[2016-12-20 08:52] LABS: AUTOMATED NEUTROPHIL # 8.3 TH/MM3 (1.8-7.7); BASOPHIL # 0.1 TH/MM3 (0-0.2); BASOPHIL % 0.7 % (0.0-2.0); EOSINOPHIL # 0.2 TH/MM3 (0-0.4); EOSINOPHIL % 1.5 % (0.0-4.0); HEMATOCRIT 28.8 % (39.0-51.0); LYMPH % 8.1 % (9.0-44.0); LYMPHOCYTE # 0.9 TH/MM3 (1.0-4.8); MEAN CELL VOLUME 78.7 FL (80.0-100.0); MEAN CORPUSCULAR HEMOGLOBIN 25.4 PG (27.0-34.0); MEAN CORPUSCULAR HGB CONC 32.3 % (32.0-36.0); MONO % 13.7 % (0.0-8.0); PLATELET COUNT 183 TH/MM3 (150-450); RED BLOOD COUNT 3.67 MIL/MM3 (4.50-5.90); RED CELL DISTRIBUTION WIDTH 21.1 % (11.6-17.2)
[2016-12-20 08:59] LABS: HEMO FLAGS AUTO DIFF
[2016-12-20] MEDS: BUDESONIDE-FORMOTEROL 80/4.5 MCG INHALER INH SCH ×2 (09:00→21:25)
[2016-12-20] MEDS: THIAMINE HCL 100 MG TAB PO SCH (09:00)
[2016-12-20] MEDS: DOCUSATE SODIUM 50 MG/SENNA 8.6 MG TAB PO SCH ×2 (09:00→21:23)
[2016-12-20] MEDS: FERROUS SULFATE 325 MG (65 MG ELEMENTAL IRON) TAB PO SCH ×2 (09:00→21:23)
[2016-12-20] MEDS: ALBUMIN HUMAN 25% 25 GM/100 ML BAGP IV SCH ×2 (09:01→21:23)
[2016-12-20] MEDS: PHENYTOIN INJ 100 MG/2 ML VIAL IV SCH ×2 (09:05→21:24)
[2016-12-20] MEDS: SODIUM CHLORIDE 0.9% FLUSH 10 ML FLUSH IV FLUSH SCH ×2 (09:06→21:24)
[2016-12-20 09:17] LABS: BICARBONATE 27.2 MEQ/L (21.0-32.0)
--- NOTE | 2016-12-20 09:23 | HHI.FPPN ---
Subjective Remarks Resident team was paged overnight. at 0050, pt had an episode of transient Vtach. Also 05, pt was very agitated and given 2mg IV once dose of Ativan. Pt was able to fall asleep well afterwards. Pt still asleep this AM. Daughter at bedside. He is more alert today per daughter. No BM documented since 12/15. Pt received 2 treatment of dialysis two days ago. Afebrile. Last BP check elevated at 170/77. (Andie Nicholas MD R1) Objective Vitals Vital Signs Date Time Temp Pulse Resp B/P Pulse Ox O2 Delivery O2 Flow Rate FiO2 12/20/16 05:57 57 13 183/77 95 12/20/16 04:30 97.3 59 18 199/80 93 12/20/16 01:15 97.3 56 18 178/76 96 12/20/16 00:49 50 12/20/16 00:48 42 12/19/16 21:10 97.2 52 20 174/76 94 12/19/16 19:34 49 12/19/16 16:00 97.8 49 19 168/86 95 12/19/16 14:03 93 Nasal Cannula 3.00 12/19/16 11:41 97.4 61 20 191/82 94 I/O 12/19/16 12/19/16 12/19/16 12/20/16 12/20/16 12/20/16 07:00 15:00 23:00 07:00 15:00 23:00 Intake Total 400 ml Output Total 100 ml 700 ml Balance -100 ml -700 ml 400 ml IV Total 400 ml Output Urine Total 100 ml 700 ml # Bowel Movements 0 0 (Andie Nicholas MD R1) Result Diagram: 12/20/16 0758 12/20/16 0758 Imaging Last Impressions Catheter Placement X-Ray 12/17/16 0700 Signed Impressions: Service Date/Time: Saturday, December 17, 2016 12:19 - CONCLUSION: Uncomplicated line placement as above. Prasad Tenorio Jr., MD Head CT 12/17/16 0000 Signed Impressions: Service Date/Time: Saturday, December 17, 2016 09:36 - CONCLUSION: 1. No acute intracranial abnormality is identified. 2. Chronic and stable changes include generalized atrophy and mild periventricular white matter low attenuation characteristic of chronic small vessel ischemic change. Meek Narayanan MD Brain MRI 12/17/16 0000 Signed Impressions: Service Date/Time: Saturday, December 17, 2016 16:15 - CONCLUSION: Chronic atrophic and small vessel ischemic changes without any evidence for acute hemorrhage or mass effect. Altagracia Grijalva MD Chest X-Ray 12/08/16 0000 Signed Impressions: Service Date/Time: Thursday, December 08, 2016 14:05 - CONCLUSION: Tiny bilateral pleural effusions. Altagracia Grijalva MD Abdomen Ultrasound 12/07/16 0026 Signed Impressions: Service Date/Time: Wednesday, December 07, 2016 09:34 - CONCLUSION: 1. 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 Cystoscopy and biopsy recommended. 2. Nonvisualization of the pancreas. 3. Kidneys are borderline echogenic. 4. Minimal free fluid in Faulkner's pouch. Sal Chowduhry MD Foot MRI 12/07/16 0000 Signed Impressions: Service Date/Time: Wednesday, December 07, 2016 09:01 - CONCLUSION: 1. Osteomyelitis of the fifth metatarsal head and proximal phalanx of the fifth toe. Sal Chowdhury MD Abdomen/Pelvis CT 12/07/16 0000 Signed Impressions: Service Date/Time: Thursday, December 08, 2016 10:46 - CONCLUSION: Multiple bladder masses suspicious for malignancy. Altagracia Grijalva MD Foot X-Ray 12/06/16 1747 Signed Impressions: Service Date/Time: November 18:08 - CONCLUSION: No obvious bone destruction at this time. Soft tissue emphysema is noted in and around the fifth MTP joint soft tissues. The possibility of infection with gas-forming organism should be excluded. Dean Burton MD Objective Remarks GEN: Lying flat in bed. sleeping, in NAD CV: Normal rate, irregular rhythm. No obvious murmurs. LUNGS: Scattered expiratory wheezing bilaterally. No rales or rhonchi. No increased WOB. Normal respiratory rate.. EXT: Left BKA with donald wrapping. PT and DP pulses 2+ right foot. NEURO/PSYCH: Pt more alert this morning per daughter. : Stein catheter in place (Andie Nicholas MD R1) A/P Assessment and Plan 80-year-old male admitted due to L 5th toe osteomyelitis s/p L BKA on 12/15. Patient had stroke-like symptoms on 12/17, neurology consulted. MRI and CT negative. Patient most likely had metabolic encephalopathy due to acute renal failure. Discharge Planning Unclear timetable, pending vascular surgery recommendations Case management consulted for home health with PT and home O2 Palliative consulted for assistance with long-term goals (Andie Nicholas MD R1) Attending Attestation Pt. examined and case discussed with resident physicians I have read the above note and agree with the assessment/plan as discussed with me I was involved in all medical decision making for this patient Tae Hoskins MD (Tae Hoskins MD) Problem List: (1) Metabolic encephalopathy Status: Acute Plan: - Patient with stroke-like symptoms vs acute toxic metabolic encephalopathy - Patient's symptoms seem to be improving s/p dialysis x2; continue dialysis as needed per nephrology - Noncontrast head CT negative for acute intracranial process - MRI revealed chronic atrophic and small vessel ischemic changes, no acute hemorrhage or mass effect - Neurology consulted, appreciate recs - Nephrology consulted, appreciated recs - Monitor electrolytes, I/Os, avoid nephrotoxins and 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 Cardiology consulted. Elevated troponin most likely due to ARF. -BNP 1186 (12/14) - Follow with daily BMPs - Avoid nephrotoxic agents - Monitor I/Os (3) Hypertension Status: Chronic Plan: Pt is currently NPO. IV Vasotec and Clonidine patch for BP control. All other PO meds below held for now. Awaiting ST swallow eval Will re-start home antihypertensives if patient passes swallow eval Will transfer pt to another floor for IV hydralazine if needed for BP control -Elevated BP since admission, PO meds currently on hold. Home lisinopril held due to MIKE * Amlodipine 10 mg po daily * Hydralazine 100 mg po q8h * Carvedilol 6.25 mg po bid * Clonidine 0.1 mg po q12h scheduled * Clonidine 0.1 mg po q6h prn BP > 180/100 (4) GI bleed Status: Acute Plan: S/p 2 units of PRBCs followed by furosemide 20 mg IV on 12/18; Hgb 9.3 today continue to monitor -Unknown source for Hgb declining, will continue to trend H/H -Will consider GI reconsult if Hgb continues to decline -Pt received 2 units of PRBCs on 12/15/16 for Hbg of 6.9 GI consulted, recommendations appreciated EGD/Colonoscopy 12/13 showing reflux esophagitis, hiatal hernia, colonic polyp, incomplete evaluation of the colon Recommend EGD & colonoscopy in 2-3 months Continue PPI GI signed off Started ferrous sulfate 12/14 325mg PO bid (5) Gas gangrene of foot Status: Acute Plan: Post- op Day #4 S/p left Below- knee amputation on 12/15 Continue antibiotics as below: - Unasyn 1500 mg IV q8h per ID(12/14-) -Pain control with [place] and morphine prn - vascular surgery, Podiatry, and ID following -Pt will require rehabilitation and correction placement -S/p fifth toe amputation with fifth metatarsal resection by podiatry 12/07. -Bone pathology showing gangrenous necrosis and osteomyelitis left fifth toe and metatarsal bone section -Discontinued Vancomycin per ID (started 12/06- 12/14) -Discontinued Zosyn Wound cultures returning with MSSA and group D enterococcus Blood cultures 12/06 no growth after 5 days (6) Bladder tumor Status: Acute Plan: Urology consulted and following patient. Patient's daughter does state that he did refuse urologic intervention several weeks ago when it was recommended by his primary care provider - If he continues to refuse urologic intervention, patient may be hospice appropriate - Case discussed with Dr. Parham 12/10. 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 Daily BMP to monitor Cr * Baseline Cr currently unknown, last recording creatinine was 1.52 from 2016 (7) CHF (congestive heart failure) Status: Chronic Plan: Echocardiogram performed with limited visualization of the left ventricular function - Left ventricular function grossly normal BNP equivocal on admission. Clinically does not appear to be in CHF exacerbation. Medications: * Currently holding DONALD inhibitor due to acute renal failure (8) UTI (urinary tract infection) Status: Resolved Plan: Urinalysis consistent with infection - Continue abx as described under gangrene as that would provide adequate coverage - UA 12/06 with large occult blood - Repeat UA 12/10 showing large occult blood, neg nitrite, small LE - Urine culture 12/06: 25-50,000 cfus Staph Aureus - Repeat urine culture 12/10 no growth after 48 hours (9) DM (diabetes mellitus) Status: Chronic Plan: Diabetes relatively well-controlled with glucose ranging from 100 to 130s - Hemoglobin A1c of 6.8% - Hold home levemir - Low dose Sliding Scale w/ Novolog, titrate as needed (10) COPD (chronic obstructive pulmonary disease) Status: Chronic Plan: Known history of COPD. Received Solu-Medrol 125 mg 1 in the emergency department. - ABX coverage through osteo treatment Medications: * Continue albuterol inhaler * Continue DuoNeb's every 4 hours with albuterol PRN * Continue symbicort * Antibiotics as above (11) Seizure disorder Status: Chronic Plan: Pt NPO as of now pending swallow eval per ST. Continue IV Dilantin (12) Atrial fibrillation Status: Chronic Plan: [id number] score of 6, would benefit from anticoagulation once clinically stable. Currently rate controlled. -Not currently anticoagulated due to possibility of GI bleed and hematuria from bladder masses (13) CAD (coronary artery disease) Status: Chronic Plan: h/o CAD with 2 stents placed, takes Aspirin 81 mg daily at home, atorvastatin 20mg, no complaints of angina -continue home atorvastatin -holding Aspirin due to GI bleed (14) Nutrition, metabolism, and development symptoms Status: Acute Plan: Diet: NPO for now until swallow eval per ST Fluids: Sodium bicarb wiht 1/2 NS at 100 cc/hr Electrolytes: monitor and replete as necessary DVT: holding anticoagulation due to GI bleed, Bilateral SCDs GI PPX: protonix (Andie Nicholas MD R1) Problem Qualifiers (1) GI bleed: Qualified Code: K92.2 - Gastrointestinal hemorrhage, unspecified gastrointestinal hemorrhage type (2) DM (diabetes mellitus): Qualified Code: 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, with long-term current use of insulin (3) CAD (coronary artery disease): Qualified Code: I25.10 - Coronary artery disease involving [place] coronary artery of [place] heart without angina pectoris Andie Nicholas MD R1 Dec 20, 2016 09:23 Tae Hoskins MD Dec 20, 2016 16:39
[2016-12-20 09:29] LABS: POTASSIUM 3.6 MEQ/L (3.5-5.1)
[2016-12-20] MEDS ORDERED: SOD PHOSPHATE/SOD BIPHOSPHATE (ADULT) ENEMA 133ML RECTAL PRN (10:00)
[2016-12-20] MEDS ORDERED: SOD PHOSPHATE/SOD BIPHOSPHATE (ADULT) ENEMA 133ML RECTAL ONE (10:00)
[2016-12-20 11:28] LABS: KERATOCYTES OCC (NORMAL); OVALOCYTES 1+ (NORMAL); SCAN/DIFF AUTO DIFF CONFIRMED; TOXIC GRANULATION 1+ (NORMAL)
--- NOTE | 2016-12-20 12:16 | HHI.NPPN ---
Subjective History of Present Illness 80 year old with gangrene Left foot diabetes Additional Remarks Patient is sleepy again, on Morphine and Ativan as needed. Review of Systems Musculoskeletal MS: Pain/Stiffness Objective Data Data 12/19/16 12/20/16 19:00 07:00 Output Total 700 ml Balance -700 ml Output Urine Total 700 ml # Bowel Movements 0 0 Vital Signs Date Time Temp Pulse Resp B/P Pulse Ox O2 Delivery O2 Flow Rate FiO2 12/20/16 08:00 98.2 62 16 170/77 96 12/20/16 05:57 57 13 183/77 95 12/20/16 04:30 97.3 59 18 199/80 93 12/20/16 01:15 97.3 56 18 178/76 96 12/20/16 00:49 50 12/20/16 00:48 42 12/19/16 21:10 97.2 52 20 174/76 94 12/19/16 19:34 49 12/19/16 16:00 97.8 49 19 168/86 95 12/19/16 14:03 93 Nasal Cannula 3.00 -: 12/20/16 0758 12/20/16 0758 Physical Exam General Appearance: No Acute Distress, Comfortable, Pale, Malnourished Eyes Eye Exam: Pupils Equal Throat Throat Exam: Oral Mucosa [place] & Moist Neck Neck Exam: Neck Supple Pulmonary Resp Exam: Breath Sounds Equal, No Distress, Rhonchi, Decreased Bases, Diminished Breath Sounds Cardiology CV Exam: Regular, Normal Sinus Rhythm Gastrointestinal/Abdomen GI Exam: Soft, Non-Tender, Bowel Sounds Present Extremeties Extremities Exam: Trace Edema Neurologic Neuro Remarks sleepy. Assessment/Plan Problem List: (1) Acute renal failure Plan: Patient has worsening Creatinine. Urine out put is slightly better, remain bloody. Seen by Neurology, possibly has metabolic Encephalopathy. Started on HD , Creatinine is slightly better, HD again today. The BP is elevated, on clonidine patch, not taking PO meds. (2) Gas gangrene of foot Plan: S/P L BKA (3) DM (diabetes mellitus) Plan: Follow BG Problem Qualifiers (1) DM (diabetes mellitus): Qualified Code: 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, with long-term current use of insulin Mary Anne Morelos MD Dec 20, 2016 12:16
--- NOTE | 2016-12-20 12:42 | HHI.IDPN ---
Subjective Subjective Remarks Patient is an 80-year-old male, admitted to the hospital for further evaluation of his left foot. He apparently was noted to have a callus on the lateral aspect of that foot. Over the last several weeks he was noted to be developing some drainage, and he was experiencing pain. There was no mention of any fever chills or sweats. On the day of admission, the patient slid and almost fell, and so the patient was brought to the hospital for further evaluation and treatment. It was also mentioned that there was some tea-colored urine. Apparently the patient was diagnosed to have bladder cancer, and had TURBT, but was lost to follow-up. Since that time he has had intermittent hematuria. He was diagnosed to have a diabetic foot infection with findings of gas in the foot. Patient underwent surgery and had amputation of his fifth digit and his fifth metatarsal. He also had evidence of urinary tract infection. Urine culture had MSSA. The initial foot culture had MSSA and enterococcus. Intraoperative culture from the foot grew MSSA. His blood cultures on admission are negative. CT of the abdomen and pelvis showed multiple masses in the urinary bladder. No hydronephrosis. His initial creatinine was 3+, and it went down to 2+. Today it up to 3+ again an infectious disease consultation has been requested to evaluate the patient. Patient has been getting intermittent vancomycin dosing depending on his random vancomycin levels. Patient underwent upper and lower endoscopy, with findings of some esophagitis, polyp, but the colonoscopy was incomplete. Over the last several days patient's by mouth intake has been poor. His urine output also recorded has been decreasing. Patient currently just received a medication, and has no pain. Patient's left foot is showing more evidence of gangrene, and further amputation is being discussed, and scheduled probably this weekend. Notes reviewed Temps ok Per family he was very awake last night and seems baseline Got medicated (pain meds and ativan), sleepy again Swallowing eval still recommends NPO S/P L BKA 12/15 WBC improving Antibiotics Unasyn Lines PIV Past Medical History COPD DM requiring insulin Stroke CAD - two stents placed CHF Bladder cancer A fib - rate controlled Seizures Past Surgical History Bladder Cancer: tumor removal 2 cardiac stents Allergies: Coded Allergies: No Known Allergies (Verified , 10/11/15) Objective . Vital Signs Date Time Temp Pulse Resp B/P Pulse Ox O2 Delivery O2 Flow Rate FiO2 12/20/16 08:00 98.2 62 16 170/77 96 12/20/16 05:57 57 13 183/77 95 12/20/16 04:30 97.3 59 18 199/80 93 12/20/16 01:15 97.3 56 18 178/76 96 12/20/16 00:49 50 12/20/16 00:48 42 12/19/16 21:10 97.2 52 20 174/76 94 12/19/16 19:34 49 12/19/16 16:00 97.8 49 19 168/86 95 12/19/16 14:03 93 Nasal Cannula 3.00 12/19/16 12/19/16 12/20/16 15:00 23:00 07:00 Output Total 700 ml Balance -700 ml Output Urine Total 700 ml # Bowel Movements 0 0 . Laboratory Tests Test 12/18/16 12/19/16 12/20/16 22:57 08:39 07:58 White Blood Count 19.1 TH/MM3 15.2 TH/MM3 11.0 TH/MM3 Red Blood Count 3.94 MIL/MM3 3.70 MIL/MM3 3.67 MIL/MM3 Hemoglobin 10.0 GM/DL 9.5 GM/DL 9.3 GM/DL Hematocrit 30.6 % 28.3 % 28.8 % Mean Corpuscular Volume 77.5 FL 76.7 FL 78.7 FL Mean Corpuscular Hemoglobin 25.4 PG 25.7 PG 25.4 PG Mean Corpuscular Hemoglobin 32.7 % 33.6 % 32.3 % Concent Red Cell Distribution Width 21.4 % 20.8 % 21.1 % Platelet Count 250 TH/MM3 201 TH/MM3 183 TH/MM3 Mean Platelet Volume 7.9 FL 7.8 FL 7.7 FL Neutrophils (%) (Auto) 82.5 % 81.1 % 76.0 % Lymphocytes (%) (Auto) 6.0 % 5.8 % 8.1 % Monocytes (%) (Auto) 8.9 % 11.7 % 13.7 % Eosinophils (%) (Auto) 1.5 % 0.7 % 1.5 % Basophils (%) (Auto) 1.1 % 0.7 % 0.7 % Neutrophils # (Auto) 15.7 TH/MM3 12.4 TH/MM3 8.3 TH/MM3 Lymphocytes # (Auto) 1.2 TH/MM3 0.9 TH/MM3 0.9 TH/MM3 Monocytes # (Auto) 1.7 TH/MM3 1.8 TH/MM3 1.5 TH/MM3 Eosinophils # (Auto) 0.3 TH/MM3 0.1 TH/MM3 0.2 TH/MM3 Basophils # (Auto) 0.2 TH/MM3 0.1 TH/MM3 0.1 TH/MM3 CBC Comment AUTO DIFF DIFF FINAL AUTO DIFF Differential Total Cells 100 Counted Neutrophils % (Manual) 82 % Band Neutrophils % 1 % Lymphocytes % 8 % Monocytes % 6 % Eosinophils % 1 % Neutrophils # (Manual) 16.2 TH/MM3 Metamyelocytes 1 % Promyelocytes 1 % Differential Comment FINAL DIFF AUTO DIFF MANUAL CONFIRMED Toxic Granulation 1+ 1+ Platelet Estimate NORMAL Platelet Morphology Comment NORMAL Ovalocytes 1+ 1+ Acanthocytes OCC Keratocytes OCC OCC Laboratory Tests Test 12/19/16 12/20/16 08:39 07:58 Sodium Level 142 MEQ/L 144 MEQ/L Potassium Level 3.7 MEQ/L 3.6 MEQ/L Chloride Level 102 MEQ/L 103 MEQ/L Carbon Dioxide Level 23.9 MEQ/L 27.2 MEQ/L Anion Gap 16 MEQ/L 14 MEQ/L Blood Urea Nitrogen 60 MG/DL 67 MG/DL Creatinine 3.09 MG/DL 3.28 MG/DL Estimat Glomerular Filtration 19 ML/MIN 18 ML/MIN Rate Random Glucose 107 MG/DL 104 MG/DL Calcium Level 8.3 MG/DL 8.4 MG/DL Microbiology Date/Time Procedure Status Source Growth 12/18/16 05:10 Aerobic Blood Culture - Preliminary Resulted Blood Peripheral NO GROWTH IN 2 DAYS 12/18/16 05:10 Anaerobic Blood Culture - Preliminary Resulted Blood Peripheral NO GROWTH IN 2 DAYS 12/18/16 05:29 Aerobic Blood Culture - Preliminary Resulted Blood Peripheral NO GROWTH IN 2 DAYS 12/18/16 05:29 Anaerobic Blood Culture - Preliminary Resulted Blood Peripheral NO GROWTH IN 2 DAYS Imaging Catheter Placement X-Ray 12/17/16 0700 Signed Impressions: Service Date/Time: Saturday, December 17, 2016 12:19 - CONCLUSION: Uncomplicated line placement as above. Prasad Tenorio Jr., MD Head CT 12/17/16 0000 Signed Impressions: Service Date/Time: Saturday, December 17, 2016 09:36 - CONCLUSION: 1. No acute intracranial abnormality is identified. 2. Chronic and stable changes include generalized atrophy and mild periventricular white matter low attenuation characteristic of chronic small vessel ischemic change. Meek Narayanan MD Brain MRI 12/17/16 0000 Signed Impressions: Service Date/Time: Saturday, December 17, 2016 16:15 - CONCLUSION: Chronic atrophic and small vessel ischemic changes without any evidence for acute hemorrhage or mass effect. Altagracia Grijalva MD Physical Exam GENERAL: Opens eyes when stimulated, lethargic SKIN: Warm and dry. No generalized rash HEAD: Atraumatic. Normocephalic. No temporal wasting, or tenderness. EYES: [place] conjunctiva. No petechia or hemorrhage. Pupils equal, round and reactive to light. No scleral icterus. No injection or drainage. EARS, NOSE AND THROAT: Nose without bleeding or purulent nasal discharge. Mucous membranes pink and moist. NECK: Trachea midline. Supple and not tender, no meningeal signs CARDIOVASCULAR: Regular rate and rhythm. No murmurs, rubs or gallops heard RESPIRATORY: Breath sounds equal bilaterally. No rales, wheezing or rhonchi. Decreased breath sounds at the bases ABDOMEN: Soft, mildly distended, not tender, no guarding or rebound. Bowel sounds present and normoactive. EXTREMITIES: No clubbing, cyanosis, or edema in RLE. LBKA dressing with dry dressing, has an immobilizer to straighten knee joint . NEUROLOGICAL: Lethargic PSYCHIATRIC: Unable to assess. LINE: No evidence of infection : Stein in place, blood tinged urine Assessment & Plan Remarks IMPRESSION Diabetic foot infection L, C/S MSSA and Enterococcus, with underlying PVD most likely - S/P LBKA Renal insufficiency, worse - started on HD Encephalopathy, etiology?, likely metabolic PVD UTI Known bladder tumors, previous TURBT, has progression; was lost to follow-up after his surgery RECOMMENDATION Continue IV Unasyn and complete 7 days Rx - end date tomorrow He is clinically doing well from ID standpoint I will be available prn Please reconsult if with any new ID issue or question Spoke with family member Roxi Truong MD Dec 20, 2016 12:42
[2016-12-20 14:31] LABS: INTERNATIONAL NORMALIZED RATIO 1.8 RATIO; PROTHROMBIN TIME - PATIENT 20.1 SEC (9.8-11.6)
[2016-12-20 15:41] LABS: INDIRECT BILIRUBIN 0.8 MG/DL (0.0-0.8)
--- NOTE | 2016-12-20 16:31 | PD.CAR.PN ---
CVT Progress Note Subjective/Hospital Course: Records reviewed what patient was in some sort of x-ray study Full consult to follow after evaluation of the patient Thanks Trevor 12/11/16 Patient status post fifth toe amputation by podiatry Incision is healing nicely Patient is not a candidate for any vascular reconstruction in face of his age, systemic comorbidities and local factors. In face of elevated BUN/creatinine I will not even order CTA with runoff for the benefits of these studies will be exceeded by the risks 12/13/16 Patient with the large defect post left fifth toe and metatarsal amputation Deep defect toward of fourth metatarsal bone with exposure of the soft tissues and plantar area of the foot Discussed with Dr. Sheree Vallecillo. Patient is fairly ambulatory at this time and I would advise against transmetatarsal amputation in the face of patient's general condition and peripheral changes There is no vascular procedure to remedy this Will discuss with patient's daughter once she is in the room and will come back up tomorrow 12/14/16 Discussed the case with Dr. Sheree Vallecillo. 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 Now with additional bedridden status in the hospital I do not know how patient is going to get back on his feet. Nonetheless patient and family do not wish above-knee amputation so we will go ahead with below-knee amputation in anticipation of possible prosthesis I've explained to the family at length that then 80-year-old male who barely could walk before would not be a good candidate for prostetics. Patient will need below-knee amputation and possibly even above-knee amputation depending on the prospects of ambulation which is fairly poor 12/16/16 Patient is status post the below-knee amputation Dressing is intact and dry Pain management is under control Will keep the dressing on until tomorrow and then remove it at which point it will be changed daily This patient will definitely require rehabilitation and the penitentiary placement he cannot go home with the fresh below-knee amputation because there is no question he'll fall again and break the stump opened Patient definitely cannot be discharged home because this will be an unsafe venue 12/17/16 Apparently patient had this morning an episode of decreased level of consciousness and being worked up for a stroke as we speak Left BKA dressing has been removed and amputation stump is clean and dry. No signs of ischemia We will redress slightly In face of delayed healing stitches should stay in for about 3 weeks 12/19/16 Stump is clean and dry well-perfused skin Dressing is clean Patient has posterior knee support in order to prevent the permanent flexion contracture of the knee Nothing to add to care 12/20/16 Status post BKA Incision is clean and dry stump is well perfused Dressing reapplied From my point patient can be discharged either to penitentiary or any other destination deemed adequate for this gentleman Follow-up with my office in about 2-3 weeks Objective: Vital Signs Date Time Temp Pulse Resp B/P Pulse Ox O2 Delivery O2 Flow Rate FiO2 12/20/16 16:00 97.7 56 15 164/72 93 12/20/16 08:00 98.2 62 16 170/77 96 12/20/16 05:57 57 13 183/77 95 12/20/16 04:30 97.3 59 18 199/80 93 12/20/16 01:15 97.3 56 18 178/76 96 12/20/16 00:49 50 12/20/16 00:48 42 12/19/16 21:10 97.2 52 20 174/76 94 12/19/16 19:34 49 Labs: Laboratory Tests Test 12/20/16 12/20/16 07:58 12:53 White Blood Count 11.0 TH/MM3 (4.0-11.0) Red Blood Count 3.67 MIL/MM3 (4.50-5.90) Hemoglobin 9.3 GM/DL (13.0-17.0) Hematocrit 28.8 % (39.0-51.0) Mean Corpuscular Volume 78.7 FL (80.0-100.0) Mean Corpuscular Hemoglobin 25.4 PG (27.0-34.0) Mean Corpuscular Hemoglobin 32.3 % Concent (32.0-36.0) Red Cell Distribution Width 21.1 % (11.6-17.2) Platelet Count 183 TH/MM3 (150-450) Mean Platelet Volume 7.7 FL (7.0-11.0) Neutrophils (%) (Auto) 76.0 % (16.0-70.0) Lymphocytes (%) (Auto) 8.1 % (9.0-44.0) Monocytes (%) (Auto) 13.7 % (0.0-8.0) Eosinophils (%) (Auto) 1.5 % (0.0-4.0) Basophils (%) (Auto) 0.7 % (0.0-2.0) Neutrophils # (Auto) 8.3 TH/MM3 (1.8-7.7) Lymphocytes # (Auto) 0.9 TH/MM3 (1.0-4.8) Monocytes # (Auto) 1.5 TH/MM3 (0-0.9) Eosinophils # (Auto) 0.2 TH/MM3 (0-0.4) Basophils # (Auto) 0.1 TH/MM3 (0-0.2) CBC Comment AUTO DIFF Differential Comment AUTO DIFF CONFIRMED Toxic Granulation 1+ (NORMAL) Ovalocytes 1+ (NORMAL) Keratocytes OCC (NORMAL) Sodium Level 144 MEQ/L (136-145) Potassium Level 3.6 MEQ/L (3.5-5.1) Chloride Level 103 MEQ/L (98-107) Carbon Dioxide Level 27.2 MEQ/L (21.0-32.0) Anion Gap 14 MEQ/L (5-15) Blood Urea Nitrogen 67 MG/DL (7-18) Creatinine 3.28 MG/DL (0.60-1.30) Estimat Glomerular Filtration 18 ML/MIN (>89) Rate Random Glucose 104 MG/DL (74-106) Calcium Level 8.4 MG/DL (8.5-10.1) Phenytoin (Dilantin) Level 8.7 MCG/ML (10.0-20.0) Prothrombin Time 20.1 SEC (9.8-11.6) Prothromb Time International 1.8 RATIO Ratio Total Bilirubin 2.0 MG/DL (0.2-1.0) Direct Bilirubin 1.2 MG/DL (0.0-0.2) Indirect Bilirubin 0.8 MG/DL (0.0-0.8) Aspartate Amino Transf 78 U/L (15-37) (AST/SGOT) Alanine Aminotransferase 106 U/L (12-78) (ALT/SGPT) Alkaline Phosphatase 77 U/L (45-117) Total Protein 6.6 GM/DL (6.4-8.2) Albumin 3.7 GM/DL (3.4-5.0) Result Diagram: 12/20/16 0758 12/20/16 0758 Lavonne Hernandez MD Dec 20, 2016 16:31
[2016-12-20] MEDS: GENTAMICIN SULFATE (DIALYSIS USE ONLY) 20 MG/2 ML VIAL OTHER PRN (17:58)
[2016-12-20] MEDS ORDERED: hydrALAZINE HCL 20 MG/ML VIAL IV PRN (18:00)
--- NOTE | 2016-12-20 19:16 | HHI.HCPN ---
Palliative care was consulted to assist with clarification of treatment goals. Went to see patient he was off the unit. Spoke with daughter, Torri briefly at bedside she reports patient is also transferring rooms after dialysis. I advised I will come back to see patient 12/21/16. Jocelyn Fulton Dec 20, 2016 19:16
[2016-12-20] MEDS: ATORVASTATIN 20 MG TAB PO SCH (21:23)
[2016-12-20] MEDS: TERAZOSIN HCL 1 MG CAP PO SCH (21:23)
[2016-12-20] MEDS: LORazepam 2 MG/ML VIAL IV PUSH PRN (21:24)
[2016-12-20] MEDS: CLINIMIX 4.25/5 (Cust.Renal Periph) 1000 mL- </= 42 mls/hr IV SCH ×8 (23:31)
[2016-12-20] MEDS: FAT EMULSION 20% INJ 250 ML (@10 mls/hr) IV SCH (23:31)
[2016-12-21] VITALS (11 sets, daily range): BP systolic 100–197; BP diastolic 58–88; PULSE 58–87; RESP 18–20; TEMP 98–98.9; O2SAT 93–98
[2016-12-21] MEDS: AMPICILLIN-SULBACTAM INJ 1,500 MG in SODIUM CHLORIDE 0.9% INJ 100 ML IV SCH ×3 (00:01→15:54)
[2016-12-21] MEDS: PANTOPRAZOLE SODIUM 40 MG VIAL IV PUSH SCH ×2 (01:45→14:23)
[2016-12-21] MEDS: INSULIN ASPART SUPPLEMENTAL SCALE SQ SCH ×4 (05:43→21:00)
[2016-12-21] MEDS: BUDESONIDE-FORMOTEROL 80/4.5 MCG INHALER INH SCH ×2 (08:29→20:00)
[2016-12-21] MEDS: PHENYTOIN INJ 100 MG/2 ML VIAL IV SCH ×2 (08:29→21:13)
[2016-12-21] MEDS: SODIUM CHLORIDE 0.9% FLUSH 10 ML FLUSH IV FLUSH SCH ×2 (08:30→21:13)
[2016-12-21] MEDS: FERROUS SULFATE 325 MG (65 MG ELEMENTAL IRON) TAB PO SCH ×2 (08:30→20:01)
[2016-12-21] MEDS: DOCUSATE SODIUM 50 MG/SENNA 8.6 MG TAB PO SCH ×2 (08:31→20:02)
[2016-12-21] MEDS: LORazepam 2 MG/ML VIAL IV PUSH PRN ×2 (08:35→22:10)
[2016-12-21] MEDS: ALBUMIN HUMAN 25% 25 GM/100 ML BAGP IV SCH ×2 (08:53→21:12)
--- NOTE | 2016-12-21 09:50 | HHI.FPPN ---
Subjective Remarks No acute events overnight. Pt asleep this AM. No family at bedside. Very hard to awake bc patient just received a dose of ativan. Pt currently on PPN 42mls/ hr. Afebrile. Pt on 2L O2 NC. (Andie Nicholas MD R1) Objective Vitals Vital Signs Date Time Temp Pulse Resp B/P Pulse Ox O2 Delivery O2 Flow Rate FiO2 12/21/16 08:01 65 12/21/16 08:00 98.3 58 20 192/88 93 12/21/16 04:00 98.9 66 18 110/60 96 12/21/16 00:00 98.5 66 18 124/58 98 12/20/16 21:30 20 12/20/16 20:21 94 Nasal Cannula 2.00 12/20/16 20:00 71 12/20/16 20:00 97.6 71 20 185/89 92 12/20/16 16:00 97.7 56 15 164/72 93 I/O 12/20/16 12/20/16 12/20/16 12/21/16 12/21/16 12/21/16 06:59 14:59 22:59 06:59 14:59 22:59 Intake Total 400 ml 0 ml 1314 ml Output Total 700 ml 1900 ml 100 ml Balance -700 ml 400 ml -1900 ml 1214 ml Intake Oral 0 ml 0 ml IV Total 400 ml 985 ml TPN/PPN 266 ml Lipid 63 ml Output Urine Total 700 ml 400 ml 100 ml Hemodialysis 1500 ml # Bowel Movements 0 0 0 (Andie Nicholas MD R1) Result Diagram: 12/20/16 0758 12/20/16 0758 Imaging Last Impressions Catheter Placement X-Ray 12/17/16 0700 Signed Impressions: Service Date/Time: Saturday, December 17, 2016 12:19 - CONCLUSION: Uncomplicated line placement as above. Prasad Tenorio Jr., MD Head CT 12/17/16 0000 Signed Impressions: Service Date/Time: Saturday, December 17, 2016 09:36 - CONCLUSION: 1. No acute intracranial abnormality is identified. 2. Chronic and stable changes include generalized atrophy and mild periventricular white matter low attenuation characteristic of chronic small vessel ischemic change. Meek Narayanan MD Brain MRI 12/17/16 0000 Signed Impressions: Service Date/Time: Saturday, December 17, 2016 16:15 - CONCLUSION: Chronic atrophic and small vessel ischemic changes without any evidence for acute hemorrhage or mass effect. Altagracia Grijalva MD Chest X-Ray 12/08/16 0000 Signed Impressions: Service Date/Time: Thursday, December 08, 2016 14:05 - CONCLUSION: Tiny bilateral pleural effusions. Altagracia Grijalva MD Abdomen Ultrasound 12/07/16 0026 Signed Impressions: Service Date/Time: Wednesday, December 07, 2016 09:34 - CONCLUSION: 1. 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 Cystoscopy and biopsy recommended. 2. Nonvisualization of the pancreas. 3. Kidneys are borderline echogenic. 4. Minimal free fluid in Faulkner's pouch. Sal Chowdhury MD Foot MRI 12/07/16 0000 Signed Impressions: Service Date/Time: Wednesday, December 07, 2016 09:01 - CONCLUSION: 1. Osteomyelitis of the fifth metatarsal head and proximal phalanx of the fifth toe. Sal Chowdhury MD Abdomen/Pelvis CT 12/07/16 0000 Signed Impressions: Service Date/Time: Thursday, December 08, 2016 10:46 - CONCLUSION: Multiple bladder masses suspicious for malignancy. Altagracia Grijalva MD Foot X-Ray 12/06/16 1747 Signed Impressions: Service Date/Time: November 18:08 - CONCLUSION: No obvious bone destruction at this time. Soft tissue emphysema is noted in and around the fifth MTP joint soft tissues. The possibility of infection with gas-forming organism should be excluded. Dean Burton MD Objective Remarks GEN: Lying flat in bed. sleeping, in NAD CV: Normal rate, irregular rhythm. No obvious murmurs. LUNGS: Scattered expiratory wheezing bilaterally. No rales or rhonchi. No increased WOB. Normal respiratory rate.. EXT: Left BKA with donald wrapping. PT and DP pulses 2+ right foot. NEURO/PSYCH: Pt more alert this morning per daughter. : Stein catheter in place. Pt has significant swelling around glands penis as well as irritation and redness. (Andie Nicholas MD R1) A/P Assessment and Plan 80-year-old male admitted due to L 5th toe osteomyelitis s/p L BKA on 12/15. Patient had stroke-like symptoms on 12/17, neurology consulted. MRI and CT negative. Patient most likely had metabolic encephalopathy due to acute renal failure. Discharge Planning Unclear timetable Follow up with vascular surgery in 2-3 weeks Case management consulted for home health with PT and home O2 Palliative consulted for assistance with long-term goals (Andie Nicholas MD R1) Attending Attestation Pt. examined and case discussed with resident physicians I have read the above note and agree with the assessment/plan as discussed with me I was involved in all medical decision making for this patient Tae Hoskins MD (Tae Hoskins MD) Problem List: (1) Metabolic encephalopathy Status: Acute Plan: - Patient with stroke-like symptoms vs acute toxic metabolic encephalopathy - Patient's symptoms seem to be improving s/p dialysis x3; continue dialysis as needed per nephrology - Noncontrast head CT negative for acute intracranial process - MRI revealed chronic atrophic and small vessel ischemic changes, no acute hemorrhage or mass effect - Neurology consulted, appreciate recs - Nephrology consulted, appreciated recs - Monitor electrolytes, I/Os, avoid nephrotoxins and [employer] depressants (2) Acute renal failure Status: Acute Plan: Cr downtrending following dialysis - Nephrology following, appreciated recs - May be pre-renal or possibility of acute tubular necrosis or intersitial nephritis due to antibiotics vs infection - urine eosinophils was negative -Albumin 25 gm IV q12 -will continue to follow BUN and Cr - Troponin elevated at 2.44 12/17, after pt received dialysis, troponin still elevated at 2.28. Cardiology consulted. Elevated troponin most likely due to ARF. -BNP 1186 (12/14) - Follow with daily BMPs - Avoid nephrotoxic agents - Monitor I/Os (3) Hypertension Status: Chronic Plan: Pt is currently NPO due to failed swallow eval. Hydralazine 50 mg q8h for BP control All other PO meds below held for now -Elevated BP since admission, PO meds currently on hold. Home lisinopril held due to MIKE * Amlodipine 10 mg po daily * Hydralazine 100 mg po q8h * Carvedilol 6.25 mg po bid * Clonidine 0.1 mg po q12h scheduled * Clonidine 0.1 mg po q6h prn BP > 180/100 (4) Penile swelling Status: Acute Plan: Nystatin powder BID (5) GI bleed Status: Acute Plan: S/p 2 units of PRBCs followed by furosemide 20 mg IV on 12/18; -Unknown source for Hgb declining, will continue to trend H/H -Will consider GI reconsult if Hgb continues to decline -Pt received 2 units of PRBCs on 12/15/16 for Hbg of 6.9 GI consulted, recommendations appreciated EGD/Colonoscopy 12/13 showing reflux esophagitis, hiatal hernia, colonic polyp, incomplete evaluation of the colon Recommend EGD & colonoscopy in 2-3 months Continue PPI GI signed off Started ferrous sulfate 12/14 325mg PO bid (6) Gas gangrene of foot Status: Acute Plan: Post- op Day #5 S/p left Below- knee amputation on 12/15 Continue antibiotics as below: - Unasyn 1500 mg IV q8h per ID(12/14-12/21), will receive last dose today -Pain control with Mayo and morphine prn - vascular surgery, Podiatry, and ID following -Pt will require rehabilitation and [facility] placement -Vascular signing off, follow up outpatient in 2-3 weeks -S/p fifth toe amputation with fifth metatarsal resection by podiatry 12/07. -Bone pathology showing gangrenous necrosis and osteomyelitis left fifth toe and metatarsal bone section -Discontinued Vancomycin per ID (started 12/06- 12/14) -Discontinued Zosyn Wound cultures returning with MSSA and group D enterococcus Blood cultures 12/06 no growth after 5 days (7) Bladder tumor Status: Acute Plan: Urology consulted and following patient. Patient's daughter does state that he did refuse urologic intervention several weeks ago when it was recommended by his primary care provider - If he continues to refuse urologic intervention, patient may be hospice appropriate - Case discussed with Dr. Parham 12/10. 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 Daily BMP to monitor Cr * Baseline Cr currently unknown, last recording creatinine was 1.52 from 2016 (8) CHF (congestive heart failure) Status: Chronic Plan: Echocardiogram performed with limited visualization of the left ventricular function - Left ventricular function grossly normal BNP equivocal on admission. Clinically does not appear to be in CHF exacerbation. Medications: * Currently holding DONALD inhibitor due to acute renal failure (9) UTI (urinary tract infection) Status: Resolved Plan: Urinalysis consistent with infection - Continue abx as described under gangrene as that would provide adequate coverage - UA 12/06 with large occult blood - Repeat UA 12/10 showing large occult blood, neg nitrite, small LE - Urine culture 12/06: 25-50,000 cfus Staph Aureus - Repeat urine culture 12/10 no growth after 48 hours (10) DM (diabetes mellitus) Status: Chronic Plan: Diabetes relatively well-controlled with glucose ranging from 100 to 130s - Hemoglobin A1c of 6.8% - Hold home levemir - Low dose Sliding Scale w/ Novolog, titrate as needed (11) COPD (chronic obstructive pulmonary disease) Status: Chronic Plan: Known history of COPD. -Pt on 2 L O2 NC Received Solu-Medrol 125 mg 1 in the emergency department. - ABX coverage through osteo treatment Medications: * Continue albuterol inhaler * Continue DuoNeb's every 4 hours with albuterol PRN * Continue symbicort * Antibiotics as above (12) Seizure disorder Status: Chronic Plan: Pt NPO due to failed swallow study Continue IV Dilantin (13) Atrial fibrillation Status: Chronic Plan: [id number] score of 6, would benefit from anticoagulation once clinically stable. Currently rate controlled. -Not currently anticoagulated due to possibility of GI bleed and hematuria from bladder masses (14) CAD (coronary artery disease) Status: Chronic Plan: h/o CAD with 2 stents placed, takes Aspirin 81 mg daily at home, atorvastatin 20mg, no complaints of angina -home meds held for now, pt NPO due to failed swallow study -continue home atorvastatin -holding Aspirin due to GI bleed (15) Nutrition, metabolism, and development symptoms Status: Acute Plan: Diet: PPN 42 mls / hr (started 12/20) Fluids: Sodium bicarb wiht 1/2 NS at 100 cc/hr Electrolytes: monitor and replete as necessary DVT: holding anticoagulation due to GI bleed, Bilateral SCDs GI PPX: protonix (Andie Nicholas MD R1) Problem Qualifiers (1) GI bleed: Qualified Code: K92.2 - Gastrointestinal hemorrhage, unspecified gastrointestinal hemorrhage type (2) DM (diabetes mellitus): Qualified Code: 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
[2016-12-21] MEDS: hydrALAZINE HCL 20 MG/ML VIAL IV SCH ×4 (11:18→21:29)
[2016-12-21] MEDS: SODIUM BICARBONATE 8.4% INJ 75 MEQ in SODIUM CHLOR 0.45% 1000 ML INJ 1,000 ML IV SCH (13:36)
--- NOTE | 2016-12-21 14:12 | PD.CONS ---
Consult Service Palliative Care . Consult Requested By Dr. Chandan Nicholas . Primary Care Physician Tristian Chopra MD . Reason for Consultation a. To assist with evaluation and management of symptoms including: dyspnea, confusion, dysphagia. b. To assist medical decision maker(s) with: better understanding of current medical conditions; weighing benefits/burdens of medical treatment options; making medical treatment decisions. . HPI History of Present Illness Mr. Kerr is an 81 year old male with past medical history of COPD, diabetes, stroke, CAD s/p stents, bladder cancer s/p surgery lost to follow up, atrial fibrillation and seizures. Patient was admitted to [facility] on 12/06/16 with callus on left foot that was not healing, notable for new drainage and increased pain in the weeks prior to presentation. These changes were impacting his ability to ambulate therefore family brought him in for evaluation. Foot xray revealed soft tissue emphysema 5th MTP joint, possible infection with gas-forming organism. MRI foot revealed osteomyelitis 5th metatarsal head and proximal phalanx 5th toe. Additionally, WBC was elevated at 25 and creatinine was 3.86. On 12/07/16 he had left foot 5th metatarsal resection, I & D 5th digit amputation. Gastroenterology was consulted for anemia and heme + stool. Patient underwent EGD/colonoscopy 12-13-16 which found reflux esophagitis, hiatal hernia, colon polyp, poor prep. Urinalysis was positive staph aureus (sue-sensitive). Wound cultures also + staph aureus. ID following. Patient was previously diagnosed with high grade bladder lesion in 2013 after cystoscopy and TURBT, resection was incomplete as patient woke up with spinal anesthesia. Patient was also noted to have hematuria. Abdominal US revealed echogenic masses in bladder, conistent with malignancy. CT abdomen and pelvis showed multiple bladder masses in the urinary bladder. Urology, Dr. Parham was consulted who felt patient may be a candidate for repeat TURBT in the future if medical condition improves. as he has gone without evidence of mets disease. On 12/14/16 he had left below knee amputation. Nephrology, Dr. Morelos was consulted for worsening renal function. and patient was started on hemodialysis on 12/17/16. Cardiology was consulted for elevated troponin, though maybe related to rennal failure and uncontrolled HTN. Not a candidate for revascularization surgery. Neurology was consulted on 12/17/16 for stroke alert. MRI brain revealed chronic atrophic changes and small vessel ischemic changes, no acute process. Patient has had ongoing confusion, constipation, dysphagia remains NPO on PPN. Palliative care is consulted to assist with clarification of treatment goals. Patient is confused, unable to participate. Spoke with Dr. Nicholas. SPoke with via phone to provide update concern for poor prognosis and need to consider lobsterman nutritional issued, possible need for PEG tube. We both agree with confusion patient may pull out a tube. She seems to understand overall poor condition and rapid decline. She seems open to consideration of comfort measure if he continues to worsen. Function/Cognitive Trajectory Prior to hospitalization patient was living at home with his . He was ambulating with a walker or cane. Required assistance with all ADLs. Was having increasing shortness of breath with ambulation. Orthopnea noted sleeping with more pillows. Appetite was good. . Review of Systems ROS Limitations: Altered Mental Status (patient is confused, unable to answer questions appropriately.) Constitutional: COMPLAINS OF: Fatigue, Change in appetite (NPO), Generalized weakness Respiratory: COMPLAINS OF: Cough, Shortness of breath Cardiovascular: COMPLAINS OF: Dyspnea on Exertion, Lower Extremity Edema, Orthopnea Gastrointestinal: COMPLAINS OF: Difficulty Swallowing Genitourinary: COMPLAINS OF: Hematuria Integumentary: COMPLAINS OF: Non-healing sores (prior to hospitalization callus on left foot nonhealing progressively worsening) Hematologic/Lymphatics: COMPLAINS OF: Bruising, History of transfusions Neurologic: COMPLAINS OF: Poor Balance (ambulated with Walker came) Psychiatric: COMPLAINS OF: Anxiety, Confusion, Depression Other ROS: ROS per report. Past Family Social History Coded Allergies: No Known Allergies (Verified , 10/11/15) Past Medical History DM COPD coronary artery disease status post stents x 2 CHF depression prior CVA prior [place] arthritis . Past Surgical History TURB Cardiac stents Left BKA cholecystectomy . Reported Medications Reported Meds & Active Scripts Active Reported Levemir Inj (Insulin Detemir) 1,000 unit/ 10 ML Vial 6 Units SQ HS Do not mix with any other Insulin. Aspir-81 (Aspirin) 81 Mg Tabdr 81 DAILY Symbicort Inh (Budesonide/Formoterol Fumarate) 80-4.5 Mcg/Act Aero 2 Puff INH Q12HR Proair Hfa 8.5 GM Inh (Albuterol Sulfate) 90 Mcg/Act Aer 2 Puff INH Q4-6H PRN 108 mcg/actuation Lisinopril 40 Mg Tab 40 Mg PO DAILY Dilantin (Phenytoin Extended) 100 Mg Cap 100 Mg PO BID Lasix (Furosemide) 40 Mg Tab 40 Mg PO BID Terazosin (Terazosin HCl) 1 Mg Cap 1 Mg PO HS Amlodipine (Amlodipine Besylate) 10 Mg Tab 10 Mg PO DAILY Atorvastatin (Atorvastatin Calcium) 20 Mg Tab 20 Mg PO HS . Current Medications Medications (Trade) Dose Ordered Sig/Barbara Route Start Time Stop Time Status Last Admin (NS Flush) 2 ml UNSCH PRN IV FLUSH 12/06/16 21:15 (NS Flush) 2 ml BID IV FLUSH 12/07/16 09:00 12/21/16 08:30 (Tylenol) 650 mg Q4H PRN PO 12/06/16 21:15 (Zofran Inj) 4 mg Q6H PRN IVP 12/06/16 21:15 (Christine-Colace) 1 tab BID PO 12/07/16 09:00 12/20/16 21:23 (Milk Of Magnesia Liq) 30 ml Q12H PRN PO 12/06/16 21:15 (Senokot) 17.2 mg Q12H PRN PO 12/06/16 21:15 (Dulcolax Supp) 10 mg DAILY PRN RECTAL 12/06/16 21:15 (Lactulose Liq) 30 ml DAILY PRN PO 12/06/16 21:15 (Ventolin Hfa Inh) 2 puff Q4HR PRN INH 12/06/16 21:45 (Norvasc) 10 mg DAILY PO 12/07/16 09:00 Hold 12/16/16 09:21 (Lipitor) 20 mg HS PO 12/07/16 21:00 12/20/16 21:23 (Symbicort 80-4.5 Mcg Inh) 2 puff Q12HR INH 12/07/16 09:00 12/21/16 08:29 (Hytrin) 1 mg HS PO 12/07/16 21:00 12/20/16 21:23 (Catapres) 0.1 mg Q6H PRN PO 12/06/16 23:15 12/12/16 17:09 (D50w (Vial) Inj) 50 ml UNSCH PRN IV 12/07/16 00:45 (Glucagon Inj) 1 mg UNSCH PRN OTHER 12/07/16 00:45 (Protonix Inj) 40 mg Q12H IV PUSH 12/07/16 02:00 12/21/16 01:45 (Tylenol) 650 mg Q6H PRN PO 12/07/16 12:00 (Pill Splitter) 1 ea UNSCH PRN OTHER 12/07/16 12:45 ([place] 5-325 Mg) 1 tab Q4H PRN PO 12/08/16 13:45 Hold 12/13/16 10:47 ([place] 7.5-325 Mg) 1 tab Q4H PRN PO 12/08/16 13:45 Hold 12/16/16 11:30 (Narcan Inj) 0.4 mg UNSCH PRN IV 12/08/16 13:45 (Coreg) 6.25 mg BID PO 12/11/16 14:30 Hold 12/16/16 20:39 (Apresoline) 100 mg Q8HR PO 12/12/16 22:00 Hold 12/17/16 06:43 (Catapres) 0.1 mg Q12HR PO 12/13/16 09:00 Hold 12/16/16 20:38 Ferrous Sulfate 325 mg 325 mg BID PO 12/14/16 12:30 12/20/16 21:23 (Sodium Bicarbonate 8.4% Inj/05/21 NS 1000 ml Inj) 1,075 ml @ 100 mls/hr [id number] IV 12/14/16 20:00 12/21/16 13:36 (Albumin 25% Inj) 25 gm Q12H IV 12/15/16 20:00 12/21/16 08:53 (NS Flush) UNSCH PRN IVF 12/17/16 13:00 Heparin Sodium (Porcine) UNSCH PRN IV FLUSH 12/17/16 13:00 12/18/16 13:33 (NS 1000 ml Inj) 1,000 ml @ 0 mls/hr TITRATE PRN IV 12/18/16 13:00 12/20/16 17:57 Heparin Sodium (Porcine) 8000 units 8,000 units UNSCH PRN IV FLUSH 12/18/16 13:00 Sodium Chloride 1,000 ml @ 200 mls/hr Q5H PRN IV 12/18/16 13:00 (NS 250 ml Inj) 200 ml @ 0 mls/hr UNSCH PRN IV 12/18/16 13:00 (Mannitol Inj) 12.5 gm UNSCH PRN IV 12/18/16 13:00 (Albumin 25% Inj) 25 gm UNSCH PRN IV 12/18/16 13:00 (NS Flush) 5 ml UNSCH PRN IV FLUSH 12/18/16 13:00 (Heparin Inj) 1,000 units UNSCH PRN OTHER 12/18/16 13:00 12/20/16 17:58 (Gentamicin (Dialysis) Inj) 10 mg UNSCH PRN OTHER 12/18/16 12:00 12/20/16 17:58 (Gelfoam 12 Mm/7 Mm Top) 1 foam UNSCH PRN TOPICAL 12/18/16 13:00 (Zofran Inj) 4 mg UNSCH PRN IV 12/18/16 13:00 (Benadryl) 25 mg UNSCH PRN PO 12/18/16 13:00 (Nitrostat Sl) 0.4 mg UNSCH PRN SL 12/18/16 13:00 (Catapres) 0.1 mg UNSCH PRN PO 12/18/16 13:00 (Dilantin Inj) 100 mg BID IV 12/18/16 21:00 12/21/16 08:29 (Morphine Inj) 4 mg Q3H PRN IV 12/19/16 00:00 12/20/16 21:25 Clonidine 1 patch 1 patch Q7D T-DERMAL 12/19/16 17:00 12/19/16 17:12 (Unasyn Inj/NS Inj) 100 ml @ 200 mls/hr Q8H IV 12/20/16 00:00 12/21/16 23:00 12/21/16 08:28 (Ativan Inj) 2 mg Q4H PRN IV PUSH 12/20/16 10:00 12/21/16 08:35 Sodium Biphosphate/ Sodium Phosphate 133 ml 133 ml UNSCH PRN RECTAL 12/20/16 10:00 Sodium Chloride 5.5 meq/Sodium Acetate 29.5 meq/ Potassium Chloride 20 meq/ Magnesium Chloride 5 meq/ Calcium Chloride 4.5 meq/ Multivitamins 10 ml/Folic Acid 1 mg/Amino Acids/ Dextrose 1,042.1719 ml @ 42 mls/hr Q24H IV 12/20/16 20:00 12/20/16 23:31 (Liposyn Iii 20% Inj) 250 ml @ 10 mls/hr Q24H IV 12/20/16 20:00 12/20/16 23:31 (Apresoline Inj) 50 mg Q8HR IV 12/21/16 10:00 12/21/16 11:18 (Mycostatin Powder) 1 applic Q12HR TOPICAL 12/21/16 09:47 . Family History DM HTN Substance Use Tobacco: quit smoking 2008. Alcohol: none. Prescription med abuse: none. Illicits: none. . Psychosocial History , was living at home with his prior to this hospitalization. Has one daughter and 2 stepdaughters. Spiritual/Cultural Factors Muslim nima. . Health Care Surrogate: Copy in medical record Health Care Surrogate(s): patient incapacitated, uncertain if he will regain capacity. Patient has designated his , Torri Felder as designated healthcare surrogate. . Today's verbally stated goals: Patient incapacitated, unable to participate in making sound healthcare decisions. Family/friends goals: elects NO CODE. Continued aggressive care short of NO CODE at this time. understands patient's declining health, possible need for hospice in the future. Not yet ready to make this decision. . Ethical and Legal Issues patient incapacitated, uncertain if he will regain capacity. Patient has designated his , Torri Felder as designated healthcare surrogate. Physical Exam Vital Signs Date Time Temp Pulse Resp B/P Pulse Ox O2 Delivery O2 Flow Rate FiO2 12/21/16 12:00 98.4 86 18 135/61 95 12/21/16 11:10 197/77 12/21/16 10:40 93 Nasal Cannula 3.00 12/21/16 08:01 65 12/21/16 08:00 98.3 58 20 192/88 93 12/21/16 04:00 98.9 66 18 110/60 96 12/21/16 00:00 98.5 66 18 124/58 98 12/20/16 21:30 20 12/20/16 20:21 94 Nasal Cannula 2.00 12/20/16 20:00 71 12/20/16 20:00 97.6 71 20 185/89 92 12/20/16 16:00 97.7 56 15 164/72 93 12/20/16 12/21/16 19:00 07:00 Intake Total 400 ml 1314 ml Output Total 1500 ml 500 ml Balance -1100 ml 814 ml Intake Oral 0 ml IV Total 400 ml 985 ml TPN/PPN 266 ml Lipid 63 ml Output Urine Total 500 ml Hemodialysis 1500 ml # Bowel Movements 0 Exam CONSTITUTIONAL/GENERAL: This is an elderly, confused patient. Agitated. TUBES/LINES/DRAINS: right subclavian vas-calf, Stein, brace left lower extremity , left BKA. SKIN: No jaundice, rashes, or lesions. Ecchymoses on upper extremities. No wounds seen anteriorly. Skin temperature appropriate. Not diaphoretic. HEAD: Atraumatic. Normocephalic. EYES: eyes closed does not open to voice, command or exam. ENT: Hearing appears grossly normal. White patch on tongue, uncertain if old medication patient will not open on command. NECK: Trachea midline. Supple, nontender. No palpable thyroid enlargement or nodularity. CARDIOVASCULAR: irregular. RESPIRATORY/CHEST: labored respirations at rest, tachypneic, using accessory muscles to breathe. GASTROINTESTINAL: Abdomen soft, non-tender, nondistended. Hypoactive bowel sounds. GENITOURINARY: Without palpable bladder distension. Stein catheter in place. MUSCULOSKELETAL: left BKA, stump dressing dry and intact. Upper extremity edema noted. LYMPHATICS: No palpable cervical or supraclavicular adenopathy. NEUROLOGICAL: arousable, does not open eyes to voice, command. Does not follow simple commands. Attempts to answer some questions, confused. PSYCHIATRIC: restless/agitated. . Diagnostic Tests Laboratory Laboratory Tests Test 12/18/16 12/19/16 12/20/16 12/20/16 22:57 08:39 07:58 12:53 White Blood Count 19.1 TH/MM3 15.2 TH/MM3 11.0 TH/MM3 (4.0-11.0) (4.0-11.0) (4.0-11.0) Red Blood Count 3.94 MIL/MM3 3.70 MIL/MM3 3.67 MIL/MM3 (4.50-5.90) (4.50-5.90) (4.50-5.90) Hemoglobin 10.0 GM/DL 9.5 GM/DL 9.3 GM/DL (13.0-17.0) (13.0-17.0) (13.0-17.0) Hematocrit 30.6 % 28.3 % 28.8 % (39.0-51.0) (39.0-51.0) (39.0-51.0) Mean Corpuscular Volume 77.5 FL 76.7 FL 78.7 FL (80.0-100.0) (80.0-100.0) (80.0-100.0) Mean Corpuscular Hemoglobin 25.4 PG 25.7 PG 25.4 PG (27.0-34.0) (27.0-34.0) (27.0-34.0) Mean Corpuscular Hemoglobin 32.7 % 33.6 % 32.3 % Concent (32.0-36.0) (32.0-36.0) (32.0-36.0) Red Cell Distribution Width 21.4 % 20.8 % 21.1 % (11.6-17.2) (11.6-17.2) (11.6-17.2) Platelet Count 250 TH/MM3 201 TH/MM3 183 TH/MM3 (150-450) (150-450) (150-450) Mean Platelet Volume 7.9 FL 7.8 FL 7.7 FL (7.0-11.0) (7.0-11.0) (7.0-11.0) Neutrophils (%) (Auto) 82.5 % 81.1 % 76.0 % (16.0-70.0) (16.0-70.0) (16.0-70.0) Lymphocytes (%) (Auto) 6.0 % 5.8 % 8.1 % (9.0-44.0) (9.0-44.0) (9.0-44.0) Monocytes (%) (Auto) 8.9 % (0.0-8.0) 11.7 % 13.7 % (0.0-8.0) (0.0-8.0) Eosinophils (%) (Auto) 1.5 % (0.0-4.0) 0.7 % (0.0-4.0) 1.5 % (0.0-4.0) Basophils (%) (Auto) 1.1 % (0.0-2.0) 0.7 % (0.0-2.0) 0.7 % (0.0-2.0) Neutrophils # (Auto) 15.7 TH/MM3 12.4 TH/MM3 8.3 TH/MM3 (1.8-7.7) (1.8-7.7) (1.8-7.7) Lymphocytes # (Auto) 1.2 TH/MM3 0.9 TH/MM3 0.9 TH/MM3 (1.0-4.8) (1.0-4.8) (1.0-4.8) Monocytes # (Auto) 1.7 TH/MM3 1.8 TH/MM3 1.5 TH/MM3 (0-0.9) (0-0.9) (0-0.9) Eosinophils # (Auto) 0.3 TH/MM3 0.1 TH/MM3 0.2 TH/MM3 (0-0.4) (0-0.4) (0-0.4) Basophils # (Auto) 0.2 TH/MM3 0.1 TH/MM3 0.1 TH/MM3 (0-0.2) (0-0.2) (0-0.2) CBC Comment AUTO DIFF DIFF FINAL AUTO DIFF Differential Total Cells 100 Counted Neutrophils % (Manual) 82 % (16-70) Band Neutrophils % 1 % (0-6) Lymphocytes % 8 % (9-44) Monocytes % 6 % (0-8) Eosinophils % 1 % (0-4) Neutrophils # (Manual) 16.2 TH/MM3 (1.8-7.7) Metamyelocytes 1 % (0-1) Promyelocytes 1 % (0-0) Differential Comment FINAL DIFF AUTO DIFF MANUAL CONFIRMED Toxic Granulation 1+ (NORMAL) 1+ (NORMAL) Platelet Estimate NORMAL (NORMAL) Platelet Morphology Comment NORMAL (NORMAL) Ovalocytes 1+ (NORMAL) 1+ (NORMAL) Acanthocytes OCC (NORMAL) Keratocytes OCC (NORMAL) OCC (NORMAL) Sodium Level 142 MEQ/L 144 MEQ/L (136-145) (136-145) Potassium Level 3.7 MEQ/L 3.6 MEQ/L (3.5-5.1) (3.5-5.1) Chloride Level 102 MEQ/L 103 MEQ/L (98-107) (98-107) Carbon Dioxide Level 23.9 MEQ/L 27.2 MEQ/L (21.0-32.0) (21.0-32.0) Anion Gap 16 MEQ/L (5-15) 14 MEQ/L (5-15) Blood Urea Nitrogen 60 MG/DL (7-18) 67 MG/DL (7-18) Creatinine 3.09 MG/DL 3.28 MG/DL (0.60-1.30) (0.60-1.30) Estimat Glomerular Filtration 19 ML/MIN (>89) 18 ML/MIN (>89) Rate Random Glucose 107 MG/DL 104 MG/DL (74-106) (74-106) Calcium Level 8.3 MG/DL 8.4 MG/DL (8.5-10.1) (8.5-10.1) Phenytoin (Dilantin) Level 8.7 MCG/ML (10.0-20.0) Prothrombin Time 20.1 SEC (9.8-11.6) Prothromb Time International 1.8 RATIO Ratio Total Bilirubin 2.0 MG/DL (0.2-1.0) Direct Bilirubin 1.2 MG/DL (0.0-0.2) Indirect Bilirubin 0.8 MG/DL (0.0-0.8) Aspartate Amino Transf 78 U/L (15-37) (AST/SGOT) Alanine Aminotransferase 106 U/L (12-78) (ALT/SGPT) Alkaline Phosphatase 77 U/L (45-117) Total Protein 6.6 GM/DL (6.4-8.2) Albumin 3.7 GM/DL (3.4-5.0) Result Diagram: 12/20/16 0758 12/20/16 0758 Microbiology Microbiology Date/Time Procedure Status Source Growth 12/18/16 05:29 Aerobic Blood Culture - Preliminary Resulted Blood Peripheral NO GROWTH IN 3 DAYS 12/18/16 05:29 Anaerobic Blood Culture - Preliminary Resulted Blood Peripheral NO GROWTH IN 3 DAYS Imaging Last Impressions Catheter Placement X-Ray 12/17/16 0700 Signed Impressions: Service Date/Time: Saturday, December 17, 2016 12:19 - CONCLUSION: Uncomplicated line placement as above. Prasad Tenorio Jr., MD Head CT 12/17/16 0000 Signed Impressions: Service Date/Time: Saturday, December 17, 2016 09:36 - CONCLUSION: 1. No acute intracranial abnormality is identified. 2. Chronic and stable changes include generalized atrophy and mild periventricular white matter low attenuation characteristic of chronic small vessel ischemic change. Meek Narayanan MD Brain MRI 12/17/16 0000 Signed Impressions: Service Date/Time: Saturday, December 17, 2016 16:15 - CONCLUSION: Chronic atrophic and small vessel ischemic changes without any evidence for acute hemorrhage or mass effect. Altagracia Grijalva MD Chest X-Ray 12/08/16 0000 Signed Impressions: Service Date/Time: Thursday, December 08, 2016 14:05 - CONCLUSION: Tiny bilateral pleural effusions. Altagracia Grijalva MD Abdomen Ultrasound 12/07/16 0026 Signed Impressions: Service Date/Time: Wednesday, December 07, 2016 09:34 - CONCLUSION: 1. 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 Cystoscopy and biopsy recommended. 2. Nonvisualization of the pancreas. 3. Kidneys are borderline echogenic. 4. Minimal free fluid in Faulkner's pouch. Sal Chowdhury MD Foot MRI 12/07/16 0000 Signed Impressions: Service Date/Time: Wednesday, December 07, 2016 09:01 - CONCLUSION: 1. Osteomyelitis of the fifth metatarsal head and proximal phalanx of the fifth toe. Sal Chowdhury MD Abdomen/Pelvis CT 12/07/16 0000 Signed Impressions: Service Date/Time: Thursday, December 08, 2016 10:46 - CONCLUSION: Multiple bladder masses suspicious for malignancy. Altagracia Grijalva MD Foot X-Ray 12/06/16 1747 Signed Impressions: Service Date/Time: November 18:08 - CONCLUSION: No obvious bone destruction at this time. Soft tissue emphysema is noted in and around the fifth MTP joint soft tissues. The possibility of infection with gas-forming organism should be excluded. Dean Burton MD Procedures * 12/17/16 - right subclavian vas cath placement. * 12/14/16 left below knee amputation * 12/07/16 left foot 5th metatarsal resection, I & D 5th digit amputation. Patient/Family Conference Present at Family Conference: Spoke with , daughter and step daughter via phone. Family Conference Time (mins): 60 Family Conference Location: Telephone Issues Discussed: * Palliative care role, purpose, approach * Additional medical, psychosocial, and spiritual history * Patients general health, functional status, and cognitive changes in the months leading up to the current hospitalization * Patient/family understanding of the current medical problems * Patient/family understanding of prognosis * Patients goals of care as best understood from advance directives and/or conversations and/or values * Current medical treatment options and benefits/burdens of those options * Likely scenarios comparing ongoing aggressive care with a transition to comfort measures only * Questions answered to the best of my ability * Palliative care contact information provided Assessment and Plan Disease Oriented Problem List: (1) Metabolic encephalopathy (2) Gas gangrene of foot (3) PNA (pneumonia) (4) Bladder tumor (5) DM (diabetes mellitus) (6) Hypertension (7) UTI (urinary tract infection) (8) CHF (congestive heart failure) (9) COPD (chronic obstructive pulmonary disease) (10) Atrial fibrillation (11) Diabetes mellitus (12) Altered mental status (13) CAD (coronary artery disease) Symptom Scale: (1) Altered mental status 0-10 Scale: Unable to quantify (2) Dyspnea 0-10 Scale: Unable to quantify (3) Dysphagia 0-10 Scale: Unable to quantify Pertinent Non-Medical Issues Psychosocial: to Torri Felder. Spiritual: Muslim nima. Legal: Patient incapacitated, uncertain if he will regain capacity. Patient has designated his , Torri Felder as designated healthcare surrogate. Ethical issues impacting care: no known concerns at this time. . Important Contacts * Torri Felder, /[facility]: [phone] in [place]; [phone] * kandice Stovall dtr. . Prognosis Given advanced age and multiple medical comorbidities, declining health, nutritional and functional status paitent appears hospice appropriate if goals are comfort oriented. . Code Status: No Code Plan * Decision Maker: patient incapacitated, uncertain if he will regain capacity. Patient has designated his , Torri Felder as designated healthcare surrogate. * NO CODE * Palliative care spoke with patient's , Torri via telephone to introduce palliative care service, obtain additional history and clarify goals. She elects NO CODE. She understands that the patient has multiple medical problems that may or may not improve. He is considering more long-term nutritional goals including PEG tube placement. She has concerns that the patient would pull this out. He will be returning from [place] on 12/22/16, she request that medical team does not "candy coat" anything. I advised her of my concern that the patient will have continued decline and that she may need to consider hospice in the near future. She becomes appropriately tearful, seems open to this, not yet ready to make this decision. * SYMPTOMS: Pain: potential sources include recent amputation, bedbound status, tubes etc. Has PRN morphine available. Would consider alternate pain medication besides Morphine given patient's underlying renal failure. Weakness: general debility secondary to prolonged hospitalization, multiple medical comorbidities, recent amputation. Constipation: no bowel movement records and . Post fleets enema 12/20/16. Has PRN oral meds, not being given given NPO status. PRN Dulcolax available. Malnutrition: on PPN. Given continued failed swallow evaluations, patient may need long-term PEG tube placement if family elects. Agitation: potential sources include prolonged hospitalization, constipation, malnutrition, underlying bladder malignancy. Recommend decreased dose of lorazepam given advanced age and reports lorazepam has caused increased agitation in the past. Might consider low dose Haldol 0.5-1 mg every 4 hours PRN agitation. Constipation may also be contributing to agitation. T. Bilirubin increasing. * Palliative care number provided. * Palliative care will continue to follow throughout hospital course to assist with symptom management and clarification of goals as needed. . Thank you for the opportunity to participate in the care of Mr. Kerr. Jocelyn Fulton Dec 21, 2016 14:12
[2016-12-21] MEDS: NYSTATIN 100,000 U/GM PWD 15 GM BTL TOPICAL SCH ×2 (14:46→21:14)
[2016-12-21] MEDS: MORPHINE SULFATE 4 MG/ML INJ IV PRN (15:17)
--- NOTE | 2016-12-21 16:20 | HHI.NPPN ---
Subjective History of Present Illness 80 year old with gangrene Left foot diabetes Additional Remarks Patient remain lethargic, and confused. Review of Systems Musculoskeletal MS: Pain/Stiffness Objective Data Data 12/20/16 12/21/16 18:59 06:59 Intake Total 400 ml 1314 ml Output Total 1500 ml 500 ml Balance -1100 ml 814 ml Intake Oral 0 ml IV Total 400 ml 985 ml TPN/PPN 266 ml Lipid 63 ml Output Urine Total 500 ml Hemodialysis 1500 ml # Bowel Movements 0 Vital Signs Date Time Temp Pulse Resp B/P Pulse Ox O2 Delivery O2 Flow Rate FiO2 12/21/16 14:30 170/77 12/21/16 12:00 98.4 86 18 135/61 95 12/21/16 11:10 197/77 12/21/16 10:40 93 Nasal Cannula 3.00 12/21/16 08:01 65 12/21/16 08:00 98.3 58 20 192/88 93 12/21/16 04:00 98.9 66 18 110/60 96 12/21/16 00:00 98.5 66 18 124/58 98 12/20/16 21:30 20 12/20/16 20:21 94 Nasal Cannula 2.00 12/20/16 20:00 71 12/20/16 20:00 97.6 71 20 185/89 92 -: 12/20/16 0758 12/20/16 0758 Physical Exam General Appearance: No Acute Distress, Comfortable, Pale, Malnourished Eyes Eye Exam: Pupils Equal Throat Throat Exam: Oral Mucosa [place] & Moist Neck Neck Exam: Neck Supple Pulmonary Resp Exam: Breath Sounds Equal, No Distress, Rhonchi, Decreased Bases, Diminished Breath Sounds Cardiology CV Exam: Regular, Normal Sinus Rhythm Gastrointestinal/Abdomen GI Exam: Soft, Non-Tender, Bowel Sounds Present Extremeties Extremities Exam: Trace Edema Neurologic Neuro Remarks sleepy. Assessment/Plan Problem List: (1) Acute renal failure Plan: Patient has worsening Creatinine. Urine out put is slightly better, remain bloody. Seen by Neurology, possibly has metabolic Encephalopathy. Started on HD , Continue HD as needed. 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
[2016-12-21 19:25] LABS: ALKALINE PHOSPHATASE 62 U/L (45-117); ALT (GPT) 63 U/L (12-78); ANION GAP 16 MEQ/L (5-15); AST (GOT) 52 U/L (15-37); BICARBONATE 23.9 MEQ/L (21.0-32.0); CHLORIDE 99 MEQ/L (98-107); GLOMERULAR FILTRATION RATE 24 ML/MIN (>89); POTASSIUM 4.1 MEQ/L (3.5-5.1); TOTAL BILIRUBIN ADULT 1.9 MG/DL (0.2-1.0)
[2016-12-21 19:37] LABS: BLOOD UREA NITROGEN 49 MG/DL (7-18); SODIUM (NA) 139 MEQ/L (136-145)
[2016-12-21] MEDS: ACETAMINOPHEN/HYDROcodone 325 MG/7.5 MG TAB PO PRN ×2 (19:58→20:02)
[2016-12-21] MEDS: cloNIDine HCL 0.1 MG TAB PO SCH (19:59)
[2016-12-21] MEDS: CARVEDILOL 6.25 MG TAB PO SCH (19:59)
[2016-12-21] MEDS: ATORVASTATIN 20 MG TAB PO SCH (20:02)
[2016-12-21] MEDS: TERAZOSIN HCL 1 MG CAP PO SCH (20:02)
[2016-12-21] MEDS: FAT EMULSION 20% INJ 250 ML (@10 mls/hr) IV SCH (21:12)
[2016-12-21] MEDS: CLINIMIX 4.25/5 (Cust.Renal Periph) 1000 mL- </= 42 mls/hr IV SCH ×8 (21:13)
[2016-12-21] MEDS: NYSTATIN 500,000 UNIT TAB PO SCH (22:00)
--- NOTE | 2016-12-21 22:58 | RADRPT ---
EXAM DATE/TIME: 12/21/2016 22:42 [facility] COMPARISON: CHEST PA & LAT, December 08, 2016, 14:05. INDICATIONS : Shortness of breath and cough. MEDICAL HISTORY : Diabetes mellitus type II. Myocardial infarction. Chronic obstructive pulmonary disease. CVA. SURGICAL HISTORY : None. ENCOUNTER: Subsequent ACUITY: 2 weeks PAIN SCORE: Non-responsive. LOCATION: chest FINDINGS: Right central line catheter tip projects in the mid superior vena cava. There is fullness and mild i ndistinctness of the central bronchopulmonary markings with equalization of pulmonary flow between up per and lower lobes and moderate peribronchial thickening. The peribronchial thickening is a new fin ding compared to 12/08/16. The heart is normal size. Some patchy areas of increased opacity seen in the right mid lung and in the lingula. CONCLUSION: Finding suggest pulmonary edema. Prasad Koo MD on December 21, 2016 at 22:55 Board Certified Radiologist. This report was verified electronically.
--- NOTE | 2016-12-21 23:35 | HHI.FPPN ---
Addendum to progress note ADDENDUM Reason for addendum: Additonal documentation Additional information Called to see patient due to concern regarding penile swelling. On seeing the patient, it was noted that he appeared to be using accessory respiratory muscles and overall employing increased work of breathing with "wet" cough. Satting at 93% at bedside. Pulse was in the 80s, respiratory rate 18. Blood pressure is 100/59. Prolonged expiration and expiratory wheezes heard on lung exam. White thrush on the tongue and in the oropharynx. Penis was edematous, Stein observed leaving the urethral meatus, a ring of erythema at the opening. On palpation, white discharge was extruded from the urethral meatus. Cultures and Gram stain were ordered. 2+ pitting edema observed in the lower extremities , erythema and edema noted in the upper extremities (appearing like erysipelas) as well. Patient appeared uncomfortable and in pain; however, when asked if he was in pain, patient replied in the negative. Was not responsive to any other questions. A/P: 1. Thrush: Oral nystatin ordered 2. Dyspnea: Chest x-ray ordered, Results show pulmonary edema.Last dialysis done on 12/20 with 1.5 taken off. Patient will need dialysis [facility] in the a.m. Pulse ox monitoring overnight DuoNeb nebs ordered 3. Penile swelling: Gram stain and cultures of discharge from the urethral meatus ordered (Shonda Gonzalez MD R1) Shonda Gonzalez MD R1 Dec 21, 2016 23:35 Tae Hoskins MD Dec 22, 2016 10:11
[2016-12-22] VITALS (9 sets, daily range): BP systolic 119–167; BP diastolic 60–96; PULSE 55–78; RESP 18–26; TEMP 97.4–98.5; O2SAT 95–98
[2016-12-22] MEDS: SODIUM BICARBONATE 8.4% INJ 75 MEQ in SODIUM CHLOR 0.45% 1000 ML INJ 1,000 ML IV SCH ×2
--- NOTE | 2016-12-22 00:23 | RADRPT ---
EXAM DATE/TIME: 12/21/2016 23:21 [facility] COMPARISON: No previous studies available for comparison. INDICATIONS : Bilateral arm swelling. MEDICAL HISTORY : Chronic obstructive pulmonary disease. Gastroesophageal reflux disease. Cerebrovascular accident. M yocardial infarction. Hematuria. Arthritis. Anxiety. Depression. SURGICAL HISTORY : Cholecystectomy. ENCOUNTER: Initial ACUITY: 1 day PAIN SCORE: Non-responsive LOCATION: Bilateral arms. FINDINGS: Examination of the right upper extremity demonstrates no deep venous thrombus though the subclavian v ein cannot be visualized secondary to overlying dressing. There is poor compressibility of the basili c vein characteristic of thrombus. Examination left upper extremity demonstrates no venous thrombosis though the exam is limited seconda ry to the patient's condition. CONCLUSION: 1. Superficial thrombophlebitis involving the right basilic vein. 2. Limited but negative examination of the left upper extremity Darien Mustafa MD on December 22, 2016 at 0:19 Board Certified Radiologist. This report was verified electronically.
[2016-12-22] MEDS: INSULIN ASPART SUPPLEMENTAL SCALE SQ SCH ×4 (04:19→21:00)
[2016-12-22] MEDS: PANTOPRAZOLE SODIUM 40 MG VIAL IV PUSH SCH ×3 (04:21→23:53)
[2016-12-22] MEDS: hydrALAZINE HCL 20 MG/ML VIAL IV SCH ×4 (04:21→20:38)
[2016-12-22] MEDS: RESP: ALBUTEROL 2.5 MG/IPRATROPIUM 0.5 MG NEB (SCH) NEB ×4 (04:42→19:42)
[2016-12-22] MEDS: NYSTATIN 500,000 UNIT TAB PO SCH ×3 (06:00→20:38)
[2016-12-22] MEDS: ALBUMIN HUMAN 25% 25 GM/100 ML BAGP IV SCH ×2 (07:52→20:00)
[2016-12-22] MEDS: SODIUM CHLORIDE 0.9% FLUSH 10 ML FLUSH IV FLUSH SCH ×2 (07:57→20:37)
--- NOTE | 2016-12-22 08:28 | HHI.FPPN ---
Subjective Remarks Overnight, patient was evaluated due to penile swelling and increased WOB. Noted that patient had white discharge from urethral meatus as well as surrounding erythema. CXR overnight significant for pulmonary edema. SHAW Tavares reported patient appears much more edematous than before; edema up to his thighs bilaterally and bilateral upper extremity edema. She reported patient did have increased WOB intermittently overnight. He has remained on NC receiving 3L O2 and O2 sats per RN have remained between 93-97% overnight. Dialysis unit called this AM and patient will be sent for dialysis as soon as able this morning. Vascular access at bedside attempting 2nd peripheral IV as a previous PIV had infiltrated. Patient had a five run beat of V-tach noted on telemetry; continues to be an A- fib. RN stated overnight patient had periods of being lucid. This morning he is alert and answering questions appropriately. Denies pain anywhere. (Tristian Chopra MD R2) Objective Vitals Vital Signs Date Time Temp Pulse Resp B/P Pulse Ox O2 Delivery O2 Flow Rate FiO2 12/22/16 08:19 98 Nasal Cannula 3.00 12/22/16 04:48 98 Nasal Cannula 3.00 12/22/16 03:18 98.5 66 26 119/70 97 12/22/16 00:00 97.4 61 20 139/63 95 12/21/16 20:00 98.2 77 18 100/59 93 12/21/16 17:27 96 Nasal Cannula 3.00 12/21/16 16:00 98.0 87 20 162/66 93 12/21/16 14:30 170/77 12/21/16 12:00 98.4 86 18 135/61 95 12/21/16 11:10 197/77 12/21/16 10:40 93 Nasal Cannula 3.00 I/O 12/21/16 12/21/16 12/21/16 12/22/16 12/22/16 12/22/16 07:00 15:00 23:00 07:00 15:00 23:00 Intake Total 1314 ml 1191 ml 0 ml 0 ml Output Total 100 ml 200 ml 100 ml 300 ml Balance 1214 ml 991 ml -100 ml -300 ml Intake Oral 0 ml 0 ml 0 ml 0 ml IV Total 985 ml 1191 ml TPN/PPN 266 ml Lipid 63 ml Output Urine Total 100 ml 200 ml 100 ml 300 ml # Bowel Movements 0 0 0 0 (Tristian Chopra MD R2) Result Diagram: 12/20/16 0758 12/21/16 1804 Objective Remarks GEN: Lying flat in bed. NAD CV: Normal rate, irregular rhythm. No obvious murmurs. LUNGS: Scattered expiratory wheezing bilaterally. No rales or rhonchi. No increased WOB. Normal respiratory rate. EXT: Left BKA with donald wrapping. PT and DP pulses 2+ right foot. NEURO/PSYCH: Pt more alert this morning per daughter. : Stein catheter in place. Pt has significant swelling around glands penis. No surrounding erythema or discharge noted. 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 Patient had stroke-like symptoms on 12/17, neurology consulted. MRI and CT negative. Patient most likely had metabolic encephalopathy due to acute renal failure. Discharge Planning Unclear timetable Palliative care consulted for assistance with long-term goals. Code status has been changed to NO CODE. Torri Felder is designated healthcare surrogate. Case management consulted (Tristian Chopra MD R2) Attending Attestation Pt. examined and case discussed with resident physicians. I have read the above note and agree with the assessment and plan as discussed with me. I was involved in all medical decision making for this patient. Tae Hoskins MD (Tae Hoskins MD) Problem List: (1) Metabolic encephalopathy Status: Acute Plan: - Patient with stroke-like symptoms vs acute toxic metabolic encephalopathy - Patient's symptoms seem to be improving s/p dialysis; continue dialysis per nephrology - Noncontrast head CT negative for acute intracranial process - MRI revealed chronic atrophic and small vessel ischemic changes, no acute hemorrhage or mass effect - Neurology consulted - Nephrology consulted - Monitor electrolytes, I/Os, avoid nephrotoxins and [employer] SUPPORT [employer]IST depressants - Palliative care has been consulted to assist with management of acute symptoms and with goals of care. Familia'bull code status has been changed to NO CODE. His Torri Felder is his designated healthcare surrogate. Palliative care currently following. (2) Acute renal failure Status: Acute Plan: Cr downtrending following dialysis - Nephrology following, appreciate recs - May be pre-renal or possibility of acute tubular necrosis or interstitial nephritis due to antibiotics vs infection - Urine eosinophils negative - Albumin 25 gm IV q12 - Troponin elevated at 2.44 12/17, after pt received dialysis, troponin still elevated at 2.28. Cardiology consulted. Elevated troponin most likely due to ARF. - BNP 1186 (12/14) - Follow daily BMPs - Avoid nephrotoxic agents - Monitor I/Os (3) Penile swelling Status: Acute Plan: Penile swelling remains on examination this morning; no erythema or discharge noted Continue Nystatin powder BID (4) Hypertension Status: Chronic Plan: Pt is currently NPO due to failed swallow eval Hydralazine 50 mg IV q8h Continue clonidine patch 0.2 mg TD patch each 7 days -Elevated BP since admission, PO meds currently on hold. Home lisinopril held due to MIKE * Amlodipine 10 mg po daily * Hydralazine 100 mg po q8h * Carvedilol 6.25 mg po bid * Clonidine 0.1 mg po q12h scheduled * Clonidine 0.1 mg po q6h prn BP > 180/100 (5) GI bleed Status: Acute Plan: S/p 2 units of PRBCs followed by furosemide 20 mg IV on 12/18 -Continue to trend H/H -Will consider GI reconsult if Hgb declines further -Pt received 2 units of PRBCs on 12/15/16 for Hbg of 6.9 GI consulted EGD/Colonoscopy 12/13 showing reflux esophagitis, hiatal hernia, colonic polyp, incomplete evaluation of the colon Recommend EGD & colonoscopy in 2-3 months Continue PPI GI signed off, will re-consult if needed Started ferrous sulfate 12/14 325mg PO bid, currently on hold as patient is NPO (6) Atrial fibrillation Status: Chronic Plan: [id number] score of 6, would benefit from anticoagulation once clinically stable. Currently rate controlled. - Not currently anticoagulated due to possibility of GI bleed and hematuria from bladder masses Ordered Cardizem drip today 12/22 titrate per protocol, hold if rate-controlled Continue telemetry (7) Bladder tumor Status: Acute Plan: Urology consulted and following patient. Patient's daughter had stated that he refused urologic intervention several weeks prior to admission when it was recommended by his primary care provider - Case discussed with Dr. Parham 12/10. 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 Daily BMP to monitor Cr * Baseline Cr currently unknown, last recording creatinine was 1.52 from 2016 (8) CHF (congestive heart failure) Status: Chronic Plan: Echocardiogram performed with limited visualization of the left ventricular function - Left ventricular function grossly normal BNP equivocal on admission. Clinically does not appear to be in CHF exacerbation. Medications: * Currently holding DONALD inhibitor due to acute renal failure (9) DM (diabetes mellitus) Status: Chronic Plan: - Hemoglobin A1c of 6.8% - Hold home levemir - Low dose Sliding Scale w/ Novolog, titrate as needed (10) COPD (chronic obstructive pulmonary disease) Status: Chronic Plan: Known history of COPD. 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 Plan: S/p left BKA on 12/15 Patient has completed course of IV ABX per ID: - Unasyn 1500 mg IV q8h per ID(12/14-12/21) - Vascular surgery, Podiatry, and ID previously consulted, now signed off - Patient to follow up as outpatient in 2-3 weeks with vascular surgery pending improvement in clinical status during this hospitalization - S/p fifth toe amputation with fifth metatarsal resection by podiatry 12/07 - Bone pathology showing gangrenous necrosis and osteomyelitis left fifth toe and metatarsal bone section prior to L BKA being performed - Discontinued Vancomycin per ID (started 12/06- 12/14) - Discontinued Zosyn - Wound cultures returning with MSSA and group D enterococcus - Blood cultures 12/06 no growth final - Repeat BCx 12/18 no growth after 4 days (14) UTI (urinary tract infection) Status: Resolved Plan: - Urine culture 12/06: 25-50,000 cfus Staph Aureus - Repeat urine culture 12/10 no growth final - Antibiotic course of Unasyn per ID has been completed as of 12/21 which provided adequate coverage (15) Nutrition, metabolism, and development symptoms Status: Acute Plan: Nutrition: Increase PPN to 55 mls / hr (started 12/20) Fluids: None Electrolytes: monitor and replete as necessary DVT ppx: holding anticoagulation due to GI bleed, RLE SCD GI ppx: Protonix 40 mg IV q12h (Tristian Chopra MD R2) Problem Qualifiers (1) GI bleed: Qualified Code: K92.2 - Gastrointestinal hemorrhage, unspecified gastrointestinal hemorrhage type (2) DM (diabetes mellitus): Qualified Code: 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, with long-term current use of insulin (3) CAD (coronary artery disease): Qualified Code: I25.10 - Coronary artery disease involving eagle coronary artery of eagle heart without angina pectoris Tristian Chopra MD R2 Dec 22, 2016 08:28 Tae Hoskins MD Dec 22, 2016 21:38
[2016-12-22] MEDS: BUDESONIDE-FORMOTEROL 80/4.5 MCG INHALER INH SCH ×2 (09:00→20:37)
[2016-12-22] MEDS: DOCUSATE SODIUM 50 MG/SENNA 8.6 MG TAB PO SCH (09:00)
[2016-12-22] MEDS: FERROUS SULFATE 325 MG (65 MG ELEMENTAL IRON) TAB PO SCH ×2 (09:00→20:37)
--- NOTE | 2016-12-22 09:30 | HHI.NPPN ---
Subjective History of Present Illness 80 year old with gangrene Left foot diabetes Additional Remarks patient was seen during dialysis. Some signs of fluid overload. On 3K, UF goal is 4 liters. Review of Systems Musculoskeletal MS: Pain/Stiffness Objective Data Data 12/21/16 12/22/16 19:00 07:00 Intake Total 1191 ml 0 ml Output Total 200 ml 400 ml Balance 991 ml -400 ml Intake Oral 0 ml 0 ml IV Total 1191 ml Output Urine Total 200 ml 400 ml # Bowel Movements 0 0 Vital Signs Date Time Temp Pulse Resp B/P Pulse Ox O2 Delivery O2 Flow Rate FiO2 12/22/16 08:19 98 Nasal Cannula 3.00 12/22/16 08:00 97.8 60 20 127/60 98 12/22/16 04:48 98 Nasal Cannula 3.00 12/22/16 03:18 98.5 66 26 119/70 97 12/22/16 00:00 97.4 61 20 139/63 95 12/21/16 20:00 98.2 77 18 100/59 93 12/21/16 17:27 96 Nasal Cannula 3.00 12/21/16 16:00 98.0 87 20 162/66 93 12/21/16 14:30 170/77 12/21/16 12:00 98.4 86 18 135/61 95 12/21/16 11:10 197/77 12/21/16 10:40 93 Nasal Cannula 3.00 -: 12/20/16 0758 12/21/16 1804 Microbiology 12/21/16 Gram Stain - Final, Resulted 12/21/16 Body Fluid Culture, Resulted Pending Physical Exam General Appearance: No Acute Distress, Comfortable, Pale, Malnourished Eyes Eye Exam: Pupils Equal Throat Throat Exam: Oral Mucosa [place] & Moist Neck Neck Exam: Neck Supple Pulmonary Resp Exam: Breath Sounds Equal, No Distress, Rhonchi, Decreased Bases, Diminished Breath Sounds Cardiology CV Exam: Regular, Normal Sinus Rhythm Gastrointestinal/Abdomen GI Exam: Soft, Non-Tender, Bowel Sounds Present Extremeties Extremities Exam: Trace Edema, Moderate Edema, Dependent Edema Assessment/Plan Problem List: (1) Acute renal failure Plan: Dialysis today, UF goal is 4 liters. Discontinue IVF. Discontinue nephrotoxic agents such as Fleets enema(I stopped it today). 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 Problem Qualifiers (1) DM (diabetes mellitus): Qualified Code: 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, with long-term current use of insulin Rao Domingo MD Dec 22, 2016 09:30
[2016-12-22 09:38] LABS: AUTOMATED NEUTROPHIL # 7.2 TH/MM3 (1.8-7.7); BASOPHIL # 0.1 TH/MM3 (0-0.2); BASOPHIL % 0.6 % (0.0-2.0); EOSINOPHIL # 0.2 TH/MM3 (0-0.4); EOSINOPHIL % 2.2 % (0.0-4.0); HEMATOCRIT 27.8 % (39.0-51.0); HEMO FLAGS DIFF FINAL; LYMPHOCYTE # 0.8 TH/MM3 (1.0-4.8); MEAN CELL VOLUME 78.8 FL (80.0-100.0); MEAN CORPUSCULAR HEMOGLOBIN 25.4 PG (27.0-34.0); MEAN CORPUSCULAR HGB CONC 32.2 % (32.0-36.0); MONO % 17.6 % (0.0-8.0); NEUT % 71.6 % (16.0-70.0); PLATELET COUNT 142 TH/MM3 (150-450); RED BLOOD COUNT 3.53 MIL/MM3 (4.50-5.90); RED CELL DISTRIBUTION WIDTH 21.6 % (11.6-17.2); WHITE BLOOD COUNT 10.1 TH/MM3 (4.0-11.0)
[2016-12-22] MEDS ORDERED: DILTIAZEM HCL 25 MG/5 ML VIAL IV PUSH ONE (10:15)
[2016-12-22] MEDS ORDERED: DILTIAZEM INJ 125 MG in SODIUM CHLORIDE 0.9% INJ 100 ML IV SCH (10:15)
[2016-12-22 10:57] LABS: BICARBONATE 30.6 MEQ/L (21.0-32.0)
[2016-12-22 10:59] LABS: POTASSIUM 2.8 MEQ/L (3.5-5.1)
[2016-12-22] MEDS: GENTAMICIN SULFATE (DIALYSIS USE ONLY) 20 MG/2 ML VIAL OTHER PRN (12:14)
[2016-12-22] MEDS: PHENYTOIN INJ 100 MG/2 ML VIAL IV SCH ×2 (13:00→20:37)
[2016-12-22] MEDS ORDERED: POTASSIUM PHOSPHATE INJ 30 MMOL in SODIUM CHLOR 0.9% 250 ML INJ 250 ML IV ONE (13:45)
[2016-12-22] MEDS: NYSTATIN 100,000 U/GM PWD 15 GM BTL TOPICAL SCH ×2 (14:53→21:27)
[2016-12-22] MEDS: RESP: ALBUTEROL 2.5 MG/3 ML NEB (PRN) NEB (16:52)
[2016-12-22] MEDS: LORazepam 2 MG/ML VIAL IV PUSH PRN (17:33)
[2016-12-22] MEDS: HYDROmorphone HCL PF 1 MG/ML VIAL IV PUSH PRN (19:40)
[2016-12-22] MEDS: CLINIMIX 4.25/5 (Cust.Renal Periph) 1000 mL- </= 42 mls/hr IV SCH ×8 (20:00)
[2016-12-22] MEDS: FAT EMULSION 20% INJ 250 ML (@10 mls/hr) IV SCH (20:00)
[2016-12-22] MEDS: TERAZOSIN HCL 1 MG CAP PO SCH (20:38)
[2016-12-23] VITALS (9 sets, daily range): BP systolic 128–197; BP diastolic 60–77; PULSE 55–113; RESP 18–20; TEMP 97.4–98.3; O2SAT 8–99
[2016-12-23] MEDS: LORazepam 2 MG/ML VIAL IV PUSH PRN ×3 (02:40→23:41)
[2016-12-23] MEDS: HYDROmorphone HCL PF 1 MG/ML VIAL IV PUSH PRN ×4 (03:04→20:17)
[2016-12-23] MEDS: RESP: ALBUTEROL 2.5 MG/IPRATROPIUM 0.5 MG NEB (SCH) NEB ×4 (04:00→21:16)
[2016-12-23] MEDS: hydrALAZINE HCL 20 MG/ML VIAL IV SCH ×3 (06:00→22:12)
[2016-12-23] MEDS: NYSTATIN 500,000 UNIT TAB PO SCH ×3 (06:00→22:00)
[2016-12-23] MEDS: INSULIN ASPART SUPPLEMENTAL SCALE SQ SCH ×4 (06:15→21:00)
[2016-12-23] MEDS: PHENYTOIN INJ 100 MG/2 ML VIAL IV SCH ×2 (08:09→20:17)
[2016-12-23] MEDS: SODIUM CHLORIDE 0.9% FLUSH 10 ML FLUSH IV FLUSH SCH ×2 (08:12→20:18)
[2016-12-23] MEDS: ALBUMIN HUMAN 25% 25 GM/100 ML BAGP IV SCH (08:14)
[2016-12-23] MEDS: BUDESONIDE-FORMOTEROL 80/4.5 MCG INHALER INH SCH ×2 (08:17→20:44)
[2016-12-23] MEDS: NYSTATIN 100,000 U/GM PWD 15 GM BTL TOPICAL SCH ×2 (08:17→20:19)
[2016-12-23] MEDS: FERROUS SULFATE 325 MG (65 MG ELEMENTAL IRON) TAB PO SCH ×2 (08:30→20:18)
--- NOTE | 2016-12-23 09:17 | HHI.NPPN ---
Subjective History of Present Illness 80 year old with gangrene Left foot diabetes Additional Remarks Underwent dialysis yesterday with removal of 4.5 liters yesterday. Fluid overload. Review of Systems Musculoskeletal MS: Pain/Stiffness Objective Data Data 12/22/16 12/23/16 19:00 07:00 Intake Total 0 ml Output Total 4800 ml 200 ml Balance -4800 ml -200 ml Intake Oral 0 ml IV Total 0 ml Output Urine Total 300 ml 200 ml Hemodialysis 4500 ml Bladder Scan Volume Amount 624 ml # Bowel Movements 0 Vital Signs Date Time Temp Pulse Resp B/P Pulse Ox O2 Delivery O2 Flow Rate FiO2 12/23/16 04:00 97.7 65 18 133/60 8 12/23/16 03:19 16 12/23/16 00:00 98.3 61 18 135/65 99 12/22/16 20:00 98.5 78 18 119/66 98 12/22/16 20:00 55 12/22/16 20:00 55 12/22/16 20:00 55 12/22/16 19:44 98 Nasal Cannula 3.00 12/22/16 16:00 97.7 60 20 167/70 98 12/22/16 13:45 98.0 59 20 134/96 96 -: 12/22/16 0920 12/22/16 0920 Physical Exam General Appearance: No Acute Distress, Comfortable, Pale, Malnourished Eyes Eye Exam: Pupils Equal Throat Throat Exam: Oral Mucosa [place] & Moist Neck Neck Exam: Neck Supple Pulmonary Resp Exam: Breath Sounds Equal, No Distress, Rhonchi, Decreased Bases, Diminished Breath Sounds Cardiology CV Exam: Regular, Normal Sinus Rhythm Gastrointestinal/Abdomen GI Exam: Soft, Non-Tender, Bowel Sounds Present Extremeties Extremities Exam: Moderate Edema, Dependent Edema Assessment/Plan Problem List: (1) Acute renal failure Plan: Dialyzed yesterday with removal of 4.5 liters. Discontinue nephrotoxic agents such as Fleets enema(I stopped it yesterday). Minimize IVF. No need for Albumin at this time. PPN can be continued. 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 Problem Qualifiers (1) DM (diabetes mellitus): Qualified Code: 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, with long-term current use of insulin Rao Domingo MD Dec 23, 2016 09:17
[2016-12-23] MEDS: FAT EMULSION 20% INJ 250 ML (@10 mls/hr) IV SCH (10:15)
[2016-12-23] MEDS: PANTOPRAZOLE SODIUM 40 MG VIAL IV PUSH SCH (14:01)
--- NOTE | 2016-12-23 14:04 | HHI.FPPN ---
Subjective Remarks No acute events overnight. Remains afebrile. Patient lying comfortably in bed this AM. Able to answer some basic questions. Follows basic commands. Speech is not easily coherent. 4500cc removed via HD yesterday. (Tristian Chopra MD R2) Objective Vitals Vital Signs Date Time Temp Pulse Resp B/P Pulse Ox O2 Delivery O2 Flow Rate FiO2 12/23/16 12:00 97.7 55 20 128/70 96 12/23/16 10:21 94 Nasal Cannula 3.00 12/23/16 08:00 98.0 63 20 167/70 96 12/23/16 04:00 97.7 65 18 133/60 8 12/23/16 03:19 16 12/23/16 00:00 98.3 61 18 135/65 99 12/22/16 20:00 98.5 78 18 119/66 98 12/22/16 20:00 55 12/22/16 20:00 55 12/22/16 20:00 55 12/22/16 19:44 98 Nasal Cannula 3.00 12/22/16 16:00 97.7 60 20 167/70 98 I/O 12/22/16 12/22/16 12/22/16 12/23/16 12/23/16 12/23/16 07:00 15:00 23:00 07:00 15:00 23:00 Intake Total 0 ml 580 ml 0 ml 0 ml Output Total 300 ml 4800 ml 100 ml 100 ml Balance -300 ml -4220 ml -100 ml -100 ml Intake Oral 0 ml 0 ml 0 ml IV Total 400 ml 0 ml TPN/PPN 150 ml Lipid 30 ml Output Urine Total 300 ml 300 ml 100 ml 100 ml Hemodialysis 4500 ml Bladder Scan Volume Amount 624 ml # Bowel Movements 0 0 0 (Tristian Chopra MD R2) Result Diagram: 12/22/1691912/22/1620 Objective Remarks GEN: Lying flat in bed. NAD CV: Normal rate, irregular rhythm. No obvious murmurs. LUNGS: Scattered expiratory wheezing bilaterally. No rales or rhonchi. No increased WOB. Normal respiratory rate. EXT: Left BKA with donald wrapping. PT and DP pulses 2+ right foot. NEURO/PSYCH: Pt seems to be more alert. Answering questions. Following basic commands. : Stein catheter in place. Pt has significant swelling around glands penis. No surrounding erythema or discharge noted. 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 Patient had stroke-like symptoms on 12/17, neurology consulted. MRI and CT negative. Patient most likely had metabolic encephalopathy due to acute renal failure. Discharge Planning Unclear timetable Palliative care consulted for assistance with long-term goals. Code status has been changed to NO CODE. Torri Felder is designated healthcare surrogate. Case management consulted (Tristian Chopra MD R2) Attending Attestation Patient seen and examined at 16:50 hours today. Case reviewed and discussed with the resident team. Agree with plan of care as discussed with me and documented in the resident note. Patient remains encephalopathic, arouses minimally to voice, soft touch. No following of commands. Chart reviewed. ( Rory Vergara MD) Problem List: (1) Metabolic encephalopathy Status: Acute Plan: - Patient with stroke-like symptoms vs acute toxic metabolic encephalopathy - Patient's symptoms seem to be improving s/p dialysis; continue dialysis per nephrology - Noncontrast head CT negative for acute intracranial process - MRI revealed chronic atrophic and small vessel ischemic changes, no acute hemorrhage or mass effect - Neurology consulted - Nephrology consulted - Monitor electrolytes, I/Os, avoid nephrotoxins and CONTRACT TECHNICIAN depressants - Palliative care has been consulted to assist with management of acute symptoms and with goals of care. Familia's code status has been changed to NO CODE. His Torri Felder is his designated healthcare surrogate. Palliative care currently following. (2) Acute renal failure Status: Acute Plan: Cr downtrending following dialysis - Nephrology following, appreciate recs - May be pre-renal or possibility of acute tubular necrosis or interstitial nephritis due to antibiotics vs infection - Urine eosinophils negative - Discontinued albumin per nephrology recs - Troponin elevated at 2.44 12/17, after pt received dialysis, troponin still elevated at 2.28. Cardiology consulted. Elevated troponin most likely due to ARF. - BNP 1186 (12/14) - Follow daily BMPs - Avoid nephrotoxic agents - Monitor I/Os (3) Hypertension Status: Chronic Plan: Pt is currently NPO due to multiple failed swallow evals; will repeat tomorrow Hydralazine 50 mg IV q8h Continue clonidine patch 0.2 mg TD patch each 7 days -Elevated BP since admission, PO meds currently on hold. Home lisinopril held due to MIKE * Amlodipine 10 mg po daily * Hydralazine 100 mg po q8h * Carvedilol 6.25 mg po bid * Clonidine 0.1 mg po q12h scheduled * Clonidine 0.1 mg po q6h prn BP > 180/100 (4) Penile swelling Status: Acute Plan: Continue Nystatin powder BID (5) GI bleed Status: Acute Plan: S/p 2 units of PRBCs followed by furosemide 20 mg IV on 12/18 -Continue to trend H/H -Will consider GI reconsult if Hgb declines further -Pt received 2 units of PRBCs on 12/15/16 for Hbg of 6.9 GI consulted EGD/Colonoscopy 12/13 showing reflux esophagitis, hiatal hernia, colonic polyp, incomplete evaluation of the colon Recommend EGD & colonoscopy in 2-3 months Continue PPI GI signed off, will re-consult if needed Started ferrous sulfate 12/14 325mg PO bid, currently on hold as patient is NPO (6) Atrial fibrillation Status: Chronic Plan: [id number] score of 6, would benefit from anticoagulation once clinically stable. Currently rate controlled. - Not currently anticoagulated due to possibility of GI bleed and hematuria from bladder masses Ordered Cardizem drip today 12/22 titrate per protocol, hold if rate-controlled Continue telemetry (7) Bladder tumor Status: Acute Plan: Urology consulted and following patient. Patient's daughter had stated that he refused urologic intervention several weeks prior to admission when it was recommended by his primary care provider - Case discussed with Dr. Parham 12/10. 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 Daily BMP to monitor Cr * Baseline Cr currently unknown, last recording creatinine was 1.52 from 2016 (8) CHF (congestive heart failure) Status: Chronic Plan: Echocardiogram performed with limited visualization of the left ventricular function - Left ventricular function grossly normal BNP equivocal on admission. Clinically does not appear to be in CHF exacerbation. Medications: * Currently holding DONALD inhibitor due to acute renal failure (9) DM (diabetes mellitus) Status: Chronic Plan: - Hemoglobin A1c of 6.8% - Hold home levemir - Low dose Sliding Scale w/ Novolog, titrate as needed (10) COPD (chronic obstructive pulmonary disease) Status: Chronic Plan: Known history of COPD. 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 Plan: S/p left BKA on 12/15 Patient has completed course of IV ABX per ID: - Unasyn 1500 mg IV q8h per ID(12/14-12/21) - Vascular surgery, Podiatry, and ID previously consulted, now signed off - Patient to follow up as outpatient in 2-3 weeks with vascular surgery pending improvement in clinical status during this hospitalization - S/p fifth toe amputation with fifth metatarsal resection by podiatry 12/07 - Bone pathology showing gangrenous necrosis and osteomyelitis left fifth toe and metatarsal bone section prior to L BKA being performed - Discontinued Vancomycin per ID (started 12/06- 12/14) - Discontinued Zosyn - Wound cultures returning with MSSA and group D enterococcus - Blood cultures 12/06 no growth final - Repeat BCx 12/18 no growth after 4 days (14) UTI (urinary tract infection) Status: Resolved Plan: - Urine culture 12/06: 25-50,000 cfus Staph Aureus - Repeat urine culture 12/10 no growth final - Antibiotic course of Unasyn per ID has been completed as of 12/21 which provided adequate coverage (15) Nutrition, metabolism, and development symptoms Status: Acute Plan: Nutrition: PPN at 55 mls / hr (started 12/20) Fluids: None Electrolytes: monitor and replete as necessary DVT ppx: holding anticoagulation due to GI bleed, RLE SCD GI ppx: Protonix 40 mg IV q12h (Tristian Chopra MD R2) Problem Qualifiers (1) GI bleed: Qualified Code: K92.2 - Gastrointestinal hemorrhage, unspecified gastrointestinal hemorrhage type (2) DM (diabetes mellitus): Qualified Code: 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
[2016-12-23 14:07] LABS: AUTOMATED NEUTROPHIL # 7.3 TH/MM3 (1.8-7.7); BASOPHIL # 0.1 TH/MM3 (0-0.2); BASOPHIL % 0.9 % (0.0-2.0); EOSINOPHIL # 0.3 TH/MM3 (0-0.4); EOSINOPHIL % 2.8 % (0.0-4.0); HEMATOCRIT 28.8 % (39.0-51.0); HEMO FLAGS DIFF FINAL; LYMPH % 9.3 % (9.0-44.0); MEAN CELL VOLUME 79.4 FL (80.0-100.0); MEAN CORPUSCULAR HEMOGLOBIN 26.3 PG (27.0-34.0); MEAN CORPUSCULAR HGB CONC 33.1 % (32.0-36.0); MONO % 17.4 % (0.0-8.0); NEUT % 69.6 % (16.0-70.0); PLATELET COUNT 133 TH/MM3 (150-450); RED BLOOD COUNT 3.63 MIL/MM3 (4.50-5.90); RED CELL DISTRIBUTION WIDTH 22.5 % (11.6-17.2); WHITE BLOOD COUNT 10.5 TH/MM3 (4.0-11.0)
[2016-12-23 14:21] LABS: MAGNESIUM 2.1 MG/DL (1.5-2.5); POTASSIUM 3.5 MEQ/L (3.5-5.1)
[2016-12-23 14:26] LABS: AST (GOT) 27 U/L (15-37); CHLORIDE 101 MEQ/L (98-107); POTASSIUM 3.4 MEQ/L (3.5-5.1); SODIUM (NA) 141 MEQ/L (136-145)
[2016-12-23 14:35] LABS: ALKALINE PHOSPHATASE 63 U/L (45-117); ALT (GPT) 40 U/L (12-78); ANION GAP 11 MEQ/L (5-15); BICARBONATE 28.7 MEQ/L (21.0-32.0); BLOOD UREA NITROGEN 45 MG/DL (7-18); GLOMERULAR FILTRATION RATE 27 ML/MIN (>89); TOTAL BILIRUBIN ADULT 1.9 MG/DL (0.2-1.0)
[2016-12-23] MEDS: CLINIMIX 4.25/5 (Cust.Renal Periph) 1000 mL- </= 42 mls/hr IV SCH ×8 (20:13)
[2016-12-23] MEDS: TERAZOSIN HCL 1 MG CAP PO SCH (20:17)
[2016-12-24] VITALS (14 sets, daily range): BP systolic 100–221; BP diastolic 67–95; PULSE 64–89; RESP 18–22; TEMP 97.4–99; O2SAT 92–98
[2016-12-24] MEDS: PANTOPRAZOLE SODIUM 40 MG VIAL IV PUSH SCH ×2 (02:27→13:07)
[2016-12-24] MEDS: HYDROmorphone HCL PF 1 MG/ML VIAL IV PUSH PRN ×2 (02:28→16:56)
[2016-12-24] MEDS: RESP: ALBUTEROL 2.5 MG/IPRATROPIUM 0.5 MG NEB (SCH) NEB ×4 (04:15→19:40)
[2016-12-24] MEDS: hydrALAZINE HCL 20 MG/ML VIAL IV SCH ×2 (05:33→13:08)
[2016-12-24] MEDS: NYSTATIN 500,000 UNIT TAB PO SCH ×3 (05:33→21:29)
[2016-12-24] MEDS: INSULIN ASPART SUPPLEMENTAL SCALE SQ SCH ×4 (05:38→21:00)
[2016-12-24] MEDS: LORazepam 2 MG/ML VIAL IV PUSH PRN ×3 (06:15→16:55)
[2016-12-24] MEDS: FERROUS SULFATE 325 MG (65 MG ELEMENTAL IRON) TAB PO SCH ×2 (08:09→21:29)
[2016-12-24] MEDS: PHENYTOIN INJ 100 MG/2 ML VIAL IV SCH ×2 (08:23→21:30)
[2016-12-24] MEDS: NYSTATIN 100,000 U/GM PWD 15 GM BTL TOPICAL SCH ×2 (08:24→21:34)
[2016-12-24] MEDS: SODIUM CHLORIDE 0.9% FLUSH 10 ML FLUSH IV FLUSH SCH ×2 (08:24→21:30)
[2016-12-24] MEDS: BUDESONIDE-FORMOTEROL 80/4.5 MCG INHALER INH SCH ×2 (09:00→21:28)
[2016-12-24 09:01] LABS: AUTOMATED NEUTROPHIL # 8.9 TH/MM3 (1.8-7.7); BASOPHIL # 0.1 TH/MM3 (0-0.2); BASOPHIL % 0.7 % (0.0-2.0); EOSINOPHIL # 0.3 TH/MM3 (0-0.4); EOSINOPHIL % 2.2 % (0.0-4.0); HEMATOCRIT 31.4 % (39.0-51.0); HEMO FLAGS DIFF FINAL; LYMPH % 5.9 % (9.0-44.0); LYMPHOCYTE # 0.7 TH/MM3 (1.0-4.8); MEAN CELL VOLUME 80.5 FL (80.0-100.0); MEAN CORPUSCULAR HGB CONC 32.2 % (32.0-36.0); NEUT % 75.2 % (16.0-70.0); PLATELET COUNT 149 TH/MM3 (150-450); RED BLOOD COUNT 3.89 MIL/MM3 (4.50-5.90); RED CELL DISTRIBUTION WIDTH 23.4 % (11.6-17.2); WHITE BLOOD COUNT 11.9 TH/MM3 (4.0-11.0)
[2016-12-24] MEDS ORDERED: ENALAPRILAT 1.25 MG/ML VIAL IV PUSH ONE (09:19)
[2016-12-24 09:49] LABS: BICARBONATE 29.2 MEQ/L (21.0-32.0); POTASSIUM 3.4 MEQ/L (3.5-5.1)
[2016-12-24] MEDS ORDERED: LABETALOL HCL 100 MG/20 ML VIAL IV PUSH ONE (14:00)
[2016-12-24] MEDS ORDERED: LABETALOL INJ 500 MG in SODIUM CHLORIDE 0.9% INJ 150 ML IV SCH ×2 (14:15→15:00)
--- NOTE | 2016-12-24 14:22 | HHI.FPPN ---
Subjective Remarks Patient seen and examined this morning. Temperature 97.4, pulse 82, respiratory rate 20, blood pressure 221/95, pulse ox 95 on 3 L nasal cannula. Patient was awake and mildly communicative. But he was not coherently answering all questions. Patient denies any pain, shortness of breath, reports that his BKA is healing. (Ramon Triana MD R3) Objective Vitals Vital Signs Date Time Temp Pulse Resp B/P Pulse Ox O2 Delivery O2 Flow Rate FiO2 12/24/16 12:00 97.4 82 20 221/95 95 12/24/16 10:07 96 Nasal Cannula 3.00 12/24/16 08:00 76 12/24/16 08:00 97.4 71 20 211/85 98 12/24/16 04:16 97 Nasal Cannula 3.00 12/24/16 04:00 98.2 68 18 166/92 96 12/24/16 00:00 97.8 89 22 141/67 92 12/23/16 21:00 113 12/23/16 21:00 58 12/23/16 21:00 113 12/23/16 18:43 97.4 57 20 192/75 95 12/23/16 17:10 98 Nasal Cannula 3.00 12/23/16 16:00 97.6 60 20 197/77 95 I/O 12/23/16 12/23/16 12/23/16 12/24/16 12/24/16 12/24/16 06:59 14:59 22:59 06:59 14:59 22:59 Intake Total 0 ml 120 ml 1115 ml Output Total 100 ml 250 ml 600 ml Balance -100 ml -130 ml 515 ml Intake Oral 0 ml 120 ml IV Total 0 ml TPN/PPN 926 ml Lipid 189 ml Output Urine Total 100 ml 250 ml 600 ml # Bowel Movements 0 0 (Ramon Triana MD R3) Result Diagram: 12/24/1682112/24/16821 Imaging Last Impressions Upper Extremity Ultrasound 12/21/16 0000 Signed Impressions: Service Date/Time: Wednesday, December 21, 2016 23:21 - CONCLUSION: 1. Superficial thrombophlebitis involving the right basilic vein. 2. Limited but negative examination of the left upper extremity Darien Mustafa MD Chest X-Ray 12/21/16 0000 Signed Impressions: Service Date/Time: Wednesday, December 21, 2016 22:42 - CONCLUSION: Finding suggest pulmonary edema. Prasad Koo MD Catheter Placement X-Ray 12/17/16 0700 Signed Impressions: Service Date/Time: Saturday, December 17, 2016 12:19 - CONCLUSION: Uncomplicated line placement as above. Prasad Tenorio Jr., MD Head CT 12/17/16 0000 Signed Impressions: Service Date/Time: Saturday, December 17, 2016 09:36 - CONCLUSION: 1. No acute intracranial abnormality is identified. 2. Chronic and stable changes include generalized atrophy and mild periventricular white matter low attenuation characteristic of chronic small vessel ischemic change. Meek Narayanan MD Brain MRI 12/17/16 0000 Signed Impressions: Service Date/Time: Saturday, December 17, 2016 16:15 - CONCLUSION: Chronic atrophic and small vessel ischemic changes without any evidence for acute hemorrhage or mass effect. Altagracia Grijalva MD Abdomen Ultrasound 12/07/16 0026 Signed Impressions: Service Date/Time: Wednesday, December 07, 2016 09:34 - CONCLUSION: 1. 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 Cystoscopy and biopsy recommended. 2. Nonvisualization of the pancreas. 3. Kidneys are borderline echogenic. 4. Minimal free fluid in Faulkner's pouch. Sal Chowdhury MD Foot MRI 12/07/16 0000 Signed Impressions: Service Date/Time: Wednesday, December 07, 2016 09:01 - CONCLUSION: 1. Osteomyelitis of the fifth metatarsal head and proximal phalanx of the fifth toe. Sal Chowdhury MD Abdomen/Pelvis CT 12/07/16 0000 Signed Impressions: Service Date/Time: Thursday, December 08, 2016 10:46 - CONCLUSION: Multiple bladder masses suspicious for malignancy. Altagracia Grijalva MD Foot X-Ray 12/06/16 1747 Signed Impressions: Service Date/Time: November 18:08 - CONCLUSION: No obvious bone destruction at this time. Soft tissue emphysema is noted in and around the fifth MTP joint soft tissues. The possibility of infection with gas-forming organism should be excluded. Dean Burton MD Objective Remarks GEN: Lying flat in bed. NAD CV: Normal rate, irregular rhythm. No obvious murmurs. LUNGS: Scattered expiratory wheezing bilaterally. No rales or rhonchi. No increased WOB. Normal respiratory rate. EXT: Left BKA with donald wrapping, removed wound is clean dry and intact. PT and DP pulses 2+ right foot. NEURO/PSYCH: Pt seems to be more alert. Answering questions. Following basic commands. : Stein catheter in place. Pt has significant swelling around glands penis. No surrounding erythema or discharge noted. Medications and IVs Current Medications Medications (Trade) Dose Ordered Sig/Barbara Route Start Time Stop Time Status Last Admin (NS Flush) 2 ml UNSCH PRN IV FLUSH 12/06/16 21:15 (NS Flush) 2 ml BID IV FLUSH 12/07/16 09:00 12/24/16 08:24 (Tylenol) 650 mg Q4H PRN PO 12/06/16 21:15 Hold (Zofran Inj) 4 mg Q6H PRN IVP 12/06/16 21:15 (Milk Of Magnesia Liq) 30 ml Q12H PRN PO 12/06/16 21:15 (Dulcolax Supp) 10 mg DAILY PRN RECTAL 12/06/16 21:15 (Lactulose Liq) 30 ml DAILY PRN PO 12/06/16 21:15 (Norvasc) 10 mg DAILY PO 12/07/16 09:00 Hold 12/16/16 09:21 (Lipitor) 20 mg HS PO 12/07/16 21:00 Hold 12/20/16 21:23 (Symbicort 80-4.5 Mcg Inh) 2 puff Q12HR INH 12/07/16 09:00 12/23/16 20:44 (Hytrin) 1 mg HS PO 12/07/16 21:00 12/23/16 20:17 (Catapres) 0.1 mg Q6H PRN PO 12/06/16 23:15 Hold 12/12/16 17:09 (D50w (Vial) Inj) 50 ml UNSCH PRN IV 12/07/16 00:45 (Glucagon Inj) 1 mg UNSCH PRN OTHER 12/07/16 00:45 (Protonix Inj) 40 mg Q12H IV PUSH 12/07/16 02:00 12/24/16 13:07 (Tylenol) 650 mg Q6H PRN PO 12/07/16 12:00 Hold (Pill Splitter) 1 ea UNSCH PRN OTHER 12/07/16 12:45 ([place] 5-325 Mg) 1 tab Q4H PRN PO 12/08/16 13:45 Hold 12/13/16 10:47 ([place] 7.5-325 Mg) 1 tab Q4H PRN PO 12/08/16 13:45 Hold 12/16/16 11:30 (Narcan Inj) 0.4 mg UNSCH PRN IV 12/08/16 13:45 (Coreg) 6.25 mg BID PO 12/11/16 14:30 Hold 12/16/16 20:39 (Apresoline) 100 mg Q8HR PO 12/12/16 22:00 Hold 12/17/16 06:43 (Catapres) 0.1 mg Q12HR PO 12/13/16 09:00 Hold 12/16/16 20:38 (Ferrous Sulfate) 325 mg BID PO 12/14/16 12:30 12/20/16 21:23 (NS Flush) UNSCH PRN IVF 12/17/16 13:00 Heparin Sodium (Porcine) UNSCH PRN IV FLUSH 12/17/16 13:00 12/18/16 13:33 (NS 1000 ml Inj) 1,000 ml @ 0 mls/hr TITRATE PRN IV 12/18/16 13:00 12/20/16 17:57 Heparin Sodium (Porcine) 8000 units 8,000 units UNSCH PRN IV FLUSH 12/18/16 13:00 12/22/16 12:13 Sodium Chloride 1,000 ml @ 200 mls/hr Q5H PRN IV 12/18/16 13:00 (NS 250 ml Inj) 200 ml @ 0 mls/hr UNSCH PRN IV 12/18/16 13:00 (Mannitol Inj) 12.5 gm UNSCH PRN IV 12/18/16 13:00 (Albumin 25% Inj) 25 gm UNSCH PRN IV 12/18/16 13:00 (NS Flush) 5 ml UNSCH PRN IV FLUSH 12/18/16 13:00 (Heparin Inj) 1,000 units UNSCH PRN OTHER 12/18/16 13:00 12/20/16 17:58 (Gentamicin (Dialysis) Inj) 10 mg UNSCH PRN OTHER 12/18/16 12:00 12/22/16 12:14 (Gelfoam 12 Mm/7 Mm Top) 1 foam UNSCH PRN TOPICAL 12/18/16 13:00 (Zofran Inj) 4 mg UNSCH PRN IV 12/18/16 13:00 (Benadryl) 25 mg UNSCH PRN PO 12/18/16 13:00 (Nitrostat Sl) 0.4 mg UNSCH PRN SL 12/18/16 13:00 (Catapres) 0.1 mg UNSCH PRN PO 12/18/16 13:00 (Dilantin Inj) 100 mg BID IV 12/18/16 21:00 12/24/16 08:23 (Catapres-Tts 0.2 Mg Patch.7d) 1 patch Q7D T-DERMAL 12/19/16 17:00 12/19/16 17:12 Lorazepam 2 mg 2 mg Q4H PRN IV PUSH 12/20/16 10:00 12/24/16 13:26 (Liposyn Iii 20% Inj) 250 ml @ 10 mls/hr Q24H IV 12/20/16 20:00 12/23/16 10:15 (Apresoline Inj) 50 mg Q8HR IV 12/21/16 10:00 12/24/16 13:08 (Mycostatin Powder) 1 applic Q12HR TOPICAL 12/21/16 09:47 12/24/16 08:24 (Dilaudid Pf Inj) 0.5 mg Q4H PRN IV PUSH 12/21/16 16:15 12/24/16 02:28 Nystatin 945735 units 500,000 units Q8HR PO 12/21/16 22:00 Diltiazem HCl 125 mg/Sodium Chloride 125 ml @ 0 mls/hr TITRATE IV 12/22/16 10:15 Hold (Sodium Chloride 23.4% Inj/Sodium Acetate Inj/KCl Inj/Magnesium Chloride Inj/ Calcium Chloride Inj/Mvi-12 Inj/ Folvite Inj/ Clinimix 4.25/5) 1,042.1719 ml @ 42 mls/hr Q24H IV 12/23/16 20:00 12/23/16 20:13 (Ramon Triana MD R3) A/P Assessment and Plan 80-year-old male admitted due to L 5th toe osteomyelitis s/p L BKA on 12/15. Patient had stroke-like symptoms on 12/17, neurology consulted. MRI and CT negative. Patient most likely had metabolic encephalopathy due to acute renal failure. Discharge Planning Unclear timetable Palliative care consulted for assistance with long-term goals. Code status has been changed to NO CODE. Torri Felder is designated healthcare surrogate. Case management consulted (Ramon Triana MD R3) Attending Attestation Patient seen and examined. Case reviewed and discussed with the resident team. Agree with plan as discussed with me and documented in the resident note. ( Rory Vergara MD) Problem List: (1) Metabolic encephalopathy Status: Acute Plan: - Patient's symptoms seem to be improving s/p dialysis; continue dialysis per nephrology - Noncontrast head CT negative for acute intracranial process - MRI revealed chronic atrophic and small vessel ischemic changes, no acute hemorrhage or mass effect - Neurology consulted - Nephrology consulted - Monitor electrolytes, I/Os, avoid nephrotoxins and DIESEL ENGINE II PIPE FITTER depressants - Palliative care has been consulted to assist with management of acute symptoms and with goals of care. Familia's code status has been changed to NO CODE. His Torri Felder is his designated healthcare surrogate. Palliative care currently following. (2) Acute renal failure Status: Acute Plan: Cr downtrending following dialysis: 2.02 today 12/24/16 - Nephrology following, appreciate recs - May be pre-renal or possibility of acute tubular necrosis or interstitial nephritis due to antibiotics vs infection - Urine eosinophils negative - Discontinued albumin per nephrology recs - Follow daily BMPs - Avoid nephrotoxic agents - Monitor I/Os (3) Hypertension Status: Chronic Plan: Pt is currently NPO due to multiple failed swallow evals; repeat swallow study ordered: Results pending Hydralazine 50 mg IV q8h Continue clonidine patch 0.2 mg TD patch each 7 days Started labetalol drip to control blood pressure with goal of 180/90 (4) Penile swelling Status: Acute Plan: Continue Nystatin powder BID (5) GI bleed Status: Acute Plan: S/p 2 units of PRBCs followed by furosemide 20 mg IV on 12/18 -Continue to trend H/H -Pt received 2 units of PRBCs on 12/15/16 for Hbg of 6.9 GI consulted EGD/Colonoscopy 12/13 showing reflux esophagitis, hiatal hernia, colonic polyp, incomplete evaluation of the colon Recommend EGD & colonoscopy in 2-3 months Continue PPI GI signed off, will re-consult if needed Started ferrous sulfate 12/14 325mg PO bid, currently on hold as patient is NPO (6) Atrial fibrillation Status: Chronic Plan: [id number] score of 6, would benefit from anticoagulation once clinically stable. Currently rate controlled. - Not currently anticoagulated due to possibility of GI bleed and hematuria from bladder masses Continue telemetry (7) Bladder tumor Status: Acute Plan: Urology consulted and following patient. Patient's daughter had stated that he refused urologic intervention several weeks prior to admission when it was recommended by his primary care provider - Case discussed with Dr. Parham 12/10. 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 Daily BMP to monitor Cr * Baseline Cr currently unknown, last recording creatinine was 1.52 from 2016 (8) CHF (congestive heart failure) Status: Chronic Plan: Echocardiogram performed with limited visualization of the left ventricular function - Left ventricular function grossly normal BNP equivocal on admission. Clinically does not appear to be in CHF exacerbation. Medications: * Currently holding DONALD inhibitor due to acute renal failure (9) DM (diabetes mellitus) Status: Chronic Plan: - Hemoglobin A1c of 6.8% - Hold home levemir - Low dose Sliding Scale w/ Novolog, titrate as needed (10) COPD (chronic obstructive pulmonary disease) Status: Chronic Plan: Known history of COPD. 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 Plan: S/p left BKA on 12/15 Patient has completed course of IV ABX per ID: - Unasyn 1500 mg IV q8h per ID(12/14-12/21) - Vascular surgery, Podiatry, and ID previously consulted, now signed off - Patient to follow up as outpatient in 2-3 weeks with vascular surgery pending improvement in clinical status during this hospitalization (14) UTI (urinary tract infection) Status: Resolved Plan: - Urine culture 12/06: 25-50,000 cfus Staph Aureus - Repeat urine culture 12/10 no growth final - Antibiotic course of Unasyn per ID has been completed as of 12/21 which provided adequate coverage (15) Nutrition, metabolism, and development symptoms Status: Acute Plan: Nutrition: PPN at 55 mls / hr (started 12/20) Fluids: None Electrolytes: monitor and replete as necessary DVT ppx: holding anticoagulation due to GI bleed, RLE SCD GI ppx: Protonix 40 mg IV q12h (Ramon Triana MD R3) Problem Qualifiers (1) GI bleed: Qualified Code: K92.2 - Gastrointestinal hemorrhage, unspecified gastrointestinal hemorrhage type (2) DM (diabetes mellitus): Qualified Code: 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
--- NOTE | 2016-12-24 14:30 | OTSOAPIP ---
PATIENT GOING OFF THE FLOOR FOR PROCEDURE WILL REATTEMPT TOMORROW. Therapist: Purvi Salas OTR/L Signature on file
[2016-12-24] MEDS ORDERED: POTASSIUM CHLOR 20 MEQ PREMIX 100 ML IV ONE (15:15)
--- NOTE | 2016-12-24 16:20 | HHI.NPPN ---
Subjective History of Present Illness 80 year old with gangrene Left foot diabetes Additional Remarks Patient is alert, remain confused, still NPO, not in distress. Review of Systems Musculoskeletal MS: Pain/Stiffness Objective Data Data 12/23/16 12/24/16 19:00 07:00 Intake Total 1235 ml Output Total 850 ml Balance 385 ml Intake Oral 120 ml TPN/PPN 926 ml Lipid 189 ml Output Urine Total 850 ml # Bowel Movements 0 Vital Signs Date Time Temp Pulse Resp B/P Pulse Ox O2 Delivery O2 Flow Rate FiO2 12/24/16 16:00 97.7 79 20 100/85 95 12/24/16 15:52 96 Nasal Cannula 3.00 12/24/16 14:16 182/74 12/24/16 13:00 170/82 12/24/16 12:00 97.4 82 20 221/95 95 12/24/16 10:07 96 Nasal Cannula 3.00 12/24/16 08:00 76 12/24/16 08:00 97.4 71 20 211/85 98 12/24/16 04:16 97 Nasal Cannula 3.00 12/24/16 04:00 98.2 68 18 166/92 96 12/24/16 00:00 97.8 89 22 141/67 92 12/23/16 21:00 113 12/23/16 21:00 58 12/23/16 21:00 113 12/23/16 18:43 97.4 57 20 192/75 95 12/23/16 17:10 98 Nasal Cannula 3.00 -: 12/24/16 0822 12/24/16 0822 Physical Exam General Appearance: No Acute Distress, Comfortable, Pale, Malnourished Eyes Eye Exam: Pupils Equal Throat Throat Exam: Oral Mucosa [place] & Moist Neck Neck Exam: Neck Supple Pulmonary Resp Exam: Breath Sounds Equal, No Distress, Rhonchi, Decreased Bases, Diminished Breath Sounds Cardiology CV Exam: Regular, Normal Sinus Rhythm Gastrointestinal/Abdomen GI Exam: Soft, Non-Tender, Bowel Sounds Present Extremeties Extremities Exam: Moderate Edema, Dependent Edema Neurologic Neuro Remarks sleepy. Assessment/Plan Problem List: (1) Acute renal failure Plan: BP is elevated, started on Labetalol IV, also on clonidine patch. Not able to take PO so far. urine out put is better. Creatinine is 2.0. Possibly has some renal recovery. Follow the BMP in AM and decide about HD. 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 Problem Qualifiers (1) DM (diabetes mellitus): Qualified Code: 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, with long-term current use of insulin Mary Anne Morelos MD Dec 24, 2016 16:20
--- NOTE | 2016-12-24 18:37 | RADRPT ---
EXAM DATE/TIME: 12/24/2016 14:37 [facility] COMPARISON: CHEST PA & LAT, December 21, 2016, 22:42. INDICATIONS : Shortness of breath. Cough. MEDICAL HISTORY : Diabetes mellitus type II. Myocardial infarction. Chronic obstructive SURGICAL HISTORY : None. ENCOUNTER: Subsequent ACUITY: 2 weeks PAIN SCORE: Non-responsive. LOCATION: Bilateral chest FINDINGS: Vas-Cath is stable in position. There has been slight improvement in aeration with decrease in hazy p rimarily basilar pleuroparenchymal opacities. Hernia contours are grossly stable. CONCLUSION: Improvement in aeration Meek Tello MD on December 24, 2016 at 18:35 Board Certified Radiologist. This report was verified electronically.
[2016-12-24] MEDS: FAT EMULSION 20% INJ 250 ML (@10 mls/hr) IV SCH (21:18)
[2016-12-24] MEDS: CLINIMIX 4.25/5 (Cust.Renal Periph) 1000 mL- </= 42 mls/hr IV SCH ×8 (21:19)
[2016-12-24] MEDS: TERAZOSIN HCL 1 MG CAP PO SCH (21:29)
[2016-12-24] MEDS: hydrALAZINE HCL 50 MG TAB PO SCH (21:29)
[2016-12-24] MEDS: ATORVASTATIN 20 MG TAB PO SCH (21:29)
[2016-12-25] VITALS (10 sets, daily range): BP systolic 132–185; BP diastolic 60–80; PULSE 61–98; RESP 18–20; TEMP 97.4–98.6; O2SAT 94–98
[2016-12-25] MEDS: PANTOPRAZOLE SODIUM 40 MG VIAL IV PUSH SCH ×2 (01:02→14:16)
[2016-12-25] MEDS: LORazepam 2 MG/ML VIAL IV PUSH PRN ×3 (01:03→22:43)
[2016-12-25] MEDS: HYDROmorphone HCL PF 1 MG/ML VIAL IV PUSH PRN ×2 (01:03→06:18)
[2016-12-25] MEDS: RESP: ALBUTEROL 2.5 MG/3 ML NEB (PRN) NEB ×2 (02:31→17:28)
[2016-12-25] MEDS: RESP: ALBUTEROL 2.5 MG/IPRATROPIUM 0.5 MG NEB (SCH) NEB ×4 (04:40→21:25)
[2016-12-25] MEDS: NYSTATIN 500,000 UNIT TAB PO SCH ×3 (06:18→22:43)
[2016-12-25] MEDS: hydrALAZINE HCL 50 MG TAB PO SCH ×3 (06:18→22:43)
[2016-12-25] MEDS: INSULIN ASPART SUPPLEMENTAL SCALE SQ SCH ×4 (06:20→21:00)
[2016-12-25 07:34] LABS: HEMATOCRIT 31.4 % (39.0-51.0); MEAN CELL VOLUME 80.5 FL (80.0-100.0); MEAN CORPUSCULAR HEMOGLOBIN 25.9 PG (27.0-34.0); MEAN CORPUSCULAR HGB CONC 32.1 % (32.0-36.0); PLATELET COUNT 131 TH/MM3 (150-450); REVIEW FLAG FINAL; WHITE BLOOD COUNT 12.3 TH/MM3 (4.0-11.0)
[2016-12-25 07:35] LABS: BICARBONATE 27.7 MEQ/L (21.0-32.0); POTASSIUM 4.1 MEQ/L (3.5-5.1)
[2016-12-25] MEDS: CARVEDILOL 6.25 MG TAB PO SCH ×2 (11:41→22:44)
[2016-12-25] MEDS: FERROUS SULFATE 325 MG (65 MG ELEMENTAL IRON) TAB PO SCH ×2 (11:41→22:43)
[2016-12-25] MEDS: NYSTATIN 100,000 U/GM PWD 15 GM BTL TOPICAL SCH ×2 (11:42→22:44)
[2016-12-25] MEDS: PHENYTOIN INJ 100 MG/2 ML VIAL IV SCH ×2 (11:42→22:43)
[2016-12-25] MEDS: SODIUM CHLORIDE 0.9% FLUSH 10 ML FLUSH IV FLUSH SCH ×2 (11:42→21:00)
[2016-12-25] MEDS: BUDESONIDE-FORMOTEROL 80/4.5 MCG INHALER INH SCH ×2 (13:41→22:45)
--- NOTE | 2016-12-25 14:26 | HHI.FPPN ---
Subjective Remarks Medicine attending note: Patient seen with resident, Dr. Nicholas, family in attendance including the patient's significant other, his daughter, his grandson , daughter of his significant other. Patient is more alert today, when asked orientation questions, does not follow in conversation. Expresses no acute somatic complaints. Family has many questions regarding his current condition, the status of the bladder cancers. They have seen daily progress especially over the last 1-2 days. Patient's baseline status was that of being fairly independent at home with regards to feeding himself and self-care, significant other had been noting confusion in terms of orientation at times. The patient was described as doing well when he read the newspaper and did his puzzles. Objective Vitals Vital signs noted. Labile blood pressure, better than prior. Afebrile. Gen. appearance: Older gentleman Gen. appearance consistent with his octogenarian status. Pleasant in attempting to converse. Family at bedside. HEENT: Grossly nonlocalizing. Cardiac: Distant heart sounds, no definite S3, extrasystoles. Lungs: Diminished breath sounds, upper airway rhonchi are appreciated. Abdomen: Slightly rotund, soft, nontender. Genitals: Edematous foreskin and shaft, Stein catheter in place Extremities: BKA left right lower extremity warm and dry. Extensive labs reviewed. Vital Signs Date Time Temp Pulse Resp B/P Pulse Ox O2 Delivery O2 Flow Rate FiO2 12/25/16 12:00 97.8 71 18 172/76 96 12/25/16 09:45 97 Nasal Cannula 3.00 12/25/16 08:00 97.4 79 18 132/60 97 12/25/16 04:00 97.9 94 20 158/76 94 12/25/16 02:34 95 Nasal Cannula 3.00 12/25/16 00:00 98.6 98 20 160/72 94 12/24/16 21:00 172/76 12/24/16 20:00 99.0 64 20 196/81 95 12/24/16 16:45 152/74 12/24/16 16:00 97.7 79 20 200/85 95 12/24/16 15:52 96 Nasal Cannula 3.00 12/24/16 14:18 78 I/O 12/24/16 12/24/16 12/24/16 12/25/16 12/25/16 12/25/16 06:59 14:59 22:59 06:59 14:59 22:59 Intake Total 1115 ml 488 ml 555 ml 240 ml Output Total 600 ml 200 ml 350 ml Balance 515 ml 488 ml 355 ml -110 ml Intake Oral 555 ml 240 ml IV Total 488 ml TPN/PPN 926 ml Lipid 189 ml Output Urine Total 600 ml 200 ml 350 ml # Voids 1 # Bowel Movements 0 Result Diagram: 12/25/1661012/25/16610 Objective Remarks GEN: Lying flat in bed. NAD CV: Normal rate, irregular rhythm. No obvious murmurs. LUNGS: Scattered expiratory wheezing bilaterally. No rales or rhonchi. No increased WOB. Normal respiratory rate. EXT: Left BKA with donald wrapping, removed wound is clean dry and intact. PT and DP pulses 2+ right foot. NEURO/PSYCH: Pt seems to be more alert. Answering questions. Following basic commands. : Stein catheter in place. Pt has significant swelling around glands penis. No surrounding erythema or discharge noted. A/P Assessment and Plan Clinical assessment: Very complex patient with extensive unresectable bladder cancer, cognitive impairment with probable evolving dementia prior to hospitalization, status post left BKA for extensive gangrene of the left foot, coronary disease, hypertension, atrial fibrillation, diabetes mellitus, acute on chronic renal insufficiency improving with dialysis. Please refer to chart for complete past medical history. In the presence of all of family, an invitation to have hospice consult with the family and patient at the present time was suggested. This is in view of the fact that the patient has an ongoing dementia, has extensive bladder cancer, it is the wish of the family that he be taken care of with dignity and comfort and it is the opinion of the undersigned physician that hospice would be a realistic plan. Dr. Nicholas is contacting hospice to arrange for the consultation and the family to be together to hospice. Greater than 30 minutes in [id number] conversation with the family answering questions, making disposition plans. Discharge Planning Unclear timetable Palliative care consulted for assistance with long-term goals. Code status has been changed to NO CODE. Torri Felder is designated healthcare surrogate. Case management consulted Problem List: (1) Metabolic encephalopathy Status: Acute Plan: - Patient's symptoms seem to be improving s/p dialysis; continue dialysis per nephrology - Noncontrast head CT negative for acute intracranial process - MRI revealed chronic atrophic and small vessel ischemic changes, no acute hemorrhage or mass effect - Neurology consulted - Nephrology consulted - Monitor electrolytes, I/Os, avoid nephrotoxins and [employer] depressants - Palliative care has been consulted to assist with management of acute symptoms and with goals of care. Familia's code status has been changed to NO CODE. His Torri Felder is his designated healthcare surrogate. Palliative care currently following. (2) Acute renal failure Status: Acute Plan: Cr downtrending following dialysis: 2.02 today 12/24/16 - Nephrology following, appreciate recs - May be pre-renal or possibility of acute tubular necrosis or interstitial nephritis due to antibiotics vs infection - Urine eosinophils negative - Discontinued albumin per nephrology recs - Follow daily BMPs - Avoid nephrotoxic agents - Monitor I/Os (3) Hypertension Status: Chronic Plan: Pt is currently NPO due to multiple failed swallow evals; repeat swallow study ordered: Results pending Hydralazine 50 mg IV q8h Continue clonidine patch 0.2 mg TD patch each 7 days Started labetalol drip to control blood pressure with goal of 180/90 (4) Penile swelling Status: Acute Plan: Continue Nystatin powder BID (5) GI bleed Status: Acute Plan: S/p 2 units of PRBCs followed by furosemide 20 mg IV on 12/18 -Continue to trend H/H -Pt received 2 units of PRBCs on 12/15/16 for Hbg of 6.9 GI consulted EGD/Colonoscopy 12/13 showing reflux esophagitis, hiatal hernia, colonic polyp, incomplete evaluation of the colon Recommend EGD & colonoscopy in 2-3 months Continue PPI GI signed off, will re-consult if needed Started ferrous sulfate 12/14 325mg PO bid, currently on hold as patient is NPO (6) Atrial fibrillation Status: Chronic Plan: [id number] score of 6, would benefit from anticoagulation once clinically stable. Currently rate controlled. - Not currently anticoagulated due to possibility of GI bleed and hematuria from bladder masses Continue telemetry (7) Bladder tumor Status: Acute Plan: Urology consulted and following patient. Patient's daughter had stated that he refused urologic intervention several weeks prior to admission when it was recommended by his primary care provider - Case discussed with Dr. Parham 12/10. 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 Daily BMP to monitor Cr * Baseline Cr currently unknown, last recording creatinine was 1.52 from 2016 (8) CHF (congestive heart failure) Status: Chronic Plan: Echocardiogram performed with limited visualization of the left ventricular function - Left ventricular function grossly normal BNP equivocal on admission. Clinically does not appear to be in CHF exacerbation. Medications: * Currently holding DONALD inhibitor due to acute renal failure (9) DM (diabetes mellitus) Status: Chronic Plan: - Hemoglobin A1c of 6.8% - Hold home levemir - Low dose Sliding Scale w/ Novolog, titrate as needed (10) COPD (chronic obstructive pulmonary disease) Status: Chronic Plan: Known history of COPD. 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 Plan: S/p left BKA on 12/15 Patient has completed course of IV ABX per ID: - Unasyn 1500 mg IV q8h per ID(12/14-12/21) - Vascular surgery, Podiatry, and ID previously consulted, now signed off - Patient to follow up as outpatient in 2-3 weeks with vascular surgery pending improvement in clinical status during this hospitalization (14) UTI (urinary tract infection) Status: Resolved Plan: - Urine culture 12/06: 25-50,000 cfus Staph Aureus - Repeat urine culture 12/10 no growth final - Antibiotic course of Unasyn per ID has been completed as of 12/21 which provided adequate coverage (15) Nutrition, metabolism, and development symptoms Status: Acute Plan: Nutrition: PPN at 55 mls / hr (started 8/3) Fluids: None Electrolytes: monitor and replete as necessary DVT ppx: holding anticoagulation due to GI bleed, RLE SCD GI ppx: Protonix 40 mg IV q12h Problem Qualifiers (1) GI bleed: Qualified Code: K92.2 - Gastrointestinal hemorrhage, unspecified gastrointestinal hemorrhage type (2) DM (diabetes mellitus): Qualified Code: 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, with long-term current use of insulin (3) CAD (coronary artery disease): Qualified Code: I25.10 - Coronary artery disease involving [place] coronary artery of [place] heart without angina pectoris Rory Vergara MD Dec 25, 2016 14:26
--- NOTE | 2016-12-25 16:35 | HHI.NPPN ---
Subjective History of Present Illness 80 year old with gangrene Left foot diabetes Additional Remarks Patient is alert, remain confused, started on diet, not in distress. Review of Systems Musculoskeletal MS: Pain/Stiffness Objective Data Data 12/24/16 12/25/16 19:00 07:00 Intake Total 488 ml 795 ml Output Total 550 ml Balance 488 ml 245 ml Intake Oral 795 ml IV Total 488 ml Output Urine Total 550 ml # Voids 1 # Bowel Movements 0 Vital Signs Date Time Temp Pulse Resp B/P Pulse Ox O2 Delivery O2 Flow Rate FiO2 12/25/16 12:00 97.8 71 18 172/76 96 12/25/16 09:45 97 Nasal Cannula 3.00 12/25/16 08:00 70 12/25/16 08:00 97.4 79 18 132/60 97 12/25/16 04:00 97.9 94 20 158/76 94 12/25/16 02:34 95 Nasal Cannula 3.00 12/25/16 00:00 98.6 98 20 160/72 94 12/24/16 21:00 172/76 12/24/16 20:00 99.0 64 20 196/81 95 12/24/16 16:45 152/74 -: 12/25/16 0611 12/25/16 0611 Physical Exam General Appearance: No Acute Distress, Comfortable, Pale, Malnourished Eyes Eye Exam: Pupils Equal Throat Throat Exam: Oral Mucosa [place] & Moist Neck Neck Exam: Neck Supple Pulmonary Resp Exam: Breath Sounds Equal, No Distress, Rhonchi, Decreased Bases, Diminished Breath Sounds Cardiology CV Exam: Regular, Normal Sinus Rhythm Gastrointestinal/Abdomen GI Exam: Soft, Non-Tender, Bowel Sounds Present Extremeties Extremities Exam: Moderate Edema, Dependent Edema Neurologic Neuro Remarks sleepy. Assessment/Plan Problem List: (1) Acute renal failure Plan: BP is better, started on PO Labetalol and Coreg. Started on diet also. urine out put is better. Creatinine is improving, Has some renal recovery. Hold HD today, if Creatinine continue to improve, will get Vascath removed. 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 Problem Qualifiers (1) DM (diabetes mellitus): Qualified Code: 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, with long-term current use of insulin Mary Anne Morelos MD Dec 25, 2016 16:35
[2016-12-25] MEDS: ATORVASTATIN 20 MG TAB PO SCH (22:43)
[2016-12-25] MEDS: TERAZOSIN HCL 1 MG CAP PO SCH (22:43)
[2016-12-25] MEDS: FAT EMULSION 20% INJ 250 ML (@10 mls/hr) IV SCH (22:44)
[2016-12-25] MEDS: CLINIMIX 4.25/5 (Cust.Renal Periph) 1000 mL- </= 42 mls/hr IV SCH ×8 (23:14)
[2016-12-26] VITALS (8 sets, daily range): BP systolic 123–178; BP diastolic 58–82; PULSE 58–95; RESP 20–22; TEMP 97.3–98; O2SAT 93–98
[2016-12-26] MEDS: HYDROmorphone HCL PF 1 MG/ML VIAL IV PUSH PRN ×2 (00:39→14:13)
[2016-12-26] MEDS: PANTOPRAZOLE SODIUM 40 MG VIAL IV PUSH SCH ×2 (03:44→13:29)
[2016-12-26] MEDS: hydrALAZINE HCL 50 MG TAB PO SCH ×3 (05:38→22:15)
[2016-12-26] MEDS: NYSTATIN 500,000 UNIT TAB PO SCH ×3 (05:38→22:15)
[2016-12-26] MEDS: LORazepam 2 MG/ML VIAL IV PUSH PRN ×3 (05:38→22:15)
[2016-12-26] MEDS: RESP: ALBUTEROL 2.5 MG/3 ML NEB (PRN) NEB ×2 (05:56→11:41)
[2016-12-26] MEDS: INSULIN ASPART SUPPLEMENTAL SCALE SQ SCH ×4 (06:55→21:00)
[2016-12-26 08:30] LABS: AUTOMATED NEUTROPHIL # 6.4 TH/MM3 (1.8-7.7); BASOPHIL # 0.1 TH/MM3 (0-0.2); BASOPHIL % 0.9 % (0.0-2.0); EOSINOPHIL # 0.2 TH/MM3 (0-0.4); EOSINOPHIL % 1.9 % (0.0-4.0); HEMATOCRIT 26.9 % (39.0-51.0); LYMPH % 9.5 % (9.0-44.0); LYMPHOCYTE # 0.8 TH/MM3 (1.0-4.8); MEAN CELL VOLUME 79.7 FL (80.0-100.0); MEAN CORPUSCULAR HEMOGLOBIN 26.7 PG (27.0-34.0); MEAN CORPUSCULAR HGB CONC 33.6 % (32.0-36.0); MONO % 13.9 % (0.0-8.0); NEUT % 73.8 % (16.0-70.0); PLATELET COUNT 117 TH/MM3 (150-450); RED BLOOD COUNT 3.38 MIL/MM3 (4.50-5.90); RED CELL DISTRIBUTION WIDTH 23.6 % (11.6-17.2); WHITE BLOOD COUNT 8.6 TH/MM3 (4.0-11.0)
[2016-12-26] MEDS: PHENYTOIN INJ 100 MG/2 ML VIAL IV SCH ×2 (08:32→22:15)
[2016-12-26] MEDS: CARVEDILOL 6.25 MG TAB PO SCH ×2 (08:32→22:15)
[2016-12-26] MEDS: FERROUS SULFATE 325 MG (65 MG ELEMENTAL IRON) TAB PO SCH ×2 (08:32→22:15)
[2016-12-26] MEDS: SODIUM CHLORIDE 0.9% FLUSH 10 ML FLUSH IV FLUSH SCH ×2 (08:33→21:00)
[2016-12-26] MEDS: NYSTATIN 100,000 U/GM PWD 15 GM BTL TOPICAL SCH ×2 (08:33→21:00)
[2016-12-26 08:39] LABS: HEMO FLAGS AUTO DIFF
[2016-12-26 08:49] LABS: POTASSIUM 3.6 MEQ/L (3.5-5.1)
[2016-12-26] MEDS: BUDESONIDE-FORMOTEROL 80/4.5 MCG INHALER INH SCH ×2 (09:00→21:00)
[2016-12-26 09:29] LABS: BURR CELLS 1+ (NORMAL); KERATOCYTES OCC (NORMAL)
[2016-12-26 09:30] LABS: PLATELET ESTIMATE SMEAR LOW (NORMAL); PLATELET MORPHOLOGY NORMAL (NORMAL); SCAN/DIFF AUTO DIFF CONFIRMED
--- NOTE | 2016-12-26 11:42 | HHI.FPPN ---
Subjective Remarks No acute events overnight. Remains afebrile. UOP increasing noted to be 1350cc over past 24 hrs. Patient seems more alert this morning, answering questions. Family in room at bedside just meeting with Hospice. Family has a concern that the patient has been coughing. They otherwise state they think he has been doing well and are excited he may not need dialysis if his kidney function continues to improve. (Tristian Chopra MD R2) Objective Vitals Vital Signs Date Time Temp Pulse Resp B/P Pulse Ox O2 Delivery O2 Flow Rate FiO2 12/26/16 08:00 97.8 63 20 150/70 98 12/26/16 05:58 93 Nasal Cannula 3.00 12/26/16 00:00 98.0 70 20 178/74 93 12/25/16 21:27 98 Nasal Cannula 3.00 12/25/16 20:16 61 12/25/16 20:00 97.9 70 20 185/69 96 12/25/16 16:00 97.5 73 18 178/80 98 12/25/16 12:00 97.8 71 18 172/76 96 I/O 12/25/16 12/25/16 12/25/16 12/26/16 12/26/16 12/26/16 06:59 14:59 22:59 06:59 14:59 22:59 Intake Total 240 ml 254 ml 746 ml 361 ml Output Total 350 ml 800 ml 550 ml Balance -110 ml 254 ml -54 ml -189 ml Intake Oral 240 ml 360 ml 0 ml IV Total 254 ml TPN/PPN 316 ml 305 ml Lipid 70 ml 56 ml Output Urine Total 350 ml 800 ml 550 ml # Bowel Movements 0 (Tristian Chopra MD R2) Result Diagram: 12/26/16 0758 12/26/16 0758 Objective Remarks GEN: Lying flat in bed. NAD CV: Normal rate, irregular rhythm. No obvious murmurs. LUNGS: Scattered expiratory wheezing bilaterally. No rales or rhonchi. No increased WOB. Normal respiratory rate. EXT: Left BKA with donald wrapping, removed wound is clean dry and intact. PT and DP pulses 2+ right foot. NEURO/PSYCH: Patient more alert. Answering questions. Following basic commands. : Stein catheter in place. 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 Patient had stroke-like symptoms on 12/17, MRI and CT negative. Patient most likely had metabolic encephalopathy due to acute renal failure. Discharge Planning Anticipate discharge to SNF in 2-3 days Palliative care consulted for assistance with long-term goals. Code status has been changed to NO CODE. Torri Felder is designated healthcare surrogate. Hospice has met with family, family currently not wanting to proceed with Hospice care Case management consulted (Tristian Chopra MD R2) Assessment and Plan Medicine attending assessment: Patient seen and examined. Case reviewed and discussed with resident team. Agree with plan of care is discussed with me and documented in the resident note. (Rory Vergara MD) Problem List: (1) Metabolic encephalopathy Status: Acute Plan: - Patient's symptoms seem to be improving s/p dialysis; continue dialysis per nephrology, patient may not be needing any further sessions Nephrology planning to remove Vascath - Noncontrast head CT negative for acute intracranial process - MRI revealed chronic atrophic and small vessel ischemic changes, no acute hemorrhage or mass effect - Neurology consulted - Nephrology consulted - Monitor electrolytes, I/Os, avoid nephrotoxins and GLUCO[employer] SYR[employer] depressants - Palliative care has been consulted to assist with management of acute symptoms and with goals of care. Familia's code status has been changed to NO CODE. His Torri Felder is his designated healthcare surrogate. Palliative care currently following. (2) Acute renal failure Status: Acute Plan: Cr downtrending following dialysis - Nephrology following, appreciate recs - May be pre-renal or possibility of acute tubular necrosis or interstitial nephritis due to antibiotics vs infection - Urine eosinophils negative - Discontinued albumin per nephrology recs - Follow daily BMPs - Avoid nephrotoxic agents - Monitor I/Os (3) Hypertension Status: Chronic Plan: Resume PO antihypertensives - Coreg 6.25 mg po bid - Hydralazine 100 mg po q8h - Amlodipine 10 mg po daily Continue clonidine patch 0.2 mg TD patch each 7 days (4) Penile swelling Status: Acute Plan: Continue Nystatin powder BID (5) GI bleed Status: Acute Plan: S/p 2 units of PRBCs followed by furosemide 20 mg IV on 12/18 -Continue to trend H/H -Pt received 2 units of PRBCs on 12/15/16 for Hbg of 6.9 GI consulted EGD/Colonoscopy 12/13 showing reflux esophagitis, hiatal hernia, colonic polyp, incomplete evaluation of the colon Recommend EGD & colonoscopy in 2-3 months Continue PPI GI signed off, will re-consult if needed Continue ferrous sulfate 325 mg po bid (6) Atrial fibrillation Status: Chronic Plan: [id number] score of 6, would benefit from anticoagulation once clinically stable. Currently rate controlled. - Not currently anticoagulated due to possibility of GI bleed and hematuria from bladder masses Continue telemetry (7) Bladder tumor Status: Acute Plan: Urology consulted and following patient. Patient's daughter had stated that he refused urologic intervention several weeks prior to admission when it was recommended by his primary care provider - Case discussed with Dr. Parham 12/10. 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 Daily BMP to monitor Cr * Baseline Cr currently unknown, last recording creatinine was 1.52 from 2016 (8) CHF (congestive heart failure) Status: Chronic Plan: Echocardiogram performed with limited visualization of the left ventricular function - Left ventricular function grossly normal BNP equivocal on admission. Clinically does not appear to be in CHF exacerbation. Medications: * Currently holding DONALD inhibitor due to acute renal failure (9) DM (diabetes mellitus) Status: Chronic Plan: - Hemoglobin A1c of 6.8% - Hold home levemir - Low dose Sliding Scale w/ Novolog, titrate as needed (10) COPD (chronic obstructive pulmonary disease) Status: Chronic Plan: Known history of COPD. 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 Plan: S/p left BKA on 12/15 Patient has completed course of IV ABX per ID: - Unasyn 1500 mg IV q8h per ID(12/14-12/21) - Vascular surgery, Podiatry, and ID previously consulted, now signed off - Patient to follow up as outpatient in 2-3 weeks with vascular surgery pending improvement in clinical status during this hospitalization (14) UTI (urinary tract infection) Status: Resolved Plan: - Urine culture 12/06: 25-50,000 cfus Staph Aureus - Repeat urine culture 12/10 no growth final - Antibiotic course of Unasyn per ID has been completed as of 12/21 which provided adequate coverage (15) Nutrition, metabolism, and development symptoms Status: Acute Plan: Nutrition: PPN at 55 mls / hr (started 12/20), likely discontinue in 1-2 days following increased PO intake Fluids: None Electrolytes: monitor and replete as necessary DVT ppx: holding anticoagulation due to GI bleed, RLE SCD GI ppx: Protonix 40 mg IV q12h (Tristian Chopra MD R2) Problem Qualifiers (1) GI bleed: Qualified Code: K92.2 - Gastrointestinal hemorrhage, unspecified gastrointestinal hemorrhage type (2) DM (diabetes mellitus): Qualified Code: 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, with long-term current use of insulin (3) CAD (coronary artery disease): Qualified Code: I25.10 - Coronary artery disease involving [place] coronary artery of [place] heart without angina pectoris Tristian Chopra MD R2 Dec 26, 2016 11:42 Rory Vergara MD Dec 26, 2016 17:17
--- NOTE | 2016-12-26 12:16 | PD.CAR.PN ---
CVT Progress Note Subjective/Hospital Course: Records reviewed what patient was in some sort of x-ray study Full consult to follow after evaluation of the patient Thanks Trevor 12/11/16 Patient status post fifth toe amputation by podiatry Incision is healing nicely Patient is not a candidate for any vascular reconstruction in face of his age, systemic comorbidities and local factors. In face of elevated BUN/creatinine I will not even order CTA with runoff for the benefits of these studies will be exceeded by the risks 12/13/16 Patient with the large defect post left fifth toe and metatarsal amputation Deep defect toward of fourth metatarsal bone with exposure of the soft tissues and plantar area of the foot Discussed with Dr. Sheree Vallecillo. Patient is fairly ambulatory at this time and I would advise against transmetatarsal amputation in the face of patient's general condition and peripheral changes There is no vascular procedure to remedy this Will discuss with patient's daughter once she is in the room and will come back up tomorrow 12/14/16 Discussed the case with Dr. Sheree Vallecillo. 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 Now with additional bedridden status in the hospital I do not know how patient is going to get back on his feet. Nonetheless patient and family do not wish above-knee amputation so we will go ahead with below-knee amputation in anticipation of possible prosthesis I've explained to the family at length that then 80-year-old male who barely could walk before would not be a good candidate for prostetics. Patient will need below-knee amputation and possibly even above-knee amputation depending on the prospects of ambulation which is fairly poor 12/16/16 Patient is status post the below-knee amputation Dressing is intact and dry Pain management is under control Will keep the dressing on until tomorrow and then remove it at which point it will be changed daily This patient will definitely require rehabilitation and the assisted placement he cannot go home with the fresh below-knee amputation because there is no question he'll fall again and break the stump opened Patient definitely cannot be discharged home because this will be an unsafe venue 12/17/16 Apparently patient had this morning an episode of decreased level of consciousness and being worked up for a stroke as we speak Left BKA dressing has been removed and amputation stump is clean and dry. No signs of ischemia We will redress slightly In face of delayed healing stitches should stay in for about 3 weeks 12/19/16 Stump is clean and dry well-perfused skin Dressing is clean Patient has posterior knee support in order to prevent the permanent flexion contracture of the knee Nothing to add to care 12/20/16 Status post BKA Incision is clean and dry stump is well perfused Dressing reapplied From my point patient can be discharged either to assisted or any other destination deemed adequate for this gentleman Follow-up with my office in about 2-3 weeks 12/26/16 Stump is clean and dry and stitches in place Swelling is significantly decreased Leave the wound stitches in for another 2 weeks in face of delayed healing and debilitated state of the patient May be discharged to rehabilitation from my point anytime Objective: Vital Signs Date Time Temp Pulse Resp B/P Pulse Ox O2 Delivery O2 Flow Rate FiO2 12/26/16 11:42 95 Nasal Cannula 3.00 12/26/16 08:00 97.8 63 20 150/70 98 12/26/16 05:58 93 Nasal Cannula 3.00 12/26/16 00:00 98.0 70 20 178/74 93 12/25/16 21:27 98 Nasal Cannula 3.00 12/25/16 20:16 61 12/25/16 20:00 97.9 70 20 185/69 96 12/25/16 16:00 97.5 73 18 178/80 98 Labs: Laboratory Tests Test 12/26/16 07:58 White Blood Count 8.6 TH/MM3 (4.0-11.0) Red Blood Count 3.38 MIL/MM3 (4.50-5.90) Hemoglobin 9.0 GM/DL (13.0-17.0) Hematocrit 26.9 % (39.0-51.0) Mean Corpuscular Volume 79.7 FL (80.0-100.0) Mean Corpuscular Hemoglobin 26.7 PG (27.0-34.0) Mean Corpuscular Hemoglobin 33.6 % Concent (32.0-36.0) Red Cell Distribution Width 23.6 % (11.6-17.2) Platelet Count 117 TH/MM3 (150-450) Mean Platelet Volume 8.6 FL (7.0-11.0) Neutrophils (%) (Auto) 73.8 % (16.0-70.0) Lymphocytes (%) (Auto) 9.5 % (9.0-44.0) Monocytes (%) (Auto) 13.9 % (0.0-8.0) Eosinophils (%) (Auto) 1.9 % (0.0-4.0) Basophils (%) (Auto) 0.9 % (0.0-2.0) Neutrophils # (Auto) 6.4 TH/MM3 (1.8-7.7) Lymphocytes # (Auto) 0.8 TH/MM3 (1.0-4.8) Monocytes # (Auto) 1.2 TH/MM3 (0-0.9) Eosinophils # (Auto) 0.2 TH/MM3 (0-0.4) Basophils # (Auto) 0.1 TH/MM3 (0-0.2) CBC Comment AUTO DIFF Differential Comment AUTO DIFF CONFIRMED Platelet Estimate LOW (NORMAL) Platelet Morphology Comment NORMAL (NORMAL) [place] Cells 1+ (NORMAL) Acanthocytes (NORMAL) Keratocytes OCC (NORMAL) Sodium Level 140 MEQ/L (136-145) Potassium Level 3.6 MEQ/L (3.5-5.1) Chloride Level 102 MEQ/L (98-107) Carbon Dioxide Level 29.0 MEQ/L (21.0-32.0) Anion Gap 9 MEQ/L (5-15) Blood Urea Nitrogen 61 MG/DL (7-18) Creatinine 1.75 MG/DL (0.60-1.30) Estimat Glomerular Filtration 38 ML/MIN (>89) Rate Random Glucose 144 MG/DL (74-106) Calcium Level 8.5 MG/DL (8.5-10.1) Result Diagram: 12/26/16 0758 12/26/16 0758 Lavonne Hernandez MD Dec 26, 2016 12:16
--- NOTE | 2016-12-26 12:58 | HHI.HCPN ---
Reason for visit a. To assist with evaluation and management of symptoms including: dyspnea, confusion, dysphagia. b. To assist medical decision maker(s) with: better understanding of current medical conditions; weighing benefits/burdens of medical treatment options; making medical treatment decisions. . Subjective/Interval History Patient seen today to follow up on comfort , goals with family. Stable over weekend. his has arrived back in town. Renal functions slowly improving, HS held, nephrology following, september d/c dialysis catheter. Pt tolerating puree w thin liquids per ST. CXR saturday with some improvement. Pt more alert, participating some w PT, stood at side of bed approx 10 seconds. Family discussed w medical attending yesterday-- meeting with hospice today. D/ w hospice nurse-- family feels pt would want to continue to try to get better, to get back to his most recent baseline. They are interested in pursing more aggressive therapy, not interested in hospice at this time. D/w primary nurse. Pt seen in room, sleeping soundly did not arouse for my visit. , grandsons at bedside. Family reports they have seen pt make steady improvements over the past few days and that he wants to keep trying to get better. They endorse not ready for hospice. They are hoping to get him into more aggressive PT, ask to speak w CM regarding. Gently explore that though pt is stable now, he still remains at risk for decline/setbacks. They verbalize understanding but that pt wants to keep trying for right now. Goals aggressive. notified CM of family request to discuss d/c & rehab options. . Advance Directives Health Care Surrogate: Copy in medical record Advance Directive Specifics Health Care Surrogate(s): patient incapacitated, uncertain if he will regain capacity. Patient has designated his , Torri Felder as designated healthcare surrogate. . Objective Vital Signs Date Time Temp Pulse Resp B/P Pulse Ox O2 Delivery O2 Flow Rate FiO2 12/26/16 11:42 95 Nasal Cannula 3.00 12/26/16 08:00 97.8 63 20 150/70 98 12/26/16 05:58 93 Nasal Cannula 3.00 12/26/16 00:00 98.0 70 20 178/74 93 12/25/16 21:27 98 Nasal Cannula 3.00 12/25/16 20:16 61 12/25/16 20:00 97.9 70 20 185/69 96 12/25/16 16:00 97.5 73 18 178/80 98 Intake & Output 12/26/16 12/26/16 07:00 19:00 Intake Total 867 ml Output Total 550 ml Balance 317 ml Intake Oral 120 ml TPN/PPN 621 ml Lipid 126 ml Output Urine Total 550 ml Physical Exam CONSTITUTIONAL/GENERAL: This is an elderly, confused patient. Agitated. TUBES/LINES/DRAINS: right subclavian vas-calf, Stein, brace left lower extremity , left BKA. SKIN: No jaundice, rashes, or lesions. Ecchymoses on upper extremities. No wounds seen anteriorly. Skin temperature appropriate. Not diaphoretic. HEAD: Atraumatic. Normocephalic. EYES: eyes closed does not open to voice, command or exam. ENT: Hearing appears grossly normal. White patch on tongue, uncertain if old medication patient will not open on command. NECK: Trachea midline. Supple, nontender. No palpable thyroid enlargement or nodularity. CARDIOVASCULAR: irregular. RESPIRATORY/CHEST: labored respirations at rest, tachypneic, using accessory muscles to breathe. GASTROINTESTINAL: Abdomen soft, non-tender, nondistended. Hypoactive bowel sounds. GENITOURINARY: Without palpable bladder distension. Stein catheter in place. MUSCULOSKELETAL: left BKA, stump dressing dry and intact. Upper extremity edema noted. LYMPHATICS: No palpable cervical or supraclavicular adenopathy. NEUROLOGICAL: arousable, does not open eyes to voice, command. Does not follow simple commands. Attempts to answer some questions, confused. PSYCHIATRIC: restless/agitated. . Diagnostic Tests Laboratory Laboratory Tests Test 12/23/16 12/24/16 12/25/16 12/26/16 13:33 08:22 06:11 07:58 White Blood Count 10.5 TH/MM3 11.9 TH/MM3 12.3 TH/MM3 8.6 TH/MM3 (4.0-11.0) (4.0-11.0) (4.0-11.0) (4.0-11.0) Red Blood Count 3.63 MIL/MM3 3.89 MIL/MM3 3.90 MIL/MM3 3.38 MIL/MM3 (4.50-5.90) (4.50-5.90) (4.50-5.90) (4.50-5.90) Hemoglobin 9.5 GM/DL 10.1 GM/DL 10.1 GM/DL 9.0 GM/DL (13.0-17.0) (13.0-17.0) (13.0-17.0) (13.0-17.0) Hematocrit 28.8 % 31.4 % 31.4 % 26.9 % (39.0-51.0) (39.0-51.0) (39.0-51.0) (39.0-51.0) Mean Corpuscular Volume 79.4 FL 80.5 FL 80.5 FL 79.7 FL (80.0-100.0) (80.0-100.0) (80.0-100.0) (80.0-100.0) Mean Corpuscular Hemoglobin 26.3 PG 26.0 PG 25.9 PG 26.7 PG (27.0-34.0) (27.0-34.0) (27.0-34.0) (27.0-34.0) Mean Corpuscular Hemoglobin 33.1 % 32.2 % 32.1 % 33.6 % Concent (32.0-36.0) (32.0-36.0) (32.0-36.0) (32.0-36.0) Red Cell Distribution Width 22.5 % 23.4 % 24.0 % 23.6 % (11.6-17.2) (11.6-17.2) (11.6-17.2) (11.6-17.2) Platelet Count 133 TH/MM3 149 TH/MM3 131 TH/MM3 117 TH/MM3 (150-450) (150-450) (150-450) (150-450) Mean Platelet Volume 8.2 FL 8.0 FL 8.2 FL 8.6 FL (7.0-11.0) (7.0-11.0) (7.0-11.0) (7.0-11.0) Neutrophils (%) (Auto) 69.6 % 75.2 % 73.8 % (16.0-70.0) (16.0-70.0) (16.0-70.0) Lymphocytes (%) (Auto) 9.3 % 5.9 % 9.5 % (9.0-44.0) (9.0-44.0) (9.0-44.0) Monocytes (%) (Auto) 17.4 % 16.0 % 13.9 % (0.0-8.0) (0.0-8.0) (0.0-8.0) Eosinophils (%) (Auto) 2.8 % (0.0-4.0) 2.2 % (0.0-4.0) 1.9 % (0.0-4.0) Basophils (%) (Auto) 0.9 % (0.0-2.0) 0.7 % (0.0-2.0) 0.9 % (0.0-2.0) Neutrophils # (Auto) 7.3 TH/MM3 8.9 TH/MM3 6.4 TH/MM3 (1.8-7.7) (1.8-7.7) (1.8-7.7) Lymphocytes # (Auto) 1.0 TH/MM3 0.7 TH/MM3 0.8 TH/MM3 (1.0-4.8) (1.0-4.8) (1.0-4.8) Monocytes # (Auto) 1.8 TH/MM3 1.9 TH/MM3 1.2 TH/MM3 (0-0.9) (0-0.9) (0-0.9) Eosinophils # (Auto) 0.3 TH/MM3 0.3 TH/MM3 0.2 TH/MM3 (0-0.4) (0-0.4) (0-0.4) Basophils # (Auto) 0.1 TH/MM3 0.1 TH/MM3 0.1 TH/MM3 (0-0.2) (0-0.2) (0-0.2) CBC Comment DIFF FINAL DIFF FINAL AUTO DIFF Differential Comment AUTO DIFF CONFIRMED Sodium Level 141 MEQ/L 141 MEQ/L 141 MEQ/L 140 MEQ/L (136-145) (136-145) (136-145) (136-145) Potassium Level 3.4 MEQ/L 3.4 MEQ/L 4.1 MEQ/L 3.6 MEQ/L (3.5-5.1) (3.5-5.1) (3.5-5.1) (3.5-5.1) Chloride Level 101 MEQ/L 100 MEQ/L 101 MEQ/L 102 MEQ/L (98-107) (98-107) (98-107) (98-107) Carbon Dioxide Level 28.7 MEQ/L 29.2 MEQ/L 27.7 MEQ/L 29.0 MEQ/L (21.0-32.0) (21.0-32.0) (21.0-32.0) (21.0-32.0) Anion Gap 11 MEQ/L (5-15) 12 MEQ/L (5-15) 12 MEQ/L (5-15) 9 MEQ/L (5-15) Blood Urea Nitrogen 45 MG/DL (7-18) 56 MG/DL (7-18) 56 MG/DL (7-18) 61 MG/DL (7- 18) Creatinine 2.34 MG/DL 2.02 MG/DL 1.76 MG/DL 1.75 MG/DL (0.60-1.30) (0.60-1.30) (0.60-1.30) (0.60-1.30) Estimat Glomerular Filtration 27 ML/MIN (>89) 32 ML/MIN (>89) 37 ML/MIN (>89) 38 ML/MIN (>89) Rate Random Glucose 133 MG/DL 146 MG/DL 146 MG/DL 144 MG/DL (74-106) (74-106) (74-106) (74-106) Calcium Level 8.5 MG/DL 8.7 MG/DL 8.5 MG/DL 8.5 MG/DL (8.5-10.1) (8.5-10.1) (8.5-10.1) (8.5-10.1) Magnesium Level 2.1 MG/DL (1.5-2.5) Total Bilirubin 1.9 MG/DL (0.2-1.0) Aspartate Amino Transf 27 U/L (15-37) (AST/SGOT) Alanine Aminotransferase 40 U/L (12-78) (ALT/SGPT) Alkaline Phosphatase 63 U/L (45-117) Total Protein 6.0 GM/DL (6.4-8.2) Albumin 3.6 GM/DL (3.4-5.0) Platelet Estimate LOW (NORMAL) Platelet Morphology Comment NORMAL (NORMAL) [place] Cells 1+ (NORMAL) Acanthocytes (NORMAL) Keratocytes OCC (NORMAL) Result Diagram: 12/26/16 0758 12/26/16 0758 Procedures * 12/17/16 - right subclavian vas cath placement. * 12/14/16 left below knee amputation * 12/07/16 left foot 5th metatarsal resection, I & D 5th digit amputation. Assessment and Plan Disease Oriented Problem List: (1) Metabolic encephalopathy (2) Gas gangrene of foot (3) PNA (pneumonia) (4) Bladder tumor (5) DM (diabetes mellitus) (6) Hypertension (7) UTI (urinary tract infection) (8) CHF (congestive heart failure) (9) COPD (chronic obstructive pulmonary disease) (10) Atrial fibrillation (11) Diabetes mellitus (12) Altered mental status (13) CAD (coronary artery disease) Symptom Scale: (1) Altered mental status 0-10 Scale: Unable to quantify (2) Dyspnea 0-10 Scale: Unable to quantify (3) Dysphagia 0-10 Scale: Unable to quantify Pertinent Non-Medical Issues Psychosocial: to Torri Felder. Spiritual: [employer]. Legal: Patient incapacitated, uncertain if he will regain capacity. Patient has designated his , Torri Felder as designated healthcare surrogate. Ethical issues impacting care: no known concerns at this time. . Important Contacts * Torri Felder, /[facility]: [phone] in [place]; [phone] * kandice Stovall dtr. . Prognosis Given advanced age and multiple medical comorbidities, declining health, nutritional and functional status paitent appears hospice appropriate if goals are comfort oriented. . Code Status: No Code Plan * Decision Maker: patient incapacitated, uncertain if he will regain capacity. Patient has designated his , Torri Felder as designated healthcare surrogate. * NO CODE * Palliative care initially spoke w pt upon consultation. She was open to further discussions RE comfort, possible hospice if he did not improve. Family has now seen some improvement in the past few days, met w hospice this am. They are NOT interested in hospice at this time-- they would like to pursue aggressive treatment and rehab for pt * SYMPTOMS: Pain: potential sources include recent amputation, bedbound status, tubes etc. Has PRN morphine available. Would consider alternate pain medication besides Morphine given patient's underlying renal failure. Weakness: general debility secondary to prolonged hospitalization, multiple medical comorbidities, recent amputation. Constipation: no bowel movement records and . Post fleets enema 12/20/16. Has PRN oral meds, not being given given NPO status. PRN Dulcolax available. Malnutrition: on PPN. Given continued failed swallow evaluations, patient may need long-term PEG tube placement if family elects. Agitation: potential sources include prolonged hospitalization, constipation, malnutrition, underlying bladder malignancy. Recommend decreased dose of lorazepam given advanced age and reports lorazepam has caused increased agitation in the past. Might consider low dose Haldol 0.5-1 mg every 4 hours PRN agitation. Constipation may also be contributing to agitation. T. Bilirubin increasing. * Palliative care number provided. * Palliative care will continue to follow throughout hospital course to assist with symptom management and clarification of goals as needed. . Keily Diamond [facility] Dec 26, 2016 12:58
[2016-12-26] MEDS: RESP: ALBUTEROL 2.5 MG/IPRATROPIUM 0.5 MG NEB (SCH) NEB ×2 (15:42→19:59)
--- NOTE | 2016-12-26 15:54 | HHI.NPPN ---
Subjective History of Present Illness 80 year old with gangrene Left foot diabetes Additional Remarks Patient is alert, remain confused, started on diet, eating better, now getting nebulizer treatment. Review of Systems Musculoskeletal MS: Pain/Stiffness Objective Data Data 12/25/16 12/26/16 18:59 06:59 Intake Total 494 ml 867 ml Output Total 800 ml 550 ml Balance -306 ml 317 ml Intake Oral 240 ml 120 ml IV Total 254 ml TPN/PPN 621 ml Lipid 126 ml Output Urine Total 800 ml 550 ml # Bowel Movements 0 Vital Signs Date Time Temp Pulse Resp B/P Pulse Ox O2 Delivery O2 Flow Rate FiO2 12/26/16 12:00 97.5 58 20 123/58 96 12/26/16 11:42 95 Nasal Cannula 3.00 12/26/16 08:00 97.8 63 20 150/70 98 12/26/16 05:58 93 Nasal Cannula 3.00 12/26/16 00:00 98.0 70 20 178/74 93 12/25/16 21:27 98 Nasal Cannula 3.00 12/25/16 20:16 61 12/25/16 20:00 97.9 70 20 185/69 96 12/25/16 16:00 97.5 73 18 178/80 98 -: 12/26/16 0758 12/26/16 0758 Physical Exam General Appearance: No Acute Distress, Comfortable, Pale, Malnourished Eyes Eye Exam: Pupils Equal Throat Throat Exam: Oral Mucosa [place] & Moist Neck Neck Exam: Neck Supple Pulmonary Resp Exam: Breath Sounds Equal, No Distress, Rhonchi, Decreased Bases, Diminished Breath Sounds Cardiology CV Exam: Regular, Normal Sinus Rhythm Gastrointestinal/Abdomen GI Exam: Soft, Non-Tender, Bowel Sounds Present Extremeties Extremities Exam: Moderate Edema, Dependent Edema Neurologic Neuro Remarks sleepy. Assessment/Plan Problem List: (1) Acute renal failure Plan: BP is better, started on PO Labetalol and Coreg. Started on diet also. urine out put is better. Creatinine stable. Has some renal recovery. will get Vascath removed, if Creatinine improve further. 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
[2016-12-26] MEDS: TERAZOSIN HCL 1 MG CAP PO SCH (22:15)
[2016-12-26] MEDS: ATORVASTATIN 20 MG TAB PO SCH (22:15)
[2016-12-26] MEDS: FAT EMULSION 20% INJ 250 ML (@10 mls/hr) IV SCH (22:16)
[2016-12-26] MEDS: CLINIMIX 4.25/5 (Cust.Renal Periph) 1000 mL- </= 42 mls/hr IV SCH ×8 (22:16)
[2016-12-27] VITALS (11 sets, daily range): BP systolic 134–192; BP diastolic 64–99; PULSE 53–83; RESP 18–30; TEMP 97.3–98.6; O2SAT 92–98
[2016-12-27] MEDS: HYDROmorphone HCL PF 1 MG/ML VIAL IV PUSH PRN ×2 (00:31→21:30)
[2016-12-27] MEDS: PANTOPRAZOLE SODIUM 40 MG VIAL IV PUSH SCH ×2 (02:00→15:36)
[2016-12-27] MEDS: RESP: ALBUTEROL 2.5 MG/3 ML NEB (PRN) NEB (05:13)
[2016-12-27] MEDS: NYSTATIN 500,000 UNIT TAB PO SCH ×3 (06:45→20:54)
[2016-12-27] MEDS: LORazepam 2 MG/ML VIAL IV PUSH PRN ×4 (06:45→20:53)
[2016-12-27] MEDS: hydrALAZINE HCL 50 MG TAB PO SCH ×3 (06:45→20:53)
[2016-12-27] MEDS: INSULIN ASPART SUPPLEMENTAL SCALE SQ SCH ×4 (06:51→21:00)
[2016-12-27] MEDS: RESP: ALBUTEROL 2.5 MG/IPRATROPIUM 0.5 MG NEB (SCH) NEB ×4 (07:53→20:15)
[2016-12-27 08:58] LABS: AUTOMATED NEUTROPHIL # 8.1 TH/MM3 (1.8-7.7); BASOPHIL # 0.2 TH/MM3 (0-0.2); BASOPHIL % 2.2 % (0.0-2.0); EOSINOPHIL # 0.1 TH/MM3 (0-0.4); EOSINOPHIL % 0.5 % (0.0-4.0); HEMATOCRIT 28.8 % (39.0-51.0); LYMPH % 6.6 % (9.0-44.0); LYMPHOCYTE # 0.6 TH/MM3 (1.0-4.8); MEAN CELL VOLUME 81.7 FL (80.0-100.0); MEAN CORPUSCULAR HEMOGLOBIN 26.8 PG (27.0-34.0); MEAN CORPUSCULAR HGB CONC 32.8 % (32.0-36.0); MONO % 8.3 % (0.0-8.0); NEUT % 82.4 % (16.0-70.0); PLATELET COUNT 118 TH/MM3 (150-450); RED BLOOD COUNT 3.53 MIL/MM3 (4.50-5.90); RED CELL DISTRIBUTION WIDTH 24.2 % (11.6-17.2); WHITE BLOOD COUNT 9.8 TH/MM3 (4.0-11.0)
[2016-12-27 09:01] LABS: HEMO FLAGS AUTO DIFF
[2016-12-27 09:06] LABS: BICARBONATE 27.1 MEQ/L (21.0-32.0)
[2016-12-27 09:42] LABS: KERATOCYTES OCC (NORMAL); OVALOCYTES 1+ (NORMAL); PLATELET ESTIMATE SMEAR LOW (NORMAL); PLATELET MORPHOLOGY NORMAL (NORMAL); SCAN/DIFF AUTO DIFF CONFIRMED
[2016-12-27] MEDS: NYSTATIN 100,000 U/GM PWD 15 GM BTL TOPICAL SCH ×2 (09:47→20:54)
[2016-12-27] MEDS: CARVEDILOL 6.25 MG TAB PO SCH ×2 (09:47→20:54)
[2016-12-27] MEDS: FERROUS SULFATE 325 MG (65 MG ELEMENTAL IRON) TAB PO SCH ×2 (09:47→20:53)
[2016-12-27] MEDS: PHENYTOIN INJ 100 MG/2 ML VIAL IV SCH (09:47)
[2016-12-27] MEDS: SODIUM CHLORIDE 0.9% FLUSH 10 ML FLUSH IV FLUSH SCH ×2 (09:47→20:52)
[2016-12-27] MEDS: BUDESONIDE-FORMOTEROL 80/4.5 MCG INHALER INH SCH ×2 (09:48→20:52)
--- NOTE | 2016-12-27 11:25 | HHI.FPPN ---
Subjective Remarks No acute events overnight. Remains afebrile, vitals stable. Patient is alert, able to answer most questions appropriately. 900cc UOP over past 24 hrs. Continues to receive PPN at 42mls/hr. Tolerating pureed nectar thick diet PO, noted to have about 460mL PO past day. (Tristian Chopra MD R2) Objective Vitals Vital Signs Date Time Temp Pulse Resp B/P Pulse Ox O2 Delivery O2 Flow Rate FiO2 12/27/16 08:20 53 12/27/16 08:00 98.6 55 18 134/64 97 12/27/16 07:55 96 Nasal Cannula 3.00 12/27/16 05:15 93 Nasal Cannula 3.00 12/27/16 04:27 97.7 66 24 163/70 98 12/27/16 00:40 97.3 83 24 142/95 94 12/26/16 20:22 97.6 69 22 166/82 93 12/26/16 20:00 58 12/26/16 20:00 97 Nasal Cannula 3.00 12/26/16 16:00 97.3 95 20 125/76 96 12/26/16 12:00 97.5 58 20 123/58 96 12/26/16 11:42 95 Nasal Cannula 3.00 I/O 12/26/16 12/26/16 12/26/16 12/27/16 12/27/16 12/27/16 07:00 15:00 23:00 07:00 15:00 23:00 Intake Total 361 ml 340 ml 120 ml Output Total 550 ml 700 ml 200 ml Balance -189 ml -360 ml -80 ml Intake Oral 0 ml 340 ml 120 ml TPN/PPN 305 ml Lipid 56 ml Output Urine Total 550 ml 700 ml 200 ml Bladder Scan Volume Amount 624 ml # Bowel Movements 2 0 (Tristian Chopra MD R2) Result Diagram: 12/27/1681712/27/1618 Objective Remarks GEN: Lying flat in bed. NAD CV: Normal rate, irregular rhythm. No obvious murmurs. LUNGS: Scattered expiratory wheezing bilaterally. No rales or rhonchi. No increased WOB. Normal respiratory rate. EXT: Left BKA with donald wrapping, removed wound is clean dry and intact. PT and DP pulses 2+ right foot. NEURO/PSYCH: Patient alert. Answering questions. Following basic commands. : Stein catheter in place. (Tristian Chopra MD R2) A/P Assessment and Plan 81-year-old male admitted due to L 5th toe osteomyelitis s/p L BKA on 12/15. Patient had stroke-like symptoms on 12/17, MRI and CT negative. Patient most likely had metabolic encephalopathy due to acute renal failure. Discharge Planning Anticipate discharge to SNF in 2-3 days Palliative care consulted for assistance with long-term goals. Code status has been changed to NO CODE. Torri Felder is designated healthcare surrogate. Hospice has met with family, family currently not wanting to proceed with Hospice care Case management consulted (Tristian Chopra MD R2) Assessment and Plan Patient seen and examined. Case reviewed and discussed with resident team. Agree with plan of care as discussed with me and documented in the resident note. 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 Familia's code status has been changed to NO CODE. His Torri Felder is his designated healthcare surrogate. Palliative care currently following. (2) Acute renal failure Status: Acute Plan: Continue to monitor Cr - Nephrology following, appreciate recs - May be pre-renal or possibility of acute tubular necrosis or interstitial nephritis due to antibiotics vs infection - Urine eosinophils negative - Discontinued albumin per nephrology recs - Follow daily BMPs - Avoid nephrotoxic agents - Monitor I/Os (3) Hypertension Status: Chronic Plan: Resume PO antihypertensives - Coreg 6.25 mg po bid - Hydralazine 100 mg po q8h - Amlodipine 10 mg po daily (4) Penile swelling Status: Acute Plan: Possibly due to some dependent edema Continue Nystatin powder BID Continue Stein catheter Urology recommendations appreciated (5) GI bleed Status: Acute Plan: Continue to trend H/H GI consulted EGD/Colonoscopy 12/13 showing reflux esophagitis, hiatal hernia, colonic polyp, incomplete evaluation of the colon Recommend EGD & colonoscopy in 2-3 months Continue PPI GI signed off, will re-consult if needed Continue ferrous sulfate 325 mg po bid (6) Atrial fibrillation Status: Chronic Plan: [id number] score of 6, would benefit from anticoagulation once clinically stable. Currently rate controlled. - Not currently anticoagulated due to possibility of GI bleed and hematuria from bladder masses Continue telemetry (7) Bladder tumor Status: Acute Plan: Urology consulted and following patient. Patient's daughter had stated that he refused urologic intervention several weeks prior to admission when it was recommended by his primary care provider - Case discussed with Dr. Parham 12/10. 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 Daily BMP to monitor Cr * Baseline Cr currently unknown, last recording creatinine was 1.52 from 2016 (8) CHF (congestive heart failure) Status: Chronic Plan: Echocardiogram performed with limited visualization of the left ventricular function - Left ventricular function grossly normal BNP equivocal on admission. Clinically does not appear to be in CHF exacerbation. Medications: * Currently holding DONALD inhibitor due to acute renal failure (9) DM (diabetes mellitus) Status: Chronic Plan: - Hemoglobin A1c of 6.8% - Hold home levemir - Low dose Sliding Scale w/ Novolog, titrate as needed (10) COPD (chronic obstructive pulmonary disease) Status: Chronic Plan: Known history of COPD. 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/15 Patient has completed course of IV ABX per ID: - Unasyn 1500 mg IV q8h per ID(12/14-12/21) - Vascular surgery, Podiatry, and ID previously consulted, now signed off - Patient to follow up as outpatient in 2-3 weeks with vascular surgery pending improvement in clinical status during this hospitalization (14) UTI (urinary tract infection) Status: Resolved Plan: - Urine culture 12/06: 25-50,000 cfus Staph Aureus - Repeat urine culture 12/10 no growth final - Antibiotic course of Unasyn per ID has been completed as of 12/21 which provided adequate coverage (15) Nutrition, metabolism, and development symptoms Status: Acute Plan: Nutrition: PPN at 55 mls / hr (started 12/20), likely discontinue in 1-2 days following increased PO intake Fluids: None Electrolytes: monitor and replete as necessary DVT ppx: holding anticoagulation due to GI bleed, RLE SCD GI ppx: Protonix 40 mg IV q12h (Tristian Chopra MD R2) Problem Qualifiers (1) GI bleed: Qualified Code: K92.2 - Gastrointestinal hemorrhage, unspecified gastrointestinal hemorrhage type (2) DM (diabetes mellitus): Qualified Code: 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
[2016-12-27] MEDS: cloNIDine HCL 0.1 MG TAB PO PRN (16:26)
--- NOTE | 2016-12-27 18:13 | HHI.NPPN ---
Subjective History of Present Illness 80 year old with gangrene Left foot diabetes Additional Remarks Patient is alert, remain confused, started on diet, clinically same. Review of Systems Musculoskeletal MS: Pain/Stiffness Objective Data Data 12/26/16 12/27/16 19:00 07:00 Intake Total 240 ml 220 ml Output Total 400 ml 500 ml Balance -160 ml -280 ml Intake Oral 240 ml 220 ml Output Urine Total 400 ml 500 ml Bladder Scan Volume Amount 624 ml # Bowel Movements 1 1 Vital Signs Date Time Temp Pulse Resp B/P Pulse Ox O2 Delivery O2 Flow Rate FiO2 12/27/16 16:00 97.6 72 18 187/82 94 12/27/16 12:00 97.4 65 18 175/99 92 12/27/16 08:20 53 12/27/16 08:00 98.6 55 18 134/64 97 12/27/16 07:55 96 Nasal Cannula 3.00 12/27/16 05:15 93 Nasal Cannula 3.00 12/27/16 04:27 97.7 66 24 163/70 98 12/27/16 00:40 97.3 83 24 142/95 94 12/26/16 20:22 97.6 69 22 166/82 93 12/26/16 20:00 58 12/26/16 20:00 97 Nasal Cannula 3.00 -: 12/27/16 0818 12/27/16 0818 Physical Exam General Appearance: No Acute Distress, Comfortable, Pale, Malnourished Eyes Eye Exam: Pupils Equal Throat Throat Exam: Oral Mucosa [place] & Moist Neck Neck Exam: Neck Supple Pulmonary Resp Exam: Breath Sounds Equal, No Distress, Rhonchi, Decreased Bases, Diminished Breath Sounds Cardiology CV Exam: Regular, Normal Sinus Rhythm Gastrointestinal/Abdomen GI Exam: Soft, Non-Tender, Bowel Sounds Present Extremeties Extremities Exam: Moderate Edema, Dependent Edema Neurologic Neuro Remarks sleepy. Assessment/Plan Problem List: (1) Acute renal failure Plan: BP is occ. elevated., started on PO Labetalol and Coreg. Started on diet also. urine out put is better, dark in color. Creatinine stable. Has some renal recovery. will get Vascath removed, if Creatinine improve further. Creatinine is same, 1.7-1.8 for now. 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
[2016-12-27] MEDS: FAT EMULSION 20% INJ 250 ML (@10 mls/hr) IV SCH (20:42)
[2016-12-27] MEDS: CLINIMIX 4.25/5 (Cust.Renal Periph) 1000 mL- </= 42 mls/hr IV SCH ×8 (20:42)
[2016-12-27] MEDS: PHENYTOIN SODIUM 100 MG CAP PO SCH (20:53)
[2016-12-27] MEDS: ATORVASTATIN 20 MG TAB PO SCH (20:54)
[2016-12-27] MEDS: TERAZOSIN HCL 1 MG CAP PO SCH (20:54)
[2016-12-28] VITALS (11 sets, daily range): BP systolic 118–163; BP diastolic 58–73; PULSE 56–70; RESP 18–32; TEMP 97.5–99.1; O2SAT 91–99
[2016-12-28] MEDS: RESP: ALBUTEROL 2.5 MG/3 ML NEB (PRN) NEB (01:20)
[2016-12-28] MEDS: LORazepam 2 MG/ML VIAL IV PUSH PRN ×3 (03:12→22:33)
[2016-12-28] MEDS: HYDROmorphone HCL PF 1 MG/ML VIAL IV PUSH PRN ×2 (03:12→08:57)
[2016-12-28] MEDS: PANTOPRAZOLE SODIUM 40 MG VIAL IV PUSH SCH ×2 (03:12→17:17)
[2016-12-28] MEDS: NYSTATIN 500,000 UNIT TAB PO SCH ×3 (06:00→21:59)
[2016-12-28] MEDS: hydrALAZINE HCL 50 MG TAB PO SCH ×3 (06:00→21:59)
[2016-12-28] MEDS: INSULIN ASPART SUPPLEMENTAL SCALE SQ SCH ×4 (06:00→22:35)
[2016-12-28] MEDS: RESP: ALBUTEROL 2.5 MG/IPRATROPIUM 0.5 MG NEB (SCH) NEB ×4 (07:52→20:05)
[2016-12-28] MEDS: PHENYTOIN SODIUM 100 MG CAP PO SCH ×2 (08:56→21:59)
[2016-12-28] MEDS: CARVEDILOL 6.25 MG TAB PO SCH ×2 (08:56→21:58)
[2016-12-28] MEDS: FERROUS SULFATE 325 MG (65 MG ELEMENTAL IRON) TAB PO SCH ×2 (08:56→21:59)
[2016-12-28] MEDS: SODIUM CHLORIDE 0.9% FLUSH 10 ML FLUSH IV FLUSH SCH ×2 (08:57→21:00)
[2016-12-28] MEDS: NYSTATIN 100,000 U/GM PWD 15 GM BTL TOPICAL SCH ×2 (08:57→21:00)
[2016-12-28] MEDS: BUDESONIDE-FORMOTEROL 80/4.5 MCG INHALER INH SCH ×2 (08:58→21:00)
[2016-12-28 09:48] LABS: AUTOMATED NEUTROPHIL # 6.5 TH/MM3 (1.8-7.7); BASOPHIL # 0.1 TH/MM3 (0-0.2); BASOPHIL % 0.6 % (0.0-2.0); EOSINOPHIL # 0.2 TH/MM3 (0-0.4); EOSINOPHIL % 1.9 % (0.0-4.0); HEMO FLAGS DIFF FINAL; LYMPH % 10.9 % (9.0-44.0); MEAN CELL VOLUME 82.1 FL (80.0-100.0); MEAN CORPUSCULAR HEMOGLOBIN 26.5 PG (27.0-34.0); MEAN CORPUSCULAR HGB CONC 32.2 % (32.0-36.0); MONO % 14.5 % (0.0-8.0); NEUT % 72.1 % (16.0-70.0); PLATELET COUNT 160 TH/MM3 (150-450); RED BLOOD COUNT 3.41 MIL/MM3 (4.50-5.90); RED CELL DISTRIBUTION WIDTH 23.6 % (11.6-17.2)
[2016-12-28 10:20] LABS: BICARBONATE 27.2 MEQ/L (21.0-32.0); POTASSIUM 4.1 MEQ/L (3.5-5.1)
--- NOTE | 2016-12-28 10:52 | HHI.FPPN ---
Subjective Remarks No acute events overnight. Pt lying in bed, asleep, in NAD. On 3 L NC. No family present. Pt was having some episodes of agitation yesterday and was tugging on his martinez per nurse. Pt calm down after dose of Ativan. Afebrile. ( Anide Nicholas MD R1) Objective Vitals Vital Signs Date Time Temp Pulse Resp B/P Pulse Ox O2 Delivery O2 Flow Rate FiO2 12/28/16 08:20 62 12/28/16 08:04 98.0 70 18 162/69 98 12/28/16 07:54 91 Nasal Cannula 3.00 12/28/16 04:00 97.5 62 21 158/73 93 12/28/16 00:00 97.6 70 20 149/68 93 12/27/16 20:18 94 Nasal Cannula 2.00 12/27/16 20:04 97.3 79 30 192/84 92 182/76 12/27/16 20:00 68 12/27/16 16:00 97.6 72 18 187/82 94 12/27/16 12:00 97.4 65 18 175/99 92 I/O 12/27/16 12/27/16 12/27/16 12/28/16 12/28/16 12/28/16 07:00 15:00 23:00 07:00 15:00 23:00 Intake Total 120 ml 120 ml 854 ml 453 ml Output Total 200 ml 200 ml 200 ml 200 ml Balance -80 ml -80 ml 654 ml 253 ml Intake Oral 120 ml 120 ml 120 ml TPN/PPN 592 ml 371 ml Lipid 142 ml 82 ml Output Urine Total 200 ml 200 ml 200 ml 200 ml # Bowel Movements 0 0 0 0 (Andie Nicholas MD R1) Result Diagram: 12/28/16 0740 12/28/16 0740 Imaging Last Impressions Chest X-Ray 12/24/16 0000 Signed Impressions: Service Date/Time: Saturday, December 24, 2016 14:37 - CONCLUSION: Improvement in aeration Meek Tello MD Upper Extremity Ultrasound 12/21/16 0000 Signed Impressions: Service Date/Time: Wednesday, December 21, 2016 23:21 - CONCLUSION: 1. Superficial thrombophlebitis involving the right basilic vein. 2. Limited but negative examination of the left upper extremity Darien Mustafa MD Catheter Placement X-Ray 12/17/16 0700 Signed Impressions: Service Date/Time: Saturday, December 17, 2016 12:19 - CONCLUSION: Uncomplicated line placement as above. Prasad Tenorio Jr., MD Head CT 12/17/16 0000 Signed Impressions: Service Date/Time: Saturday, December 17, 2016 09:36 - CONCLUSION: 1. No acute intracranial abnormality is identified. 2. Chronic and stable changes include generalized atrophy and mild periventricular white matter low attenuation characteristic of chronic small vessel ischemic change. Meek Narayanan MD Brain MRI 12/17/16 0000 Signed Impressions: Service Date/Time: Saturday, December 17, 2016 16:15 - CONCLUSION: Chronic atrophic and small vessel ischemic changes without any evidence for acute hemorrhage or mass effect. Altagracia Grijalva MD Abdomen Ultrasound 12/07/16 0026 Signed Impressions: Service Date/Time: Wednesday, December 07, 2016 09:34 - CONCLUSION: 1. 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 Cystoscopy and biopsy recommended. 2. Nonvisualization of the pancreas. 3. Kidneys are borderline echogenic. 4. Minimal free fluid in Faulkner's pouch. Sal Chowdhury MD Foot MRI 12/07/16 0000 Signed Impressions: Service Date/Time: Wednesday, December 07, 2016 09:01 - CONCLUSION: 1. Osteomyelitis of the fifth metatarsal head and proximal phalanx of the fifth toe. Sal Chowdhury MD Abdomen/Pelvis CT 12/07/16 0000 Signed Impressions: Service Date/Time: Thursday, December 08, 2016 10:46 - CONCLUSION: Multiple bladder masses suspicious for malignancy. Altagracia Grijalva MD Foot X-Ray 12/06/16 1747 Signed Impressions: Service Date/Time: November 18:08 - CONCLUSION: No obvious bone destruction at this time. Soft tissue emphysema is noted in and around the fifth MTP joint soft tissues. The possibility of infection with gas-forming organism should be excluded. Dean Burton MD Objective Remarks GEN: Lying flat in bed. NAD, on 3L nC CV: Normal rate, irregular rhythm. No obvious murmurs. LUNGS: Scattered expiratory wheezing bilaterally. No rales or rhonchi. No increased WOB. Normal respiratory rate. EXT: Left BKA with donald wrapping, removed wound is clean dry and intact. PT and DP pulses 2+ right foot. NEURO/PSYCH: Patient alert. Answering questions. Following basic commands. : Martinez catheter in place, penile swelling (Andie Nicholas MD R1) A/P Assessment and Plan 81-year-old male admitted due to L 5th toe osteomyelitis s/p L BKA on 12/15. Patient had stroke-like symptoms on 12/17, MRI and CT negative. Patient most likely had metabolic encephalopathy due to acute renal failure. Discharge Planning Anticipate discharge to SNF in 2-3 days Palliative care consulted for assistance with long-term goals. Code status has been changed to NO CODE. Torri Felder is designated healthcare surrogate. Hospice has met with family, family currently not wanting to proceed with Hospice care Case management consulted (Andie Nicholas MD R1) Assessment and Plan Patient seen and examined. Case reviewed and discussed with resident team. Agree with plan of care as discussed with me and documented in the resident note (Rory Vergara MD) Problem List: (1) Metabolic encephalopathy Status: Acute Plan: - Patient's symptoms seem to be improving s/p dialysis; continue dialysis per nephrology, patient may not be needing any further sessions Nephrology planning to remove Vascath if Cr improving - Noncontrast head CT negative for acute intracranial process - MRI revealed chronic atrophic and small vessel ischemic changes, no acute hemorrhage or mass effect - Neurology consulted - Nephrology consulted - Monitor electrolytes, I/Os, avoid nephrotoxins 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 Familia's code status has been changed to NO CODE. His Torri Felder is his designated healthcare surrogate. Palliative care currently following. (2) Acute renal failure Status: Acute Plan: Continue to monitor Cr - Nephrology following, appreciate recs - May be pre-renal or possibility of acute tubular necrosis or interstitial nephritis due to antibiotics vs infection - Urine eosinophils negative - Discontinued albumin per nephrology recs - Follow daily BMPs - Avoid nephrotoxic agents - Monitor I/Os (3) Hypertension Status: Chronic Plan: Resume PO antihypertensives - Coreg 6.25 mg po bid - Hydralazine 100 mg po q8h - Amlodipine 10 mg po daily (4) Penile swelling Status: Acute Plan: Possibly due to some dependent edema. Spoke with Dr. 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 Continue Nystatin powder BID Continue Martinez catheter (5) GI bleed Status: Acute Plan: Continue to trend H/H GI consulted EGD/Colonoscopy 12/13 showing reflux esophagitis, hiatal hernia, colonic polyp, incomplete evaluation of the colon Recommend EGD & colonoscopy in 2-3 months Continue PPI GI signed off, will re-consult if needed Continue ferrous sulfate 325 mg po bid (6) Atrial fibrillation Status: Chronic Plan: [id number] score of 6, would benefit from anticoagulation once clinically stable. Currently rate controlled. - Not currently anticoagulated due to possibility of GI bleed and hematuria from bladder masses Continue telemetry (7) Bladder tumor Status: Acute Plan: Urology consulted and following patient. Patient's daughter had stated that he refused urologic intervention several weeks prior to admission when it was recommended by his primary care provider - Case discussed with Dr. Parham 12/10. 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 Daily BMP to monitor Cr * Baseline Cr currently unknown, last recording creatinine was 1.52 from 2016 (8) CHF (congestive heart failure) Status: Chronic Plan: Echocardiogram performed with limited visualization of the left ventricular function - Left ventricular function grossly normal BNP equivocal on admission. Clinically does not appear to be in CHF exacerbation. Medications: * Currently holding DONALD inhibitor due to acute renal failure (9) DM (diabetes mellitus) Status: Chronic Plan: - Hemoglobin A1c of 6.8% - Hold home levemir - Low dose Sliding Scale w/ Novolog, titrate as needed (10) COPD (chronic obstructive pulmonary disease) Status: Chronic Plan: Known history of COPD. 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/15 Patient has completed course of IV ABX per ID: - Unasyn 1500 mg IV q8h per ID(12/14-12/21) - Vascular surgery, Podiatry, and ID previously consulted, now signed off - Patient to follow up as outpatient in 2-3 weeks with vascular surgery pending improvement in clinical status during this hospitalization (14) UTI (urinary tract infection) Status: Resolved Plan: - Urine culture 12/06: 25-50,000 cfus Staph Aureus - Repeat urine culture 12/10 no growth final - Antibiotic course of Unasyn per ID has been completed as of 12/21 which provided adequate coverage (15) Nutrition, metabolism, and development symptoms Status: Acute Plan: Nutrition: PPN at 55 mls / hr (started 12/20), will speak with the family today about PEG tube placement for long-term nutrition Fluids: None Electrolytes: monitor and replete as necessary DVT ppx: holding anticoagulation due to GI bleed, RLE SCD GI ppx: Protonix 40 mg IV q12h (Andie Nicholas MD R1) Problem Qualifiers (1) GI bleed: Qualified Code: K92.2 - Gastrointestinal hemorrhage, unspecified gastrointestinal hemorrhage type (2) DM (diabetes mellitus): Qualified Code: 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
--- NOTE | 2016-12-28 11:12 | HHI.NPPN ---
Subjective History of Present Illness 80 year old with gangrene Left foot diabetes Additional Remarks Patient is alert, remain confused and sleepy, not in distress. Review of Systems Musculoskeletal MS: Pain/Stiffness Objective Data Data 12/27/16 12/28/16 19:00 07:00 Intake Total 120 ml 1307 ml Output Total 200 ml 400 ml Balance -80 ml 907 ml Intake Oral 120 ml 120 ml TPN/PPN 963 ml Lipid 224 ml Output Urine Total 200 ml 400 ml # Bowel Movements 0 0 Vital Signs Date Time Temp Pulse Resp B/P Pulse Ox O2 Delivery O2 Flow Rate FiO2 12/28/16 08:20 62 12/28/16 08:04 98.0 70 18 162/69 98 12/28/16 07:54 91 Nasal Cannula 3.00 12/28/16 04:00 97.5 62 21 158/73 93 12/28/16 00:00 97.6 70 20 149/68 93 12/27/16 20:18 94 Nasal Cannula 2.00 12/27/16 20:04 97.3 79 30 192/84 92 182/76 12/27/16 20:00 68 12/27/16 16:00 97.6 72 18 187/82 94 12/27/16 12:00 97.4 65 18 175/99 92 -: 12/28/16 0740 12/28/16 0740 Physical Exam General Appearance: No Acute Distress, Comfortable, Pale, Malnourished Eyes Eye Exam: Pupils Equal Throat Throat Exam: Oral Mucosa [place] & Moist Neck Neck Exam: Neck Supple Pulmonary Resp Exam: Breath Sounds Equal, No Distress, Rhonchi, Decreased Bases, Diminished Breath Sounds Cardiology CV Exam: Regular, Normal Sinus Rhythm Gastrointestinal/Abdomen GI Exam: Soft, Non-Tender, Bowel Sounds Present Extremeties Extremities Exam: Moderate Edema, Dependent Edema Neurologic Neuro Remarks sleepy. Assessment/Plan Problem List: (1) Acute renal failure Plan: BP is occ. elevated., started on PO Labetalol and Coreg. Started on diet also. urine out put is better, dark in color. Creatinine stable. Has some renal recovery. will get Vascath removed, Creatinine is same, 1.7-1.8 for now. Avoid Nephrotoxins. 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
--- NOTE | 2016-12-28 11:39 | HHI.FPPN ---
Objective Vitals Vital Signs Date Time Temp Pulse Resp B/P Pulse Ox O2 Delivery O2 Flow Rate FiO2 12/28/16 08:20 62 12/28/16 08:04 98.0 70 18 162/69 98 12/28/16 07:54 91 Nasal Cannula 3.00 12/28/16 04:00 97.5 62 21 158/73 93 12/28/16 00:00 97.6 70 20 149/68 93 12/27/16 20:18 94 Nasal Cannula 2.00 12/27/16 20:04 97.3 79 30 192/84 92 182/76 12/27/16 20:00 68 12/27/16 16:00 97.6 72 18 187/82 94 12/27/16 12:00 97.4 65 18 175/99 92 I/O 12/27/16 12/27/16 12/27/16 12/28/16 12/28/16 12/28/16 07:00 15:00 23:00 07:00 15:00 23:00 Intake Total 120 ml 120 ml 854 ml 453 ml Output Total 200 ml 200 ml 200 ml 200 ml Balance -80 ml -80 ml 654 ml 253 ml Intake Oral 120 ml 120 ml 120 ml TPN/PPN 592 ml 371 ml Lipid 142 ml 82 ml Output Urine Total 200 ml 200 ml 200 ml 200 ml # Bowel Movements 0 0 0 0 Result Diagram: 12/28/1640 12/28/1640 Objective Remarks GEN: Lying flat in bed. NAD CV: Normal rate, irregular rhythm. No obvious murmurs. LUNGS: Scattered expiratory wheezing bilaterally. No rales or rhonchi. No increased WOB. Normal respiratory rate. EXT: Left BKA with donald wrapping, removed wound is clean dry and intact. PT and DP pulses 2+ right foot. NEURO/PSYCH: Patient alert. Answering questions. Following basic commands. : Stein catheter in place. A/P Assessment and Plan Patient seen and examined. Case reviewed and discussed with resident team. Agree with plan of care as discussed with me and documented in the resident note. Discharge Planning Anticipate discharge to SNF in 2-3 days Palliative care consulted for assistance with long-term goals. Code status has been changed to NO CODE. Torri Felder is designated healthcare surrogate. Hospice has met with family, family currently not wanting to proceed with Hospice care Case management consulted Problem List: (1) Metabolic encephalopathy Status: Acute Plan: - Patient's symptoms seem to be improving s/p dialysis; continue dialysis per nephrology, patient may not be needing any further sessions Nephrology planning to remove Vascath if Cr improving - Noncontrast head CT negative for acute intracranial process - MRI revealed chronic atrophic and small vessel ischemic changes, no acute hemorrhage or mass effect - Neurology consulted - Nephrology consulted - Monitor electrolytes, I/Os, avoid nephrotoxins and [employer] depressants - Palliative care has been consulted to assist with management of acute symptoms and with goals of care. Familia's code status has been changed to NO CODE. His Torri Felder is his designated healthcare surrogate. Palliative care currently following. (2) Acute renal failure Status: Acute Plan: Continue to monitor Cr - Nephrology following, appreciate recs - May be pre-renal or possibility of acute tubular necrosis or interstitial nephritis due to antibiotics vs infection - Urine eosinophils negative - Discontinued albumin per nephrology recs - Follow daily BMPs - Avoid nephrotoxic agents - Monitor I/Os (3) Hypertension Status: Chronic Plan: Resume PO antihypertensives - Coreg 6.25 mg po bid - Hydralazine 100 mg po q8h - Amlodipine 10 mg po daily (4) Penile swelling Status: Acute Plan: Possibly due to some dependent edema Continue Nystatin powder BID Continue Stein catheter Urology recommendations appreciated (5) GI bleed Status: Acute Plan: Continue to trend H/H GI consulted EGD/Colonoscopy 12/13 showing reflux esophagitis, hiatal hernia, colonic polyp, incomplete evaluation of the colon Recommend EGD & colonoscopy in 2-3 months Continue PPI GI signed off, will re-consult if needed Continue ferrous sulfate 325 mg po bid (6) Atrial fibrillation Status: Chronic Plan: [id number] score of 6, would benefit from anticoagulation once clinically stable. Currently rate controlled. - Not currently anticoagulated due to possibility of GI bleed and hematuria from bladder masses Continue telemetry (7) Bladder tumor Status: Acute Plan: Urology consulted and following patient. Patient's daughter had stated that he refused urologic intervention several weeks prior to admission when it was recommended by his primary care provider - Case discussed with Dr. Parham 12/10. 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 Daily BMP to monitor Cr * Baseline Cr currently unknown, last recording creatinine was 1.52 from 2016 (8) CHF (congestive heart failure) Status: Chronic Plan: Echocardiogram performed with limited visualization of the left ventricular function - Left ventricular function grossly normal BNP equivocal on admission. Clinically does not appear to be in CHF exacerbation. Medications: * Currently holding DONALD inhibitor due to acute renal failure (9) DM (diabetes mellitus) Status: Chronic Plan: - Hemoglobin A1c of 6.8% - Hold home levemir - Low dose Sliding Scale w/ Novolog, titrate as needed (10) COPD (chronic obstructive pulmonary disease) Status: Chronic Plan: Known history of COPD. 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/15 Patient has completed course of IV ABX per ID: - Unasyn 1500 mg IV q8h per ID(12/14-12/21) - Vascular surgery, Podiatry, and ID previously consulted, now signed off - Patient to follow up as outpatient in 2-3 weeks with vascular surgery pending improvement in clinical status during this hospitalization (14) UTI (urinary tract infection) Status: Resolved Plan: - Urine culture 12/06: 25-50,000 cfus Staph Aureus - Repeat urine culture 12/10 no growth final - Antibiotic course of Unasyn per ID has been completed as of 12/21 which provided adequate coverage (15) Nutrition, metabolism, and development symptoms Status: Acute Plan: Nutrition: PPN at 55 mls / hr (started 12/20), likely discontinue in 1-2 days following increased PO intake Fluids: None Electrolytes: monitor and replete as necessary DVT ppx: holding anticoagulation due to GI bleed, RLE SCD GI ppx: Protonix 40 mg IV q12h Problem Qualifiers (1) GI bleed: Qualified Code: K92.2 - Gastrointestinal hemorrhage, unspecified gastrointestinal hemorrhage type (2) DM (diabetes mellitus): Qualified Code: 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
[2016-12-28] MEDS: FAT EMULSION 20% INJ 250 ML (@10 mls/hr) IV SCH (21:58)
[2016-12-28] MEDS: CLINIMIX 4.25/5 (Cust.Renal Periph) 1000 mL- </= 42 mls/hr IV SCH ×8 (21:58)
[2016-12-28] MEDS: ATORVASTATIN 20 MG TAB PO SCH (21:58)
[2016-12-28] MEDS: TERAZOSIN HCL 1 MG CAP PO SCH (21:59)
[2016-12-29] MEDS: PANTOPRAZOLE SODIUM 40 MG VIAL IV PUSH SCH (02:00)
[2016-12-29 04:40] VITALS: BP 163/70; PULSE 68; RESP 36; TEMP 100; O2SAT 96
[2016-12-29] MEDS: hydrALAZINE HCL 50 MG TAB PO SCH (06:00)
[2016-12-29] MEDS: NYSTATIN 500,000 UNIT TAB PO SCH (06:00)
[2016-12-29] MEDS: INSULIN ASPART SUPPLEMENTAL SCALE SQ SCH (06:26)
[2016-12-29 07:25] LABS: AUTOMATED NEUTROPHIL # 18.3 TH/MM3 (1.8-7.7); BASOPHIL # 0.1 TH/MM3 (0-0.2); BASOPHIL % 0.4 % (0.0-2.0); EOSINOPHIL % 0.2 % (0.0-4.0); HEMATOCRIT 30.1 % (39.0-51.0); HEMO FLAGS DIFF FINAL; LYMPH % 2.1 % (9.0-44.0); LYMPHOCYTE # 0.4 TH/MM3 (1.0-4.8); MEAN CORPUSCULAR HEMOGLOBIN 25.6 PG (27.0-34.0); MEAN CORPUSCULAR HGB CONC 30.8 % (32.0-36.0); MONO % 9.9 % (0.0-8.0); NEUT % 87.4 % (16.0-70.0); PLATELET COUNT 184 TH/MM3 (150-450); RED BLOOD COUNT 3.63 MIL/MM3 (4.50-5.90); RED CELL DISTRIBUTION WIDTH 24.2 % (11.6-17.2)
[2016-12-29 07:37] LABS: BICARBONATE 26.8 MEQ/L (21.0-32.0); POTASSIUM 4.9 MEQ/L (3.5-5.1)
[2016-12-29] MEDS: RESP: ALBUTEROL 2.5 MG/IPRATROPIUM 0.5 MG NEB (SCH) NEB (07:59)
--- NOTE | 2016-12-29 11:19 | HHI.DS ---
Summary Note Date of : Dec 29, 2016 Time Of : 07 Admission Date Dec 06, 2016 at 20:35 Admitting Diagnosis L Foot Infection Poss Gas Gangrene; MIKE; Anemia; Dyspnea Diagnosis at Time of : (1) Metabolic encephalopathy ICD Code: G93.41 Diagnosis: Principal Brief History Per Admission Note: Mr. Kerr is a 80 yo WM who is being admitted for likely surgery and L 5th toe amputation due to cellulitis and gangrene. Pt is a poor historian (unable to recall any medical history or medications during interview ) and history provided by his GF Torri Felder. She states that about 1 month ago they noticed a "callous" on the lateral aspect of his L foot. They tried treating it with peroxide but over the next several weeks the wound began to worsen. He began to experience pain and swelling about about 4 days prior to presentation a wound formed that had purulent and bloody drainage. 1 day prior to presentation he reportedly almost fell, sliding down a wall to prevent from falling. Ms. Wild states that he did not lose consciousness. 911 was called but ultimately the patient decided to remain at home and he was brought to the ED today by Ms. Wild. Denies fevers, chills. Of note: patient has been having tea colored urine recently despite increase in fluid intake. Pt has a history of bladder cancer (surgery 3 years ago) and UTI' s. Denied dysuria Also noted to have increased abdominal girth, peripheral edema and above baseline SOB. Denied new cough, change in sputum production (normally clear and only in the AM) CBC/BMP: 12/29/16 0512 12/29/16 0512 Significant Findings Laboratory Tests Test 12/27/16 12/28/16 12/29/16 08:18 07:40 05:12 Red Blood Count 3.53 MIL/MM3 3.41 MIL/MM3 3.63 MIL/MM3 (4.50-5.90) (4.50-5.90) (4.50-5.90) Hemoglobin 9.4 GM/DL 9.0 GM/DL 9.3 GM/DL (13.0-17.0) (13.0-17.0) (13.0-17.0) Hematocrit 28.8 % 28.0 % 30.1 % (39.0-51.0) (39.0-51.0) (39.0-51.0) Mean Corpuscular Hemoglobin 26.8 PG 26.5 PG 25.6 PG (27.0-34.0) (27.0-34.0) (27.0-34.0) Red Cell Distribution Width 24.2 % 23.6 % 24.2 % (11.6-17.2) (11.6-17.2) (11.6-17.2) Platelet Count 118 TH/MM3 (150-450) Neutrophils (%) (Auto) 82.4 % 72.1 % 87.4 % (16.0-70.0) (16.0-70.0) (16.0-70.0) Lymphocytes (%) (Auto) 6.6 % 2.1 % (9.0-44.0) (9.0-44.0) Monocytes (%) (Auto) 8.3 % (0.0-8.0) 14.5 % 9.9 % (0.0-8.0) (0.0-8.0) Basophils (%) (Auto) 2.2 % (0.0-2.0) Neutrophils # (Auto) 8.1 TH/MM3 18.3 TH/MM3 (1.8-7.7) (1.8-7.7) Lymphocytes # (Auto) 0.6 TH/MM3 0.4 TH/MM3 (1.0-4.8) (1.0-4.8) Platelet Estimate LOW (NORMAL) Ovalocytes 1+ (NORMAL) Blood Urea Nitrogen 77 MG/DL (7-18) 83 MG/DL (7-18) 93 MG/DL (7-18) Creatinine 1.88 MG/DL 1.89 MG/DL 2.08 MG/DL (0.60-1.30) (0.60-1.30) (0.60-1.30) Estimat Glomerular Filtration 35 ML/MIN (>89) 34 ML/MIN (>89) 31 ML/MIN (>89) Rate Random Glucose 156 MG/DL 145 MG/DL 175 MG/DL (74-106) (74-106) (74-106) Calcium Level 8.4 MG/DL 8.1 MG/DL (8.5-10.1) (8.5-10.1) Monocytes # (Auto) 1.3 TH/MM3 2.1 TH/MM3 (0-0.9) (0-0.9) Sodium Level 135 MEQ/L (136-145) Phenytoin (Dilantin) Level 5.7 MCG/ML (10.0-20.0) White Blood Count 21.0 TH/MM3 (4.0-11.0) Mean Corpuscular Hemoglobin 30.8 % Concent (32.0-36.0) Imaging Foot x-ray 12/06: No obvious bone destruction at this time. Soft tissue emphysema is noted in and around the fifth MTP joint soft tissues. 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 Chronic and stable changes included generalized atrophy and mild periventricular white matter low attenuation characteristic of chronic small vessel ischemic change MRI brain 12/17: Chronic atrophic and small vessel ischemic changes without any evidence for acute hemorrhage or mass effect Hospital Course Podiatry was consulted given left fifth toe osteomyelitis. Patient underwent fifth toe metatarsal resection by podiatry. Bone pathology showing osteomyelitis , vascular surgery was then consulted. Patient underwent left BKA per vascular surgery on 12/15. Infectious disease was consulted, patient was started on Unasyn and completed this course while hospitalized. Stroke alert was called for the patient a few days following his left BKA. Neurology was consulted. Stroke workup was negative, CT had an MRI brain as above. Likely cause of altered mental status was metabolic encephalopathy due to acute renal failure of unknown etiology. Nephrology was consulted. Patient had a vas catheter placed and started hemodialysis as needed per recommendations of nephrology. The patient continued with dialysis as needed with some improvement of his renal function and improvement of altered mental status. The patient had failed multiple swallow studies and was needing nutrition via PPN. He later passed a swallow study per speech therapy and was taking nutrition by mouth. Hospice was consulted as the patient is not making significant progress improving clinically. The family elected to decline hospice care. Patient was noted to have bradycardia the morning of 12/29. Patient was pronounced at 07:07 on 12/29. Cause of likely metabolic encephalopathy due to acute renal failure of uncertain etiology and heart failure. Tristian Chopra MD R2 Dec 29, 2016 11:19
== END 2016-12-29 10:16 | disposition expired | DRG 239 ==
LOC: NEPE 17:15 → NEDA 20:35 → NEDH 12-07 00:45 → NEPFCDU 12-07 04:05 → N05B 12-07 16:52 → N05A 12-07 20:03 → N04B 12-20 19:03
PROVIDERS: ADMIT Family Medicine; ATTEND Family Medicine
PROC: 0QBP0ZZ Excision of Left Metatarsal, Open Approach (ICD-10-PCS; 2016-12-07)
PROC: 0Y6Y0Z3 Detachment at Left 5th Toe, Low, Open Approach (ICD-10-PCS; 2016-12-07)
PROC: 0Y6Y0Z0 Detachment at Left 5th Toe, Complete, Open Approach (ICD-10-PCS; 2016-12-07)
PROC: 0DB98ZX Excision of Duodenum, Via Natural or Artificial Opening Endoscopic, Diagnostic (ICD-10-PCS; 2016-12-13)
PROC: 0DB38ZX Excision of Lower Esophagus, Via Natural or Artificial Opening Endoscopic, Diagnostic (ICD-10-PCS; 2016-12-13)
PROC: 0DBM8ZX Excision of Descending Colon, Via Natural or Artificial Opening Endoscopic, Diagnostic (ICD-10-PCS; 2016-12-13)
PROC: 30233N1 Transfusion of Nonautologous Red Blood Cells into Peripheral Vein, Percutaneous Approach (ICD-10-PCS; 2016-12-14)
PROC: 0Y6J0Z1 Detachment at Left Lower Leg, High, Open Approach (ICD-10-PCS; principal; 2016-12-15 13:49)
PROC: 05HM33Z Insertion of Infusion Device into Right Internal Jugular Vein, Percutaneous Approach (ICD-10-PCS; 2016-12-17)
PROC: 5A1D60Z (ICD-10-PCS; 2016-12-17)
DX: E11.52 Type 2 diabetes mellitus with diabetic peripheral angiopathy with gangrene (principal); G93.41 Metabolic encephalopathy; N17.9 Acute kidney failure, unspecified; I47.2 Ventricular tachycardia; A48.0 Gas gangrene; R18.8 Other ascites; M86.172 Other acute osteomyelitis, left ankle and foot; E46 Unspecified protein-calorie malnutrition; C67.9 Malignant neoplasm of bladder, unspecified; B37.0 Candidal stomatitis; I50.9 Heart failure, unspecified; I11.0 Hypertensive heart disease with heart failure; E87.2 Acidosis; L02.612 Cutaneous abscess of left foot; K92.2 Gastrointestinal hemorrhage, unspecified; E87.1 Hypo-osmolality and hyponatremia; N39.0 Urinary tract infection, site not specified; L03.116 Cellulitis of left lower limb; E11.621 Type 2 diabetes mellitus with foot ulcer; E11.65 Type 2 diabetes mellitus with hyperglycemia; L97.529 Non-pressure chronic ulcer of other part of left foot with unspecified severity; G40.909 Epilepsy, unspecified, not intractable, without status epilepticus; I48.2 Chronic atrial fibrillation; B95.61 Methicillin susceptible Staphylococcus aureus infection as the cause of diseases classified elsewhere; E87.5 Hyperkalemia; I25.10 Atherosclerotic heart disease of native coronary artery without angina pectoris; R31.0 Gross hematuria; L03.032 Cellulitis of left toe; B95.2 Enterococcus as the cause of diseases classified elsewhere; K21.0 Gastro-esophageal reflux disease with esophagitis; K44.9 Diaphragmatic hernia without obstruction or gangrene; D12.4 Benign neoplasm of descending colon; E87.70 Fluid overload, unspecified; E11.69 Type 2 diabetes mellitus with other specified complication; D50.9 Iron deficiency anemia, unspecified; I25.2 Old myocardial infarction; N48.89 Other specified disorders of penis; E78.5 Hyperlipidemia, unspecified; I35.0 Nonrheumatic aortic (valve) stenosis; J44.9 Chronic obstructive pulmonary disease, unspecified; Z79.4 Long term (current) use of insulin; Z87.891 Personal history of nicotine dependence; Z95.5 Presence of coronary angioplasty implant and graft; Z86.73 Personal history of transient ischemic attack (TIA), and cerebral infarction without residual deficits
CPT/HCPCS: 36430; 36556; 70450; 70551; 71010; 71020; 73620; 73718; 74176; 76700; 76937; 77003; 80048; 80053; 80074; 80076; 80185; 80202; 81001; 82103; 82105; 82140; 82390; 82435; 82550; 82552; 82565; 82607; 82728; 82746; 82947; 82948; 83036; 83520; 83540; 83550; 83605; 83735; 83880; 84100; 84132; 84295; 84484; 84520; 85007; 85014; 85018; 85025; 85027; 85384; 85610; 85730; 86038; 86039; 86255; 86403; 86850; 86900; 86901; 86920; 87015; 87040; 87070; 87077; 87086; 87102; 87116; 87147; 87186; 87205; 87206; 88304; 88305; 88307; 88311; 88312; 90935; 93005; 93306; 93970; 94150; 94620; 94640; 94664; 96374; 96375; C1752; C9113; J0295; J0360; J1165; J1170; J1580; J1644; J1815; J1940; J2060; J2250; J2270; J2405; J2543; J2710; J2930; J3010; J3370; J3480; J7030; J7040; J7050; J7120; J7613; L1830; P9016; P9047